=== PATIENT | female | born 1965 | race Caucasian/White ===

== ENCOUNTER 2017-03-08 01:54 | Inpatient (IN) | payer OTHER ==
[2017-03-08 04:40] LABS: Glucose,Whole Blood 228 mg/dL (75-99)
[2017-03-08 05:00] LABS: Appearance,Urine Cloudy (Clear); Bacteria,Urine Rare /hpf; Bilirubin,Urine Negative (Negative); Glucose,Urine (UA) 4+ (Negative); Ketones,Urine Negative (Negative); Leukocyte Esterase,Urine Large (Negative); Nitrite,Urine Negative (Negative); PH, Urine 6.5 (5.0-8.0); Particle Count 11417; Protein,Urine 2+ (Negative); RBC,Urine 15 /hpf (0-5); Specific Gravity,Urine 1.011 (1.001-1.035); Squamous Epithelial Cell,Urine 1 /hpf (0-4); UA Billing (MACRO vs. MICRO) MICRO; Urobilinogen,Urine <2.0 mg/dL (<2.0); WBC,Urine 122 /hpf (0-5)
[2017-03-08 05:29] LABS: Basophils % (A) 0 %; CH 31.3; CHCM 35.3; Eosinophils # (A) 0.2 k/uL (0-0.7); Eosinophils % (A) 2 %; HCT 33.5 % (34.0-46.0); HDW 3.03; HGB 11.6 gm/dL (11.4-16.0); Luc # (Auto) 0.18; Luc % (Auto) 2; Lymphocytes # (A) 0.7 k/uL (1.0-4.8); Lymphocytes % (A) 9 %; MCH 30.9 pg (25.0-35.0); MCHC 34.7 g/dL (31.0-37.0); Mean Platelet Volume 6.5; Monocytes # (A) 0.4 k/uL (0-1.0); Monocytes % (A) 5 %; Neutrophils # (A) 6.3 k/uL (1.3-7.7); Neutrophils % (A) 81 %; RBC 3.76 m/uL (3.80-5.40); RDW 14.1 % (11.5-15.5); WBC 7.7 k/uL (3.8-10.6); WBC (Perox) 7.76
[2017-03-08] MEDS ORDERED: INSULIN REGULAR 100 UNIT in SODIUM CHLORIDE 0.9% 100 ML IV SCH (05:30)
[2017-03-08 05:37] LABS: Calcium 10.6 mg/dL (8.4-10.2); Potassium 4.8 mmol/L (3.5-5.1)
[2017-03-08 06:25] LABS: Glucose,Whole Blood 188 mg/dL (75-99)
[2017-03-08] MEDS: HYDROcodone/APAP 5-325MG 1 EACH TAB PO PRN ×4 (06:26→23:56)
[2017-03-08 06:50] LABS: Glucose,Whole Blood 168 mg/dL (75-99)
[2017-03-08] MEDS: INSULIN LISPRO (humaLOG) 300 UNIT/3 ML VIAL SQ SCH ×5 (07:38→21:41)
[2017-03-08 08:53] LABS: Glucose,Whole Blood 108 mg/dL (75-99)
[2017-03-08 09:49] LABS: Glucose,Whole Blood 113 mg/dL (75-99)
[2017-03-08] MEDS ORDERED: LORazepam 0.5 MG TAB PO PRN (10:08)
[2017-03-08 10:53] LABS: Glucose,Whole Blood 140 mg/dL (75-99)
[2017-03-08] MEDS: SERTRALINE 50 MG TAB PO SCH (11:13)
[2017-03-08] MEDS: cloNIDine HCL 0.1 MG TAB PO SCH ×2 (11:14→19:53)
[2017-03-08] MEDS: FUROSEMIDE 40 MG TAB PO SCH (11:14)
[2017-03-08] MEDS: METOPROLOL SUCCINATE (ER) 50 MG TAB.ER.24H PO SCH (11:14)
[2017-03-08 11:21] LABS: Hemoglobin A1C 12.2 % (4.2-6.1)
[2017-03-08 13:05] LABS: Glucose,Whole Blood 263 mg/dL (75-99)
[2017-03-08 14:13] LABS: Glucose,Whole Blood 248 mg/dL (75-99)
[2017-03-08 15:07] LABS: Glucose,Whole Blood 145 mg/dL (75-99)
[2017-03-08] MEDS ORDERED: HYDROmorphone 1 MG/ML 1 ML SYRINGE IVP PRN (15:16)
[2017-03-08] MEDS: hydrALAZINE HCL 25 MG TAB PO SCH ×2 (15:25→21:42)
[2017-03-08] MEDS: ALBUTEROL NEBULIZED 2.5 MG/3 ML INHALATION SCH ×2 (15:40→21:21)
[2017-03-08 17:12] LABS: Glucose,Whole Blood 106 mg/dL (75-99)
[2017-03-08] MEDS ORDERED: INSULIN GLARGINE 100 UNIT/ML 10 ML VIAL SQ SCH (18:00)
[2017-03-08] MEDS: AMPICILLIN-SULBACTAM 1.5 GM in SODIUM CHLORIDE 0.9% 50 ML IVPB SCH ×2 (19:38→23:56)
[2017-03-08] MEDS ORDERED: TEMAZEPAM 15 MG CAP PO PRN (19:42)
[2017-03-08] MEDS: ATORVASTATIN 40 MG TAB PO SCH (19:53)
[2017-03-08 20:43] LABS: C Reactive Protein 79.3 mg/L (<10.0)
[2017-03-08] MEDS: HEPARIN SODIUM,PORCINE 5,000 UNIT/ML 1 ML VIAL SQ SCH (21:41)
[2017-03-08] MEDS: NYSTATIN 100,000UNIT/GM CREAM 30 GM TUBE TOPICAL SCH (21:42)
[2017-03-08 21:51] LABS: Glucose,Whole Blood 315 mg/dL (75-99)
[2017-03-08] MEDS: HYDROmorphone 1 MG/ML 1 ML SYRINGE IVP PRN (22:30)
[2017-03-09] MEDS: ALBUTEROL NEBULIZED 2.5 MG/3 ML INHALATION SCH ×4 (02:08→21:33)
[2017-03-09] MEDS: HYDROcodone/APAP 5-325MG 1 EACH TAB PO PRN ×5 (03:24→21:11)
[2017-03-09 03:29] LABS: Glucose,Whole Blood 344 mg/dL (75-99)
[2017-03-09] MEDS: INSULIN LISPRO (humaLOG) 300 UNIT/3 ML VIAL SQ SCH ×8 (03:45→21:13)
[2017-03-09] MEDS: AMPICILLIN-SULBACTAM 1.5 GM in SODIUM CHLORIDE 0.9% 50 ML IVPB SCH ×4 (05:04→23:06)
[2017-03-09] MEDS: HYDROmorphone 1 MG/ML 1 ML SYRINGE IVP PRN ×5 (05:05→23:06)
[2017-03-09 05:37] LABS: Glucose,Whole Blood 297 mg/dL (75-99)
[2017-03-09 06:56] LABS: Glucose,Whole Blood 230 mg/dL (75-99)
[2017-03-09 06:59] LABS: CH 30.5; HCT 29.8 % (34.0-46.0); Lymphocytes # (A) 0.8 k/uL (1.0-4.8)
[2017-03-09 07:02] LABS: Basophils % (A) 0 %; CHCM 33.8; Eosinophils # (A) 0.1 k/uL (0-0.7); Eosinophils % (A) 1 %; HDW 3.07; Luc # (Auto) 0.28; Luc % (Auto) 4; Lymphocytes % (A) 10 %; MCV 90.7 fL (80.0-100.0); Mean Platelet Volume 7.2; Monocytes # (A) 0.6 k/uL (0-1.0); Monocytes % (A) 7 %; Neutrophils % (A) 78 %; RBC 3.28 m/uL (3.80-5.40); WBC 7.7 k/uL (3.8-10.6); WBC (Perox) 7.94
[2017-03-09 07:05] LABS: HGB 9.8 gm/dL (11.4-16.0)
[2017-03-09 07:07] LABS: Calcium 8.9 mg/dL (8.4-10.2); Potassium 5.3 mmol/L (3.5-5.1)
[2017-03-09] MEDS: PANTOPRAZOLE 40 MG TABLET PO SCH (07:25)
[2017-03-09] MEDS: NYSTATIN 100,000UNIT/GM CREAM 30 GM TUBE TOPICAL SCH ×2 (08:24→21:13)
[2017-03-09] MEDS: hydrALAZINE HCL 25 MG TAB PO SCH ×3 (08:24→21:12)
[2017-03-09] MEDS: SERTRALINE 50 MG TAB PO SCH (08:24)
[2017-03-09] MEDS: HEPARIN SODIUM,PORCINE 5,000 UNIT/ML 1 ML VIAL SQ SCH ×2 (08:25→21:12)
[2017-03-09] MEDS: FUROSEMIDE 40 MG TAB PO SCH (08:25)
[2017-03-09] MEDS: amLODIPine 10 MG TAB PO SCH (08:25)
[2017-03-09] MEDS: METOPROLOL SUCCINATE (ER) 50 MG TAB.ER.24H PO SCH (08:26)
[2017-03-09] MEDS: cloNIDine HCL 0.1 MG TAB PO SCH ×2 (08:26→21:12)
--- NOTE | 2017-03-09 09:00 | HP ---
DATE OF ADMISSION: CHIEF COMPLAINT: Uncontrolled diabetes mellitus and swelling of the left side of the face. HISTORY OF PRESENT ILLNESS: This 51-year-old woman with the past medical history of multiple medical problems including congestive heart failure with chronic diastolic dysfunction, history of asthma, history of non-Hodgkin's lymphoma, history of diabetes mellitus, history of anxiety, depression, history of Mantle cell lymphoma, history of acute renal failure, history of being followed by Dr. Kim in the outpatient setting apparently presented to [facility] with complaints of elevated blood sugars. The blood sugars were found to be more than 500. The patient apparently was trying to find a dentist because of the carious teeth on the left side. The patient was transferred to [facility] and subsequently started on insulin drip and the patient closely monitor. The patient had swelling of the left side of the face and as well as severe pain also. The patient unable to open the jaw completely. PAST MEDICAL HISTORY: History of asthma, history of mantle cell lymphoma, history of congestive heart failure, diabetes mellitus, hypertension, history of non-Hodgkin lymphoma, history of anxiety, depression, not otherwise specified. Medications prior to admission include home medications are: 1. Apresoline 25 mg p.o. t.i.d. 2. Catapres 0.1 mg daily. 3. Norvasc 10 mg daily. 5. Zoloft 50 mg daily. 6. Nystatin application b.i.d. 7. Toprol-XL 50 mg daily. 8. Ativan 0.5 mg b.i.d. 9. NovoLog 10 units a.c. t.i.d. 10. Lasix 40 mg daily. ALLERGIES: ZITHROMAX, LATEX, METFORMIN, RITUXIMAB, AND ACTOS. FAMILY HISTORY: History of cancer in the family. SOCIAL HISTORY: History of nicotine dependence daily. No history of alcohol intake. REVIEW OF SYSTEMS: ENT: No diminished hearing, no diminished vision. Otherwise as mentioned earlier. CARDIOVASCULAR: No angina. RESPIRATORY: As mentioned earlier. GI: No nausea. : No dysuria. NERVOUS SYSTEM: No numbness or weakness. ALLERGY/IMMUNOLOGY: As mentioned earlier. MUSCULOSKELETAL: As mentioned earlier. HEMATOLOGY: No history of anemia. ENDOCRINE: No history of diabetes or hypothyroidism. CONSTITUTIONAL: As mentioned earlier. DERMATOLOGY: Negative. RHEUMATOLOGY: Negative. PSYCHIATRY: As mentioned earlier. PHYSICAL EXAMINATION: Patient is alert and oriented x3. Pulse is 72, blood pressure 130/69, respirations 18, temperature 98.2, pulse ox 99% on room air. HEENT: Conjunctivae normal. Otherwise significant swelling and pain of the left side of the face present. Oral cavity, carious teeth present. NECK: No jugular venous distention. CARDIOVASCULAR: S1 and S2, muffled. RESPIRATORY: Breath sounds diminished at the bases. A few scattered rhonchi and crackles. ABDOMEN: Soft, nontender. No mass palpable. LEGS: No edema, no swelling. NERVOUS SYSTEM: No focal deficits. LABS: WBC 7.7, hemoglobin 11.6. Creatinine 1.5, calcium is 10.6. UA, possible urinary tract infection. ASSESSMENT: 1. Diabetes mellitus type 2, uncontrolled with a hemoglobin A1c of 12.2. 2. Significant carious teeth on the left side with facial cellulitis and severe pain. 3. Increased creatinine with chronic renal failure stage III. 4. Possible urinary tract infection. 5. Obesity with body mass index of 35.9. 6. History of asthma. 7. History of congestive heart failure with chronic diastolic dysfunction, ejection fraction 50% to 55%. 8. History of non-Hodgkin lymphoma and mantle cell lymphoma history. 9. History of diabetes mellitus type 2. 10. Hypertension, essential. 11. Anxiety, depression, not otherwise specified. 12. Continued ongoing nicotine dependence. 13. FULL CODE. RECOMMENDATIONS AND DISCUSSION: In this 51-year-old woman who presented with multiple complex medical issues, we will monitor the patient closely. Continue the current medications. Continue symptomatic treatment. Otherwise, we will initiate insulin drip and subsequently will titrated Lantus 20 units and lispro 5 units t.i.d. with scale. Otherwise, will continue the rest of the medications. DVT prophylaxis. Pain medications. I would also recommend consult Dr. Donaldson and continue to monitor. Prognosis guarded because of multiple complex medical issues. Home medications will be reconciled and further recommendations to follow. Copy of dictation forwarded to Dr. Kim who is the primary physician. Accu-Cheks before meals and at bedtime also will be used. MTDD
[2017-03-09 11:57] LABS: Glucose,Whole Blood 277 mg/dL (75-99)
--- NOTE | 2017-03-09 15:19 | XR ---
EXAMINATION TYPE: XR panorex DATE OF EXAM: 03/09/2017 3:15 PM COMPARISON: NONE HISTORY: Left face swelling TECHNIQUE: Panorex FINDINGS: Temporomandibular joints appear intact. Angles of the jaw on mandibular apex appear normal. There are a few teeth left. Large dental caries are evident. IMPRESSION: 1. No acute fracture
[2017-03-09 16:36] LABS: Glucose,Whole Blood 248 mg/dL (75-99)
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
[2017-03-09] MEDS ORDERED: INSULIN GLARGINE 100 UNIT/ML 10 ML VIAL SQ SCH (18:00)
[2017-03-09] MEDS: NICOTINE 21MG/24HR PATCH TRANSDERM SCH (18:53)
[2017-03-09 21:05] LABS: Glucose,Whole Blood 254 mg/dL (75-99)
[2017-03-09] MEDS: ATORVASTATIN 40 MG TAB PO SCH (21:12)
[2017-03-09] MEDS: CHLORHEXIDINE GLUCONATE 15 ML CUP MUCOUS MEM SCH (21:13)
--- NOTE | 2017-03-09 22:04 | CT ---
EXAMINATION TYPE: CT sinus wo con DATE OF EXAM: 03/09/2017 9:24 PM COMPARISON: NONE HISTORY: Left sided facial swelling and pain CT DLP: 577.3 mGycm CONTRAST: 0 mL of Omnipaque 300 The paranasal sinuses are examined in the axial plane at 2 mm thick sections. Reconstructed images i n the coronal plane were obtained. There is dental amalgam scatter artifact Left maxillary sinus has mucosal thickening and/or retention cyst. Mild mucosal thickening is within the anterior mid left ethmoid air cells. The sphenoid sinuses are clear. Frontal sinuses are aplas tic. The septum is evaluated. There is septal deviation to the right. The right ostiomeatal unit is patent. Left ostiomeatal unit is obstructed. Tiny bilateral td bull nilton are present. Mastoid air cells within the [id number] are clear. There is soft tissue swelling over the left periorbital region. Soft tissue swelling rheumatoid patterson es anterior to the left maxillary sinus at the cheek. This appears to be preseptal. The orbits are sy mmetrical. IMPRESSIONS: 1. Mucosal thickening with obstruction of the left ostiomeatal unit within the left maxillary sinus. Mucosal thickening is also present within the anterior mid left ethmoid air cells. 2. Preseptal cellulitis left periorbital region.
[2017-03-10] MEDS: HYDROcodone/APAP 5-325MG 1 EACH TAB PO PRN ×4 (01:57→17:13)
[2017-03-10 02:02] LABS: Glucose,Whole Blood 425 mg/dL (75-99)
[2017-03-10] MEDS: HYDROmorphone 1 MG/ML 1 ML SYRINGE IVP PRN ×5 (03:18→20:07)
[2017-03-10 05:57] LABS: Glucose,Whole Blood 461 mg/dL (75-99)
[2017-03-10] MEDS ORDERED: INSULIN LISPRO (humaLOG) 300 UNIT/3 ML VIAL SQ ONE (06:25)
[2017-03-10 06:51] LABS: Basophils % (A) 0 %; CH 30.2; CHCM 33.1; Eosinophils # (A) 0.2 k/uL (0-0.7); Eosinophils % (A) 2 %; HCT 31.8 % (34.0-46.0); HDW 3.22; HGB 10.5 gm/dL (11.4-16.0); Luc # (Auto) 0.21; Luc % (Auto) 3; Lymphocytes # (A) 0.8 k/uL (1.0-4.8); Lymphocytes % (A) 10 %; MCH 30.2 pg (25.0-35.0); MCHC 32.9 g/dL (31.0-37.0); MCV 91.7 fL (80.0-100.0); Mean Platelet Volume 7.4; Monocytes # (A) 0.5 k/uL (0-1.0); Monocytes % (A) 6 %; Neutrophils # (A) 5.9 k/uL (1.3-7.7); Neutrophils % (A) 78 %; RBC 3.47 m/uL (3.80-5.40); WBC 7.5 k/uL (3.8-10.6); WBC (Perox) 7.74
[2017-03-10] MEDS: PANTOPRAZOLE 40 MG TABLET PO SCH (06:55)
[2017-03-10] MEDS: AMPICILLIN-SULBACTAM 1.5 GM in SODIUM CHLORIDE 0.9% 50 ML IVPB SCH ×3 (06:55→20:05)
[2017-03-10] MEDS: INSULIN LISPRO (humaLOG) 300 UNIT/3 ML VIAL SQ SCH ×4 (07:15→17:06)
[2017-03-10 07:20] LABS: Calcium 8.7 mg/dL (8.4-10.2)
[2017-03-10 07:45] LABS: Potassium 6.5 mmol/L (3.5-5.1)
[2017-03-10] MEDS: hydrALAZINE HCL 25 MG TAB PO SCH ×3 (07:48→20:05)
[2017-03-10] MEDS: cloNIDine HCL 0.1 MG TAB PO SCH ×2 (07:49→20:04)
[2017-03-10] MEDS: FUROSEMIDE 40 MG TAB PO SCH (07:49)
[2017-03-10] MEDS: HEPARIN SODIUM,PORCINE 5,000 UNIT/ML 1 ML VIAL SQ SCH ×2 (07:49→20:05)
[2017-03-10] MEDS: amLODIPine 10 MG TAB PO SCH (07:49)
[2017-03-10] MEDS: CHLORHEXIDINE GLUCONATE 15 ML CUP MUCOUS MEM SCH ×2 (07:49→20:04)
[2017-03-10] MEDS: NICOTINE 21MG/24HR PATCH TRANSDERM SCH (07:50)
[2017-03-10] MEDS: SERTRALINE 50 MG TAB PO SCH (07:50)
[2017-03-10] MEDS: ALBUTEROL NEBULIZED 2.5 MG/3 ML INHALATION SCH ×3 (07:50→19:29)
[2017-03-10] MEDS: METOPROLOL SUCCINATE (ER) 50 MG TAB.ER.24H PO SCH (07:50)
[2017-03-10] MEDS: NYSTATIN 100,000UNIT/GM CREAM 30 GM TUBE TOPICAL SCH ×2 (07:50→20:05)
[2017-03-10] MEDS ORDERED: SODIUM BICARB 8.4% 50 ML SYR (1 MEQ/ML) IV ONE ×2 (08:06→17:43)
[2017-03-10] MEDS ORDERED: CALCIUM GLUCONATE 1,000 MG in SODIUM CHLORIDE 0.9% 100 ML IVPB ONE ×2 (08:06→18:15)
[2017-03-10] MEDS ORDERED: INSULIN REGULAR 100 UNIT/ML VIAL IV ONE ×2 (08:06→18:00)
[2017-03-10] MEDS ORDERED: SODIUM POLYSTYRENE SULFONATE 15 GM/60 ML BOTTLE PO ONE ×2 (08:06→17:43)
[2017-03-10] MEDS ORDERED: INSULIN REGULAR 100 UNIT in SODIUM CHLORIDE 0.9% 100 ML IV SCH (08:15)
[2017-03-10 09:32] LABS: Glucose,Whole Blood 312 mg/dL (75-99)
--- NOTE | 2017-03-10 10:56 | PN ---
DATE OF SERVICE: 03/09/2017 This is a 51-year-old woman who was admitted with significant uncontrolled diabetes mellitus and significant infection of the facial cellulitis on the right side. She is being closely monitored. Patient is on broad-spectrum IV antibiotics. The patient also had some periorbital swelling on the left side. Sugars are still high at 277, creatinine 2.3. The patient also has multiple other back and abnormalities also. There is some significant difficulty in opening the jaw. PAST MEDICAL HISTORY: Reviewed. REVIEW OF SYSTEMS: ENT: As mentioned earlier. CARDIOVASCULAR: No angina. RESPIRATORY: As Mentioned. GI: No nausea. : No dysuria. ENDOCRINE: As mentioned. Current medications are reviewed and include: 1. [place] 5 mg every 4 p.r.n. 2. Ventolin 2.5 every 6 p.r.n. 3. Norvasc 10 mg daily. 4. Unasyn 1.5 every 6. 5. Lipitor 40 mg daily. 6. Catapres 0.1 p.o. b.i.d. 7. Lasix 40 mg daily. 8. Heparin subcu b.i.d. 9. Lopressor 125 mg q.i.d. 10. Dilaudid 0.5 mg every 4 hours. 11. Lantus 10 units subcu daily. 12. Meloxicam. 13. Ativan 0.5 mg b.i.d. p.r.n. 14. Toprol-XL 50 mg daily. 15. Protonix 40 mg daily. 16. Zoloft 50 mg daily. 17. Rocephin 50 mg at bedtime p.r.n. PHYSICAL EXAM: Alert, oriented x3. Pulse 72, blood pressure 140/80, respirations 18, temperature 98.8, pulse ox is 98% on room air. HEENT: Conjunctivae normal. Significant swelling and tenderness on the left side of the face and some periorbital swelling also present. NECK: No JVD. CARDIOVASCULAR: S1 and S2 muffled. LUNGS: Breath sounds are diminished at the bases. Few scattered rhonchi. LYMPHATIC: No lymphadenopathy. ABDOMEN: Soft, nontender. No mass palpable. EXTREMITIES: Legs, no edema. NERVOUS SYSTEMS: As mentioned. Moves all limbs with no focal deficits. LYMPHATICS: No lymph nodes palpable in the neck. axillae or groin. SKIN: As mentioned earlier. LABS: WBC 7, hemoglobin 10, sodium 130, potassium ntd. Accucheks noted. ASSESSMENT: 1. Diabetes mellitus type 2, uncontrolled, with hemoglobin A1c of 12.2. 2. Significant carious teeth on the left side with facial cellulitis and severe pain. 3. Increased creatinine with chronic renal failure stage III. 4. Urinary tract infection. 5. Obesity with body mass index of surface 35.9. 6. History of asthma. 7. History of congestive heart failure with chronic diastolic dysfunction, ejection 50% to 55%. 8. History of non-Hodgkin lymphoma mantle cell lymphoma history. 9. History of diabetes type 2. 10. Hypertension, essential. 11. Anxiety, depression, not otherwise specified. 12. Continued ongoing nicotine dependence. 13. FULL CODE. RECOMMENDATIONS: Recommend to continue current medications, continue symptomatic treatment, continue with broad-spectrum IV antibiotics. Obtain the cultures. Otherwise, infectious disease and oromaxillary is consulted. Continue to monitor. Further recommendations to follow. Panoramic x-rays have been ordered which showed no acute fracture at this time. See orders for further details. Further recommendations to follow. The patient is on 20 units of Lantus daily, I would increase the dose to 30 units and continue to monitor. MTDD
[2017-03-10 11:15] LABS: Glucose,Whole Blood 104 mg/dL (75-99)
[2017-03-10 13:17] LABS: Glucose,Whole Blood 199 mg/dL (75-99)
[2017-03-10 15:02] VITALS: BMI 36.6
[2017-03-10 15:39] LABS: Glucose,Whole Blood 197 mg/dL (75-99)
--- NOTE | 2017-03-10 15:57 | CONS ---
DATE OF CONSULTATION: CHIEF COMPLAINT: Swelling of the left lid and cheek for the last one week. HISTORY OF PRESENT ILLNESS: The patient has tenderness and swelling of the left cheek area and orbit area for the last one week getting worse. PAST MEDICAL HISTORY: The patient is diabetic. EYE EXAMINATION: Vision is 20/20 over 40 both eyes reading glasses. Extraocular movements full. Confrontation normal. Pupils equal, and reactive. Tension ( ) was 18 mmHg right eye and 17 mmHg left eye. Lens: 1+ ( ). Retina shows no vasculitis or vitritis or hemorrhage. Posterior pole for diabetic is obviously not well checked. The patient is bedridden. Needs slit lamp to see details of the macula. ASSESSMENT: 1. Left preseptal cellulitis. 2. Left cheek swelling, possible maxillary sinusitis. 3. Diabetes without retinopathy. PLAN: I agree with intravenous antibiotics. I ordered CT scan of the orbit and sinus to rule out mucor mycosis or orbital abscess. I will reexamine the patient in the office in a few days.
[2017-03-10 16:56] LABS: Potassium 6.1 mmol/L (3.5-5.1)
[2017-03-10 17:13] LABS: Glucose,Whole Blood 224 mg/dL (75-99)
--- NOTE | 2017-03-10 17:49 | P.PN ---
Subjective Date of service 03/10/2017. Progress note being dictated for Dr. Rust. Interval history: Is a 51-year-old female admitted with uncontrolled diabetes mellitus type 2 with hemoglobin A1c of 12.2, significant carious teeth on the left with facial cellulitis and severe pain, acute on chronic renal failure, UTI and multiple other medical issues. Maintained on Unasyn as per infectious disease. Afebrile, normal WBC. Consuming 100% of mechanical soft, low potassium, consistent carb diet. Lantus dose increased yesterday, blood sugars remain uncontrolled,returned to insulin drip. Elevated potassium of 6.5, orders given. Denies nausea, vomiting.Telemetry sinus rhythm. Denies chest pain , palpitations. Denies increase in shortness of breath. Evaluated by fireperson, recommendations noted. Sinus CT noted, reporting left maxillary sinus thickening, mild mucosal thickening within the anterior left ethmoid, preseptal cellulitis left periorbital, septal deviation to the right. Objective - Vital Signs Vital signs: Vital Signs Temp 97.6 F 03/10/17 07:47 Pulse 66 03/10/17 11:19 Resp 16 03/10/17 11:17 BP 116/68 03/10/17 11:17 Pulse Ox 98 03/10/17 11:17 Intake & Output 03/09/17 03/10/17 03/10/17 18:59 06:59 18:59 Intake Total 580 750 136.433 Output Total 200 Balance 380 750 136.433 Weight 86.5 kg 88 kg Intake: IV 100 saline 100 Intake, IV Titration 100 150 16.433 Amount Ampicillin-Sulbactam 1.5 100 150 gm In Sodium Chloride 0.9 % 50 ml @ 100 mls/hr IVPB Q6HR [facility] Rx#:[id number] Insulin Regular 100 unit 16.433 In Sodium Chloride 0.9% 100 ml @ Titrate IV .Q0M [facility] Rx#:[id number] Oral 480 500 120 Output: Urine 200 Other: Voiding Method Toilet Toilet Toilet # Voids 1 1 - Exam PHYSICAL EXAM: VITAL SIGNS: [As above] GENERAL: [Sitting up at side of bed, no acute distress] HEENT: [Pupils equal conjunctiva normal. Left Periorbital edema and left sided facial edema, tenderness improving] NECK: [Supple, no JVD] RESPIRATORY EFFORT:[Normal] LUNGS: [Bilateral bases diminished, scattered rhonchi throughout, no wheezes or crackles] CARDIOVASCULAR[regular S1 and S2, no edema] GI: [Abdomen soft, nondistended, nontender, positive bowel sounds.] PSYCH: [Alert and oriented -3, mood and affect normal.] SKIN: As mentioned above NEURO: Gross neurological examination did not reveal any focal deficits, moves all 4 extremities, strength and sensation grossly intact. Microbiology 03/08/17 16:21 Urine,Voided Urine Culture - Final - Labs CBC & Chem 7: 03/10/17 06:25 03/10/17 16:08 Labs: Abnormal Lab Results - Last 24 Hours (Table) 03/09/17 03/09/17 03/10/17 Range/Units 16:35 21:01 01:56 RBC (3.80-5.40) m/uL Hgb (11.4-16.0) gm/dL Hct (34.0-46.0) % Lymphocytes # (1.0-4.8) k/uL Sodium (137-145) mmol/L Potassium (3.5-5.1) mmol/L BUN (7-17) mg/dL Creatinine (0.52-1.04) mg/dL Glucose (74-99) mg/dL POC Glucose (mg/dL) 248 H 254 H 425 H (75-99) mg/dL 03/10/17 03/10/17 03/10/17 Range/Units 05:55 06:22 06:25 RBC 3.47 L (3.80-5.40) m/uL Hgb 10.5 L (11.4-16.0) gm/dL Hct 31.8 L (34.0-46.0) % Lymphocytes # 0.8 L (1.0-4.8) k/uL Sodium 134 L (137-145) mmol/L Potassium 6.5 H* (3.5-5.1) mmol/L BUN 57 H (7-17) mg/dL Creatinine 2.03 H (0.52-1.04) mg/dL Glucose 453 H* (74-99) mg/dL POC Glucose (mg/dL) 461 H (75-99) mg/dL 03/10/17 03/10/17 03/10/17 Range/Units 09:19 11:02 13:05 RBC (3.80-5.40) m/uL Hgb (11.4-16.0) gm/dL Hct (34.0-46.0) % Lymphocytes # (1.0-4.8) k/uL Sodium (137-145) mmol/L Potassium (3.5-5.1) mmol/L BUN (7-17) mg/dL Creatinine (0.52-1.04) mg/dL Glucose (74-99) mg/dL POC Glucose (mg/dL) 312 H 104 H 199 H (75-99) mg/dL Microbiology - Last 24 Hours (Table) 03/08/17 16:21 Urine Culture - Final Urine,Voided Assessment and Plan Plan: 1 [diabetes mellitus type 2, uncontrolled, hemoglobin A1c of 12.2]. 2. Significant carious teeth on the left side with facial cellulitis and severe pain. Left preseptal cellulitis, possibly maxillary sinusitis per CT 3. Acute on chronic renal failure, stage III. 4. UTI. 5. Obesity, BMI 36.7. 6. History of chronic intermittent asthma. 7. Chronic congestive heart failure, diastolic dysfunction, EF 50-55%]. 8. Non-Hodgkin's lymphoma, mantle cell lymphoma 9. Essential hypertension 10. Anxiety, depression, not otherwise specified 11. Continued ongoing nicotine abuse 12. Hyperkalemia Plan: Continue on current medication regime ,monitoring and symptomatic treatment. Regular insulin, calcium gluconate, D50, bicarb, Kayexalate, ordered regarding hyperkalemia with repeat electrolytes at 1600. Low potassium diet. Maintain insulin drip. Close monitoring of Accu-Cheks. Antibiotics as per infectious disease. Consult in place with Dr. Rizo, oral surgery, with recommendations pending.Prognosis guarded given multiple complex medical issues. The impression and plan of care has been dictated as directed. .: I performed a H&P examination of this patient and discussed the same with the dictator. I agree with the dictator's note. Any additional findings/opinions/ etc. will be noted.
[2017-03-10 18:53] LABS: Glucose,Whole Blood 204 mg/dL (75-99)
[2017-03-10] MEDS: ATORVASTATIN 40 MG TAB PO SCH (20:04)
[2017-03-10 20:39] LABS: Glucose,Whole Blood 225 mg/dL (75-99)
--- NOTE | 2017-03-10 22:44 | PN ---
DATE OF SERVICE: 03/10/2017 This 51-year-old woman who was admitted with significant facial cellulitis, also had uncontrolled diabetes mellitus as well. The patient is back on insulin drip. Seen and evaluated the patient with the nurse practitioner. Please refer to the nurse practitioner's notes and impression documented as a scribe for further information. Sinus CT showed preseptal cellulitis on the left side and left cheek, swelling possible maxillary sinusitis and the patient also had diabetes without retinopathy. Continue the antibiotics. See orders for further details. Closely follow with oral surgery as well as infectious disease. Guarded prognosis. Further recommendations to follow.
[2017-03-10 22:56] LABS: Glucose,Whole Blood 217 mg/dL (75-99)
[2017-03-11 00:55] LABS: Glucose,Whole Blood 245 mg/dL (75-99)
[2017-03-11] MEDS: HYDROmorphone 1 MG/ML 1 ML SYRINGE IVP PRN ×2 (01:09→06:53)
[2017-03-11 03:02] LABS: Glucose,Whole Blood 178 mg/dL (75-99)
[2017-03-11] MEDS: HYDROcodone/APAP 5-325MG 1 EACH TAB PO PRN ×3 (04:27→21:43)
[2017-03-11 05:01] LABS: Glucose,Whole Blood 187 mg/dL (75-99)
[2017-03-11 06:15] LABS: Basophils % (A) 0 %; CH 30.3; CHCM 34.3; Eosinophils # (A) 0.1 k/uL (0-0.7); Eosinophils % (A) 2 %; HCT 28.1 % (34.0-46.0); HDW 3.29; HGB 9.9 gm/dL (11.4-16.0); Luc % (Auto) 3; Lymphocytes # (A) 0.7 k/uL (1.0-4.8); Lymphocytes % (A) 10 %; MCH 31.2 pg (25.0-35.0); MCHC 35.1 g/dL (31.0-37.0); MCV 88.7 fL (80.0-100.0); Mean Platelet Volume 7.7; Monocytes # (A) 0.4 k/uL (0-1.0); Monocytes % (A) 6 %; Neutrophils # (A) 5.6 k/uL (1.3-7.7); Neutrophils % (A) 79 %; RBC 3.16 m/uL (3.80-5.40); RDW 13.9 % (11.5-15.5); WBC 7.1 k/uL (3.8-10.6); WBC (Perox) 7.61
[2017-03-11] MEDS: PANTOPRAZOLE 40 MG TABLET PO SCH (06:53)
[2017-03-11 07:09] LABS: Glucose,Whole Blood 143 mg/dL (75-99)
[2017-03-11] MEDS: INSULIN LISPRO (humaLOG) 300 UNIT/3 ML VIAL SQ SCH ×5 (07:26→21:42)
[2017-03-11] MEDS: NYSTATIN 100,000UNIT/GM CREAM 30 GM TUBE TOPICAL SCH ×2 (08:33→21:43)
[2017-03-11] MEDS: SERTRALINE 50 MG TAB PO SCH (08:33)
[2017-03-11] MEDS: hydrALAZINE HCL 25 MG TAB PO SCH ×3 (08:33→21:41)
[2017-03-11] MEDS: amLODIPine 10 MG TAB PO SCH (08:33)
[2017-03-11] MEDS: METOPROLOL SUCCINATE (ER) 50 MG TAB.ER.24H PO SCH (08:33)
[2017-03-11] MEDS: NICOTINE 21MG/24HR PATCH TRANSDERM SCH ×2 (08:33→08:34)
[2017-03-11] MEDS: cloNIDine HCL 0.1 MG TAB PO SCH ×2 (08:33→21:41)
[2017-03-11] MEDS: FUROSEMIDE 40 MG TAB PO SCH (08:34)
[2017-03-11] MEDS: HEPARIN SODIUM,PORCINE 5,000 UNIT/ML 1 ML VIAL SQ SCH ×2 (08:34→21:42)
[2017-03-11] MEDS: CHLORHEXIDINE GLUCONATE 15 ML CUP MUCOUS MEM SCH ×2 (08:34→21:53)
--- NOTE | 2017-03-11 08:36 | CONS ---
DATE OF CONSULTATION: Ms. Melendez is a 51-year-old woman who presented to the hospital on 03/08/2017 with complaints of significant pain to her mouth, with some evidence of extensive elevated blood sugar as well as significant oral abscess. She has been seen by Oral Surgery and has been offered an outpatient surgical intervention for removal of the fractured carious tooth that is the source of recurrent infection. Her pain is improved today. She is eating her full dinner with no difficulties. Trismus is improved. She is having no further fever, chills, rigors, or sweats. On the exam, she is a pleasant obese woman who seems to be somewhat comfortable. She is afebrile and hemodynamically stable. Please refer to the nursing notes for vital signs. The exam reveals to be nonicteric. Conjunctivae are pink and moist. Nasal mucosa are grossly intact. She does not have thrush. There is evidence of full mouth opening and she is chewing her dinner without any difficulties upon arrival into the room. She is having no difficulty with swallowing. She still has some tenderness on the left maxillary area. No expressible purulence is seen. Lungs have expiratory wheezes. No riley bronchial sounds. Heart is regular. The abdomen is obese but benign. Upper extremities are intact. IV site looks well. Lower extremity edema. The rest of the skin is without rash. No positive cultures are noted. At this point in time, Ms. Emilie Melendez has the difficulty with the odontogenic infection with significant hyperglycemia with markedly low blood sugars and an hemoglobin A1c of greater than 14. Average blood sugars are very high. She is again educated about the importance of her glucose control. She is receiving intravenous antibiotic therapy at this point in time with Unasyn and is having improvement. If she improves, this can be transitioned to oral Augmentin to complete her course of therapy. She will need to follow up with the oral surgeon in the outpatient setting for extraction of the infected tooth. She relates that she would like to have all her teeth extracted. I told her that she will need to discuss this with the oral surgeon because there would be distinct costs associated with that, but would be able to certainly help her with the currently grossly infected tooth she has at this time.
[2017-03-11] MEDS: AMPICILLIN-SULBACTAM 1.5 GM in SODIUM CHLORIDE 0.9% 50 ML IVPB SCH ×2 (08:51→21:48)
[2017-03-11 09:03] LABS: Glucose,Whole Blood 202 mg/dL (75-99)
[2017-03-11 09:20] LABS: Calcium 8.9 mg/dL (8.4-10.2); Potassium 5.4 mmol/L (3.5-5.1)
[2017-03-11] MEDS ORDERED: SODIUM POLYSTYRENE SULFONATE 15 GM/60 ML BOTTLE PO STA (09:32)
[2017-03-11] MEDS: ALBUTEROL NEBULIZED 2.5 MG/3 ML INHALATION SCH ×3 (09:56→19:25)
[2017-03-11 11:01] LABS: Glucose,Whole Blood 130 mg/dL (75-99)
[2017-03-11] MEDS ORDERED: INSULIN GLARGINE 100 UNIT/ML 10 ML VIAL SQ ONE (12:29)
[2017-03-11 13:56] LABS: Hemoglobin A1C 11.9 % (4.2-6.1)
--- NOTE | 2017-03-11 16:30 | P.PN ---
Subjective Date of service . Progress note being dictated for Dr. Rust. Interval history: Is a 51-year-old female admitted with uncontrolled diabetes mellitus type 2 with hemoglobin A1c of 12.2, significant carious teeth on the left with facial cellulitis and severe pain, acute on chronic renal failure, UTI and multiple other medical issues. Maintained on Unasyn as per infectious disease. WBC WNL, Afebrile. Potassium improving, down to 5.4 .Good DIet intake , denies nausea, vomiting.Insulin drip weaned off and now on Lantus with Humalog sliding scale Telemetry sinus rhythm. Denies chest pain, palpitations, or increasing shortness of breath. Objective - Vital Signs Vital signs: Vital Signs Temp 97.8 F 03/11/17 04:00 Pulse 75 03/11/17 04:00 Resp 17 03/11/17 08:00 BP 148/77 03/11/17 04:00 Pulse Ox 99 03/11/17 04:00 Intake & Output 03/10/17 03/11/17 03/11/17 18:59 06:59 18:59 Intake Total 559.083 450.483 451.767 Output Total 550 Balance 559.083 -99.517 451.767 Weight 88 kg 90.2 kg Intake: IV 119 Insulin Regular 100 unit 9 In Sodium Chloride 0.9% 100 ml @ Titrate IV .Q0M [facility] Rx#:[id number] saline 110 Intake, IV Titration 79.083 31.483 7.767 Amount Ampicillin-Sulbactam 1.5 50 gm In Sodium Chloride 0.9 % 50 ml @ 100 mls/hr IVPB Q12H [facility] Rx#:[id number] Insulin Regular 100 unit 29.083 31.483 7.767 In Sodium Chloride 0.9% 100 ml @ Titrate IV .Q0M [facility] Rx#:[id number] Oral 480 300 444 Output: Urine 550 Other: Voiding Method Toilet Toilet Toilet # Voids 1 - Exam PHYSICAL EXAM: VITAL SIGNS: [As above] GENERAL: [Sitting up in bed, no acute distress] HEENT: [Pupils equal conjunctiva normal. Left Periorbital edema and left sided facial edema, tenderness, continues to improve, no thrush] NECK: [Supple, no JVD] RESPIRATORY EFFORT:[Normal] LUNGS: [Bilateral bases diminished, scattered rhonchi throughout, no wheezes or crackles] CARDIOVASCULAR[regular S1 and S2, no edema] GI: [Abdomen soft, nondistended, nontender, positive bowel sounds.] PSYCH: [Alert and oriented -3, mood and affect normal.] SKIN: As mentioned above NEURO: Gross neurological examination did not reveal any focal deficits, moves all 4 extremities, strength and sensation grossly intact. Microbiology 03/08/17 16:21 Urine,Voided Urine Culture - Final - Labs CBC & Chem 7: 03/11/17 06:03 03/11/17 06:03 Labs: Abnormal Lab Results - Last 24 Hours (Table) 03/10/17 03/10/17 03/10/17 Range/Units 16:08 17:00 18:40 RBC (3.80-5.40) m/uL Hgb (11.4-16.0) gm/dL Hct (34.0-46.0) % Lymphocytes # (1.0-4.8) k/uL Sodium 136 L (137-145) mmol/L Potassium 6.1 H (3.5-5.1) mmol/L BUN (7-17) mg/dL Creatinine (0.52-1.04) mg/dL Glucose (74-99) mg/dL POC Glucose (mg/dL) 224 H 204 H (75-99) mg/dL Hemoglobin A1c (4.2-6.1) % 03/10/17 03/10/17 03/11/17 Range/Units 20:37 22:54 00:54 RBC (3.80-5.40) m/uL Hgb (11.4-16.0) gm/dL Hct (34.0-46.0) % Lymphocytes # (1.0-4.8) k/uL Sodium (137-145) mmol/L Potassium (3.5-5.1) mmol/L BUN (7-17) mg/dL Creatinine (0.52-1.04) mg/dL Glucose (74-99) mg/dL POC Glucose (mg/dL) 225 H 217 H 245 H (75-99) mg/dL Hemoglobin A1c (4.2-6.1) % 03/11/17 03/11/17 03/11/17 Range/Units 03:01 05:00 06:03 RBC 3.16 L (3.80-5.40) m/uL Hgb 9.9 L (11.4-16.0) gm/dL Hct 28.1 L (34.0-46.0) % Lymphocytes # 0.7 L (1.0-4.8) k/uL Sodium (137-145) mmol/L Potassium (3.5-5.1) mmol/L BUN (7-17) mg/dL Creatinine (0.52-1.04) mg/dL Glucose (74-99) mg/dL POC Glucose (mg/dL) 178 H 187 H (75-99) mg/dL Hemoglobin A1c (4.2-6.1) % 03/11/17 03/11/17 03/11/17 Range/Units 06:03 06:03 07:04 RBC (3.80-5.40) m/uL Hgb (11.4-16.0) gm/dL Hct (34.0-46.0) % Lymphocytes # (1.0-4.8) k/uL Sodium (137-145) mmol/L Potassium 5.4 H (3.5-5.1) mmol/L BUN 58 H (7-17) mg/dL Creatinine 1.66 H (0.52-1.04) mg/dL Glucose 147 H (74-99) mg/dL POC Glucose (mg/dL) 143 H (75-99) mg/dL Hemoglobin A1c 11.9 H (4.2-6.1) % 03/11/17 03/11/17 Range/Units 09:01 10:59 RBC (3.80-5.40) m/uL Hgb (11.4-16.0) gm/dL Hct (34.0-46.0) % Lymphocytes # (1.0-4.8) k/uL Sodium (137-145) mmol/L Potassium (3.5-5.1) mmol/L BUN (7-17) mg/dL Creatinine (0.52-1.04) mg/dL Glucose (74-99) mg/dL POC Glucose (mg/dL) 202 H 130 H (75-99) mg/dL Hemoglobin A1c (4.2-6.1) % Assessment and Plan Plan: 1 [diabetes mellitus type 2, uncontrolled, hemoglobin A1c of 12.2]. 2. Significant carious teeth on the left side with facial cellulitis and severe pain. Left preseptal cellulitis, possibly maxillary sinusitis per CT 3. Acute on chronic renal failure, stage III. 4. UTI. 5. Obesity, BMI 36.7. 6. History of chronic intermittent asthma. 7. Chronic congestive heart failure, diastolic dysfunction, EF 50-55%]. 8. Non-Hodgkin's lymphoma, mantle cell lymphoma 9. Essential hypertension 10. Anxiety, depression, not otherwise specified 11. Continued ongoing nicotine abuse 12. Hyperkalemia Plan: Continue on current medication regime ,monitoring and symptomatic treatment. Maintain Low potassium diet. Insulin drip discontinued, Lantus initiated with sliding scale and pre-meal insulin. Close monitoring of Accu- Cheks. Antibiotics as per infectious disease. Oral surgery consult in place with recommendations pending.Prognosis guarded given multiple complex medical issues. The impression and plan of care has been dictated as directed. : I performed a H&P examination of this patient and discussed the same with the dictator. I agree with the dictator's note. Any additional findings/opinions/ etc. will be noted.
[2017-03-11 17:41] LABS: Glucose,Whole Blood 277 mg/dL (75-99)
[2017-03-11 20:35] LABS: Glucose,Whole Blood 201 mg/dL (75-99)
[2017-03-11] MEDS ORDERED: INSULIN GLARGINE 100 UNIT/ML 10 ML VIAL SQ SCH (21:00)
--- NOTE | 2017-03-11 21:12 | PN ---
DATE OF SERVICE: 03/11/2017 This 51-year-old woman was admitted with significant cellulitis of the left side of the face. She also had uncontrolled blood sugars. She is on broad-spectrum IV antibiotics. Seen and evaluated the patient along with the nurse practitioner. Please refer to the nurse practitioner's notes and impressions documented as a scribe for further information. Prognosis guarded. Further recommendations to follow.
[2017-03-11] MEDS: ATORVASTATIN 40 MG TAB PO SCH (21:41)
[2017-03-11 23:03] VITALS: TEMP 97.5
[2017-03-12] MEDS: HYDROcodone/APAP 5-325MG 1 EACH TAB PO PRN ×3 (06:30→15:51)
[2017-03-12 06:58] LABS: Glucose,Whole Blood 309 mg/dL (75-99)
[2017-03-12 08:10] VITALS: BP 146/71; RESP 16
[2017-03-12 08:20] LABS: Basophils % (A) 1 %; CH 30.5; CHCM 34.5; Eosinophils # (A) 0.2 k/uL (0-0.7); Eosinophils % (A) 4 %; HCT 27.9 % (34.0-46.0); HDW 3.31; HGB 9.6 gm/dL (11.4-16.0); Luc # (Auto) 0.17; Luc % (Auto) 3; Lymphocytes # (A) 0.7 k/uL (1.0-4.8); Lymphocytes % (A) 12 %; MCH 30.4 pg (25.0-35.0); MCHC 34.3 g/dL (31.0-37.0); MCV 88.7 fL (80.0-100.0); Mean Platelet Volume 7.3; Monocytes # (A) 0.3 k/uL (0-1.0); Monocytes % (A) 6 %; Neutrophils # (A) 4.2 k/uL (1.3-7.7); Neutrophils % (A) 75 %; RBC 3.15 m/uL (3.80-5.40); RDW 13.8 % (11.5-15.5); WBC 5.5 k/uL (3.8-10.6); WBC (Perox) 5.86
[2017-03-12 08:30] LABS: Calcium 8.7 mg/dL (8.4-10.2); Potassium 4.9 mmol/L (3.5-5.1)
[2017-03-12] MEDS: ALBUTEROL NEBULIZED 2.5 MG/3 ML INHALATION SCH ×2 (08:49→13:33)
[2017-03-12 08:53] VITALS: PULSE 64
[2017-03-12] MEDS: INSULIN LISPRO (humaLOG) 300 UNIT/3 ML VIAL SQ SCH ×5 (09:39→13:19)
[2017-03-12] MEDS: NICOTINE 21MG/24HR PATCH TRANSDERM SCH (09:39)
[2017-03-12] MEDS: NYSTATIN 100,000UNIT/GM CREAM 30 GM TUBE TOPICAL SCH (09:40)
[2017-03-12] MEDS: SERTRALINE 50 MG TAB PO SCH (09:40)
[2017-03-12] MEDS: PANTOPRAZOLE 40 MG TABLET PO SCH (09:42)
[2017-03-12] MEDS: amLODIPine 10 MG TAB PO SCH (09:42)
[2017-03-12] MEDS: CHLORHEXIDINE GLUCONATE 15 ML CUP MUCOUS MEM SCH (09:43)
[2017-03-12] MEDS: cloNIDine HCL 0.1 MG TAB PO SCH (09:43)
[2017-03-12] MEDS: hydrALAZINE HCL 25 MG TAB PO SCH ×2 (09:44→15:50)
[2017-03-12] MEDS: METOPROLOL SUCCINATE (ER) 50 MG TAB.ER.24H PO SCH (09:44)
[2017-03-12] MEDS: FUROSEMIDE 40 MG TAB PO SCH (09:44)
[2017-03-12] MEDS: HEPARIN SODIUM,PORCINE 5,000 UNIT/ML 1 ML VIAL SQ SCH (09:44)
[2017-03-12] MEDS: AMPICILLIN-SULBACTAM 1.5 GM in SODIUM CHLORIDE 0.9% 50 ML IVPB SCH (10:24)
[2017-03-12 10:59] LABS: Glucose,Whole Blood 321 mg/dL (75-99)
--- NOTE | 2017-03-12 15:25 | P.DS ---
Providers Date of admission: 03/08/17 04:02 Expected date of discharge: 03/12/17 Attending physician: Erich Rust Consults: 03/08/17 15:14 Consult Physician Urgent Consulting Provider: Clinton Donaldson Consult Reason/Comments: cellulitis, face Do you want consulting provider notified?: Yes 03/08/17 19:55 Consult Physician Routine Consulting Provider: Gianna Hunter Consult Reason/Comments: orbital eye swelling Do you want consulting provider notified?: Yes, Notify in am 03/09/17 13:57 Consult Physician Urgent Consulting Provider: Josr Rizo Consult Reason/Comments: dental infection. Do you want consulting provider notified?: Yes Primary care physician: Stated None Dr. Kim Hospital Course: 1 [Diabetes mellitus type 2, uncontrolled, hemoglobin A1c of 12.2]. 2. Significant carious teeth on the left side with facial cellulitis and severe pain. Left preseptal cellulitis, possibly maxillary sinusitis per CT. 3. Acute on chronic renal failure, stage III. 4. UTI. 5. Obesity, BMI 36.7. 6. History of chronic intermittent asthma. 7. Chronic congestive heart failure, diastolic dysfunction, EF 50-55%]. 8. Non-Hodgkin's lymphoma, mantle cell lymphoma 9. Essential hypertension 10. Anxiety, depression, not otherwise specified 11. Continued ongoing nicotine abuse Hospital course : Thiss a 51-year-old female presented to [facility] with blood sugars greater than 500, left-sided facial swelling with carious teeth. Transferred to [facility], admitted with uncontrolled diabetes mellitus type 2 with hemoglobin A1c of 12.2, significant carious teeth on the left with facial cellulitis and severe pain, acute on chronic renal failure, UTI and multiple other medical issues. Multiple consults : Oral surgery, ophthalmology and infectious disease. Panorex reported acute fracture , large dental caries. Maintained on Unasyn as per infectious disease. Patient does not have difficulty eating, consuming 100%. Initially required insulin drip which has been weaned off and now on Lantus insulin and pre-meal Humalog insulin. Accu-Chek currently down to 179. Reinforced the importance of maintaining control of diabetes, compliancy with med regime. Renal function during admission elevated as high as 2.3, currently down to 1.45. Hyperkalemic on admission, now within normal limits . Evaluated by linux vmware administrator, recommendations noted. Sinus CT noted, reporting left maxillary sinus thickening , mild mucosal thickening within the anterior left ethmoid, preseptal cellulitis left periorbital, septal deviation to the right. Outpatient appointment scheduled with oral surgery, linux vmware administrator, and PCP. Patient has been cleared by consults for discharge. Patient is being discharged home in a stable condition with guarded prognosis. The impression and plan of care has been dictated as directed. : I performed a H&P examination of this patient and discussed the same with the dictator. I agree with the dictator's note. Any additional findings/opinions/ etc. will be noted. Patient Condition at Discharge: Stable Plan - Discharge Summary New Discharge Prescriptions: Amoxicillin/Potassium Clav [Augmentin 500-125 Tablet] 1 tab PO Q12HR #14 tab Atorvastatin [Lipitor] 40 mg PO HS #30 tab Insulin Glargine,Hum.rec.anlog [Lantus Solostar] 50 unit SQ HS #1 pen Insulin Lispro [humaLOG Kwikpen] 10 unit SQ AC-TID #1 insuln.pen Nicotine 21Mg/24Hr Patch [Habitrol] 1 patch TRANSDERM DAILY #30 patch Discharge Medication List Metoprolol Succinate [Toprol XL] 50 mg PO DAILY 03/28/16 [History] Albuterol Nebulized [Ventolin Nebulized] 2.5 mg INHALATION RT-QID 07/11/16 [ History] amLODIPine [Norvasc] 10 mg PO DAILY #30 tab 07/19/16 [Rx] hydrALAZINE HCL [Apresoline] 25 mg PO TID #90 tab 07/19/16 [Rx] LORazepam [Ativan] 0.5 mg PO BID PRN 03/08/17 [History] Nystatin 100,000Unit/gm Cream [Mycostatin Cream] 1 applic TOPICAL BID 03/08/17 [ History] Sertraline HCl [Zoloft] 50 mg PO DAILY 03/08/17 [History] Amoxicillin/Potassium Clav [Augmentin 500-125 Tablet] 1 tab PO Q12HR #14 tab 11/16 [Rx] Atorvastatin [Lipitor] 40 mg PO HS #30 tab 03/12/17 [Rx] Chlorhexidine Gluconate [Peridex] 10 ml MUCOUS MEM BID solution 03/12/17 [Rx] Insulin Glargine,Hum.rec.anlog [Lantus Solostar] 50 unit SQ HS #1 pen 03/12/17 [ Rx] Insulin Lispro [humaLOG Kwikpen] 10 unit SQ AC-TID #1 insuln.pen 03/12/17 [Rx] Nicotine 21Mg/24Hr Patch [Habitrol] 1 patch TRANSDERM DAILY #30 patch 03/12/17 [ Rx] Follow up Appointment(s)/Referral(s): Josr Rizo DDS [STAFF PHYSICIAN] - 03/24/17 2:00 pm Gianna Hunter MD [STAFF PHYSICIAN] - 03/14/17 1:30 pm Shawn Kim MD [REFERRING] - 3 Days (Patient to call office morning to schedule follow up appointment. The office is closed at time of discharge. [place] office #[phone]) Ambulatory/Diagnostic Orders: Complete Blood Count w/diff [LAB.AMB] Time Frame: 3 Days, Location: Determined By Patient Patient Instructions/Handouts: Amoxicillin/Clavulanate Potassium (By mouth), Type 2 Diabetes in Adults (DC), Basic Carbohydrate Counting (DC), Abscess (GEN) Activity/Diet/Wound Care/Special Instructions: Home Care - [facility] - [phone] [facility] - [phone] send home with thigh High Compression hose & instructions
[2017-03-12 15:34] LABS: Glucose,Whole Blood 179 mg/dL (75-99)
[2017-03-12] MEDS ORDERED: INSULIN GLARGINE 100 UNIT/ML 10 ML VIAL SQ SCH (21:00)
== END 2017-03-12 17:55 | disposition home health service (06) | DRG 158 ==
LOC: 6SEL 04:02 → 5ONC 03-11 10:41
PROVIDERS: ADMIT Internal Medicine; ATTEND Internal Medicine
DX: K04.7 Periapical abscess without sinus (principal); K12.2 Cellulitis and abscess of mouth; N17.9 Acute kidney failure, unspecified; I13.0 Hypertensive heart and chronic kidney disease with heart failure and stage 1 through stage 4 chronic kidney disease, or unspecified chronic kidney disease; C83.10 Mantle cell lymphoma, unspecified site; E11.22 Type 2 diabetes mellitus with diabetic chronic kidney disease; I50.32 Chronic diastolic (congestive) heart failure; L03.211 Cellulitis of face; L03.213 Periorbital cellulitis; N39.0 Urinary tract infection, site not specified; E11.65 Type 2 diabetes mellitus with hyperglycemia; E66.9 Obesity, unspecified; F17.200 Nicotine dependence, unspecified, uncomplicated; F32.9 Major depressive disorder, single episode, unspecified; F41.9 Anxiety disorder, unspecified; I25.2 Old myocardial infarction; J34.2 Deviated nasal septum; J45.20 Mild intermittent asthma, uncomplicated; K02.9 Dental caries, unspecified; N18.3 Chronic kidney disease, stage 3 (moderate); Z68.36 Body mass index [BMI] 36.0-36.9, adult; Z79.4 Long term (current) use of insulin; Z79.899 Other long term (current) drug therapy; Z83.3 Family history of diabetes mellitus
CPT/HCPCS: 70355; 70486; 80048; 80051; 81001; 83036; 84134; 85025; 85652; 86140; 87086; 94640

== ENCOUNTER 2017-06-17 15:14 | Observation (INO) | payer OTHER ==
[2017-06-17] MEDS ORDERED: NALOXONE 0.4 MG/ML 1 ML VIAL IV PRN (17:53)
[2017-06-17] MEDS ORDERED: SODIUM POLYSTYRENE SULFONATE 15 GM/60 ML BOTTLE PO STA (18:01)
[2017-06-17] MEDS: SODIUM CHLORIDE 0.9% 1,000 ML IV SCH (18:24)
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
[2017-06-17 19:18] LABS: Basophils % (A) 1 %; CH 29.9; CHCM 34.7; Eosinophils # (A) 0.2 k/uL (0-0.7); Eosinophils % (A) 3 %; HCT 32.7 % (34.0-46.0); HDW 3.16; HGB 11.3 gm/dL (11.4-16.0); Luc # (Auto) 0.17; Luc % (Auto) 2; Lymphocytes % (A) 13 %; MCH 29.9 pg (25.0-35.0); MCHC 34.6 g/dL (31.0-37.0); MCV 86.5 fL (80.0-100.0); Mean Platelet Volume 6.5; Monocytes # (A) 0.4 k/uL (0-1.0); Monocytes % (A) 5 %; Neutrophils # (A) 5.7 k/uL (1.3-7.7); Neutrophils % (A) 77 %; RBC 3.78 m/uL (3.80-5.40); RDW 13.8 % (11.5-15.5); WBC 7.5 k/uL (3.8-10.6)
[2017-06-17 19:19] LABS: Magnesium 1.6 mg/dL (1.6-2.3); Potassium 5.9 mmol/L (3.5-5.1); Total Bilirubin 0.2 mg/dL (0.2-1.3); Total Protein 5.2 g/dL (6.3-8.2)
[2017-06-17 21:00] LABS: Glucose,Whole Blood 185 mg/dL (75-99)
[2017-06-17] MEDS: ACETAMINOPHEN TAB 325 MG TAB PO PRN (21:44)
[2017-06-17] MEDS: hydrALAZINE HCL 25 MG TAB PO SCH (21:45)
[2017-06-17] MEDS: FAMOTIDINE 20 MG TAB PO SCH (21:48)
[2017-06-17] MEDS: HEPARIN SODIUM,PORCINE 5,000 UNIT/ML 1 ML VIAL SQ SCH (21:49)
[2017-06-17] MEDS ORDERED: INSULIN GLARGINE 100 UNIT/ML 10 ML VIAL SQ SCH (22:00)
[2017-06-18 00:29] LABS: Appearance,Urine Clear (Clear); Bacteria,Urine Occasional /hpf; Bilirubin,Urine Negative (Negative); Glucose,Urine (UA) 1+ (Negative); Ketones,Urine Negative (Negative); Leukocyte Esterase,Urine Negative (Negative); Nitrite,Urine Negative (Negative); Particle Count 1158; Protein,Urine 2+ (Negative); RBC,Urine 4 /hpf (0-5); Specific Gravity,Urine 1.007 (1.001-1.035); Squamous Epithelial Cell,Urine 2 /hpf (0-4); UA Billing (MACRO vs. MICRO) MICRO; Urobilinogen,Urine <2.0 mg/dL (<2.0); WBC,Urine 12 /hpf (0-5)
[2017-06-18] MEDS: SODIUM CHLORIDE 0.9% 1,000 ML IV SCH ×2 (03:42→13:32)
[2017-06-18 03:53] LABS: Basophils # (A) 0.1 k/uL (0-0.2); Basophils % (A) 1 %; CH 30.1; CHCM 34.4; Eosinophils # (A) 0.2 k/uL (0-0.7); Eosinophils % (A) 4 %; HCT 32.3 % (34.0-46.0); HDW 3.02; Luc # (Auto) 0.12; Luc % (Auto) 2; Lymphocytes # (A) 1.1 k/uL (1.0-4.8); Lymphocytes % (A) 18 %; MCH 29.9 pg (25.0-35.0); Mean Platelet Volume 7.2; Monocytes # (A) 0.3 k/uL (0-1.0); Monocytes % (A) 5 %; Neutrophils # (A) 4.3 k/uL (1.3-7.7); Neutrophils % (A) 71 %; RBC 3.67 m/uL (3.80-5.40); RDW 14.1 % (11.5-15.5); WBC 6.1 k/uL (3.8-10.6); WBC (Perox) 6.08
[2017-06-18 04:09] LABS: Calcium 8.7 mg/dL (8.4-10.2); Potassium 5.3 mmol/L (3.5-5.1)
[2017-06-18 05:24] VITALS: RESP 16
[2017-06-18] MEDS: ACETAMINOPHEN TAB 325 MG TAB PO PRN ×2 (05:24→11:16)
[2017-06-18 05:58] LABS: Glucose,Whole Blood 143 mg/dL (75-99)
[2017-06-18] MEDS: INSULIN LISPRO (humaLOG) 300 UNIT/3 ML VIAL SQ SCH ×2 (06:53→12:33)
[2017-06-18] MEDS: FAMOTIDINE 20 MG TAB PO SCH (08:50)
[2017-06-18] MEDS: HEPARIN SODIUM,PORCINE 5,000 UNIT/ML 1 ML VIAL SQ SCH (08:50)
[2017-06-18] MEDS: hydrALAZINE HCL 25 MG TAB PO SCH (08:50)
[2017-06-18] MEDS ORDERED: cloNIDine HCL 0.1 MG TAB PO SCH (09:00)
[2017-06-18 10:53] VITALS: BP 146/84; PULSE 80; TEMP 97.4
[2017-06-18] MEDS ORDERED: SODIUM CHLORIDE 0.9% 1,000 ML IV ONE (11:09)
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
[2017-06-18 12:11] LABS: Glucose,Whole Blood 288 mg/dL (75-99)
[2017-06-18 12:39] LABS: Hemoglobin A1C 8.9 % (4.2-6.1)
[2017-06-18] MEDS ORDERED: INSULIN GLARGINE 100 UNIT/ML 10 ML VIAL SQ SCH ×2 (21:00)
[2017-06-18] MEDS ORDERED: SODIUM BICARBONATE TAB 650 MG TAB PO SCH (21:00)
[2017-06-18] MEDS ORDERED: ATORVASTATIN 40 MG TAB PO SCH (21:00)
--- NOTE | 2017-06-19 16:04 | P.DS ---
Providers Date of admission: 06/17/17 17:22 Expected date of discharge: 06/18/17 Attending physician: Erich Damon Consults: 06/17/17 21:31 Consult Physician Routine Consulting Provider: Stuart Templeton Consult Reason/Comments: hyperkalemia, increased BUN and Creat Do you want consulting provider notified?: Yes, Notify in am Primary care physician: [facility] Course: Final diagnoses #1 epigastric abdominal burning sensation secondary to gastritis 2 acute renal failure secondary to prerenal azotemia from nausea vomiting, patient will be started on IV normal saline patient has normal ejection fraction from her previous echocardiogram. 3 chronic kidney disease stage II to 3 with baseline creatinine of around 1.2 secondary to diabetic nephropathy #4 type 2 diabetes mellitus: Patient had low blood sugars yesterday, improved #5 hyperkalemia: Secondary to acute renal failure, improved 6 hypertension Hospital course: This is a 52-year-old female with known history of CK stage III , baseline creatinine near 1.5 ,type 2 diabetes mellitus, transferred from [facility]. Patient presented to [facility] with nausea vomiting, abdominal burning sensation, elevated creatinine at 2, hypoglycemic with blood sugars in the 60s, hyperkalemic. She had been taking Bactrim and Motrin regularly twice a day. Potassium was medically treated, improved down to 5.3. Evaluated by a nephrology. Maintained on IV fluid hydration, oral sodium bicarb,PPI. Significant clinical improvement. She has been cleared by nephrology for discharge. Patient is being discharged home in a stable condition with guarded prognosis. The impression and plan of care has been dictated as directed as a scribe. : I performed a H&P examination of this patient and discussed the same with the dictator. I agree with the dictator's note. Any additional findings/opinions/ etc. will be noted. Patient Condition at Discharge: Stable Plan - Discharge Summary New Discharge Prescriptions: New Famotidine [Pepcid] 20 mg PO BID #60 tab Sodium Bicarbonate Tab 1,300 mg PO BID #40 tab Continue Metoprolol Succinate [Toprol XL] 50 mg PO DAILY Albuterol Nebulized [Ventolin Nebulized] 2.5 mg INHALATION RT-QID hydrALAZINE HCL [Apresoline] 25 mg PO TID #90 tab Sertraline HCl [Zoloft] 50 mg PO DAILY Albuterol Inhaler [Ventolin Hfa Inhaler] 1 - 2 puff INHALATION RT-Q6H PRN PRN Reason: Shortness Of Breath Simvastatin [Zocor] 80 mg PO HS Changed Insulin Glargine [Lantus] 30 unit SQ HS #0 Discontinued amLODIPine [Norvasc] 10 mg PO DAILY #30 tab Sulfamethox-Tmp 800-160Mg [Bactrim DS 800-160 mg] 1 tab PO Q12HR cloNIDine HCL [Catapres] 0.1 mg PO BID Furosemide [Lasix] 40 mg PO DAILY Discharge Medication List Metoprolol Succinate [Toprol XL] 50 mg PO DAILY 03/28/16 [History] Albuterol Nebulized [Ventolin Nebulized] 2.5 mg INHALATION RT-QID 07/11/16 [ History] hydrALAZINE HCL [Apresoline] 25 mg PO TID #90 tab 07/19/16 [Rx] Sertraline HCl [Zoloft] 50 mg PO DAILY 03/08/17 [History] Albuterol Inhaler [Ventolin Hfa Inhaler] 1 - 2 puff INHALATION RT-Q6H PRN [History] Simvastatin [Zocor] 80 mg PO HS 06/17/17 [History] Famotidine [Pepcid] 20 mg PO BID #60 tab 06/18/17 [Rx] Insulin Glargine [Lantus] 30 unit SQ HS #0 06/18/17 [Rx] Sodium Bicarbonate Tab 1,300 mg PO BID #40 tab 06/18/17 [Rx] Follow up Appointment(s)/Referral(s): Stuart Templeton DO [STAFF PHYSICIAN] - 2 Weeks (Dr. Templeton's office will call patient with an appointment date and time.) Kim Barrow NPC [Primary Care Provider] - 06/23/17 1:45 pm Ambulatory/Diagnostic Orders: Basic Metabolic Panel [LAB.AMB] Time Frame: 3 Days, Location: Determined By Patient Patient Instructions/Handouts: Famotidine (By mouth), Sodium Bicarbonate (By mouth), Hyperkalemia (DC), Pneumonia (DC) Activity/Diet/Wound Care/Special Instructions: Diet: consist. carb Accu-Cheks before meals and at bedtime, maintain log, take to follow-up visit with primary care physician for further recommendations Activity: Limited until follow up Discharge Disposition: HOME SELF-CARE
== END 2017-06-18 14:00 | disposition home or self-care (01) ==
LOC: INTOOBSV 17:22 → 6SEL 17:22 → 5MS5E 06-18 09:30
PROVIDERS: ADMIT Internal Medicine; ATTEND Internal Medicine
DX: K29.70 Gastritis, unspecified, without bleeding (principal); E87.2 Acidosis; N17.9 Acute kidney failure, unspecified; N18.3 Chronic kidney disease, stage 3 (moderate); E11.22 Type 2 diabetes mellitus with diabetic chronic kidney disease; E78.5 Hyperlipidemia, unspecified; I13.0 Hypertensive heart and chronic kidney disease with heart failure and stage 1 through stage 4 chronic kidney disease, or unspecified chronic kidney disease; I50.32 Chronic diastolic (congestive) heart failure; E11.21 Type 2 diabetes mellitus with diabetic nephropathy; J45.909 Unspecified asthma, uncomplicated; F32.9 Major depressive disorder, single episode, unspecified; F41.9 Anxiety disorder, unspecified; F17.200 Nicotine dependence, unspecified, uncomplicated; Z79.4 Long term (current) use of insulin; Z79.899 Other long term (current) drug therapy; Z85.72 Personal history of non-Hodgkin lymphomas; Z83.3 Family history of diabetes mellitus; Z88.8 Allergy status to other drugs, medicaments and biological substances; Z88.1 Allergy status to other antibiotic agents; Z91.040 Latex allergy status; Z91.011 Allergy to milk products; I25.2 Old myocardial infarction; I27.2 Other secondary pulmonary hypertension; I34.0 Nonrheumatic mitral (valve) insufficiency
CPT/HCPCS: 96372 ×2; 80053; 80048; 83036; 83735; 85025 ×2; 81001; 87040; 87086; G0379; G0378 ×2; J1644 ×2

== ENCOUNTER 2017-06-23 22:17 | Observation (INO) | payer OTHER ==
[2017-06-24 00:24] LABS: Glucose,Whole Blood 224 mg/dL (75-99)
[2017-06-24 01:21] LABS: HGB 11.1 gm/dL (11.4-16.0); Monocytes # (A) 0.4 k/uL (0-1.0)
[2017-06-24 01:24] LABS: Basophils # (A) 0.1 k/uL (0-0.2); Basophils % (A) 1 %; CH 30.4; CHCM 34.3; Eosinophils # (A) 0.4 k/uL (0-0.7); Eosinophils % (A) 5 %; HCT 32.2 % (34.0-46.0); HDW 2.99; Luc # (Auto) 0.19; Luc % (Auto) 3; Lymphocytes # (A) 1.2 k/uL (1.0-4.8); Lymphocytes % (A) 16 %; MCH 30.6 pg (25.0-35.0); MCHC 34.5 g/dL (31.0-37.0); MCV 88.8 fL (80.0-100.0); Monocytes % (A) 6 %; Neutrophils # (A) 5.1 k/uL (1.3-7.7); Neutrophils % (A) 69 %; RBC 3.62 m/uL (3.80-5.40); RDW 14.2 % (11.5-15.5); WBC 7.3 k/uL (3.8-10.6); WBC (Perox) 7.72
[2017-06-24 01:26] LABS: Calcium 8.5 mg/dL (8.4-10.2); Magnesium 1.5 mg/dL (1.6-2.3); Potassium 5.2 mmol/L (3.5-5.1); Total Bilirubin 0.2 mg/dL (0.2-1.3); Total Protein 5.2 g/dL (6.3-8.2)
[2017-06-24] MEDS ORDERED: HYDROmorphone 1 MG/ML 1 ML SYRINGE IVP PRN (01:46)
[2017-06-24] MEDS ORDERED: TEMAZEPAM 15 MG CAP PO PRN (01:46)
[2017-06-24] MEDS ORDERED: ALPRAZolam 0.25 MG TAB PO PRN (01:46)
[2017-06-24] MEDS ORDERED: LEVOFLOXACIN 500MG-D5W PMX 500 MG in DEXTROSE/WATER 1 100ML.BAG IVPB SCH (02:00)
[2017-06-24] MEDS: SODIUM CHLORIDE 0.9% 1,000 ML IV SCH ×2 (03:11→19:40)
[2017-06-24 06:06] LABS: Glucose,Whole Blood 183 mg/dL (75-99)
[2017-06-24 06:50] LABS: Basophils # (A) 0.1 k/uL (0-0.2); Basophils % (A) 1 %; CH 30.2; CHCM 33.6; Eosinophils # (A) 0.4 k/uL (0-0.7); Eosinophils % (A) 4 %; HCT 32.2 % (34.0-46.0); HDW 3.01; HGB 10.9 gm/dL (11.4-16.0); Luc # (Auto) 0.14; Luc % (Auto) 2; Lymphocytes # (A) 0.9 k/uL (1.0-4.8); Lymphocytes % (A) 11 %; MCH 30.6 pg (25.0-35.0); MCHC 33.9 g/dL (31.0-37.0); MCV 90.3 fL (80.0-100.0); Monocytes # (A) 0.5 k/uL (0-1.0); Monocytes % (A) 5 %; Neutrophils # (A) 6.6 k/uL (1.3-7.7); Neutrophils % (A) 77 %; RBC 3.57 m/uL (3.80-5.40); RDW 14.3 % (11.5-15.5); WBC 8.6 k/uL (3.8-10.6); WBC (Perox) 8.34
[2017-06-24 06:55] VITALS: BMI 39.8
[2017-06-24 07:07] LABS: Calcium 8.1 mg/dL (8.4-10.2); Potassium 5.3 mmol/L (3.5-5.1)
[2017-06-24] MEDS: INSULIN LISPRO (humaLOG) 300 UNIT/3 ML VIAL SQ SCH ×4 (07:20→21:35)
--- NOTE | 2017-06-24 07:48 | XR ---
EXAMINATION TYPE: XR chest 1V portable DATE OF EXAM: 06/24/2017 Comparison: 07/16/2016 Clinical History: 52-year-old female CHF Findings: Right-sided chest wall injection port with catheter tip at the cavoatrial junction. There is leftward patient rotation which alters the normal cardiomediastinal contours. The heart appears upper limits of normal in size. Dominant cyst in the interstitium. No significant pleural effusion seen on the fro ntal views. Impression: Heart at the upper limits of normal in size and interstitial prominence. Correlate for mild CHF.
[2017-06-24] MEDS ORDERED: IBUPROFEN 800 MG TAB PO PRN (08:05)
[2017-06-24] MEDS ORDERED: ALBUTEROL NEBULIZED 2.5 MG/3 ML INHALATION PRN (08:05)
[2017-06-24] MEDS ORDERED: Magnesium Replacement Protocol 1 EACH MISC MISCELLANE PRN (08:10)
[2017-06-24] MEDS: MAGNESIUM SULFATE-D5W PMX 1 GM in DEXTROSE/WATER 1 100ML.BAG IVPB SCH ×2 (09:59→11:40)
[2017-06-24] MEDS: ESOMEPRAZOLE 20 MG in SODIUM CHLORIDE 0.9% 50 ML IVPB SCH (09:59)
[2017-06-24] MEDS: diphenhydrAMINE 2% CREAM 28.4 GM TUBE TOPICAL SCH ×2 (09:59→18:30)
[2017-06-24] MEDS: FAMOTIDINE 20 MG TAB PO SCH (10:00)
[2017-06-24] MEDS: HEPARIN SODIUM,PORCINE 5,000 UNIT/ML 1 ML VIAL SQ SCH ×2 (10:00→19:39)
[2017-06-24] MEDS: hydrALAZINE HCL 25 MG TAB PO SCH ×3 (10:00→19:39)
[2017-06-24] MEDS: SERTRALINE 50 MG TAB PO SCH (10:04)
[2017-06-24] MEDS: NICOTINE 14MG/24HR PATCH TRANSDERM SCH (10:04)
[2017-06-24] MEDS: SODIUM BICARBONATE TAB 650 MG TAB PO SCH ×2 (10:04→19:38)
[2017-06-24] MEDS: METOPROLOL SUCCINATE (ER) 50 MG TAB.ER.24H PO SCH (10:04)
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
[2017-06-24] MEDS: ALBUTEROL NEBULIZED 2.5 MG/3 ML INHALATION SCH ×3 (10:52→21:18)
[2017-06-24 11:57] LABS: Glucose,Whole Blood 249 mg/dL (75-99)
[2017-06-24] MEDS ORDERED: HYDROcodone/APAP 5-325MG 1 EACH TAB PO PRN (13:12)
[2017-06-24] MEDS ORDERED: INSULIN GLARGINE 100 UNIT/ML 10 ML VIAL SQ ONE (13:24)
--- NOTE | 2017-06-24 14:30 | HP ---
DATE OF ADMISSION: 06/24/17 CHIEF COMPLAINT: Weakness, hypoglycemia, as well as hyperkalemia. HISTORY OF PRESENT ILLNESS: This is a 52-year-old woman with a past medical history of multiple medical problems being followed by in the outpatient setting. The patient was admitted to the hospital with acute gastritis as well as acute renal failure secondary to poor po intake. The patient also had past medical history of CHF, history of diabetes mellitus, hypertension, hyperlipidemia, non-Hodgkins lymphoma, being followed by Dr. Read in the outpatient setting also had a Port-A-Cath in the right chest also. The patient went home. Apparently, the patient did not fill the prescriptions and the patient presented to office and UTI with sepsis was suspected. The patient was sent to [facility] where the patient was found to have hyperkalemia, potassium 6.2. Blood sugar was found to be 44 and saw the patient, evaluated the patient and also recommended Kayexalate and subsequently the patient was transferred to [facility] as a direct admission at this time. There is no history of fever, rigors or chills. There is no history of any headache, loss of consciousness or seizures. Past medical history of asthma, History of CHF, diabetes mellitus, hypertension , hyperlipidemia. History of recent gastritis. Medications prior to admission are: 1. Apresoline 25 mg po t.i.d. 2. Sodium bicarb. 3. Zocor 80 mg. 4. Zoloft 50 mg daily. 5. Toprol XL 250 mg daily. 6. Lantus 30 units subcu. 7. Pepcid 20 mg b.i.d. 8. Ventolin 2.5 q.i.d. ALLERGIES: ZITHROMAX, LATEX, METFORMIN, LACTOSE. FAMILY HISTORY: History of cancer and prostate cancer with METS in the family. SOCIAL HISTORY: No history of smoking. No history of alcohol intake. REVIEW OF SYSTEMS: ENT: Diminished vision. Diminished hearing. Cardiovascular : No angina or palpitations. Respiratory: As mentioned earlier. GI: As mentioned earlier. : No dysuria. Nervous system: No numbness or weakness. Allergy/Immunology: No asthma or hayfever. Musculoskeletal: As mentioned earlier. Hematology/Oncology: No history of anemia. Endocrine: History of diabetes mellitus. No hypothyroidism. Constitutional: As mentioned earlier. Dermatology: Negative. Rheumatology: Negative. Psychiatry: As mentioned earlier. PHYSICAL EXAMINATION: Alert and oriented times three. Pulse 80. Blood pressure 120/70. Respiratory rate 20, temperature normal. Pulse ox normal. HEENT: Conjunctivae normal. Oral mucosa dry. NECK: No JVD. No carotid bruit. No lymph node enlargement. Cardiovascular: S1, S2 muffled. No S3, no S4. Respiratory: Breath sounds diminished at the bases. Scattered rhonchi and no crackles. Abdomen is soft. Obese. Nontender. No mass palpable. Legs: No edema. No swelling. Nervous system: Higher functions as mentioned earlier. Moves all four limbs. No focal motor or sensory deficits. Lymphatics: No lymph nodes palpable in the neck, axillae or groin. SKIN: No ulcer, rash or bleeding. LABS: Glucose 224. ASSESSMENT: 1. Acute hyperkalemia, possibly secondary to renal failure. 2. History of diabetes mellitus, uncontrolled with hypoglycemia. 3. History of recent gastritis. 4. History of recent renal failure. 5. History of asthma. 6. History of congestive heart failure. 7. History of diabetes mellitus. 8. Hypertension. 9. Hyperlipidemia. 10. History of non-Hodgkins lymphoma. 11. Right chest Port-A-Cath. 12. Anxiety, depression, not otherwise specified. 13. Chronic kidney disease, Stage II to III. 14. Noncompliance. RECOMMENDATIONS AND DISCUSSION: In this 52-year-old woman who presented with multiple complex medical issues, we will monitor the patient closely. Continue the current medications. Continue symptomatic treatment. Otherwise, we will repeat labs. Monitor blood sugars closely. IV fluids cautiously. Otherwise, prognosis is guarded because of the multiple medical issues. We will also obtain 7th grade social studies teacher consultation for evaluation of the home situation and assure compliance as well otherwise. Prognosis guarded. Further recommendations to follow. MTDD
[2017-06-24 15:01] LABS: Appearance,Urine Turbid (Clear); Bacteria,Urine Few /hpf; Bilirubin,Urine Negative (Negative); Glucose,Urine (UA) 2+ (Negative); Ketones,Urine Negative (Negative); Leukocyte Esterase,Urine Large (Negative); Mucus,Urine Rare /hpf; Nitrite,Urine Negative (Negative); Particle Count 141780; Protein,Urine 3+ (Negative); Squamous Epithelial Cell,Urine 6 /hpf (0-4); UA Billing (MACRO vs. MICRO) MICRO; Urobilinogen,Urine <2.0 mg/dL (<2.0); WBC,Urine >182 /hpf (0-5)
[2017-06-24 16:51] LABS: Glucose,Whole Blood 175 mg/dL (75-99)
[2017-06-24] MEDS ORDERED: INSULIN GLARGINE 100 UNIT/ML 10 ML VIAL SQ SCH (21:00)
[2017-06-24] MEDS ORDERED: ATORVASTATIN 40 MG TAB PO SCH (21:00)
[2017-06-24 21:12] LABS: Glucose,Whole Blood 252 mg/dL (75-99)
[2017-06-25] MEDS: diphenhydrAMINE 2% CREAM 28.4 GM TUBE TOPICAL SCH ×2 (00:22→08:32)
[2017-06-25] MEDS ORDERED: LEVOFLOXACIN 250MG-D5W PMX 250 MG in DEXTROSE/WATER 1 50ML.BAG IVPB SCH (03:00)
[2017-06-25 07:32] LABS: Glucose,Whole Blood 267 mg/dL (75-99)
[2017-06-25 07:45] VITALS: BP 153/80; PULSE 85; RESP 14; TEMP 96.6
[2017-06-25] MEDS: FAMOTIDINE 20 MG TAB PO SCH (08:32)
[2017-06-25] MEDS: NICOTINE 14MG/24HR PATCH TRANSDERM SCH (08:32)
[2017-06-25] MEDS: ESOMEPRAZOLE 20 MG in SODIUM CHLORIDE 0.9% 50 ML IVPB SCH (08:32)
[2017-06-25] MEDS: HEPARIN SODIUM,PORCINE 5,000 UNIT/ML 1 ML VIAL SQ SCH (08:33)
[2017-06-25] MEDS: hydrALAZINE HCL 25 MG TAB PO SCH (08:33)
[2017-06-25] MEDS: SERTRALINE 50 MG TAB PO SCH (08:33)
[2017-06-25] MEDS: METOPROLOL SUCCINATE (ER) 50 MG TAB.ER.24H PO SCH (08:33)
[2017-06-25] MEDS: INSULIN LISPRO (humaLOG) 300 UNIT/3 ML VIAL SQ SCH ×2 (08:33→13:09)
[2017-06-25] MEDS: SODIUM BICARBONATE TAB 650 MG TAB PO SCH (08:33)
[2017-06-25] MEDS: ALBUTEROL NEBULIZED 2.5 MG/3 ML INHALATION SCH ×3 (08:48→15:35)
[2017-06-25 09:47] LABS: Basophils % (A) 1 %; CHCM 33.5; Eosinophils # (A) 0.3 k/uL (0-0.7); Eosinophils % (A) 4 %; HCT 31.6 % (34.0-46.0); HDW 3.02; HGB 10.6 gm/dL (11.4-16.0); Luc # (Auto) 0.14; Luc % (Auto) 2; Lymphocytes # (A) 0.8 k/uL (1.0-4.8); Lymphocytes % (A) 13 %; MCH 30.3 pg (25.0-35.0); MCHC 33.6 g/dL (31.0-37.0); MCV 90.1 fL (80.0-100.0); Mean Platelet Volume 7.1; Monocytes # (A) 0.3 k/uL (0-1.0); Monocytes % (A) 5 %; Neutrophils # (A) 4.8 k/uL (1.3-7.7); Neutrophils % (A) 75 %; RBC 3.51 m/uL (3.80-5.40); RDW 14.3 % (11.5-15.5); WBC 6.4 k/uL (3.8-10.6); WBC (Perox) 6.58
[2017-06-25 10:36] LABS: Calcium 8.2 mg/dL (8.4-10.2); Magnesium 1.8 mg/dL (1.6-2.3); Potassium 5.6 mmol/L (3.5-5.1)
--- NOTE | 2017-06-25 11:01 | P.PN ---
Subjective Patient is seen in follow-up for chronic kidney disease. Patient has chronic kidney disease stage III secondary to diabetic kidney disease with baseline creatinine near 1.5. GFR is at baseline. Patient presented with lightheadedness. This seems to have resolved. She is currently maintained on normal saline at 50 mL an hour. Hemodynamically she stable. Oral intake is good. Admits to good urine output. No vomiting or diarrhea. Vital signs are stable. General: The patient appeared well nourished and normally developed. HEENT: Head exam is unremarkable. Neck is without jugular venous distension. LUNGS: Lungs are clear to auscultation and percussion. Breath sounds decreased. HEART: Rate and Rhythm are regular. First and second heart sounds normal. No murmurs, rubs or gallops. ABDOMEN: Abdominal exam reveals normal bowel sounds. Non-tender and non- distended. No evidence of peritonitis. EXTREMITITES: No clubbing, cyanosis, or edema. Objective - Vital Signs Vital signs: Vital Signs Temp 96.6 F L 06/25/17 07:00 Pulse 85 06/25/17 07:00 Resp 14 06/25/17 07:00 BP 153/80 06/25/17 07:00 Pulse Ox 98 06/25/17 07:00 Intake & Output 06/24/17 06/25/17 06/25/17 18:59 06:59 18:59 Intake Total 437 360 Output Total 200 Balance 237 360 Intake: Oral 437 360 Output: Urine 200 Other: Voiding Method Toilet Toilet # Voids 400 1 - Labs CBC & Chem 7: 06/25/17 09:20 06/25/17 09:20 Labs: Abnormal Lab Results - Last 24 Hours (Table) 06/24/17 06/24/17 06/24/17 Range/Units 06:16 11:31 14:40 RBC (3.80-5.40) m/uL Hgb (11.4-16.0) gm/dL Hct (34.0-46.0) % Lymphocytes # (1.0-4.8) k/uL Sodium (137-145) mmol/L Potassium (3.5-5.1) mmol/L Chloride (98-107) mmol/L BUN (7-17) mg/dL Creatinine (0.52-1.04) mg/dL Glucose (74-99) mg/dL POC Glucose (mg/dL) 249 H (75-99) mg/dL Hemoglobin A1c 9.0 H (4.2-6.1) % Calcium (8.4-10.2) mg/dL Urine Appearance Turbid H (Clear) Urine Protein 3+ H (Negative) Urine Glucose (UA) 2+ H (Negative) Urine Blood Small H (Negative) Ur Leukocyte Esterase Large H (Negative) Urine WBC >182 H (0-5) /hpf Urine WBC Clumps Many H (None) /hpf Ur Squamous Epith Cells 6 H (0-4) /hpf Urine Bacteria Few H (None) /hpf Urine Mucus Rare H (None) /hpf 06/24/17 06/24/17 06/25/17 Range/Units 16:49 21:08 07:25 RBC (3.80-5.40) m/uL Hgb (11.4-16.0) gm/dL Hct (34.0-46.0) % Lymphocytes # (1.0-4.8) k/uL Sodium (137-145) mmol/L Potassium (3.5-5.1) mmol/L Chloride (98-107) mmol/L BUN (7-17) mg/dL Creatinine (0.52-1.04) mg/dL Glucose (74-99) mg/dL POC Glucose (mg/dL) 175 H 252 H 267 H (75-99) mg/dL Hemoglobin A1c (4.2-6.1) % Calcium (8.4-10.2) mg/dL Urine Appearance (Clear) Urine Protein (Negative) Urine Glucose (UA) (Negative) Urine Blood (Negative) Ur Leukocyte Esterase (Negative) Urine WBC (0-5) /hpf Urine WBC Clumps (None) /hpf Ur Squamous Epith Cells (0-4) /hpf Urine Bacteria (None) /hpf Urine Mucus (None) /hpf 06/25/17 06/25/17 Range/Units 09:20 09:20 RBC 3.51 L (3.80-5.40) m/uL Hgb 10.6 L (11.4-16.0) gm/dL Hct 31.6 L (34.0-46.0) % Lymphocytes # 0.8 L (1.0-4.8) k/uL Sodium 136 L (137-145) mmol/L Potassium 5.6 H (3.5-5.1) mmol/L Chloride 109 H (98-107) mmol/L BUN 27 H (7-17) mg/dL Creatinine 1.49 H (0.52-1.04) mg/dL Glucose 324 H (74-99) mg/dL POC Glucose (mg/dL) (75-99) mg/dL Hemoglobin A1c (4.2-6.1) % Calcium 8.2 L (8.4-10.2) mg/dL Urine Appearance (Clear) Urine Protein (Negative) Urine Glucose (UA) (Negative) Urine Blood (Negative) Ur Leukocyte Esterase (Negative) Urine WBC (0-5) /hpf Urine WBC Clumps (None) /hpf Ur Squamous Epith Cells (0-4) /hpf Urine Bacteria (None) /hpf Urine Mucus (None) /hpf Microbiology - Last 24 Hours (Table) 06/24/17 14:40 Urine Culture - Preliminary Urine,Voided Assessment and Plan Plan: Assessment: #1. Chronic kidney disease stage III secondary to diabetic kidney disease with baseline creatinine near 1.5. #2. Mild hyperkalemia secondary to hyperglycemia. #3. Metabolic acidosis secondary to chronic kidney disease. Improved. #4. Lightheadedness. Patient may have been slightly hypovolemic from diuresis. Appears to have improved now. Blood pressures stable. Plan: Hep-Lock IV fluids. Maintain oral sodium bicarbonate supplementation. Low potassium diet. Continue to hold diuretics for now. Hold antihypertensives for systolic blood pressure less than 120. Repeat electrolytes in the morning. Anticipate discharge soon.
[2017-06-25 11:30] LABS: Glucose,Whole Blood 295 mg/dL (75-99)
[2017-06-25] MEDS ORDERED: SODIUM POLYSTYRENE SULFONATE 15 GM/60 ML BOTTLE PO STA (12:47)
--- NOTE | 2017-06-25 16:13 | PN ---
DATE OF SERVICE: 06/24/2017 This 52-year-old woman who was admitted with weakness and acute hyperkalemia possibly secondary to renal failure, has been closely monitored. No chest pain, no palpitations. No fever. Patient also has history of noncompliance also. On exam, alert and oriented x3. Pulse is 75, blood pressure 130/60, respirations 16, temperature 96.7, pulse ox 97% on room air. HEENT: Conjunctivae normal. NECK: No jugular venous distention. CARDIOVASCULAR: S1, S2. RESPIRATORY: Breath sounds diminished at the bases. A few rhonchi, no crackles. ABDOMEN: Soft, nontender. LEGS: No edema, no swelling. NERVOUS SYSTEM: No focal deficits. LABS: Hemoglobin 10.9, potassium 5.3. Other labs are UA showing UTI. ASSESSMENT: 1. Acute hyperkalemia possibly secondary to renal failure. 2. History of diabetes mellitus uncontrolled with hyperglycemia. 3. History of recent gastritis. 4. Acute urinary tract infection. 5. History of recent renal failure. 6. History of asthma. 7. History of congestive heart failure. 8. History of diabetes type 2. 9 Hypertension. 10. Hyperlipidemia. 11. History of non-Hodgkin's lymphoma. 12. Right chest Port-A-Cath. 13. Anxiety and depression, not otherwise specified. 14. Chronic kidney disease stage II to III. 15. History of noncompliance. RECOMMENDATIONS AND DISCUSSION: I recommend to continue the current medications , continue monitoring, continue symptomatic treatment. Otherwise repeat labs in the morning. Otherwise I would also recommend continue with empiric antibiotics. Urine culture. Otherwise continue to monitor. Guarded prognosis because of multiple complex medical issues. Further recommendations to follow. MTDD
--- NOTE | 2017-06-28 13:29 | DS ---
DATE OF SERVICE: 06/25/2017 FINAL DIAGNOSES: 1. Acute hyperkalemia possibly secondary to acute renal failure. 2. Diabetes mellitus type 2, uncontrolled with hyperglycemia. 3. History of recent gastritis. 4. History of recent renal failure. 5. History of asthma. 6. History of congestive heart disease. 7. History of diabetes mellitus type 2. DISCHARGE DISPOSITION: The patient will be discharged in stable condition with guarded prognosis. Total time taken 35 minutes. HISTORY OF PRESENT ILLNESS: This 52-year-old woman with a past medical history of multiple medical problems as mentioned earlier admitted with hyperkalemia and as well as renal failure, treated symptomatically. The patient also had issue of compliance also. Potassium to 5.6. The patient improved significantly. On exam, vitals are stable. CARDIOVASCULAR: S1 and S2, muffled. ABDOMEN: Soft. NERVOUS SYSTEM: No focal deficits. DISCHARGE ADVICE: 1. Diet is cardiac. 2. Activity limited until followup. 3. Follow up with Dr. Kim Barrow in 2 to 3 days CBC and BMP. 4. Follow up with Dr. Templeton, building insulation installer, as recommended. Medications are: 1. Albuterol inhaler p.r.n. 2. Pepcid 20 mg p.o. b.i.d. 3. Lasix 40 mg p.o. daily. 4. Apresoline 25 mg p.o. t.i.d. 5. Lantus 30 unit subcu q.h.s. 6. Levaquin 250 mg daily for 5 days. 7. Ativan 0.5 p.r.n. 8. Toprol XL 50 p.o. daily. 9. Habitrol 14 daily. 10. Zoloft 50 mg p.o. daily. 11. Zocor 80 mg q.h.s. 12. Sodium bicarb 1300 mg p.o. b.i.d. 13. Kayexalate 20 p.o. daily. Once again, the patient will be discharged in a stable condition with guarded prognosis. Total time taken 35 minutes. MTDD
== END 2017-06-25 17:04 | disposition home or self-care (01) ==
LOC: 6SEL 06-24 00:22 → INTOOBSV 06-24 00:22 → 4MS4W 06-24 20:27
PROVIDERS: ADMIT Hospitalist; ATTEND Hospitalist
DX: E87.5 Hyperkalemia (principal); E11.65 Type 2 diabetes mellitus with hyperglycemia; E11.649 Type 2 diabetes mellitus with hypoglycemia without coma; E11.22 Type 2 diabetes mellitus with diabetic chronic kidney disease; F41.9 Anxiety disorder, unspecified; F32.9 Major depressive disorder, single episode, unspecified; F42.9 Obsessive-compulsive disorder, unspecified; I13.0 Hypertensive heart and chronic kidney disease with heart failure and stage 1 through stage 4 chronic kidney disease, or unspecified chronic kidney disease; N18.3 Chronic kidney disease, stage 3 (moderate); N39.0 Urinary tract infection, site not specified; E87.2 Acidosis; J45.909 Unspecified asthma, uncomplicated; I50.9 Heart failure, unspecified; E78.5 Hyperlipidemia, unspecified; Z79.899 Other long term (current) drug therapy; Z79.4 Long term (current) use of insulin; Z88.8 Allergy status to other drugs, medicaments and biological substances; Z88.1 Allergy status to other antibiotic agents; Z91.040 Latex allergy status; Z91.011 Allergy to milk products; Z85.72 Personal history of non-Hodgkin lymphomas; Z91.19 Patient's noncompliance with other medical treatment and regimen; F17.200 Nicotine dependence, unspecified, uncomplicated; Z82.49 Family history of ischemic heart disease and other diseases of the circulatory system; Z80.51 Family history of malignant neoplasm of kidney; Z95.828 Presence of other vascular implants and grafts
CPT/HCPCS: 96365; 96366 ×2; 96367; 96372 ×2; 96375; 94640 ×2; 80053; 80048 ×2; 83036; 83735 ×2; 84132; 85025 ×2; 81001; 87086; 87077; 87186; 71010; G0379; G0378 ×2; S4990 ×2; J1644 ×2; J1956 ×2; J1170; J3475; J1642

== ENCOUNTER 2018-03-05 20:10 | Inpatient (IN) | payer OTHER ==
[2018-03-05] MEDS ORDERED: SODIUM CHLORIDE 0.9% 1,000 ML IV STA (20:42)
[2018-03-05] MEDS ORDERED: MORPHINE SULFATE 4MG/4ML SYRG IVP ONE (20:43)
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
[2018-03-05 21:21] LABS: Basophils % (A) 0 %; Eosinophils # (A) 0.2 k/uL (0-0.7); Eosinophils % (A) 3 %; HCT 28.2 % (34.0-46.0); HGB 9.3 gm/dL (11.4-16.0); Lymphocytes # (A) 0.7 k/uL (1.0-4.8); Lymphocytes % (A) 11 %; MCHC 33.1 g/dL (31.0-37.0); MCV 87.8 fL (80.0-100.0); Mean Platelet Volume 6.8; Monocytes # (A) 0.4 k/uL (0-1.0); Monocytes % (A) 6 %; Neutrophils # (A) 5.4 k/uL (1.3-7.7); Neutrophils % (A) 80 %; Platelet Count 215 k/uL (150-450); RBC 3.21 m/uL (3.80-5.40); RDW 14.3 % (11.5-15.5); WBC 6.8 k/uL (3.8-10.6)
[2018-03-05 21:36] LABS: Albumin 2.6 g/dL (3.5-5.0); Calcium 8.6 mg/dL (8.4-10.2); Magnesium 1.8 mg/dL (1.6-2.3); Potassium 4.7 mmol/L (3.5-5.1); Total Bilirubin 0.3 mg/dL (0.2-1.3); Total Protein 5.2 g/dL (6.3-8.2)
[2018-03-05 21:40] LABS: Partial Thromboplastin Time 27.1 sec (22.0-30.0); Prothrombin Time 9.6 sec (9.0-12.0)
--- NOTE | 2018-03-05 21:40 | XR ---
EXAMINATION TYPE: XR chest 2V DATE OF EXAM: 03/05/2018 COMPARISON: 06/24/2017 INDICATION: Chest pain history of asthma TECHNIQUE: Frontal and lateral views of the chest are obtained. FINDINGS: The heart size is normal. The pulmonary vasculature is normal. There is a small posterior pleural effusion on the left. Port is present on the right with the tip in the superior vena cava region. EKG leads overlie the chest.. IMPRESSION: 1. Small posterior left pleural effusion
--- NOTE | 2018-03-05 21:41 | XR ---
EXAMINATION TYPE: XR pelvis AP view DATE OF EXAM: 03/05/2018 COMPARISON: NONE HISTORY: Pain TECHNIQUE: AP pelvis FINDINGS: Femoral heads articulate with the acetabulum. Joint spaces are preserved. Sacroiliac joints pubis are normal. No acute fractures are evident. Normal bowel gas is present. IMPRESSION: 1. Unremarkable AP pelvis
[2018-03-05 21:58] LABS: Creatine Kinase 304 U/L (30-135)
[2018-03-05 22:10] LABS: Troponin I <0.012 ng/mL (0.000-0.034)
[2018-03-05 22:12] LABS: Creatine Kinase MB 3.8 ng/mL (0.0-2.4)
[2018-03-05] MEDS ORDERED: LABETALOL 5 MG/ML VIAL MDV IVP STA (23:20)
[2018-03-05] MEDS ORDERED: BISMUTH SUBSALICYLATE 4,192 MG/240 ML BOTTLE PO PRN (23:21)
[2018-03-05] MEDS: SODIUM CHLORIDE 0.9% 1,000 ML IV SCH (23:37)
[2018-03-06] MEDS ORDERED: ASPIRIN 325 MG TAB PO ONE (00:15)
[2018-03-06 00:25] LABS: Glucose,Whole Blood 108 mg/dL (75-99)
[2018-03-06 00:50] VITALS: BMI 41.7
[2018-03-06] MEDS: FUROSEMIDE 10 MG/ML 4 ML VIAL IV SCH ×4 (00:58→23:09)
[2018-03-06 07:33] LABS: Glucose,Whole Blood 105 mg/dL (75-99)
[2018-03-06] MEDS: INSULIN ASPART 100 UNIT/ML 1 ML 10 ML VIAL SQ SCH ×4 (07:52→22:04)
[2018-03-06] MEDS: METOPROLOL SUCCINATE (ER) 50 MG TAB.ER.24H PO SCH (07:58)
[2018-03-06] MEDS: NITROGLYCERIN OINT 1 INCH/GM PACKET TOPICAL SCH ×4 (07:58→22:31)
[2018-03-06] MEDS ORDERED: amLODIPine 10 MG TAB PO SCH (09:00)
[2018-03-06] MEDS ORDERED: hydrALAZINE HCL 25 MG TAB PO SCH (09:00)
[2018-03-06] MEDS ORDERED: cloNIDine HCL 0.1 MG TAB PO SCH (09:00)
[2018-03-06] MEDS ORDERED: BISMUTH SUBSALICYLATE 4,192 MG/240 ML BOTTLE PO PRN (09:22)
[2018-03-06] MEDS: ALBUTEROL NEBULIZED 2.5 MG/3 ML INHALATION SCH ×4 (09:30→19:23)
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
[2018-03-06 11:52] LABS: Glucose,Whole Blood 139 mg/dL (75-99)
[2018-03-06] MEDS: SODIUM BICARBONATE TAB 650 MG TAB PO SCH ×2 (13:02→22:01)
[2018-03-06] MEDS: hydrALAZINE HCL 50 MG TAB PO SCH ×2 (16:44→22:30)
[2018-03-06] MEDS: FAMOTIDINE 20 MG TAB PO SCH (17:35)
[2018-03-06 17:36] LABS: Iron Saturation 11.89 (12.00-45.00)
[2018-03-06 17:40] LABS: Glucose,Whole Blood 136 mg/dL (75-99)
[2018-03-06 19:55] LABS: Glucose,Whole Blood 157 mg/dL (75-99)
[2018-03-06] MEDS: INSULIN DETEMIR 100 UNIT/ML 10 ML VIAL SQ SCH (22:02)
[2018-03-06] MEDS: SODIUM CHLORIDE 0.9% 1,000 ML IV SCH (23:12)
[2018-03-07 07:01] LABS: Glucose,Whole Blood 82 mg/dL (75-99)
[2018-03-07 07:01] LABS: Glucose,Whole Blood 49 mg/dL (75-99)
[2018-03-07] MEDS: INSULIN ASPART 100 UNIT/ML 1 ML 10 ML VIAL SQ SCH ×4 (07:10→20:12)
[2018-03-07] MEDS: ALBUTEROL NEBULIZED 2.5 MG/3 ML INHALATION SCH ×4 (07:10→21:37)
[2018-03-07 07:11] LABS: HCT 24.9 % (34.0-46.0); HGB 8.5 gm/dL (11.4-16.0); MCH 30.6 pg (25.0-35.0); MCHC 34.3 g/dL (31.0-37.0); MCV 89.3 fL (80.0-100.0); Platelet Count 182 k/uL (150-450); RBC 2.79 m/uL (3.80-5.40); RDW 14.5 % (11.5-15.5); WBC 4.3 k/uL (3.8-10.6)
[2018-03-07 07:31] LABS: Calcium 8.2 mg/dL (8.4-10.2)
[2018-03-07 07:41] LABS: Potassium 4.8 mmol/L (3.5-5.1)
[2018-03-07] MEDS: METOPROLOL SUCCINATE (ER) 50 MG TAB.ER.24H PO SCH (08:53)
[2018-03-07] MEDS: hydrALAZINE HCL 50 MG TAB PO SCH ×3 (08:53→21:11)
[2018-03-07] MEDS: NITROGLYCERIN OINT 1 INCH/GM PACKET TOPICAL SCH ×4 (09:00→21:12)
[2018-03-07] MEDS: FAMOTIDINE 20 MG TAB PO SCH ×2 (09:00→20:10)
[2018-03-07] MEDS: ASPIRIN 325 MG TAB PO SCH (09:00)
[2018-03-07] MEDS: FUROSEMIDE 10 MG/ML 4 ML VIAL IV SCH (09:00)
[2018-03-07] MEDS: SODIUM BICARBONATE TAB 650 MG TAB PO SCH ×2 (09:00→20:10)
--- NOTE | 2018-03-07 10:16 | P.DS ---
Providers Date of admission: 03/05/18 22:56 Attending physician: Landen Willoughby Consults: 03/05/18 23:23 Consult Physician Stat Consulting Provider: Bright Villegas Consult Reason/Comments: CHF Do you want consulting provider notified?: Yes, Notify in am 03/06/18 11:00 Consult Physician Routine Consulting Provider: Stuart Templeton Consult Reason/Comments: CKD Do you want consulting provider notified?: Yes Primary care physician: [facility] Course: 60-year-old female came in because of the bilateral pedal edema worsening for about few days. Patient does have severe pulmonary hypertension probably has COPD as well patient says she has asthma she denied any shortness of breath orthopnea PND patient has some left lung pleural effusion patient denied any fever chills denied any cough. Patient is on IV Lasix which will be continued. Patient has significant 3+ pitting pedal edema on bilateral lower extremities patient does have chronic kidney disease stage 3 with baseline creatinine of around 1.6-1.5 patient is Shankar nontender and nephrotoxic medications patient apparently in the past was treated for lymphoma done with her chemotherapy in 2015. Plan is to continue Lasix today possibly repeat the kidney function tomorrow possibility of discharge tomorrow on oral Lasix with follow closely with nephrology. Patient never followed up with nephrology. 03/07/2018 Patient's creatinine has bit worse and expected to get better once we switched her to oral Lasix patient is comparing of diarrhea but had a normal large bowel movement. Patient blood sugars have gone down and she is not eating well will cut down the Lantus dose from 16 units of 40 units in pre-meal insulin from 10 units of 5 units with each meal and monitor until later in the day blood sugars occupational be discharged today. Her pedal edema completely resolved. PHYSICAL EXAMINATION: GENERAL: The patient is alert and oriented x3, not in any acute distress. Well developed, well nourished. HEENT: Pupils are round and equally reacting to light. EOMI. No scleral icterus. No conjunctival pallor. Normocephalic, atraumatic. No pharyngeal erythema. No thyromegaly. CARDIOVASCULAR: S1 and S2 present. No murmurs, rubs, or gallops. PULMONARY: Chest is clear to auscultation, no wheezing or crackles. ABDOMEN: Soft, nontender, nondistended, normoactive bowel sounds. No palpable organomegaly. MUSCULOSKELETAL: No joint swelling or deformity. EXTREMITIES: No cyanosis, clubbing, or pedal edema. NEUROLOGICAL: Gross neurological examination did not reveal any focal deficits. SKIN: No rashes. Assessment and Plan Plan: -Bilateral pedal edema probably be due to right-sided heart failure patient has pulmonary hypertension. Pedal edema resolved mild worsening in kidney function -Chronic kidney disease stage III follow with nephrology as an outpatient. -Type 2 diabetes mellitus with diabetic nephropathy hypertension: -hyperlipidemia -Asthma or COPD unsure if she actually had COPD not in acute exacerbation at this time Patient Condition at Discharge: Stable Plan - Discharge Summary Discharge Rx Participant: No New Discharge Prescriptions: New Sodium Bicarbonate Tab 650 mg PO BID #60 tab Continue Metoprolol Succinate [Toprol XL] 50 mg PO DAILY Albuterol Nebulized [Ventolin Nebulized] 2.5 mg INHALATION RT-QID Albuterol Inhaler [Ventolin Hfa Inhaler] 1 - 2 puff INHALATION RT-Q6H PRN PRN Reason: Shortness Of Breath hydrALAZINE HCL [Apresoline] 25 mg PO BID Bismuth Subsalicylate [Pepto-Bismol] 30 mg PO DAILY PRN PRN Reason: Indigestion Changed Furosemide [Lasix] 40 mg PO BID #28 tablet Insulin Glargine,Hum.rec.anlog [Basaglar Kwikpen U-100] 40 unit SQ HS #0 Insulin Aspart [NovoLOG] 5 units SQ ACHS #0 Discontinued cloNIDine HCL [Catapres] 0.1 mg PO DAILY amLODIPine [Norvasc] 10 mg PO DAILY Discharge Medication List Metoprolol Succinate [Toprol XL] 50 mg PO DAILY 03/28/16 [History] Albuterol Nebulized [Ventolin Nebulized] 2.5 mg INHALATION RT-QID 07/11/16 [ History] Albuterol Inhaler [Ventolin Hfa Inhaler] 1 - 2 puff INHALATION RT-Q6H PRN [History] Bismuth Subsalicylate [Pepto-Bismol] 30 mg PO DAILY PRN 03/05/18 [History] hydrALAZINE HCL [Apresoline] 25 mg PO BID 03/05/18 [History] Furosemide [Lasix] 40 mg PO BID #28 tablet 03/07/18 [Rx] Insulin Aspart [NovoLOG] 5 units SQ ACHS #0 03/07/18 [Rx] Insulin Glargine,Hum.rec.anlog [Basaglar Kwikpen U-100] 40 unit SQ HS #0 [Rx] Sodium Bicarbonate Tab 650 mg PO BID #60 tab 03/07/18 [Rx] Follow up Appointment(s)/Referral(s): Dinorah Walker MD [STAFF PHYSICIAN] - 1 Week Shawn Kim MD [Primary Care Provider] - 3 Days Linden Read MD [STAFF PHYSICIAN] - 1 Week Ambulatory/Diagnostic Orders: Basic Metabolic Panel [LAB.AMB] Time Frame: 3 Days, Location: Determined By Patient Discharge Disposition: HOME SELF-CARE
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
[2018-03-07 11:29] LABS: Glucose,Whole Blood 190 mg/dL (75-99)
[2018-03-07] MEDS: ACETAMINOPHEN TAB 325 MG TAB PO PRN ×2 (12:25→21:48)
--- NOTE | 2018-03-07 12:30 | PN ---
PROGRESS NOTE The patient is seen for followup for chronic kidney disease. She had acute kidney injury secondary to cardiorenal syndrome. Currently, patient is being diuresed. She was maintained on Lasix 40 IV q.8 hours, which is discontinued today. Her blood sugars were low this morning. EXAMINATION: Blood pressure is 126/63, heart rate 63 per minute. Patient is afebrile. Examination of the heart S1, S2. Examination lungs bilateral breath sounds are heard. Abdomen is soft, nontender. Exam of lower extremity shows edema 1+ bilaterally. AFF[employer]IATE MARKETING COORD[employer]ATOR exam is grossly intact. LAB: Show serum creatinine 2.14, sodium 143, potassium 4.8, hemoglobin of 8.5 g/dL. ASSESSMENT: 1. Acute kidney injury mainly cardiorenal, currently nonoliguric. Serum creatinine is at 2.14 from 1.6 previously. Baseline creatinine appears to be around 1.5-1.6 mg/dL. The patient is currently off of diuretics. We can continue without diuretics today and upon discharge, patient can be maintained on 40 mg either b.i.d. or once a day depending on her volume status. She will need to be monitored closely as outpatient for adjustment of diuretics. 2. Hypoglycemia addressed this morning. 3. Chronic kidney disease stage 3 secondary to diabetic kidney disease with baseline creatinine about 1.5. 4. Diastolic heart failure with moderate mitral regurgitation. 5. History of lymphoma status post chemotherapy. 6. Metabolic acidosis secondary to acute kidney injury. 7. Anemia with iron studies ordered recently. I do not have them back yet. PLAN: Follow up on iron studies and resume oral Lasix tomorrow 40 mg daily and this will need to be monitored closely as outpatient. I will also repeat another chest x-ray. MMODL / IJN: [id number] /
--- NOTE | 2018-03-07 13:20 | XR ---
EXAMINATION TYPE: XR chest 2V DATE OF EXAM: 03/07/2018 HISTORY: chf. REFERENCE: Previous study dated 03/05/2018. FINDINGS: There is a right internal jugular catheter in place with its tip at the cavoatrial junction . There is an enlarging right pleural effusion and a continuing left pleural effusion. The heart is m ildly enlarged. There is vascular congestion and mild interstitial change.. IMPRESSION: 1. SUBTLE CHANGES OF PULMONARY EDEMA. 2. ENLARGING RIGHT PLEURAL EFFUSION AND STABLE LEFT PLEURAL EFFUSION.
[2018-03-07 17:18] LABS: Glucose,Whole Blood 85 mg/dL (75-99)
[2018-03-07 19:30] LABS: Glucose,Whole Blood 83 mg/dL (75-99)
[2018-03-07] MEDS: INSULIN DETEMIR 100 UNIT/ML 10 ML VIAL SQ SCH (20:13)
[2018-03-07 20:37] VITALS: RESP 16
[2018-03-07] MEDS: SODIUM CHLORIDE 0.9% 1,000 ML IV SCH (21:12)
[2018-03-08 01:18] LABS: Glucose,Whole Blood 253 mg/dL (75-99)
[2018-03-08 07:10] LABS: HCT 23.7 % (34.0-46.0); HGB 8.2 gm/dL (11.4-16.0); MCH 30.7 pg (25.0-35.0); MCHC 34.6 g/dL (31.0-37.0); MCV 88.5 fL (80.0-100.0); Mean Platelet Volume 6.7; Platelet Count 200 k/uL (150-450); RBC 2.68 m/uL (3.80-5.40); RDW 14.5 % (11.5-15.5); WBC 5.8 k/uL (3.8-10.6)
[2018-03-08 07:16] LABS: Glucose,Whole Blood 101 mg/dL (75-99)
[2018-03-08] MEDS: INSULIN ASPART 100 UNIT/ML 1 ML 10 ML VIAL SQ SCH ×2 (07:16→12:31)
[2018-03-08] MEDS: FAMOTIDINE 20 MG TAB PO SCH (07:17)
[2018-03-08] MEDS: hydrALAZINE HCL 50 MG TAB PO SCH (07:17)
[2018-03-08] MEDS: ASPIRIN 325 MG TAB PO SCH (07:17)
[2018-03-08] MEDS: NITROGLYCERIN OINT 1 INCH/GM PACKET TOPICAL SCH (07:17)
[2018-03-08] MEDS: METOPROLOL SUCCINATE (ER) 50 MG TAB.ER.24H PO SCH (07:18)
[2018-03-08] MEDS: SODIUM BICARBONATE TAB 650 MG TAB PO SCH (07:18)
[2018-03-08 07:20] LABS: Calcium 8.1 mg/dL (8.4-10.2); Potassium 5.1 mmol/L (3.5-5.1)
[2018-03-08 07:52] VITALS: BP 187/79; TEMP 97.6
[2018-03-08] MEDS: ALBUTEROL NEBULIZED 2.5 MG/3 ML INHALATION SCH ×2 (08:12→11:29)
[2018-03-08 08:24] VITALS: PULSE 80
[2018-03-08] MEDS: ACETAMINOPHEN TAB 325 MG TAB PO PRN (10:50)
--- NOTE | 2018-03-08 11:42 | P.DS ---
Providers Date of admission: 03/05/18 22:56 Attending physician: Landen Willoughby Consults: 03/05/18 23:23 Consult Physician Stat Consulting Provider: Bright Villegas Consult Reason/Comments: CHF Do you want consulting provider notified?: Yes, Notify in am 03/06/18 11:00 Consult Physician Routine Consulting Provider: Stuart Templeton Consult Reason/Comments: CKD Do you want consulting provider notified?: Yes 03/07/18 14:05 Consult Physician Routine Consulting Provider: Josephine Lucero Consult Reason/Comments: pulmonary edema Do you want consulting provider notified?: Yes Primary care physician: [facility] Course: Patient was not discharged yesterday y consider this is a progress note patient had new pleural effusion has of which patient was not discharged patient was evaluated with pulmonology no drainable pleural effusion. Pulmonology evaluated the patient is okay with discharge as there is no drainable pleural effusion. Patient's vitals are stable patient is being discharged today in stable medical condition to home. Discussed with nephrology recommending basic metabolic profile to be tested in about 3 days. PHYSICAL EXAMINATION: GENERAL: The patient is alert and oriented x3, not in any acute distress. Well developed, well nourished. HEENT: Pupils are round and equally reacting to light. EOMI. No scleral icterus. No conjunctival pallor. Normocephalic, atraumatic. No pharyngeal erythema. No thyromegaly. CARDIOVASCULAR: S1 and S2 present. No murmurs, rubs, or gallops. PULMONARY: Chest is clear to auscultation, no wheezing or crackles. ABDOMEN: Soft, nontender, nondistended, normoactive bowel sounds. No palpable organomegaly. MUSCULOSKELETAL: No joint swelling or deformity. EXTREMITIES: No cyanosis, clubbing, or pedal edema. NEUROLOGICAL: Gross neurological examination did not reveal any focal deficits. SKIN: No rashes. The rest of her chronic mental problems and the hospitalization course please refer to my discharge summary from yesterday Patient Condition at Discharge: Stable Plan - Discharge Summary Discharge Rx Participant: No New Discharge Prescriptions: New Sodium Bicarbonate Tab 650 mg PO BID #60 tab Nicotine 14Mg/24Hr Patch [Habitrol] 1 patch TRANSDERM DAILY #14 patch Continue Metoprolol Succinate [Toprol XL] 50 mg PO DAILY Albuterol Nebulized [Ventolin Nebulized] 2.5 mg INHALATION RT-QID Albuterol Inhaler [Ventolin Hfa Inhaler] 1 - 2 puff INHALATION RT-Q6H PRN PRN Reason: Shortness Of Breath hydrALAZINE HCL [Apresoline] 25 mg PO BID Bismuth Subsalicylate [Pepto-Bismol] 30 mg PO DAILY PRN PRN Reason: Indigestion Changed Furosemide [Lasix] 40 mg PO BID #28 tablet Insulin Glargine,Hum.rec.anlog [Basaglar Kwikpen U-100] 40 unit SQ HS #0 Insulin Aspart [NovoLOG] 5 units SQ ACHS #0 Discontinued cloNIDine HCL [Catapres] 0.1 mg PO DAILY amLODIPine [Norvasc] 10 mg PO DAILY Discharge Medication List Metoprolol Succinate [Toprol XL] 50 mg PO DAILY 03/28/16 [History] Albuterol Nebulized [Ventolin Nebulized] 2.5 mg INHALATION RT-QID 07/11/16 [ History] Albuterol Inhaler [Ventolin Hfa Inhaler] 1 - 2 puff INHALATION RT-Q6H PRN [History] Bismuth Subsalicylate [Pepto-Bismol] 30 mg PO DAILY PRN 03/05/18 [History] hydrALAZINE HCL [Apresoline] 25 mg PO BID 03/05/18 [History] Furosemide [Lasix] 40 mg PO BID #28 tablet 03/07/18 [Rx] Insulin Aspart [NovoLOG] 5 units SQ ACHS #0 03/07/18 [Rx] Insulin Glargine,Hum.rec.anlog [Basaglar Kwikpen U-100] 40 unit SQ HS #0 [Rx] Nicotine 14Mg/24Hr Patch [Habitrol] 1 patch TRANSDERM DAILY #14 patch 03/07/18 [ Rx] Sodium Bicarbonate Tab 650 mg PO BID #60 tab 03/07/18 [Rx] Follow up Appointment(s)/Referral(s): Dinorah Walker MD [STAFF PHYSICIAN] - 1 Week (patient to call office on Friday to schedule) Shawn Kim MD [Primary Care Provider] - 3 Days (patient to call office to schedule follow-up on Friday) Linden Read MD [STAFF PHYSICIAN] - 1 Week (Patient to call and schedule follow-up appointment) Ambulatory/Diagnostic Orders: Basic Metabolic Panel [LAB.AMB] Time Frame: 3 Days, Location: Determined By Patient Patient Instructions/Handouts: Nicotine (Absorbed through the skin), Sodium Bicarbonate (By mouth), Heart Failure (DC), Type 2 Diabetes in Adults (DC), Pleural Effusion (DC) Discharge Disposition: HOME SELF-CARE
[2018-03-08 11:46] LABS: Glucose,Whole Blood 157 mg/dL (75-99)
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
== END 2018-03-08 13:06 | disposition home or self-care (01) | DRG 291 ==
LOC: EC 20:10 → 5MS5E 22:56
PROVIDERS: ADMIT Internal Medicine; ATTEND Internal Medicine
DX: I13.0 Hypertensive heart and chronic kidney disease with heart failure and stage 1 through stage 4 chronic kidney disease, or unspecified chronic kidney disease (principal); N17.0 Acute kidney failure with tubular necrosis; E87.2 Acidosis; I50.32 Chronic diastolic (congestive) heart failure; J90 Pleural effusion, not elsewhere classified; E11.21 Type 2 diabetes mellitus with diabetic nephropathy; E11.22 Type 2 diabetes mellitus with diabetic chronic kidney disease; J44.9 Chronic obstructive pulmonary disease, unspecified; E66.9 Obesity, unspecified; E11.649 Type 2 diabetes mellitus with hypoglycemia without coma; I34.0 Nonrheumatic mitral (valve) insufficiency; R01.1 Cardiac murmur, unspecified; T50.2X5A Adverse effect of carbonic-anhydrase inhibitors, benzothiadiazides and other diuretics, initial encounter; D63.8 Anemia in other chronic diseases classified elsewhere; I27.22 Pulmonary hypertension due to left heart disease; M25.559 Pain in unspecified hip; E78.5 Hyperlipidemia, unspecified; F17.200 Nicotine dependence, unspecified, uncomplicated; F41.9 Anxiety disorder, unspecified; F32.9 Major depressive disorder, single episode, unspecified; R19.7 Diarrhea, unspecified; N18.3 Chronic kidney disease, stage 3 (moderate); Z92.21 Personal history of antineoplastic chemotherapy; Z86.19 Personal history of other infectious and parasitic diseases; Z87.440 Personal history of urinary (tract) infections; Z85.72 Personal history of non-Hodgkin lymphomas; Z80.51 Family history of malignant neoplasm of kidney; Z80.42 Family history of malignant neoplasm of prostate; Z82.49 Family history of ischemic heart disease and other diseases of the circulatory system; Z83.3 Family history of diabetes mellitus; Z79.899 Other long term (current) drug therapy; Z79.4 Long term (current) use of insulin; Z88.1 Allergy status to other antibiotic agents; Z91.040 Latex allergy status; Z88.8 Allergy status to other drugs, medicaments and biological substances; Z91.018 Allergy to other foods; Z91.012 Allergy to eggs
CPT/HCPCS: 36415; 71046; 72170; 80048; 80053; 82550; 82553; 82728; 83540; 83550; 83735; 83880; 84484; 85025; 85027; 85610; 85730; 93005; 94640; 96374; 96375; 99285

== ENCOUNTER 2018-03-09 21:21 | Inpatient (IN) | payer OTHER ==
[2018-03-09] MEDS ORDERED: methylPREDNISolone SOD SUCCI 125 MG/2 ML VIAL IV STA (22:15)
[2018-03-09] MEDS ORDERED: FUROSEMIDE 10 MG/ML 4 ML VIAL IV STA (22:15)
[2018-03-09] MEDS ORDERED: IPRATROPIUM-ALBUTEROL 3 ML NEB INHALATION STA (22:15)
[2018-03-09] MEDS ORDERED: NITROGLYCERIN OINT 1 INCH/GM PACKET TOPICAL STA (22:16)
[2018-03-09] MEDS ORDERED: ASPIRIN 81 MG PO STA (22:16)
[2018-03-10 00:11] LABS: Creatine Kinase MB 6.2 ng/mL (0.0-2.4); Troponin I 0.411 ng/mL (0.000-0.034)
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
[2018-03-10] MEDS ORDERED: BISMUTH SUBSALICYLATE 4,192 MG/240 ML BOTTLE PO PRN (00:59)
[2018-03-10] MEDS ORDERED: HEPARIN SODIUM,PORCINE 5,000 UNIT/ML 1 ML VIAL IV ONE (01:01)
[2018-03-10] MEDS: HEPARIN SOD,PORK IN 0.45% NACL 25,000 UNIT in 0.45% NACL 1 500ML.BAG IV SCH ×2 (01:27→20:32)
[2018-03-10 06:11] LABS: Glucose,Whole Blood 217 mg/dL (75-99)
[2018-03-10] MEDS: HEPARIN SODIUM,PORCINE 5,000 UNIT/ML 1 ML VIAL IV PRN ×2 (08:16→15:30)
[2018-03-10 08:18] LABS: Troponin I 0.775 ng/mL (0.000-0.034)
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
[2018-03-10] MEDS: methylPREDNISolone SOD SUCCI 125 MG/2 ML VIAL IV SCH ×4 (08:40→20:13)
[2018-03-10] MEDS: hydrALAZINE HCL 25 MG TAB PO SCH ×2 (08:40→20:13)
[2018-03-10] MEDS: FUROSEMIDE 10 MG/ML 4 ML VIAL IV SCH ×2 (08:40→20:13)
[2018-03-10] MEDS: NICOTINE 14MG/24HR PATCH TRANSDERM SCH (08:41)
[2018-03-10] MEDS: SODIUM BICARBONATE TAB 650 MG TAB PO SCH ×2 (08:41→20:13)
[2018-03-10] MEDS: NITROGLYCERIN OINT 1 INCH/GM PACKET TOPICAL SCH ×4 (08:41→20:13)
[2018-03-10] MEDS: METOPROLOL SUCCINATE (ER) 50 MG TAB.ER.24H PO SCH (08:41)
[2018-03-10 08:50] LABS: Creatine Kinase MB 8.6 ng/mL (0.0-2.4)
[2018-03-10] MEDS: INSULIN ASPART 100 UNIT/ML 1 ML 10 ML VIAL SQ SCH ×4 (08:53→20:41)
[2018-03-10] MEDS: ALBUTEROL NEBULIZED 2.5 MG/3 ML INHALATION SCH ×5 (09:30→21:19)
[2018-03-10 11:33] LABS: Glucose,Whole Blood 312 mg/dL (75-99)
[2018-03-10] MEDS ORDERED: ACETAMINOPHEN TAB 325 MG TAB PO PRN (11:45)
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
[2018-03-10] MEDS: Acetaminophen-Codeine 300-30mg TAB PO PRN ×2 (12:04→21:12)
[2018-03-10 12:07] LABS: HCT 28.5 % (34.0-46.0); Hypochromasia Slight; MCH 29.4 pg (25.0-35.0); MCHC 31.7 g/dL (31.0-37.0); MCV 92.7 fL (80.0-100.0); Mean Platelet Volume 8.4; Platelet Count 201 k/uL (150-450); RBC 3.07 m/uL (3.80-5.40); RDW 14.6 % (11.5-15.5); WBC 7.2 k/uL (3.8-10.6)
[2018-03-10 12:32] LABS: Calcium 8.9 mg/dL (8.4-10.2); Magnesium 2.2 mg/dL (1.6-2.3)
[2018-03-10 12:38] LABS: Potassium 6.4 mmol/L (3.5-5.1)
[2018-03-10] MEDS ORDERED: SODIUM POLYSTYRENE SULFONATE 15 GM/60 ML BOTTLE PO STA (13:05)
[2018-03-10] MEDS: NYSTATIN 100,000 UNIT/GM POWD 15 GM TOPICAL SCH ×3 (13:21→20:13)
[2018-03-10 14:36] VITALS: BMI 41.7
[2018-03-10 15:44] LABS: Creatine Kinase MB 6.4 ng/mL (0.0-2.4); Troponin I 0.648 ng/mL (0.000-0.034)
[2018-03-10 16:50] LABS: Glucose,Whole Blood 288 mg/dL (75-99)
--- NOTE | 2018-03-10 18:46 | ECHOF ---
Referral Reason:nstemi MEASUREMENTS -------- HEIGHT: 154.9 cm WEIGHT: 99.8 kg BP: 141/76 RVIDd: 3.3 cm (< 3.3) IVSd: 1.0 cm (0.6 - 1.1) LVIDd: 4.5 cm (3.9 - 5.3) LVPWd: 1.2 cm (0.6 - 1.1) IVSs: 1.6 cm LVIDs: 2.7 cm LVPWs: 1.6 cm LAESV Index (A-L): 26.40 ml/m Ao Diam: 2.5 cm (2.0 - 3.7) AV Cusp: 1.5 cm (1.5 - 2.6) LA Diam: 4.2 cm (2.7 - 3.8) EPSS: 0.2 cm MV E Jorge: 1.48 m/s MV DecT: 218 ms MV A Jorge: 1.24 m/s MV E/A Ratio: 1.19 RAP: 15.00 mmHg RVSP: 64.28 mmHg MV EF SLOPE: 97.05 mm/s (70 - 150) MV EXCURSION: 1.32 cm (> 18.000) FINDINGS -------- Sinus rhythm. This was a technically adequate study. The left ventricular size is normal. Left ventricular wall thickness is normal. Overall left vent ricular systolic function is normal with, an EF between 55 - 60 %. The right ventricle is normal in size and function. Normal LA size by volume 22+/-6 ml/m2. RA appears enlarged. Aortic valve is trileaflet and is mildly thickened. There is no evidence of aortic regurgitation. There is no evidence of aortic stenosis. The mitral valve leaflets are mildly thickened. Mild mitral annular calcification present. Modera te mitral regurgitation is present. [id number] tricuspid regurgitation present. There is moderate to severe pulmonary hypertensio n. The right ventricular systolic pressure, as measured by Doppler, is 64.28mmHg. The pulmonic valve was not well visualized. The aortic root size is normal. The inferior vena cava is dilated with no significant inspiratory collapse which is consistent estima gaby right atrial pressure of >20 mmHg. There is no pericardial effusion. Large Pleural Effusion. CONCLUSIONS -------- 1. Sinus rhythm. 2. This was a technically adequate study. 3. The left ventricular size is normal. 4. Left ventricular wall thickness is normal. 5. Overall left ventricular systolic function is normal with, an EF between 55 - 60 %. 6. Normal LA size by volume 22+/-6 ml/m2. 7. RA appears enlarged. 8. Aortic valve is trileaflet and is mildly thickened. 9. The mitral valve leaflets are mildly thickened. 10. Mild mitral annular calcification present. 11. Moderate mitral regurgitation is present. 12. Fkhp-[id number] tricuspid regurgitation present. 13. There is moderate to severe pulmonary hypertension. 14. The right ventricular systolic pressure, as measured by Doppler, is 64.28mmHg. 15. The pulmonic valve was not well visualized. 16. The aortic root size is normal. 17. The inferior vena cava is dilated with no significant inspiratory collapse which is consistent es timated right atrial pressure of >20 mmHg. 18. There is no pericardial effusion. 19. Large Pleural Effusion. COMPOUNDING AND FINISHING SUPERVISOR: Mike Wolfe RDCS
[2018-03-10 20:41] LABS: Glucose,Whole Blood 300 mg/dL (75-99)
[2018-03-10] MEDS ORDERED: INSULIN DETEMIR 100 UNIT/ML 10 ML VIAL SQ SCH (21:00)
[2018-03-10 21:29] LABS: Hemoglobin A1C 7.5 % (4.0-6.0)
[2018-03-11 00:44] LABS: Glucose,Whole Blood 328 mg/dL (75-99)
[2018-03-11] MEDS: ASPIRIN 325 MG TAB PO SCH ×2 (00:49→09:02)
[2018-03-11 05:51] LABS: Glucose,Whole Blood 272 mg/dL (75-99)
[2018-03-11 06:14] LABS: Basophils % (A) 0 %; Eosinophils % (A) 0 %; HCT 23.9 % (34.0-46.0); HGB 8.1 gm/dL (11.4-16.0); Lymphocytes # (A) 0.6 k/uL (1.0-4.8); Lymphocytes % (A) 7 %; MCH 30.1 pg (25.0-35.0); MCHC 33.8 g/dL (31.0-37.0); MCV 88.9 fL (80.0-100.0); Mean Platelet Volume 6.8; Monocytes # (A) 0.5 k/uL (0-1.0); Monocytes % (A) 6 %; Neutrophils % (A) 86 %; Platelet Count 203 k/uL (150-450); RBC 2.69 m/uL (3.80-5.40); RDW 14.4 % (11.5-15.5); WBC 9.3 k/uL (3.8-10.6)
[2018-03-11 06:22] LABS: Partial Thromboplastin Time 48.4 sec (22.0-30.0); Prothrombin Time 9.7 sec (9.0-12.0)
[2018-03-11] MEDS: INSULIN ASPART 100 UNIT/ML 1 ML 10 ML VIAL SQ SCH ×6 (07:04→21:55)
[2018-03-11 07:22] LABS: Calcium 8.3 mg/dL (8.4-10.2); Magnesium 2.1 mg/dL (1.6-2.3); Potassium 5.6 mmol/L (3.5-5.1)
[2018-03-11] MEDS: ALBUTEROL NEBULIZED 2.5 MG/3 ML INHALATION SCH ×4 (08:32→19:24)
[2018-03-11] MEDS: METOPROLOL SUCCINATE (ER) 50 MG TAB.ER.24H PO SCH (09:01)
[2018-03-11] MEDS: NICOTINE 14MG/24HR PATCH TRANSDERM SCH (09:01)
[2018-03-11] MEDS: NYSTATIN 100,000 UNIT/GM POWD 15 GM TOPICAL SCH ×3 (09:01→20:49)
[2018-03-11] MEDS: NITROGLYCERIN OINT 1 INCH/GM PACKET TOPICAL SCH ×4 (09:02→21:01)
[2018-03-11] MEDS: methylPREDNISolone SOD SUCCI 125 MG/2 ML VIAL IV SCH (09:02)
[2018-03-11] MEDS: FUROSEMIDE 10 MG/ML 4 ML VIAL IV SCH ×2 (09:02→20:48)
[2018-03-11] MEDS: hydrALAZINE HCL 25 MG TAB PO SCH (09:02)
[2018-03-11] MEDS: SODIUM BICARBONATE TAB 650 MG TAB PO SCH ×2 (09:02→20:48)
[2018-03-11] MEDS: Acetaminophen-Codeine 300-30mg TAB PO PRN ×3 (09:12→21:10)
--- NOTE | 2018-03-11 09:51 | P.PN ---
Subjective Progress Note Date: 03/11/18 Principal diagnosis: CHF This is a pleasant 52-year-old female patient with a past medical history significant for heart failure with preserved LV function, moderate pulmonary hypertension, diabetes, and hypertension, presented to the hospital again with shortness of breath. She just was discharged from the hospital a few days ago after she was admitted with a right sided congestive heart failure and bilateral lower extremities edema response very nicely to IV Lasix. Unfortunately after she left she was unable to fill her Lasix and she started experiencing progressive dyspnea and she presented again to the hospital. She denies having any bilateral lower extremities edema at this time, denies having any chest pain or discomfort, no dizziness or lightheadedness and no syncope. Beside the above comorbidities, she does have chronic kidney disease as well. Initially the patient presented to a hospital in [facility] where a chest x-ray was performed and revealed finding consistent with CHF/COPD. A BNP was performed and that came in to be around 300. The hemoglobin was 8.8. The creatinine was 2.1. The EKG showed sinus rhythm with nonspecific changes. The troponin is a slightly elevated but the patient continues to be chest pain-free. On follow-up with the patient today, she is feeling slightly better. She still having some shortness of breath and she still have bilateral lower extremities edema. The potassium has improved. She underwent an echocardiogram and that revealed normal LV function with severe pulmonary hypertension. She still hypertensive and I would increase the dose of hydralazine. Objective - Vital Signs Vital signs: Vital Signs Temp 96.1 F L 03/11/18 08:00 Pulse 88 03/11/18 08:42 Resp 16 03/11/18 08:42 BP 181/83 03/11/18 08:00 Pulse Ox 94 L 03/11/18 08:00 Intake & Output 03/10/18 03/11/18 03/11/18 18:59 06:59 18:59 Intake Total 560.397 787.096 180 Output Total 400 500 0 Balance 160.397 287.096 180 Weight 100.1 kg 100.2 kg Intake: Intake, IV Titration 320.397 487.096 Amount Heparin Sod,Pork in 0.45% 320.397 487.096 NaCl 25,000 unit In 0.45 % NaCl 1 500ml.bag @ 10.4 UNITS/KG/HR 20 mls/hr IV .Q24H [facility] Rx#:[id number] Oral 240 300 180 Output: Urine 400 500 0 Other: Voiding Method Bedpan Toilet Bedpan # Voids 1 - Constitutional General appearance: Present: no acute distress - Respiratory Respiratory: bilateral: wheezing - Cardiovascular Rhythm: regular Heart sounds: normal: S1, S2 - Labs CBC & Chem 7: 03/11/18 05:46 03/11/18 05:46 Labs: Abnormal Lab Results - Last 24 Hours (Table) 03/10/18 03/10/18 03/10/18 Range/Units 07:08 07:08 11:26 RBC 3.07 L (3.80-5.40) m/uL Hgb 9.0 L (11.4-16.0) gm/dL Hct 28.5 L (34.0-46.0) % Neutrophils # (1.3-7.7) k/uL Lymphocytes # (1.0-4.8) k/uL APTT (22.0-30.0) sec Potassium 6.4 H* (3.5-5.1) mmol/L Chloride 114 H (98-107) mmol/L Carbon Dioxide 14 L (22-30) mmol/L BUN 45 H (7-17) mg/dL Creatinine 2.23 H (0.52-1.04) mg/dL Glucose 201 H (74-99) mg/dL POC Glucose (mg/dL) (75-99) mg/dL Hemoglobin A1c 7.5 H (4.0-6.0) % Calcium (8.4-10.2) mg/dL CK-MB (CK-2) (0.0-2.4) ng/mL Troponin I (0.000-0.034) ng/mL 03/10/18 03/10/18 03/10/18 Range/Units 11:29 14:17 14:17 RBC (3.80-5.40) m/uL Hgb (11.4-16.0) gm/dL Hct (34.0-46.0) % Neutrophils # (1.3-7.7) k/uL Lymphocytes # (1.0-4.8) k/uL APTT 42.4 H (22.0-30.0) sec Potassium (3.5-5.1) mmol/L Chloride (98-107) mmol/L Carbon Dioxide (22-30) mmol/L BUN (7-17) mg/dL Creatinine (0.52-1.04) mg/dL Glucose (74-99) mg/dL POC Glucose (mg/dL) 312 H (75-99) mg/dL Hemoglobin A1c (4.0-6.0) % Calcium (8.4-10.2) mg/dL CK-MB (CK-2) 6.4 H* (0.0-2.4) ng/mL Troponin I 0.648 H* (0.000-0.034) ng/mL 03/10/18 03/10/18 03/10/18 Range/Units 16:48 20:36 21:44 RBC (3.80-5.40) m/uL Hgb (11.4-16.0) gm/dL Hct (34.0-46.0) % Neutrophils # (1.3-7.7) k/uL Lymphocytes # (1.0-4.8) k/uL APTT 42.6 H (22.0-30.0) sec Potassium (3.5-5.1) mmol/L Chloride (98-107) mmol/L Carbon Dioxide (22-30) mmol/L BUN (7-17) mg/dL Creatinine (0.52-1.04) mg/dL Glucose (74-99) mg/dL POC Glucose (mg/dL) 288 H 300 H (75-99) mg/dL Hemoglobin A1c (4.0-6.0) % Calcium (8.4-10.2) mg/dL CK-MB (CK-2) (0.0-2.4) ng/mL Troponin I (0.000-0.034) ng/mL 03/11/18 03/11/18 03/11/18 Range/Units 00:43 05:46 05:46 RBC 2.69 L (3.80-5.40) m/uL Hgb 8.1 L (11.4-16.0) gm/dL Hct 23.9 L (34.0-46.0) % Neutrophils # 8.0 H (1.3-7.7) k/uL Lymphocytes # 0.6 L (1.0-4.8) k/uL APTT 48.4 H (22.0-30.0) sec Potassium (3.5-5.1) mmol/L Chloride (98-107) mmol/L Carbon Dioxide (22-30) mmol/L BUN (7-17) mg/dL Creatinine (0.52-1.04) mg/dL Glucose (74-99) mg/dL POC Glucose (mg/dL) 328 H (75-99) mg/dL Hemoglobin A1c (4.0-6.0) % Calcium (8.4-10.2) mg/dL CK-MB (CK-2) (0.0-2.4) ng/mL Troponin I (0.000-0.034) ng/mL 03/11/18 03/11/18 Range/Units 05:46 05:50 RBC (3.80-5.40) m/uL Hgb (11.4-16.0) gm/dL Hct (34.0-46.0) % Neutrophils # (1.3-7.7) k/uL Lymphocytes # (1.0-4.8) k/uL APTT (22.0-30.0) sec Potassium 5.6 H (3.5-5.1) mmol/L Chloride 110 H (98-107) mmol/L Carbon Dioxide 18 L (22-30) mmol/L BUN 59 H (7-17) mg/dL Creatinine 2.09 H (0.52-1.04) mg/dL Glucose 229 H (74-99) mg/dL POC Glucose (mg/dL) 272 H (75-99) mg/dL Hemoglobin A1c (4.0-6.0) % Calcium 8.3 L (8.4-10.2) mg/dL CK-MB (CK-2) (0.0-2.4) ng/mL Troponin I (0.000-0.034) ng/mL Assessment and Plan Assessment: Assessment #1 acute on chronic respiratory failure. #2 congestive heart failure exacerbation secondary to diastole dysfunction #3 possible COPD exacerbation as well #4 chronic kidney disease #5 mildly abnormal cardiac enzymes #6 hypertension Plan #1 the patient clinical scenario is more consistent with a COPD than CHF #2 we'll continue monitor the kidney function and electrolytes in view of the baseline abnormal creatinine and chronic kidney disease #3 the mildly abnormal cardiac enzymes is likely secondary to chronic kidney disease. In the absence of any chest discomfort I would recommend conservative medical approach only at this point. She is on aspirin and we will continue that #4 the echocardiogram was reviewed and revealed severe pulmonary hypertension and normal LV function #5 I would also increase the dose of hydralazine for better blood pressure control. Thank you for allowing us participate her care and we'll continue following up with her
[2018-03-11 11:43] LABS: Glucose,Whole Blood 242 mg/dL (75-99)
[2018-03-11] MEDS ORDERED: SODIUM POLYSTYRENE SULFONATE 15 GM/60 ML BOTTLE PO STA (11:44)
--- NOTE | 2018-03-11 14:10 | P.PN ---
Subjective 60-year-old female came in with pulmonary edema secondary to chronic diastolic dysfunction with acute exacerbation patient is non-compliant with her medications. Patient has significant improvement in her is pretty status patient is multiple complaints including left hip pain left hip x-ray did not show any fracture. Constitutional: Denied any fatigue denied any fever. Cardio vascular: denied any chest pain, palpitations Gastrointestinal denied any nausea vomiting Pulmonary: As mentioned in the interval history Neurologic denied any new focal deficits Objective - Vital Signs Vital signs: Vital Signs Temp 96.1 F L 03/11/18 08:00 Pulse 88 03/11/18 11:32 Resp 16 03/11/18 11:32 BP 181/83 03/11/18 08:00 Pulse Ox 94 L 03/11/18 08:00 Intake & Output 03/10/18 03/11/18 03/11/18 18:59 06:59 18:59 Intake Total 560.397 787.096 180 Output Total 400 500 200 Balance 160.397 287.096 -20 Weight 100.1 kg 100.2 kg Intake: Intake, IV Titration 320.397 487.096 Amount Heparin Sod,Pork in 0.45% 320.397 487.096 NaCl 25,000 unit In 0.45 % NaCl 1 500ml.bag @ 10.4 UNITS/KG/HR 20 mls/hr IV .Q24H [facility] Rx#:[id number] Oral 240 300 180 Output: Urine 400 500 200 Other: Voiding Method Bedpan Toilet Toilet Bedpan Bedpan # Voids 1 - Exam PHYSICAL EXAMINATION: GENERAL: The patient is alert and oriented x3, not in any acute distress. Well developed, well nourished. HEENT: Pupils are round and equally reacting to light. EOMI. No scleral icterus. No conjunctival pallor. Normocephalic, atraumatic. No pharyngeal erythema. No thyromegaly. CARDIOVASCULAR: S1 and S2 present. No murmurs, rubs, or gallops. JVD is not elevated pedal edema improved PULMONARY: Chest is clear to auscultation, no wheezing or crackles. ABDOMEN: Soft, nontender, nondistended, normoactive bowel sounds. No palpable organomegaly. MUSCULOSKELETAL: No joint swelling or deformity. EXTREMITIES: No cyanosis, clubbing, or pedal edema. NEUROLOGICAL: Gross neurological examination did not reveal any focal deficits. SKIN: No rashes. - Labs CBC & Chem 7: 03/11/18 05:46 03/11/18 05:46 Labs: Abnormal Lab Results - Last 24 Hours (Table) 03/10/18 03/10/18 03/10/18 Range/Units 11:26 14:17 14:17 RBC (3.80-5.40) m/uL Hgb (11.4-16.0) gm/dL Hct (34.0-46.0) % Neutrophils # (1.3-7.7) k/uL Lymphocytes # (1.0-4.8) k/uL APTT 42.4 H (22.0-30.0) sec Potassium (3.5-5.1) mmol/L Chloride (98-107) mmol/L Carbon Dioxide (22-30) mmol/L BUN (7-17) mg/dL Creatinine (0.52-1.04) mg/dL Glucose (74-99) mg/dL POC Glucose (mg/dL) (75-99) mg/dL Hemoglobin A1c 7.5 H (4.0-6.0) % Calcium (8.4-10.2) mg/dL CK-MB (CK-2) 6.4 H* (0.0-2.4) ng/mL Troponin I 0.648 H* (0.000-0.034) ng/mL 03/10/18 03/10/18 03/10/18 Range/Units 16:48 20:36 21:44 RBC (3.80-5.40) m/uL Hgb (11.4-16.0) gm/dL Hct (34.0-46.0) % Neutrophils # (1.3-7.7) k/uL Lymphocytes # (1.0-4.8) k/uL APTT 42.6 H (22.0-30.0) sec Potassium (3.5-5.1) mmol/L Chloride (98-107) mmol/L Carbon Dioxide (22-30) mmol/L BUN (7-17) mg/dL Creatinine (0.52-1.04) mg/dL Glucose (74-99) mg/dL POC Glucose (mg/dL) 288 H 300 H (75-99) mg/dL Hemoglobin A1c (4.0-6.0) % Calcium (8.4-10.2) mg/dL CK-MB (CK-2) (0.0-2.4) ng/mL Troponin I (0.000-0.034) ng/mL 03/11/18 03/11/18 03/11/18 Range/Units 00:43 05:46 05:46 RBC 2.69 L (3.80-5.40) m/uL Hgb 8.1 L (11.4-16.0) gm/dL Hct 23.9 L (34.0-46.0) % Neutrophils # 8.0 H (1.3-7.7) k/uL Lymphocytes # 0.6 L (1.0-4.8) k/uL APTT 48.4 H (22.0-30.0) sec Potassium (3.5-5.1) mmol/L Chloride (98-107) mmol/L Carbon Dioxide (22-30) mmol/L BUN (7-17) mg/dL Creatinine (0.52-1.04) mg/dL Glucose (74-99) mg/dL POC Glucose (mg/dL) 328 H (75-99) mg/dL Hemoglobin A1c (4.0-6.0) % Calcium (8.4-10.2) mg/dL CK-MB (CK-2) (0.0-2.4) ng/mL Troponin I (0.000-0.034) ng/mL 03/11/18 03/11/18 03/11/18 Range/Units 05:46 05:50 11:41 RBC (3.80-5.40) m/uL Hgb (11.4-16.0) gm/dL Hct (34.0-46.0) % Neutrophils # (1.3-7.7) k/uL Lymphocytes # (1.0-4.8) k/uL APTT (22.0-30.0) sec Potassium 5.6 H (3.5-5.1) mmol/L Chloride 110 H (98-107) mmol/L Carbon Dioxide 18 L (22-30) mmol/L BUN 59 H (7-17) mg/dL Creatinine 2.09 H (0.52-1.04) mg/dL Glucose 229 H (74-99) mg/dL POC Glucose (mg/dL) 272 H 242 H (75-99) mg/dL Hemoglobin A1c (4.0-6.0) % Calcium 8.3 L (8.4-10.2) mg/dL CK-MB (CK-2) (0.0-2.4) ng/mL Troponin I (0.000-0.034) ng/mL Assessment and Plan Plan: -Congestive heart failure chronic diastolic dysfunction with acute exacerbation as she didn't take her Lasix at home she was started on IV Lasix continue to monitor basic metabolic profile. -Severe pulmonary hypertension with right-sided heart failure and cor pulmonale with acute exacerbation -Chronic kidney disease stage 3-4 patient's creatinine is at her baseline. Patient does have diabetic nephropathy -Type 2 diabetes mellitus with diabetic nephropathy hypertension: -hyperlipidemia -Asthma or COPD she is not in acute exacerbation
[2018-03-11 16:55] LABS: Glucose,Whole Blood 292 mg/dL (75-99)
[2018-03-11] MEDS: hydrALAZINE HCL 50 MG TAB PO SCH ×2 (17:23→21:11)
[2018-03-11 20:50] LABS: Glucose,Whole Blood 391 mg/dL (75-99)
[2018-03-11] MEDS: INSULIN DETEMIR 100 UNIT/ML 10 ML VIAL SQ SCH (21:54)
[2018-03-11] MEDS: methylPREDNISolone SOD SUCCI 40 MG/ML 1 ML VIAL IV SCH (21:57)
[2018-03-12] MEDS: HEPARIN SOD,PORK IN 0.45% NACL 25,000 UNIT in 0.45% NACL 1 500ML.BAG IV SCH (03:20)
[2018-03-12] MEDS: methylPREDNISolone SOD SUCCI 40 MG/ML 1 ML VIAL IV SCH (05:10)
[2018-03-12 05:47] LABS: Glucose,Whole Blood 137 mg/dL (75-99)
[2018-03-12 05:55] LABS: Basophils % (A) 0 %; Eosinophils % (A) 0 %; HCT 22.2 % (34.0-46.0); HGB 7.4 gm/dL (11.4-16.0); Lymphocytes # (A) 0.6 k/uL (1.0-4.8); Lymphocytes % (A) 7 %; MCH 29.5 pg (25.0-35.0); MCHC 33.2 g/dL (31.0-37.0); MCV 88.8 fL (80.0-100.0); Mean Platelet Volume 7.4; Monocytes # (A) 0.4 k/uL (0-1.0); Monocytes % (A) 5 %; Neutrophils # (A) 7.1 k/uL (1.3-7.7); Neutrophils % (A) 85 %; Platelet Count 174 k/uL (150-450); RDW 14.9 % (11.5-15.5); WBC 8.3 k/uL (3.8-10.6)
[2018-03-12 06:04] LABS: Prothrombin Time 10.2 sec (9.0-12.0)
[2018-03-12 06:30] LABS: Calcium 7.9 mg/dL (8.4-10.2); Potassium 4.7 mmol/L (3.5-5.1)
[2018-03-12] MEDS: INSULIN ASPART 100 UNIT/ML 1 ML 10 ML VIAL SQ SCH ×8 (07:13→21:12)
[2018-03-12] MEDS: ALBUTEROL NEBULIZED 2.5 MG/3 ML INHALATION SCH ×4 (08:48→19:52)
--- NOTE | 2018-03-12 08:57 | P.PN ---
Subjective Progress Note Date: 03/12/18 Principal diagnosis: CHF This is a pleasant 52-year-old female patient with a past medical history significant for heart failure with preserved LV function, moderate pulmonary hypertension, diabetes, and hypertension, presented to the hospital again with shortness of breath. She just was discharged from the hospital a few days ago after she was admitted with a right sided congestive heart failure and bilateral lower extremities edema response very nicely to IV Lasix. Unfortunately after she left she was unable to fill her Lasix and she started experiencing progressive dyspnea and she presented again to the hospital. She denies having any bilateral lower extremities edema at this time, denies having any chest pain or discomfort, no dizziness or lightheadedness and no syncope. Initially the patient presented to a hospital in [facility] where a chest x-ray was performed and revealed finding consistent with CHF/COPD. A BNP was performed and that came in to be around 300. The hemoglobin was 8.8. The creatinine was 2.1. The EKG showed sinus rhythm with nonspecific changes. The troponin is a slightly elevated but the patient continues to be chest pain-free. On follow-up with the patient today, she is feeling slightly better. The wheezing has improved significantly. She still have very mild bilateral lower extremities edema. She continues to be on Lasix IV and the creatinine continues to be stable. Unfortunately the pressure in the morning his severe leg elevated. I am going to increase the dose of Toprol-XL 100 mg by mouth daily. Objective - Vital Signs Vital signs: Vital Signs Temp 98 F 03/12/18 08:00 Pulse 89 03/12/18 08:00 Resp 24 03/12/18 08:00 BP 197/91 03/12/18 08:00 Pulse Ox 95 03/12/18 08:00 Intake & Output 03/11/18 03/12/18 03/12/18 18:59 06:59 18:59 Intake Total 984.409 398.707 237 Output Total 600 800 Balance 384.409 -401.293 237 Weight 101.2 kg Intake: Intake, IV Titration 164.409 98.707 Amount Heparin Sod,Pork in 0.45% 164.409 98.707 NaCl 25,000 unit In 0.45 % NaCl 1 500ml.bag @ 10.4 UNITS/KG/HR 20 mls/hr IV .Q24H [facility] Rx#:[id number] Oral 820 300 237 Output: Urine 600 800 Other: Voiding Method Toilet Toilet Bedpan Bedpan - Constitutional General appearance: Present: no acute distress - Respiratory Respiratory: bilateral: CTA - Cardiovascular Rhythm: regular Heart sounds: normal: S1, S2 - Labs CBC & Chem 7: 03/12/18 05:33 03/12/18 05:33 Labs: Abnormal Lab Results - Last 24 Hours (Table) 03/11/18 03/11/18 03/11/18 Range/Units 11:41 16:54 20:49 RBC (3.80-5.40) m/uL Hgb (11.4-16.0) gm/dL Hct (34.0-46.0) % Lymphocytes # (1.0-4.8) k/uL APTT (22.0-30.0) sec Chloride (98-107) mmol/L Carbon Dioxide (22-30) mmol/L BUN (7-17) mg/dL Creatinine (0.52-1.04) mg/dL Glucose (74-99) mg/dL POC Glucose (mg/dL) 242 H 292 H 391 H (75-99) mg/dL Calcium (8.4-10.2) mg/dL 03/12/18 03/12/18 03/12/18 Range/Units 05:33 05:33 05:33 RBC 2.50 L (3.80-5.40) m/uL Hgb 7.4 L (11.4-16.0) gm/dL Hct 22.2 L (34.0-46.0) % Lymphocytes # 0.6 L (1.0-4.8) k/uL APTT 50.0 H (22.0-30.0) sec Chloride 113 H (98-107) mmol/L Carbon Dioxide 18 L (22-30) mmol/L BUN 65 H (7-17) mg/dL Creatinine 2.12 H (0.52-1.04) mg/dL Glucose 122 H (74-99) mg/dL POC Glucose (mg/dL) (75-99) mg/dL Calcium 7.9 L (8.4-10.2) mg/dL 03/12/18 Range/Units 05:46 RBC (3.80-5.40) m/uL Hgb (11.4-16.0) gm/dL Hct (34.0-46.0) % Lymphocytes # (1.0-4.8) k/uL APTT (22.0-30.0) sec Chloride (98-107) mmol/L Carbon Dioxide (22-30) mmol/L BUN (7-17) mg/dL Creatinine (0.52-1.04) mg/dL Glucose (74-99) mg/dL POC Glucose (mg/dL) 137 H (75-99) mg/dL Calcium (8.4-10.2) mg/dL Assessment and Plan Assessment: Assessment #1 acute on chronic respiratory failure. #2 congestive heart failure exacerbation secondary to diastole dysfunction #3 possible COPD exacerbation as well #4 chronic kidney disease #5 mildly abnormal cardiac enzymes #6 hypertension Plan #1 continue the current medical treatment #2 increase the dose of Toprol-XL as described above #3 continue Lasix IV for additional 24 hours #4 discharged home possibly tomorrow Thank you for allowing us participate her care and we'll continue following up with her
[2018-03-12] MEDS: NICOTINE 14MG/24HR PATCH TRANSDERM SCH (10:14)
[2018-03-12] MEDS: ASPIRIN 325 MG TAB PO SCH (10:14)
[2018-03-12] MEDS: hydrALAZINE HCL 50 MG TAB PO SCH ×3 (10:15→21:12)
[2018-03-12] MEDS: METOPROLOL SUCCINATE (ER) 100 MG TAB.ER.24H PO SCH (10:15)
[2018-03-12] MEDS: SODIUM BICARBONATE TAB 650 MG TAB PO SCH ×2 (10:16→21:12)
[2018-03-12] MEDS: NITROGLYCERIN OINT 1 INCH/GM PACKET TOPICAL SCH ×2 (10:16→15:11)
[2018-03-12] MEDS: NYSTATIN 100,000 UNIT/GM POWD 15 GM TOPICAL SCH ×3 (10:17→21:12)
[2018-03-12 11:44] LABS: Glucose,Whole Blood 135 mg/dL (75-99)
--- NOTE | 2018-03-12 13:25 | P.PN ---
Subjective 60-year-old female came in with pulmonary edema secondary to chronic diastolic dysfunction with acute exacerbation patient is non-compliant with her medications. Patient has significant improvement in her is pretty status patient is multiple complaints including left hip pain left hip x-ray did not show any fracture. 03/20/2018 Patient's IV was lost so will switch her to oral Lasix today. We'll continue to monitor patient is wheezing quite a bit on exam patient is already on oral steroids Constitutional: Denied any fatigue denied any fever. Cardio vascular: denied any chest pain, palpitations Gastrointestinal denied any nausea vomiting Pulmonary: As mentioned in the interval history Neurologic denied any new focal deficits Objective - Vital Signs Vital signs: Vital Signs Temp 96.9 F L 03/12/18 11:36 Pulse 91 03/12/18 12:41 Resp 20 03/12/18 11:36 BP 193/93 03/12/18 11:36 Pulse Ox 97 03/12/18 11:36 Intake & Output 03/11/18 03/12/18 03/12/18 18:59 06:59 18:59 Intake Total 984.409 398.707 302 Output Total 600 800 Balance 384.409 -401.293 302 Weight 101.2 kg Intake: Intake, IV Titration 164.409 98.707 Amount Heparin Sod,Pork in 0.45% 164.409 98.707 NaCl 25,000 unit In 0.45 % NaCl 1 500ml.bag @ 10.4 UNITS/KG/HR 20 mls/hr IV .Q24H [facility] Rx#:[id number] Oral 820 300 302 Output: Urine 600 800 Other: Voiding Method Toilet Toilet Bedpan Bedpan - Exam PHYSICAL EXAMINATION: GENERAL: The patient is alert and oriented x3, not in any acute distress. Well developed, well nourished. HEENT: Pupils are round and equally reacting to light. EOMI. No scleral icterus. No conjunctival pallor. Normocephalic, atraumatic. No pharyngeal erythema. No thyromegaly. CARDIOVASCULAR: S1 and S2 present. No murmurs, rubs, or gallops. JVD is not elevated pedal edema improved PULMONARY: Chest is clear to auscultation, no wheezing or crackles. ABDOMEN: Soft, nontender, nondistended, normoactive bowel sounds. No palpable organomegaly. MUSCULOSKELETAL: No joint swelling or deformity. EXTREMITIES: No cyanosis, clubbing, or pedal edema. NEUROLOGICAL: Gross neurological examination did not reveal any focal deficits. SKIN: No rashes. - Labs CBC & Chem 7: 03/12/18 05:33 03/12/18 05:33 Labs: Abnormal Lab Results - Last 24 Hours (Table) 03/11/18 03/11/18 03/12/18 Range/Units 16:54 20:49 05:33 RBC 2.50 L (3.80-5.40) m/uL Hgb 7.4 L (11.4-16.0) gm/dL Hct 22.2 L (34.0-46.0) % Lymphocytes # 0.6 L (1.0-4.8) k/uL APTT (22.0-30.0) sec Chloride (98-107) mmol/L Carbon Dioxide (22-30) mmol/L BUN (7-17) mg/dL Creatinine (0.52-1.04) mg/dL Glucose (74-99) mg/dL POC Glucose (mg/dL) 292 H 391 H (75-99) mg/dL Calcium (8.4-10.2) mg/dL 03/12/18 03/12/18 03/12/18 Range/Units 05:33 05:33 05:46 RBC (3.80-5.40) m/uL Hgb (11.4-16.0) gm/dL Hct (34.0-46.0) % Lymphocytes # (1.0-4.8) k/uL APTT 50.0 H (22.0-30.0) sec Chloride 113 H (98-107) mmol/L Carbon Dioxide 18 L (22-30) mmol/L BUN 65 H (7-17) mg/dL Creatinine 2.12 H (0.52-1.04) mg/dL Glucose 122 H (74-99) mg/dL POC Glucose (mg/dL) 137 H (75-99) mg/dL Calcium 7.9 L (8.4-10.2) mg/dL 03/12/18 Range/Units 11:42 RBC (3.80-5.40) m/uL Hgb (11.4-16.0) gm/dL Hct (34.0-46.0) % Lymphocytes # (1.0-4.8) k/uL APTT (22.0-30.0) sec Chloride (98-107) mmol/L Carbon Dioxide (22-30) mmol/L BUN (7-17) mg/dL Creatinine (0.52-1.04) mg/dL Glucose (74-99) mg/dL POC Glucose (mg/dL) 135 H (75-99) mg/dL Calcium (8.4-10.2) mg/dL Assessment and Plan Plan: Assessment and Plan Plan: -Congestive heart failure chronic diastolic dysfunction with acute exacerbation as she didn't take her Lasix at home she was started on IV Lasix continue to monitor basic metabolic profile. -Severe pulmonary hypertension with right-sided heart failure and cor pulmonale with acute exacerbation -Chronic kidney disease stage 3-4 patient's creatinine is at her baseline. Patient does have diabetic nephropathy -Type 2 diabetes mellitus with diabetic nephropathy hypertension: -hyperlipidemia -Asthma or COPD patient in acute exacerbation patient was started on oral steroid patient was on IV steroid because of concern of diabetes mellitus recorded down to oral steroids
[2018-03-12] MEDS: FUROSEMIDE 10 MG/ML 4 ML VIAL IV SCH (15:11)
[2018-03-12] MEDS: FUROSEMIDE 20 MG TAB PO SCH (16:02)
[2018-03-12 16:49] LABS: Glucose,Whole Blood 172 mg/dL (75-99)
[2018-03-12] MEDS ORDERED: BISMUTH SUBSALICYLATE 4,192 MG/240 ML BOTTLE PO PRN (20:20)
[2018-03-12 20:56] LABS: Glucose,Whole Blood 198 mg/dL (75-99)
[2018-03-12] MEDS: INSULIN DETEMIR 100 UNIT/ML 10 ML VIAL SQ SCH (21:25)
[2018-03-13 05:56] LABS: Glucose,Whole Blood 96 mg/dL (75-99)
[2018-03-13] MEDS: INSULIN ASPART 100 UNIT/ML 1 ML 10 ML VIAL SQ SCH ×8 (06:04→21:31)
[2018-03-13 06:34] LABS: Basophils % (A) 0 %; Eosinophils % (A) 0 %; HCT 23.5 % (34.0-46.0); HGB 7.6 gm/dL (11.4-16.0); Hypochromasia Slight; Lymphocytes # (A) 1.5 k/uL (1.0-4.8); Lymphocytes % (A) 17 %; MCH 29.7 pg (25.0-35.0); MCHC 32.2 g/dL (31.0-37.0); MCV 92.1 fL (80.0-100.0); Monocytes # (A) 0.7 k/uL (0-1.0); Monocytes % (A) 8 %; Neutrophils # (A) 6.6 k/uL (1.3-7.7); Neutrophils % (A) 73 %; Platelet Count 177 k/uL (150-450); RBC 2.55 m/uL (3.80-5.40)
[2018-03-13 06:44] LABS: Prothrombin Time 9.8 sec (9.0-12.0)
--- NOTE | 2018-03-13 07:38 | P.PN ---
Subjective Progress Note Date: 03/13/18 Principal diagnosis: CHF This is a pleasant 52-year-old female patient with a past medical history significant for heart failure with preserved LV function, moderate pulmonary hypertension, diabetes, and hypertension, presented to the hospital again with shortness of breath. She just was discharged from the hospital a few days ago after she was admitted with a right sided congestive heart failure and bilateral lower extremities edema response very nicely to IV Lasix. Unfortunately after she left she was unable to fill her Lasix and she started experiencing progressive dyspnea and she presented again to the hospital. She denies having any bilateral lower extremities edema at this time, denies having any chest pain or discomfort, no dizziness or lightheadedness and no syncope. Initially the patient presented to a hospital in [facility] where a chest x-ray was performed and revealed finding consistent with CHF/COPD. A BNP was performed and that came in to be around 300. The hemoglobin was 8.8. The creatinine was 2.1. The EKG showed sinus rhythm with nonspecific changes. The troponin is a slightly elevated but the patient continues to be chest pain-free. On follow-up with the patient today, she is feeling slightly better. The wheezing has improved significantly. Shortness of breath has improved significantly as well as. The lower extremities edema also has improved. The blood pressure continues to be not well-controlled on the current medical regimen and I am going to add lisinopril at 5 mg by mouth daily. She continues to be on Lasix by mouth. The blood work results are not back yet. From the cardiac vascular standpoint overview, the patient can be discharged home or to an extended care facility. Objective - Vital Signs Vital signs: Vital Signs Temp 97.0 F L 03/13/18 04:00 Pulse 82 03/13/18 04:00 Resp 18 03/13/18 04:00 BP 150/70 03/13/18 04:00 Pulse Ox 97 03/13/18 04:00 Intake & Output 03/12/18 03/13/18 03/13/18 18:59 06:59 18:59 Intake Total 539 840 Output Total 0 2 Balance 539 838 Weight 112 kg Intake: Oral 539 840 Output: Urine 0 2 Stool 0 Urine/Stool Mix 0 Other: Voiding Method Toilet # Voids 0 # Bowel Movements 0 1 - Constitutional General appearance: Present: no acute distress - Respiratory Respiratory: bilateral: diminished - Cardiovascular Rhythm: regular Heart sounds: normal: S1, S2 Abnormal Heart Sounds: Present: systolic murmur - Labs CBC & Chem 7: 03/13/18 05:58 03/12/18 05:33 Labs: Abnormal Lab Results - Last 24 Hours (Table) 03/12/18 03/12/18 03/12/18 Range/Units 11:42 16:48 20:55 RBC (3.80-5.40) m/uL Hgb (11.4-16.0) gm/dL Hct (34.0-46.0) % POC Glucose (mg/dL) 135 H 172 H 198 H (75-99) mg/dL 03/13/18 Range/Units 05:58 RBC 2.55 L (3.80-5.40) m/uL Hgb 7.6 L (11.4-16.0) gm/dL Hct 23.5 L (34.0-46.0) % POC Glucose (mg/dL) (75-99) mg/dL Assessment and Plan Assessment: Assessment #1 acute on chronic respiratory failure. #2 congestive heart failure exacerbation secondary to diastole dysfunction #3 possible COPD exacerbation as well #4 chronic kidney disease #5 mildly abnormal cardiac enzymes #6 hypertension Plan #1 continue the current medical treatment #2 at a small dose of lisinopril for better blood pressure control #3 from the cardiac vascular standpoint overview, she can be discharged home.
[2018-03-13] MEDS: ALBUTEROL NEBULIZED 2.5 MG/3 ML INHALATION SCH ×4 (07:46→19:47)
[2018-03-13] MEDS: FUROSEMIDE 20 MG TAB PO SCH ×2 (09:29→17:25)
[2018-03-13] MEDS: ASPIRIN 325 MG TAB PO SCH (09:29)
[2018-03-13] MEDS: LISINOPRIL 5 MG TAB PO SCH (09:30)
[2018-03-13] MEDS: hydrALAZINE HCL 50 MG TAB PO SCH ×3 (09:31→21:30)
[2018-03-13] MEDS: METOPROLOL SUCCINATE (ER) 100 MG TAB.ER.24H PO SCH (09:32)
[2018-03-13] MEDS: NICOTINE 14MG/24HR PATCH TRANSDERM SCH (09:32)
[2018-03-13] MEDS: predniSONE 20 MG TAB PO SCH (09:32)
[2018-03-13] MEDS: NYSTATIN 100,000 UNIT/GM POWD 15 GM TOPICAL SCH ×3 (09:32→21:32)
[2018-03-13] MEDS: SODIUM BICARBONATE TAB 650 MG TAB PO SCH ×2 (09:33→19:33)
[2018-03-13 10:44] LABS: Potassium 4.2 mmol/L (3.5-5.1)
--- NOTE | 2018-03-13 10:49 | XR ---
EXAMINATION TYPE: XR chest 1V DATE OF EXAM: 03/13/2018 COMPARISON: 03/07/2018 HISTORY: Shortness of breath FINDINGS: Noted is pulmonary venous congestion with scattered infiltrates. There is also cardiomegaly and small effusions. Central venous line unchanged. IMPRESSION: Findings compatible with congestive failure. Infiltrates of other etiology are not excluded. Clinical correlation and progress studies are recommended.
[2018-03-13 12:08] LABS: Glucose,Whole Blood 128 mg/dL (75-99)
--- NOTE | 2018-03-13 12:25 | P.PN ---
Subjective 60-year-old female came in with pulmonary edema secondary to chronic diastolic dysfunction with acute exacerbation patient is non-compliant with her medications. Patient has significant improvement in her is pretty status patient is multiple complaints including left hip pain left hip x-ray did not show any fracture. 03/12/2018 Patient's IV was lost so will switch her to oral Lasix today. We'll continue to monitor patient is wheezing quite a bit on exam patient is already on oral steroids 03/13/2018 Patient was pretty status significant improved no wheezing today patient shortness of breath resolved and repeat chest x-ray still showing bilateral pleural effusion vision in a few areas to be bit worse because of which will hold off for discharge today we are working on sending her to subacute rehabitation Constitutional: Denied any fatigue denied any fever. Cardio vascular: denied any chest pain, palpitations Gastrointestinal denied any nausea vomiting Pulmonary: As mentioned in the interval history Neurologic denied any new focal deficits Objective - Vital Signs Vital signs: Vital Signs Temp 96.7 F L 03/13/18 10:56 Pulse 86 03/13/18 11:35 Resp 20 03/13/18 11:23 BP 151/76 03/13/18 10:56 Pulse Ox 93 L 03/13/18 10:56 Intake & Output 03/12/18 03/13/18 03/13/18 18:59 06:59 18:59 Intake Total 539 840 Output Total 0 2 400 Balance 539 838 -400 Weight 112 kg Intake: Oral 539 840 Output: Urine 0 2 400 Stool 0 Urine/Stool Mix 0 Other: Voiding Method Toilet # Voids 0 0 # Bowel Movements 0 1 - Exam PHYSICAL EXAMINATION: GENERAL: The patient is alert and oriented x3, not in any acute distress. Well developed, well nourished. HEENT: Pupils are round and equally reacting to light. EOMI. No scleral icterus. No conjunctival pallor. Normocephalic, atraumatic. No pharyngeal erythema. No thyromegaly. CARDIOVASCULAR: S1 and S2 present. No murmurs, rubs, or gallops. JVD is not elevated pedal edema improved PULMONARY: Chest is clear to auscultation, no wheezing or crackles. ABDOMEN: Soft, nontender, nondistended, normoactive bowel sounds. No palpable organomegaly. MUSCULOSKELETAL: No joint swelling or deformity. EXTREMITIES: No cyanosis, clubbing, or pedal edema. NEUROLOGICAL: Gross neurological examination did not reveal any focal deficits. SKIN: No rashes. - Labs CBC & Chem 7: 03/13/18 05:58 03/13/18 05:58 Labs: Abnormal Lab Results - Last 24 Hours (Table) 03/12/18 03/12/18 03/13/18 Range/Units 16:48 20:55 05:58 RBC 2.55 L (3.80-5.40) m/uL Hgb 7.6 L (11.4-16.0) gm/dL Hct 23.5 L (34.0-46.0) % Chloride (98-107) mmol/L Carbon Dioxide (22-30) mmol/L BUN (7-17) mg/dL Creatinine (0.52-1.04) mg/dL POC Glucose (mg/dL) 172 H 198 H (75-99) mg/dL Calcium (8.4-10.2) mg/dL 03/13/18 03/13/18 Range/Units 05:58 11:40 RBC (3.80-5.40) m/uL Hgb (11.4-16.0) gm/dL Hct (34.0-46.0) % Chloride 114 H (98-107) mmol/L Carbon Dioxide 18 L (22-30) mmol/L BUN 69 H (7-17) mg/dL Creatinine 1.80 H (0.52-1.04) mg/dL POC Glucose (mg/dL) 128 H (75-99) mg/dL Calcium 8.0 L (8.4-10.2) mg/dL Assessment and Plan Plan: Assessment and Plan Plan: -Congestive heart failure chronic diastolic dysfunction with acute exacerbation as she didn't take her Lasix at home patient is presently on oral 60 mg twice a day of Lasix, wean off oxygen, awaiting prior authorization from insurance compared to go to subacute rehabilitation -Severe pulmonary hypertension with right-sided heart failure and cor pulmonale with acute exacerbation -Chronic kidney disease stage 3-4 patient's creatinine is at her baseline. Patient does have diabetic nephropathy -Type 2 diabetes mellitus with diabetic nephropathy hypertension: -hyperlipidemia -Asthma or COPD patient in acute exacerbation patient was started on oral steroid patient was on IV steroid because of concern of diabetes mellitus recorded down to oral steroids\ -Gastroesophageal reflux disease patient will be started on Protonix patient is complaining of acid reflux
[2018-03-13 17:15] LABS: Glucose,Whole Blood 310 mg/dL (75-99)
[2018-03-13] MEDS: Acetaminophen-Codeine 300-30mg TAB PO PRN (17:24)
[2018-03-13] MEDS: FAMOTIDINE 20 MG TAB PO SCH (19:33)
[2018-03-13 20:33] LABS: Glucose,Whole Blood 344 mg/dL (75-99)
[2018-03-13] MEDS: INSULIN DETEMIR 100 UNIT/ML 10 ML VIAL SQ SCH (21:31)
[2018-03-14 06:06] LABS: Glucose,Whole Blood 183 mg/dL (75-99)
[2018-03-14 06:36] LABS: Basophils % (A) 0 %; Eosinophils % (A) 0 %; HCT 22.8 % (34.0-46.0); HGB 7.5 gm/dL (11.4-16.0); Lymphocytes # (A) 1.9 k/uL (1.0-4.8); Lymphocytes % (A) 18 %; MCHC 32.9 g/dL (31.0-37.0); Monocytes # (A) 0.6 k/uL (0-1.0); Monocytes % (A) 6 %; Neutrophils # (A) 7.4 k/uL (1.3-7.7); Neutrophils % (A) 72 %; Platelet Count 173 k/uL (150-450); RBC 2.51 m/uL (3.80-5.40); WBC 10.4 k/uL (3.8-10.6)
[2018-03-14 06:44] LABS: Prothrombin Time 10.2 sec (9.0-12.0)
[2018-03-14] MEDS: INSULIN ASPART 100 UNIT/ML 1 ML 10 ML VIAL SQ SCH ×8 (07:00→21:25)
[2018-03-14] MEDS: ALBUTEROL NEBULIZED 2.5 MG/3 ML INHALATION SCH ×5 (08:35→20:10)
[2018-03-14] MEDS: predniSONE 20 MG TAB PO SCH (08:36)
[2018-03-14] MEDS: SODIUM BICARBONATE TAB 650 MG TAB PO SCH ×2 (08:36→20:23)
[2018-03-14] MEDS: FUROSEMIDE 20 MG TAB PO SCH ×2 (08:37→17:30)
[2018-03-14] MEDS: METOPROLOL SUCCINATE (ER) 100 MG TAB.ER.24H PO SCH (08:37)
[2018-03-14] MEDS: LISINOPRIL 5 MG TAB PO SCH (08:37)
[2018-03-14] MEDS: ASPIRIN 325 MG TAB PO SCH (08:37)
[2018-03-14] MEDS: NICOTINE 14MG/24HR PATCH TRANSDERM SCH (08:37)
[2018-03-14] MEDS: FAMOTIDINE 20 MG TAB PO SCH ×2 (08:37→20:23)
[2018-03-14] MEDS: NYSTATIN 100,000 UNIT/GM POWD 15 GM TOPICAL SCH ×3 (08:37→20:28)
[2018-03-14] MEDS: hydrALAZINE HCL 50 MG TAB PO SCH ×3 (08:37→20:23)
[2018-03-14] MEDS: Acetaminophen-Codeine 300-30mg TAB PO PRN ×2 (10:09→20:22)
[2018-03-14 11:51] LABS: Glucose,Whole Blood 104 mg/dL (75-99)
[2018-03-14 12:40] LABS: Calcium 7.6 mg/dL (8.4-10.2); Potassium 4.1 mmol/L (3.5-5.1)
--- NOTE | 2018-03-14 14:06 | P.PN ---
Subjective 60-year-old female came in with pulmonary edema secondary to chronic diastolic dysfunction with acute exacerbation patient is non-compliant with her medications. Patient has significant improvement in her is pretty status patient is multiple complaints including left hip pain left hip x-ray did not show any fracture. 03/12/2018 Patient's IV was lost so will switch her to oral Lasix today. We'll continue to monitor patient is wheezing quite a bit on exam patient is already on oral steroids 03/13/2018 Patient was pretty status significant improved no wheezing today patient shortness of breath resolved and repeat chest x-ray still showing bilateral pleural effusion vision in a few areas to be bit worse because of which will hold off for discharge today we are working on sending her to subacute rehabitation 03/14/2018 Normal shortness of breath patient on oral Lasix patient is on room air is awaiting prior authorization to be discharged to subacute rehabilitation Constitutional: Denied any fatigue denied any fever. Cardio vascular: denied any chest pain, palpitations Gastrointestinal denied any nausea vomiting Pulmonary: As mentioned in the interval history Neurologic denied any new focal deficits Objective - Vital Signs Vital signs: Vital Signs Temp 97.6 F 03/14/18 11:25 Pulse 88 03/14/18 12:01 Resp 20 03/14/18 11:25 BP 143/66 03/14/18 11:25 Pulse Ox 96 03/14/18 11:25 Intake & Output 03/13/18 03/14/18 03/14/18 18:59 06:59 18:59 Intake Total 200 240 573 Output Total 400 Balance -200 240 573 Weight 113.7 kg Intake: Oral 200 240 573 Output: Urine 400 Other: Voiding Method Toilet # Voids 0 1 - Exam PHYSICAL EXAMINATION: GENERAL: The patient is alert and oriented x3, not in any acute distress. Well developed, well nourished. HEENT: Pupils are round and equally reacting to light. EOMI. No scleral icterus. No conjunctival pallor. Normocephalic, atraumatic. No pharyngeal erythema. No thyromegaly. CARDIOVASCULAR: S1 and S2 present. No murmurs, rubs, or gallops. JVD is not elevated pedal edema improved PULMONARY: Chest is clear to auscultation, no wheezing or crackles. ABDOMEN: Soft, nontender, nondistended, normoactive bowel sounds. No palpable organomegaly. MUSCULOSKELETAL: No joint swelling or deformity. EXTREMITIES: No cyanosis, clubbing, or pedal edema. NEUROLOGICAL: Gross neurological examination did not reveal any focal deficits. SKIN: No rashes. - Labs CBC & Chem 7: 03/14/18 05:58 03/14/18 05:58 Labs: Abnormal Lab Results - Last 24 Hours (Table) 03/13/18 03/13/18 03/14/18 Range/Units 16:58 20:31 05:58 RBC 2.51 L (3.80-5.40) m/uL Hgb 7.5 L (11.4-16.0) gm/dL Hct 22.8 L (34.0-46.0) % Chloride (98-107) mmol/L Carbon Dioxide (22-30) mmol/L BUN (7-17) mg/dL Creatinine (0.52-1.04) mg/dL Glucose (74-99) mg/dL POC Glucose (mg/dL) 310 H 344 H (75-99) mg/dL Calcium (8.4-10.2) mg/dL 03/14/18 03/14/18 03/14/18 Range/Units 05:58 06:04 11:35 RBC (3.80-5.40) m/uL Hgb (11.4-16.0) gm/dL Hct (34.0-46.0) % Chloride 112 H (98-107) mmol/L Carbon Dioxide 19 L (22-30) mmol/L BUN 74 H (7-17) mg/dL Creatinine 1.76 H (0.52-1.04) mg/dL Glucose 163 H (74-99) mg/dL POC Glucose (mg/dL) 183 H 104 H (75-99) mg/dL Calcium 7.6 L (8.4-10.2) mg/dL Assessment and Plan Plan: Assessment and Plan Plan: -Congestive heart failure chronic diastolic dysfunction with acute exacerbation as she didn't take her Lasix at home patient is presently on oral 60 mg twice a day of Lasix, off oxygen, awaiting prior authorization from insurance to go to subacute rehabilitation -Severe pulmonary hypertension with right-sided heart failure and cor pulmonale with acute exacerbation -Chronic kidney disease stage 3-4 patient's creatinine is at her baseline. Patient does have diabetic nephropathy -Type 2 diabetes mellitus with diabetic nephropathy hypertension: -hyperlipidemia -Asthma or COPD patient in acute exacerbation patient was started on oral steroid patient was on IV steroid because of concern of diabetes mellitus recorded down to oral steroids\ -Gastroesophageal reflux disease patient will be started on Protonix patient is complaining of acid reflux
--- NOTE | 2018-03-14 15:04 | P.PN ---
Subjective Progress Note Date: 03/14/18 This is a pleasant 52-year-old female patient with a past medical history significant for heart failure with preserved LV function, moderate pulmonary hypertension, diabetes, and hypertension, presented to the hospital again with shortness of breath. She just was discharged from the hospital a few days ago after she was admitted with a right sided congestive heart failure and bilateral lower extremities edema response very nicely to IV Lasix. Unfortunately after she left she was unable to fill her Lasix and she started experiencing progressive dyspnea and she presented again to the hospital. She denies having any bilateral lower extremities edema at this time, denies having any chest pain or discomfort, no dizziness or lightheadedness and no syncope.Beside the above comorbidities, she does have chronic kidney disease as well. Initially the patient presented to a hospital in [facility] where a chest x- ray was performed and revealed finding consistent with CHF/COPD. A BNP was performed and that came in to be around 300. The hemoglobin was 8.8. The creatinine was 2.1. The EKG showed sinus rhythm with nonspecific changes. The troponin is a slightly elevated but the patient continues to be chest pain-free. 03/14/2018 Patient seen and examined this morning, feeling well, sitting up in the chair at bedside. Currently on by mouth Lasix. Arrangements are being made for discharge home today. Objective - Vital Signs Vital signs: Vital Signs Temp 97.6 F 03/14/18 11:25 Pulse 88 03/14/18 12:01 Resp 20 03/14/18 11:25 BP 143/66 03/14/18 11:25 Pulse Ox 96 03/14/18 11:25 Intake & Output 03/13/18 03/14/18 03/14/18 18:59 06:59 18:59 Intake Total 200 240 573 Output Total 400 Balance -200 240 573 Weight 113.7 kg Intake: Oral 200 240 573 Output: Urine 400 Other: Voiding Method Toilet # Voids 0 1 - Exam PHYSICAL EXAMINATION: HEENT: Head is atraumatic, normocephalic. Pupils equal, round. Neck is supple. There is no elevated jugular venous pressure. HEART EXAMINATION: Heart S1, S2 systolic murmur is heard . No murmur or gallop heard. CHEST EXAMINATION: Lungs are clear to auscultation and precussion. No chest wall tenderness is noted on palpation or with deep breathing. ABDOMEN: Soft, nontender. Bowel sounds are heard. No organomegaly noted. EXTREMITIES: 2+ peripheral pulses with no evidence of peripheral edema and no calf tenderness noted. NEUROLOGIC patient is awake, alert and oriented -3. . - Labs CBC & Chem 7: 03/14/18 05:58 03/14/18 05:58 Labs: Abnormal Lab Results - Last 24 Hours (Table) 03/13/18 03/13/18 03/14/18 Range/Units 16:58 20:31 05:58 RBC 2.51 L (3.80-5.40) m/uL Hgb 7.5 L (11.4-16.0) gm/dL Hct 22.8 L (34.0-46.0) % Chloride (98-107) mmol/L Carbon Dioxide (22-30) mmol/L BUN (7-17) mg/dL Creatinine (0.52-1.04) mg/dL Glucose (74-99) mg/dL POC Glucose (mg/dL) 310 H 344 H (75-99) mg/dL Calcium (8.4-10.2) mg/dL 03/14/18 03/14/18 03/14/18 Range/Units 05:58 06:04 11:35 RBC (3.80-5.40) m/uL Hgb (11.4-16.0) gm/dL Hct (34.0-46.0) % Chloride 112 H (98-107) mmol/L Carbon Dioxide 19 L (22-30) mmol/L BUN 74 H (7-17) mg/dL Creatinine 1.76 H (0.52-1.04) mg/dL Glucose 163 H (74-99) mg/dL POC Glucose (mg/dL) 183 H 104 H (75-99) mg/dL Calcium 7.6 L (8.4-10.2) mg/dL Assessment and Plan Plan: Assessment #1 acute on chronic respiratory failure. #2 congestive heart failure exacerbation secondary to diastole dysfunction, acute on chronic #3 possible COPD exacerbation as well #4 chronic kidney disease #5 mildly abnormal cardiac enzymes #6 hypertension Plan Patient may be able to be discharged home today from cardiology's perspective. We will make her a follow-up appointment with Dr. Villegas in the office in 2 weeks. DNP note has been reviewed, I agree with a documented findings and plan of care. Patient was seen and examined.
[2018-03-14 17:32] LABS: Glucose,Whole Blood 215 mg/dL (75-99)
[2018-03-14 20:57] LABS: Glucose,Whole Blood 285 mg/dL (75-99)
[2018-03-14] MEDS: INSULIN DETEMIR 100 UNIT/ML 10 ML VIAL SQ SCH (21:26)
[2018-03-15 07:25] LABS: Glucose,Whole Blood 101 mg/dL (75-99)
[2018-03-15] MEDS: ALBUTEROL NEBULIZED 2.5 MG/3 ML INHALATION SCH ×4 (07:50→19:33)
[2018-03-15] MEDS: INSULIN ASPART 100 UNIT/ML 1 ML 10 ML VIAL SQ SCH ×8 (08:04→21:21)
[2018-03-15] MEDS: METOPROLOL SUCCINATE (ER) 100 MG TAB.ER.24H PO SCH (08:10)
[2018-03-15] MEDS: ASPIRIN 325 MG TAB PO SCH (08:10)
[2018-03-15] MEDS: NICOTINE 14MG/24HR PATCH TRANSDERM SCH (08:10)
[2018-03-15] MEDS: FUROSEMIDE 20 MG TAB PO SCH ×2 (08:10→16:44)
[2018-03-15] MEDS: FAMOTIDINE 20 MG TAB PO SCH (08:10)
[2018-03-15] MEDS: predniSONE 20 MG TAB PO SCH (08:11)
[2018-03-15] MEDS: LISINOPRIL 5 MG TAB PO SCH (08:11)
[2018-03-15] MEDS: SODIUM BICARBONATE TAB 650 MG TAB PO SCH ×2 (08:11→21:22)
[2018-03-15] MEDS: NYSTATIN 100,000 UNIT/GM POWD 15 GM TOPICAL SCH ×3 (08:12→21:22)
[2018-03-15 08:23] LABS: INR 1.1 (<1.2); Prothrombin Time 10.4 sec (9.0-12.0)
[2018-03-15 08:24] LABS: Basophils % (A) 0 %; Eosinophils # (A) 0.1 k/uL (0-0.7); Eosinophils % (A) 1 %; HCT 22.9 % (34.0-46.0); HGB 7.6 gm/dL (11.4-16.0); Lymphocytes # (A) 2.4 k/uL (1.0-4.8); Lymphocytes % (A) 24 %; MCH 29.9 pg (25.0-35.0); MCHC 33.2 g/dL (31.0-37.0); MCV 90.1 fL (80.0-100.0); Mean Platelet Volume 6.9; Monocytes # (A) 0.6 k/uL (0-1.0); Monocytes % (A) 6 %; Neutrophils # (A) 6.7 k/uL (1.3-7.7); Neutrophils % (A) 67 %; Platelet Count 191 k/uL (150-450); RBC 2.54 m/uL (3.80-5.40); RDW 15.2 % (11.5-15.5)
[2018-03-15] MEDS: hydrALAZINE HCL 50 MG TAB PO SCH ×3 (10:31→21:22)
[2018-03-15] MEDS ORDERED: FUROSEMIDE 10 MG/ML 4 ML VIAL IV STA (11:20)
--- NOTE | 2018-03-15 11:42 | PN ---
PROGRESS NOTE Mrs. Melendez is a 52-year-old female with a history of peripheral edema, history of dyspnea on exertion, who presented with worsening dyspnea. She underwent an echocardiogram during this admission that showed a preserved systolic function was mild to moderate tricuspid regurgitation with moderate pulmonary hypertension with a right- sided pressure of 64 mm Hg. She continues to have the peripheral edema. She is short of breath with ambulation. She denies any chest pain. No dizziness. No syncope. She continues to be on Lasix 60 mg twice a albuterol, aspirin once a day, hydralazine 100 mg 3 times a day, lisinopril 5 mg daily, metoprolol succinate 100 mg daily, nicotine patch, and prednisone in addition to sodium bicarb. PHYSICAL EXAMINATION: Blood pressure 140/80 with a heart rate in the 80s. LUNGS: No wheezes with decreased air exchange. HEART: Regular rate, rhythm S1, S2. No S3 with a systolic murmur. ABDOMEN: Soft, obese, nontender. EXTREMITIES: With 1+ edema. LAB DATA: Lab data revealed a hemoglobin of 7.6. IMPRESSION: 1. Symptoms of dyspnea and peripheral edema with a history of pulmonary hypertension and right-sided failure. 2. Anemia. 3. Renal failure with chronic kidney disease. 4. Hypertension. RECOMMENDATION: I will give her a dose of IV Lasix today. Follow her renal function and depending on her symptoms, further recommendation will be made. MMODL / IJN: [id number] /
[2018-03-15 12:30] LABS: Glucose,Whole Blood 106 mg/dL (75-99)
[2018-03-15] MEDS ORDERED: FAMOTIDINE 20 MG TAB PO SCH (13:41)
--- NOTE | 2018-03-15 14:58 | P.PN ---
Subjective 60-year-old female came in with pulmonary edema secondary to chronic diastolic dysfunction with acute exacerbation patient is non-compliant with her medications. Patient has significant improvement in her is pretty status patient is multiple complaints including left hip pain left hip x-ray did not show any fracture. 03/12/2018 Patient's IV was lost so will switch her to oral Lasix today. We'll continue to monitor patient is wheezing quite a bit on exam patient is already on oral steroids 03/13/2018 Patient was pretty status significant improved no wheezing today patient shortness of breath resolved and repeat chest x-ray still showing bilateral pleural effusion vision in a few areas to be bit worse because of which will hold off for discharge today we are working on sending her to subacute rehabitation 03/14/2018 Normal shortness of breath patient on oral Lasix patient is on room air is awaiting prior authorization to be discharged to subacute rehabilitation 03/15/2018 No overnight events Constitutional: Denied any fatigue denied any fever. Cardio vascular: denied any chest pain, palpitations Gastrointestinal denied any nausea vomiting Pulmonary: As mentioned in the interval history Neurologic denied any new focal deficits Objective - Vital Signs Vital signs: Vital Signs Temp 97.2 F L 03/15/18 06:23 Pulse 88 03/15/18 11:42 Resp 16 03/15/18 06:23 BP 143/85 03/15/18 06:23 Pulse Ox 95 03/15/18 07:50 Intake & Output 03/14/18 03/15/18 03/15/18 18:59 06:59 18:59 Intake Total 573 Balance 573 Weight 110.5 kg Intake: Oral 573 Other: Voiding Method Toilet # Voids 1 2 # Bowel Movements 1 1 - Exam PHYSICAL EXAMINATION: GENERAL: The patient is alert and oriented x3, not in any acute distress. Well developed, well nourished. HEENT: Pupils are round and equally reacting to light. EOMI. No scleral icterus. No conjunctival pallor. Normocephalic, atraumatic. No pharyngeal erythema. No thyromegaly. CARDIOVASCULAR: S1 and S2 present. No murmurs, rubs, or gallops. JVD is not elevated pedal edema improved PULMONARY: Chest is clear to auscultation, no wheezing or crackles. ABDOMEN: Soft, nontender, nondistended, normoactive bowel sounds. No palpable organomegaly. MUSCULOSKELETAL: No joint swelling or deformity. EXTREMITIES: No cyanosis, clubbing, or pedal edema. NEUROLOGICAL: Gross neurological examination did not reveal any focal deficits. SKIN: No rashes. - Labs CBC & Chem 7: 03/15/18 07:46 03/14/18 05:58 Labs: Abnormal Lab Results - Last 24 Hours (Table) 03/14/18 03/14/18 03/15/18 Range/Units 17:12 20:41 07:02 RBC (3.80-5.40) m/uL Hgb (11.4-16.0) gm/dL Hct (34.0-46.0) % POC Glucose (mg/dL) 215 H 285 H 101 H (75-99) mg/dL 03/15/18 03/15/18 Range/Units 07:46 12:23 RBC 2.54 L (3.80-5.40) m/uL Hgb 7.6 L (11.4-16.0) gm/dL Hct 22.9 L (34.0-46.0) % POC Glucose (mg/dL) 106 H (75-99) mg/dL Assessment and Plan Plan: Assessment and Plan Plan: -Congestive heart failure chronic diastolic dysfunction with acute exacerbation as she didn't take her Lasix at home patient is presently on oral 60 mg twice a day of Lasix, off oxygen, awaiting prior authorization from insurance to go to subacute rehabilitation -Severe pulmonary hypertension with right-sided heart failure and cor pulmonale with acute exacerbation -Chronic kidney disease stage 3-4 patient's creatinine is at her baseline. Patient does have diabetic nephropathy -Type 2 diabetes mellitus with diabetic nephropathy hypertension: -hyperlipidemia -Asthma or COPD patient in acute exacerbation patient was started on oral steroid patient was on IV steroid because of concern of diabetes mellitus recorded down to oral steroids\ -Gastroesophageal reflux disease patient will be started on Protonix patient is complaining of acid reflux
[2018-03-15] MEDS: Acetaminophen-Codeine 300-30mg TAB PO PRN ×2 (16:44→23:52)
[2018-03-15 17:10] LABS: Glucose,Whole Blood 317 mg/dL (75-99)
[2018-03-15] MEDS: INSULIN DETEMIR 100 UNIT/ML 10 ML VIAL SQ SCH (21:21)
[2018-03-15 21:40] LABS: Glucose,Whole Blood 322 mg/dL (75-99)
[2018-03-16 07:36] LABS: Glucose,Whole Blood 133 mg/dL (75-99)
[2018-03-16] MEDS: ALBUTEROL NEBULIZED 2.5 MG/3 ML INHALATION SCH ×3 (07:42→15:57)
[2018-03-16] MEDS: SODIUM BICARBONATE TAB 650 MG TAB PO SCH (07:48)
[2018-03-16] MEDS: METOPROLOL SUCCINATE (ER) 100 MG TAB.ER.24H PO SCH (07:48)
[2018-03-16] MEDS: NICOTINE 14MG/24HR PATCH TRANSDERM SCH (07:48)
[2018-03-16] MEDS: FUROSEMIDE 20 MG TAB PO SCH ×2 (07:48→16:27)
[2018-03-16] MEDS: LISINOPRIL 5 MG TAB PO SCH (07:48)
[2018-03-16] MEDS: hydrALAZINE HCL 50 MG TAB PO SCH ×2 (07:49→16:27)
[2018-03-16] MEDS: INSULIN ASPART 100 UNIT/ML 1 ML 10 ML VIAL SQ SCH ×4 (07:49→12:53)
[2018-03-16] MEDS: ASPIRIN 325 MG TAB PO SCH (07:49)
[2018-03-16] MEDS: NYSTATIN 100,000 UNIT/GM POWD 15 GM TOPICAL SCH ×2 (07:50→16:27)
[2018-03-16] MEDS: predniSONE 20 MG TAB PO SCH (08:43)
[2018-03-16 09:13] LABS: Basophils % (A) 0 %; Eosinophils # (A) 0.1 k/uL (0-0.7); Eosinophils % (A) 1 %; HCT 26.3 % (34.0-46.0); HGB 8.1 gm/dL (11.4-16.0); Hypochromasia Slight; Lymphocytes # (A) 4.1 k/uL (1.0-4.8); Lymphocytes % (A) 29 %; MCH 29.2 pg (25.0-35.0); MCHC 30.9 g/dL (31.0-37.0); MCV 94.3 fL (80.0-100.0); Mean Platelet Volume 7.3; Monocytes # (A) 0.7 k/uL (0-1.0); Monocytes % (A) 5 %; Neutrophils # (A) 9.2 k/uL (1.3-7.7); Neutrophils % (A) 64 %; Platelet Count 232 k/uL (150-450); RBC 2.79 m/uL (3.80-5.40); WBC 14.5 k/uL (3.8-10.6)
[2018-03-16 09:19] LABS: Prothrombin Time 9.7 sec (9.0-12.0)
[2018-03-16 09:38] VITALS: RESP 16
[2018-03-16 09:41] LABS: Calcium 7.5 mg/dL (8.4-10.2); Potassium 4.3 mmol/L (3.5-5.1)
[2018-03-16] MEDS: Acetaminophen-Codeine 300-30mg TAB PO PRN (11:07)
[2018-03-16 12:36] LABS: Glucose,Whole Blood 122 mg/dL (75-99)
--- NOTE | 2018-03-16 14:21 | P.DS ---
Providers Date of admission: 03/10/18 01:02 Expected date of discharge: 03/16/18 Attending physician: Martinez Damon Consults: 03/10/18 00:56 Consult Physician Routine Consulting Provider: Nicci Bull Consult Reason/Comments: chf, elevated troponin Do you want consulting provider notified?: Yes Primary care physician: [facility] Course: Final Diagnoses: -Congestive heart failure chronic diastolic dysfunction with acute exacerbation as she didn't take her Lasix at home -Severe pulmonary hypertension with right-sided heart failure and cor pulmonale with acute exacerbation -Chronic kidney disease stage 3-4 patient's creatinine is at her baseline. Patient does have diabetic nephropathy -Type 2 diabetes mellitus with diabetic nephropathy hypertension: -hyperlipidemia -Asthma or COPD patient in acute exacerbation -Gastroesophageal reflux disease patient Hospital course: This is a 60-year-old female admitted with pulmonary edema secondary to chronic diastolic dysfunction, acute exacerbation, noncompliant with medications. Patient also complained of left hip pain, x-ray did not report any fracture. Evaluated by cardiology, Diuresed well on Lasix. Significant clinical improvement. Patient has been cleared for discharge by cardiology. Patient is being discharged to [facility] subacute rehab in stable condition with guarded prognosis. PHYSICAL EXAMINATION: GENERAL:VSS, alert and oriented x3, not in any acute distress. CARDIOVASCULAR: S1 and S2 present. No murmurs, rubs, or gallops. PULMONARY: Chest is clear to auscultation, no wheezing or crackles. ABDOMEN: Soft, nontender, nondistended, normoactive bowel sounds. No palpable organomegaly. NEUROLOGICAL: Gross neurological examination did not reveal any focal deficits. The impression and plan of care has been dictated as directed. : I performed a history and examination of this patient, discussed the same with the dictator. I agree with the dictator's note ,documented as a scribe. Any additional findings or plans will be noted. Time taken:35 minutes Patient Condition at Discharge: Stable Plan - Discharge Summary Discharge Rx Participant: Yes New Discharge Prescriptions: New Acetaminophen Tab [Tylenol] 650 mg PO Q6HR PRN tab PRN Reason: Fever and/ or Mild Pain Aspirin 325 mg PO DAILY tab Famotidine [Pepcid] 20 mg PO DAILY tab Furosemide [Lasix] 60 mg PO BID@0900,1600 tab hydrALAZINE HCL [Apresoline] 100 mg PO TID tab Insulin Aspart [NovoLOG (formulary)] 7 unit SQ ACHS vial Insulin Detemir [Levemir] 38 unit SQ HS syr INSULIN LISPRO (HumaLOG) [humaLOG] 0 unit SQ ACHS #1 vial Lisinopril [Zestril] 5 mg PO DAILY tab Metoprolol Succinate (ER) [Toprol XL] 100 mg PO DAILY tab.er.24h Nystatin 100,000 Unit/gm Powd [Mycostatin Powder] 1 applic TOPICAL TID applic predniSONE 10 mg PO DIRECTED #30 tab Continue Albuterol Nebulized [Ventolin Nebulized] 2.5 mg INHALATION RT-QID Albuterol Inhaler [Ventolin Hfa Inhaler] 1 - 2 puff INHALATION RT-Q6H PRN PRN Reason: Shortness Of Breath Bismuth Subsalicylate [Pepto-Bismol] 30 ml PO DAILY PRN PRN Reason: Indigestion Sodium Bicarbonate Tab 650 mg PO BID #60 tab Nicotine 14Mg/24Hr Patch [Habitrol] 1 patch TRANSDERM DAILY #14 patch Discontinued Metoprolol Succinate [Toprol XL] 50 mg PO DAILY hydrALAZINE HCL [Apresoline] 25 mg PO BID Furosemide [Lasix] 40 mg PO BID #28 tablet Insulin Glargine,Hum.rec.anlog [Basaglar Kwikpen U-100] 40 unit SQ HS #0 Insulin Aspart [NovoLOG] 5 units SQ ACHS #0 Discharge Medication List Albuterol Nebulized [Ventolin Nebulized] 2.5 mg INHALATION RT-QID 07/11/16 [ History] Albuterol Inhaler [Ventolin Hfa Inhaler] 1 - 2 puff INHALATION RT-Q6H PRN [History] Bismuth Subsalicylate [Pepto-Bismol] 30 ml PO DAILY PRN 03/05/18 [History] Nicotine 14Mg/24Hr Patch [Habitrol] 1 patch TRANSDERM DAILY #14 patch 03/07/18 [ Rx] Sodium Bicarbonate Tab 650 mg PO BID #60 tab 03/07/18 [Rx] Acetaminophen Tab [Tylenol] 650 mg PO Q6HR PRN tab 03/16/18 [Rx] Aspirin 325 mg PO DAILY tab 03/16/18 [Rx] Famotidine [Pepcid] 20 mg PO DAILY tab 03/16/18 [Rx] Furosemide [Lasix] 60 mg PO BID@0900,1600 tab 03/16/18 [Rx] INSULIN LISPRO (HumaLOG) [humaLOG] 0 unit SQ ACHS #1 vial 03/16/18 [Rx] Insulin Aspart [NovoLOG (formulary)] 7 unit SQ ACHS vial 03/16/18 [Rx] Insulin Detemir [Levemir] 38 unit SQ HS syr 03/16/18 [Rx] Lisinopril [Zestril] 5 mg PO DAILY tab 03/16/18 [Rx] Metoprolol Succinate (ER) [Toprol XL] 100 mg PO DAILY tab.er.24h 03/16/18 [Rx] Nystatin 100,000 Unit/gm Powd [Mycostatin Powder] 1 applic TOPICAL TID applic 03/16/18 [Rx] hydrALAZINE HCL [Apresoline] 100 mg PO TID tab 03/16/18 [Rx] predniSONE 10 mg PO DIRECTED #30 tab 03/16/18 [Rx] Follow up Appointment(s)/Referral(s): Dinorah Walker MD [STAFF PHYSICIAN] - 1 Week Bright Villegas MD [STAFF PHYSICIAN] - 03/31/18 2:30 pm (Friday) [facility], [NON-STAFF] - Shawn Kim MD [Primary Care Provider] - 03/17/18 1:45 pm (1 week after discharge from [facility]) Jayjay Armendariz MD [REFERRING] - 3 Days (While at [facility]) Patient Instructions/Handouts: Heart Failure (DC), COPD (Chronic Obstructive Pulmonary Disease) (DC) Activity/Diet/Wound Care/Special Instructions: [facility] NovoLog pre-meal/at bedtime insulin order, hold if Accu-Chek less than 120. Diet: Consistent carb Activity: As tolerated CBC, BMP in 3 days Discharge Disposition: TRANSFER TO SNF/ECF
--- NOTE | 2018-03-16 14:39 | P.PN ---
Subjective Progress Note Date: 03/16/18 Mrs. Melendez is a pleasant 52-year-old female past medical history significant for peripheral edema, diabetes mellitus, dyslipidemia, hypertension , chronic kidney disease and anxiety. We have been following her on this admission for symptoms of exertional dyspnea with right sided heart failure. On exam today she is seen sitting up in the chair in no acute distress on room air. She denies symptoms of chest pain, dizziness, palpitations, nausea, vomiting or diaphoresis. She continues to feel mildly short of breath with exertion although she states she feels to be back to her baseline. She is currently on PO lasix 60 mg BID. Blood pressure 152/89 heart rate 72 afebrile. WBC 14.5, hemoglobin 8.1, platelets 232, potassium 4.3, creatinine 1.71. Objective - Vital Signs Vital signs: Vital Signs Temp 96.7 F L 03/16/18 07:00 Pulse 80 03/16/18 11:29 Resp 16 03/16/18 08:00 BP 152/89 03/16/18 07:00 Pulse Ox 98 03/16/18 07:45 Intake & Output 03/15/18 03/16/18 03/16/18 18:59 06:59 18:59 Intake Total 600 960 Balance 600 960 Intake: Oral 600 960 Other: # Voids 2 2 # Bowel Movements 1 - Exam GENERAL: Well-appearing, well-nourished and in no acute distress. NECK: Supple without JVD or thyromegaly. LUNGS: Breath sounds clear to auscultation bilaterally. Respiration equal and unlabored. No wheezes, rales or rhonchi. HEART: Regular rate and rhythm with systolic ejection murmur at the base, no rubs or gallops. S1 and S2 heard. EXTREMITIES: Normal range of motion, chronic bilateral lower extremity edema, nonpitting. No clubbing or cyanosis. Peripheral pulses intact. - Labs CBC & Chem 7: 03/16/18 07:58 03/16/18 07:58 Labs: Abnormal Lab Results - Last 24 Hours (Table) 03/15/18 03/15/18 03/16/18 Range/Units 17:05 20:59 07:25 WBC (3.8-10.6) k/uL RBC (3.80-5.40) m/uL Hgb (11.4-16.0) gm/dL Hct (34.0-46.0) % MCHC (31.0-37.0) g/dL Neutrophils # (1.3-7.7) k/uL Chloride (98-107) mmol/L Carbon Dioxide (22-30) mmol/L BUN (7-17) mg/dL Creatinine (0.52-1.04) mg/dL POC Glucose (mg/dL) 317 H 322 H 133 H (75-99) mg/dL Calcium (8.4-10.2) mg/dL 03/16/18 03/16/18 03/16/18 Range/Units 07:58 07:58 12:28 WBC 14.5 H (3.8-10.6) k/uL RBC 2.79 L (3.80-5.40) m/uL Hgb 8.1 L (11.4-16.0) gm/dL Hct 26.3 L (34.0-46.0) % MCHC 30.9 L (31.0-37.0) g/dL Neutrophils # 9.2 H (1.3-7.7) k/uL Chloride 111 H (98-107) mmol/L Carbon Dioxide 20 L (22-30) mmol/L BUN 73 H (7-17) mg/dL Creatinine 1.71 H (0.52-1.04) mg/dL POC Glucose (mg/dL) 122 H (75-99) mg/dL Calcium 7.5 L (8.4-10.2) mg/dL Assessment and Plan Assessment: ASSESSMENT 1. Acute on chronic respiratory failure 2. Acute diastolic heart failure 3. Chronic anemia 4. Chronic kidney disease 5. Hypertension 6. Morbid obesity PLAN Stable from a cardiac perspective. She should be discharged on Lasix 60 mg twice a day. Follow-up with Dr. Villegas in 2 weeks. The above impression and plan of care have been discussed and directed by the signing physician. Liss Rivera, nurse practitioner, acting as scribe for signing physician.
[2018-03-16 15:49] VITALS: BP 132/74; PULSE 69; TEMP 99.2
== END 2018-03-16 16:40 | DRG 291 ==
LOC: EC 21:21 → 6SEL 03-10 01:02 → 4MS4W 03-14 15:49
PROVIDERS: ADMIT Hospitalist; ATTEND Hospitalist
DX: I13.0 Hypertensive heart and chronic kidney disease with heart failure and stage 1 through stage 4 chronic kidney disease, or unspecified chronic kidney disease (principal); I50.33 Acute on chronic diastolic (congestive) heart failure; J96.20 Acute and chronic respiratory failure, unspecified whether with hypoxia or hypercapnia; E11.21 Type 2 diabetes mellitus with diabetic nephropathy; I27.29 Other secondary pulmonary hypertension; I07.1 Rheumatic tricuspid insufficiency; E66.01 Morbid (severe) obesity due to excess calories; N18.4 Chronic kidney disease, stage 4 (severe); J44.1 Chronic obstructive pulmonary disease with (acute) exacerbation; Z68.42 Body mass index [BMI] 45.0-49.9, adult; I27.81 Cor pulmonale (chronic); I50.811 Acute right heart failure; I25.2 Old myocardial infarction; I50.813 Acute on chronic right heart failure; D64.9 Anemia, unspecified; E11.22 Type 2 diabetes mellitus with diabetic chronic kidney disease; E78.5 Hyperlipidemia, unspecified; F17.200 Nicotine dependence, unspecified, uncomplicated; K21.9 Gastro-esophageal reflux disease without esophagitis; M25.552 Pain in left hip; Y63.6 Underdosing and nonadministration of necessary drug, medicament or biological substance; R77.8 Other specified abnormalities of plasma proteins; Z79.4 Long term (current) use of insulin; Z79.899 Other long term (current) drug therapy; Z80.51 Family history of malignant neoplasm of kidney; Z82.49 Family history of ischemic heart disease and other diseases of the circulatory system; Z83.3 Family history of diabetes mellitus; Z85.72 Personal history of non-Hodgkin lymphomas; Z91.14 Patient's other noncompliance with medication regimen; Z88.8 Allergy status to other drugs, medicaments and biological substances; Z88.1 Allergy status to other antibiotic agents; Z91.012 Allergy to eggs; Z91.040 Latex allergy status; Z91.011 Allergy to milk products
CPT/HCPCS: 36415; 71045; 80048; 82272; 82550; 82553; 83036; 83735; 84484; 85025; 85027; 85610; 85730; 93005; 93306; 94640; 94760; 96365; 96375; 96376; 99285

== ENCOUNTER 2018-03-20 16:08 | Inpatient (IN) | payer OTHER ==
[2018-03-20] MEDS ORDERED: ACETAMINOPHEN TAB 325 MG TAB PO PRN (19:09)
[2018-03-20] MEDS ORDERED: IPRATROPIUM-ALBUTEROL 3 ML NEB INHALATION PRN (19:10)
[2018-03-20] MEDS ORDERED: BISMUTH SUBSALICYLATE 4,192 MG/240 ML BOTTLE PO PRN (19:13)
[2018-03-20] MEDS: Acetaminophen-Codeine 300-30mg TAB PO PRN (19:24)
[2018-03-20 20:02] LABS: Appearance,Urine Clear (Clear); Bacteria,Urine Rare /hpf; Bilirubin,Urine Negative (Negative); Blood,Urine Trace (Negative); Color,Urine Light Yellow; Glucose,Urine (UA) Trace (Negative); Ketones,Urine Negative (Negative); Leukocyte Esterase,Urine Small (Negative); Nitrite,Urine Negative (Negative); Protein,Urine 2+ (Negative); RBC,Urine 13 /hpf (0-5); Specific Gravity,Urine 1.009 (1.001-1.035); Squamous Epithelial Cell,Urine <1 /hpf (0-4); Urobilinogen,Urine <2.0 mg/dL (<2.0); WBC,Urine 10 /hpf (0-5)
[2018-03-20 20:12] LABS: HGB 8.1 gm/dL (11.4-16.0); MCHC 31.1 g/dL (31.0-37.0); MCV 93.3 fL (80.0-100.0); Mean Platelet Volume 7.4; Platelet Count 290 k/uL (150-450); RBC 2.79 m/uL (3.80-5.40); RDW 15.2 % (11.5-15.5); WBC 20.6 k/uL (3.8-10.6)
[2018-03-20] MEDS: IPRATROPIUM-ALBUTEROL 3 ML NEB INHALATION SCH (20:21)
[2018-03-20 20:29] LABS: Albumin 2.7 g/dL (3.5-5.0); Calcium 8.5 mg/dL (8.4-10.2); Total Bilirubin 0.2 mg/dL (0.2-1.3); Total Protein 4.8 g/dL (6.3-8.2)
--- NOTE | 2018-03-20 20:32 | XR ---
EXAMINATION TYPE: XR chest 2V DATE OF EXAM: 03/20/2018 COMPARISON: 03/13/2018 HISTORY: Heart failure TECHNIQUE: Frontal and lateral views of the chest are obtained. FINDINGS: Heart is enlarged. There is prominent vascular congestion. There is right central venous c atheter with tip in the superior vena cava. There is blunting of costophrenic angles. There are chest leads. Bony thorax is intact. IMPRESSION: Mild congestive heart failure that is improved compared to last exam.
[2018-03-20 20:33] LABS: Potassium 6.4 mmol/L (3.5-5.1)
[2018-03-20] MEDS: FUROSEMIDE 250 MG in SODIUM CHLORIDE 0.9% 225 ML IVP SCH (20:45)
[2018-03-20] MEDS ORDERED: SODIUM BICARB 8.4% 50 ML SYR (1 MEQ/ML) IV ONE (20:55)
[2018-03-20] MEDS ORDERED: DEXTROSE 50%-WATER 50 ML SYRINGE IVP STA (20:55)
[2018-03-20 20:56] LABS: Lymphocytes # (M) 5.36 k/uL (1.0-4.8); Metamyelocytes # (M) 0.21 k/uL (0); Metamyelocytes % 1 %; Monocytes # (M) 0.62 k/uL (0-1.0); Neutrophils # (M) 14.63 k/uL (1.3-7.7); Neutrophils % (M) 71 %; Nucleated Red Blood Cells 0 /100 WBC (0-0); Poikilocytosis (M) Present; Polychromasia Present; Total Cells Counted 200; Toxic Vacuolation Present
[2018-03-20] MEDS: hydrALAZINE HCL 50 MG TAB PO SCH (21:00)
[2018-03-20] MEDS ORDERED: INSULIN REGULAR 100 UNIT/ML VIAL IV ONE (21:00)
[2018-03-20] MEDS: SODIUM BICARBONATE TAB 650 MG TAB PO SCH (21:00)
[2018-03-20 21:09] LABS: Glucose,Whole Blood 192 mg/dL (75-99)
[2018-03-20] MEDS ORDERED: CALCIUM GLUCONATE 1,000 MG in SODIUM CHLORIDE 0.9% 100 ML IVPB ONE (21:15)
[2018-03-20] MEDS: SYMBICORT 160-4.5 MCG INHALER INHALATION SCH (21:26)
[2018-03-20] MEDS: NYSTATIN 100,000 UNIT/GM POWD 15 GM TOPICAL SCH (21:30)
[2018-03-20] MEDS: PANTOPRAZOLE 40 MG/10 ML VIAL IVP SCH (22:04)
[2018-03-20] MEDS: HEPARIN SODIUM,PORCINE 5,000 UNIT/ML 1 ML VIAL SQ SCH (22:06)
[2018-03-20] MEDS: INSULIN DETEMIR 100 UNIT/ML 10 ML VIAL SQ SCH (22:07)
[2018-03-20] MEDS: INSULIN ASPART 100 UNIT/ML 1 ML 10 ML VIAL SQ SCH ×2 (22:08)
[2018-03-21] MEDS: VANCOMYCIN ORAL SOLUTION 250 MG/5 ML BOTTLE PO SCH ×5 (00:50→23:13)
[2018-03-21 01:35] LABS: Hemoglobin A1C 7.1 % (4.0-6.0)
[2018-03-21 02:23] LABS: Glucose,Whole Blood 108 mg/dL (75-99)
[2018-03-21 06:05] LABS: Glucose,Whole Blood 47 mg/dL (75-99)
[2018-03-21 06:24] LABS: Glucose,Whole Blood 96 mg/dL (75-99)
[2018-03-21] MEDS: INSULIN ASPART 100 UNIT/ML 1 ML 10 ML VIAL SQ SCH ×8 (06:31→21:30)
--- NOTE | 2018-03-21 08:12 | HP ---
HISTORY AND PHYSICAL DATE OF SERVICE: 03/20/2018. HISTORY OF PRESENT ILLNESS: This 52-year-old woman with a past medical history of multiple medical illnesses and chronic kidney stage 3, 4, diabetes type 2, history of hyperlipidemia, asthma, GERD, history of CHF, being followed by Dr. Kim in the outpatient setting was recently admitted with CHF acute exacerbation. The patient improved significantly. Patient was sent to [facility] in the ECF in [facility] in [place]. The patient was improving initially but subsequently patient had multiple symptomatology including abdominal pain, swelling and diarrhea, dehydration, and the patient also had CHF and the patient evaluated in [facility] and transferred directly to [facility] for further evaluation and treatment. The C difficile was positive in [facility]. There is no history of fever, rigors. No history of headache, loss of consciousness or seizures. PAST MEDICAL HISTORY: History of CHF, history of asthma, hypertension, hyperlipidemia, history of non- Hodgkin's lymphoma, section, anxiety, depression. MEDICATIONS: Prior to admission include home medications are: 1. Zofran 4 mg q.6 p.r.n. 2. Imodium 2 mg q.i.d. p.r.n. 3. Ventolin HFA 2 puffs p.o. q.6h. 4. Tylenol 650 q.6h p.r.n. 5. NovoLog a.c. and q.h.s. p.r.n. 6. NovoLog 7 units subcu q.h.s. 7. Apresoline 100 mg p.o. t.i.d. 8. Sodium bicarb 650 p.o. b.i.d. 9. Lactobacillus 1 tab p.o. b.i.d. 10.Lasix 60 mg p.o. b.i.d. 11.Ventolin 2.5 q.i.d. 12.Toprol XL 100 mg p.o. daily. 13.Prednisone daily. 14.Habitrol 14 daily. 15.Pepcid 20 mg daily. 16.Zestril 5 mg p.o. daily. 17.Levemir 33 units subcu q.h.s. 18.Aspirin 320 mg p.o. daily. ALLERGIES: ZITHROMAX, LATEX, METFORMIN, RITUXIMAB, LACTOSE. FAMILY HISTORY: History of cancer, prostate cancer with metastasis. SOCIAL HISTORY: Previous history of smoking. No history of current smoking or alcohol intake. REVIEW OF SYSTEMS: ENT: No diminished vision. No diminished hearing. Cardiovascular system: As mentioned earlier. RESPIRATORY: As mentioned earlier. GI: As mentioned earlier. no dysuria or hematuria. Nervous system: No numbness or weakness. ALLERGY/IMMUNOLOGY: No asthma or hayfever. Musculoskeletal: As mentioned earlier. Hematology/Oncology: No history of anemia. Endocrine: History of diabetes mellitus type 2. Constitutional: As mentioned earlier. DERMATOLOGY: Negative. RHEUMATOLOGY: Negative. PSYCHIATRY: As mentioned earlier. PHYSICAL EXAM: Patient is alert, oriented times three. Pulse is 74, blood pressure 130/64, respiration 17, temperature 97.3, pulse ox 98% on room air. HEENT: Conjunctivae normal. Oral mucosa moist. Neck is obese. No jugular venous distention. No lymph node enlargement. Cardiovascular S1-S2 muffled. RESPIRATORY: Breath sounds diminished in the bases. A few scattered rhonchi and crackles. Basal crackles also heard. ABDOMEN: Soft, obese, nontender. Mild diffuse discomfort on palpation. No guarding. No rigidity. No mass palpable. Legs: Bilateral leg edema present. Nervous system: Higher functions as mentioned earlier. Moves all four extremities. Mild diffuse weakness. Lymphatics: No lymph nodes palpable in the neck, axillae or groin. Skin no ulcer, rash, bleeding. LABORATORY DATA: Chest x-ray reviewed personally showed CHF, otherwise other labs are WBC 20.2, hemoglobin is 8.1, and sodium 140, potassium 6.4, creatinine 1.7. ASSESSMENT: 1. Abdominal pain and diarrhea with acute C difficile colitis. 2. Congestive heart failure acute exacerbation with acute on chronic diastolic dysfunction ejection fraction 50-60%. 3. Moderate mitral regurgitation. 4. History of asthma. 5. History of non-Hodgkin's lymphoma. 6. History of hyperlipidemia. 7. History of diabetes type 2. 8. Hypertension. 9. History of chronic kidney disease stage 3. 10.Hyperkalemia. 11.History of section. 12.History of anxiety/depression. 13.Obesity with body mass index 50. 14.FULL CODE. RECOMMENDATIONS AND DISCUSSION: In this 52-year-old woman who presented with multiple complex medical issues, we will monitor the patient closely, continue the current medications, management and symptomatic treatment. We will initiate Lasix drip. Otherwise I would also recommend vancomycin p.o. for C diff. I would recommend cardiology and Nephrology consultations. Insulin glucose regimen for hyperkalemia. Avoid KIMBERLYN inhibitors and potassium. Continue the telemetry. The prognosis guarded because of multiple complex medical issues. Further recommendations to follow. DVT prophylaxis. A copy of dictation forwarded to Dr. Kim and Dr. Armendariz, who are the primary physicians. MMODL / IJN: [id number] /
[2018-03-21] MEDS: IPRATROPIUM-ALBUTEROL 3 ML NEB INHALATION SCH ×4 (08:18→20:51)
[2018-03-21] MEDS: SYMBICORT 160-4.5 MCG INHALER INHALATION SCH ×2 (08:18→20:51)
[2018-03-21] MEDS ORDERED: predniSONE 10 MG TAB PO SCH (09:00)
[2018-03-21] MEDS ORDERED: ASPIRIN 325 MG TAB PO SCH (09:00)
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
[2018-03-21] MEDS: HEPARIN SODIUM,PORCINE 5,000 UNIT/ML 1 ML VIAL SQ SCH ×2 (09:22→19:40)
[2018-03-21] MEDS: predniSONE 20 MG TAB PO SCH (09:22)
[2018-03-21] MEDS: hydrALAZINE HCL 50 MG TAB PO SCH ×3 (09:22→19:40)
[2018-03-21] MEDS: SODIUM BICARBONATE TAB 650 MG TAB PO SCH ×2 (09:22→19:40)
[2018-03-21] MEDS: METOPROLOL SUCCINATE (ER) 100 MG TAB.ER.24H PO SCH (09:23)
[2018-03-21] MEDS: NICOTINE 14MG/24HR PATCH TRANSDERM SCH (09:24)
[2018-03-21] MEDS: PANTOPRAZOLE 40 MG/10 ML VIAL IVP SCH (09:25)
[2018-03-21] MEDS: NYSTATIN 100,000 UNIT/GM POWD 15 GM TOPICAL SCH ×3 (09:25→19:40)
[2018-03-21 09:49] LABS: Basophils % (A) 0 %; Eosinophils # (A) 0.1 k/uL (0-0.7); Eosinophils % (A) 1 %; HCT 25.1 % (34.0-46.0); Lymphocytes % (A) 17 %; MCH 29.2 pg (25.0-35.0); MCHC 31.7 g/dL (31.0-37.0); Mean Platelet Volume 6.9; Monocytes # (A) 0.5 k/uL (0-1.0); Monocytes % (A) 4 %; Neutrophils % (A) 77 %; Platelet Count 218 k/uL (150-450); RBC 2.73 m/uL (3.80-5.40); RDW 15.1 % (11.5-15.5); WBC 11.6 k/uL (3.8-10.6)
[2018-03-21 09:57] LABS: Calcium 8.4 mg/dL (8.4-10.2)
[2018-03-21] MEDS ORDERED: DARBEPOETIN ALFA 40 MCG/0.4 ML SYRINGE SQ SCH (10:00)
[2018-03-21 11:41] LABS: Glucose,Whole Blood 145 mg/dL (75-99)
[2018-03-21] MEDS: Acetaminophen-Codeine 300-30mg TAB PO PRN (12:38)
--- NOTE | 2018-03-21 12:48 | CONS ---
CONSULTATION Mrs. Melendez is a 52-year-old female with a known history of hypertension, hyperlipidemia, diabetes mellitus, history of congestive heart failure with diastolic dysfunction, chronic kidney disease, history of lymphoma as well as prior history of smoking. She was recently in the hospital, was discharged to [facility] and had severe diarrhea there with worsening peripheral edema. In view of that, she was referred back to the hospital. She is feeling slightly better today. She had no diarrhea this morning. Her breathing is unchanged. She has the peripheral edema, and that has worsened. She denies any dizziness or palpitation. She denies any nausea. Her coronary risk factors are remarkable for diabetes, hypertension, hyperlipidemia and a prior history of smoking. She had a stress test done in October 2015 that revealed a moderate-sized defect involving the lateral, apicolateral and mid anterior wall. At that time no cardiac catheterization was done because of her lymphoma and her renal function. The patient declined to. MEDICATION: Her medications at the time of admission included: 1. Prednisone. 2. Hydralazine 100 mg 3 times a day. 3. Sodium bicarb. 4. Metoprolol succinate 100 mg daily. 5. Zestril 5 mg daily. 6. Furosemide 60 mg twice a day. 7. Aspirin. 8. Albuterol. 9. Pepcid. REVIEW OF SYSTEMS: RESPIRATORY SYSTEM: She has history of chronic obstructive lung disease, history of dyspnea on exertion. GI SYSTEM: She had diarrhea. No recent nausea or vomiting. SYSTEM: No dysuria or hematuria. She has chronic kidney disease. NERVOUS SYSTEM: No seizure. PHYSICAL EXAMINATION: Ipmom-sox-rwhy-old female, alert, oriented, in no apparent distress. Obese. Blood pressure 143/60 with a heart rate in the 60s. HEAD: Normocephalic. EYES: Sclerae anicteric. NECK: No bruit. LUNGS: Decreased breath sounds at the bases. HEART: Regular rate and rhythm. S1, S2. No S3, with a systolic murmur. No diastolic murmur. ABDOMEN: Soft, obese, nontender. EXTREMITIES: Moderate to severe peripheral edema bilaterally. LAB DATA: Lab data revealed a potassium of 6.0, BUN and creatinine of 71 and 1.65, which is similar to what she had recently. Hemoglobin of 8. Chest x-ray revealed improvement of her finding of CHF. IMPRESSION: 1. Worsening congestive heart failure with diastolic dysfunction. 2. History of renal failure. 3. History of hypertension. 4. Hyperlipidemia. 5. Diabetes mellitus. 6. Prior history of chronic tobacco use with chronic obstructive lung disease. RECOMMENDATION: From the cardiac standpoint, will continue IV Lasix drip for another 24 hours, follow her renal function closely, and depending on her trend, further recommendation will be made. Thank you for this consult. Will follow with you. MMODL / IJN: [id number] /
[2018-03-21 16:34] LABS: Glucose,Whole Blood 119 mg/dL (75-99)
--- NOTE | 2018-03-21 17:42 | PN ---
PROGRESS NOTE DATE OF SERVICE: 03/21/2018 This 52-year-old woman who was admitted with abdominal pain and diarrhea with acute C difficile colitis also had CHF. Patient is being closely monitored. Patient is on IV Lasix also. Patient is feeling much better. Her potassium is still elevated at 6. Nephrology evaluated the patient. Hemoglobin is 8. Past medical history reviewed. REVIEW OF SYSTEMS: CARDIOVASCULAR SYSTEM: No angina, palpitations. RESPIRATORY SYSTEM: As mentioned earlier. GI: As mentioned earlier. : As mentioned earlier. NERVOUS SYSTEM: Diffusely weak. CURRENT MEDICATIONS: Current medications are reviewed and include: 1. Tylenol #3. 2. DuoNeb q.i.d. and p.r.n. 3. Aspirin 81 mg daily. 5. Bismuth daily. 6. Symbicort b.i.d. 7. Aranesp 40 subcutaneously q.7 days. 8. Lasix drip. 9. Heparin 5000 units subcutaneously b.i.d. 10.Apresoline 100 mg p.o. t.i.d. 11.NovoLog scale. 12.Levemir 38 units subcutaneously at bedtime. 13.Toprol XL 100 mg p.o. daily. 14.Habitrol 14. 15.Mycostatin. 16.Protonix. 17.Vancomycin 250 p.o. q.6. PHYSICAL EXAMINATION: Patient alert and oriented x3. Pulse 75, blood pressure 160/73, respiration 18, temperature 97.4, pulse ox 97% on room air. HEENT: Conjunctivae normal. NECK: No jugular venous distention. CARDIOVASCULAR SYSTEM: S1, S2 muffled. RESPIRATORY SYSTEM: Breath sounds diminished at the bases. A few scattered rhonchi and crackles. ABDOMEN: Soft, obese, non-tender. LEGS: Bilateral leg edema. NERVOUS SYSTEM: No focal deficit. LABS: WBC 11.6, hemoglobin 8, sodium 142, potassium 6. ASSESSMENT: 1. Abdominal pain with diarrhea with acute Clostridium difficile colitis. 2. Congestive heart failure, acute exacerbation, with acute on chronic diastolic dysfunction, ejection fraction 50% to 60%. 3. Moderate mitral regurgitation. 4. History of asthma. 5. History of non-Hodgkin's lymphoma. 6. History of hyperlipidemia. 7. History of diabetes mellitus, type 2. 8. Hypertension. 9. History of chronic kidney disease, stage III. 10.Hyperkalemia. 11.History of section. 12.History of anxiety, depression. 13.Obesity with body mass index of 50. 14.FULL CODE. RECOMMENDATIONS AND DISCUSSION: I recommend to continue current medication, continue symptomatic treatment. Otherwise at this time I would recommend continuing with diuretics. Repeat labs. Vancomycin. Closely monitor. Prognosis guarded. Further recommendations to follow. MMRADHAL / IJN: [id number] / MTDD
[2018-03-21 18:00] LABS: Iron Saturation 24.58 (12.00-45.00)
[2018-03-21] MEDS: FUROSEMIDE 250 MG in SODIUM CHLORIDE 0.9% 225 ML IVP SCH (19:33)
[2018-03-21 21:04] LABS: Glucose,Whole Blood 199 mg/dL (75-99)
[2018-03-21] MEDS: INSULIN DETEMIR 100 UNIT/ML 10 ML VIAL SQ SCH (21:30)
[2018-03-22] MEDS: Acetaminophen-Codeine 300-30mg TAB PO PRN (01:32)
[2018-03-22] MEDS: VANCOMYCIN ORAL SOLUTION 250 MG/5 ML BOTTLE PO SCH ×3 (06:19→18:37)
[2018-03-22 06:30] LABS: Glucose,Whole Blood 73 mg/dL (75-99)
[2018-03-22] MEDS: INSULIN ASPART 100 UNIT/ML 1 ML 10 ML VIAL SQ SCH ×8 (06:33→21:29)
[2018-03-22] MEDS: SYMBICORT 160-4.5 MCG INHALER INHALATION SCH ×2 (07:46→19:57)
[2018-03-22] MEDS: IPRATROPIUM-ALBUTEROL 3 ML NEB INHALATION SCH ×4 (07:46→19:57)
--- NOTE | 2018-03-22 08:12 | P.PN ---
Subjective Patient is seen in follow-up for acute kidney injury on chronic kidney disease. Patient has chronic kidney disease stage III secondary to cardiorenal syndrome and diabetic kidney disease with baseline creatinine near 1.5. Patient presented with abdominal pain and diarrhea. She is noted to be C. diff positive. Edema is gradually improving. She is currently maintained on Lasix drip at 10 mL an hour. Oral intake is good. No vomiting. Denies chest pain. She has history of diastolic CHF with moderate mitral regurgitation. Vital signs are stable. General: The patient appeared well nourished and normally developed. HEENT: Head exam is unremarkable. Neck is without jugular venous distension. LUNGS: Lungs are clear to auscultation and percussion. Breath sounds decreased. HEART: Rate and Rhythm are regular. First and second heart sounds normal. No murmurs, rubs or gallops. ABDOMEN: Abdominal exam reveals normal bowel sounds. Non-tender and non- distended. No evidence of peritonitis. EXTREMITITES: 1+ edema. Objective - Vital Signs Vital signs: Vital Signs Temp 98.6 F 03/22/18 03:36 Pulse 64 03/22/18 08:04 Resp 18 03/22/18 03:38 BP 142/63 03/22/18 03:36 Pulse Ox 97 03/22/18 03:36 Intake & Output 03/21/18 03/22/18 03/22/18 18:59 06:59 18:59 Intake Total 840 578 Output Total 1500 1900 Balance -660 -1322 Weight 117 kg 116.4 kg Intake: Intake, IV Titration 228 Amount Furosemide 250 mg In 228 Sodium Chloride 0.9% 225 ml @ 10 MG/HR 10 mls/hr IVP .Q24H [facility] Rx#: [id number] Oral 840 350 Output: Urine 1500 1900 Other: Voiding Method Bedside Commode Bedside Commode # Voids 3 1 - Labs CBC & Chem 7: 03/21/18 09:25 03/21/18 09:05 Labs: Abnormal Lab Results - Last 24 Hours (Table) 03/21/18 03/21/18 03/21/18 Range/Units 09:05 09:25 11:35 WBC 11.6 H (3.8-10.6) k/uL RBC 2.73 L (3.80-5.40) m/uL Hgb 8.0 L (11.4-16.0) gm/dL Hct 25.1 L (34.0-46.0) % Neutrophils # 9.0 H (1.3-7.7) k/uL Potassium 6.0 H (3.5-5.1) mmol/L Chloride 110 H (98-107) mmol/L BUN 71 H (7-17) mg/dL Creatinine 1.65 H (0.52-1.04) mg/dL Glucose 109 H (74-99) mg/dL POC Glucose (mg/dL) 145 H (75-99) mg/dL 03/21/18 03/21/18 03/22/18 Range/Units 16:31 21:02 06:29 WBC (3.8-10.6) k/uL RBC (3.80-5.40) m/uL Hgb (11.4-16.0) gm/dL Hct (34.0-46.0) % Neutrophils # (1.3-7.7) k/uL Potassium (3.5-5.1) mmol/L Chloride (98-107) mmol/L BUN (7-17) mg/dL Creatinine (0.52-1.04) mg/dL Glucose (74-99) mg/dL POC Glucose (mg/dL) 119 H 199 H 73 L (75-99) mg/dL Microbiology - Last 24 Hours (Table) 03/20/18 19:20 Urine Culture - Final Urine,Catheterized Assessment and Plan Plan: Assessment: #1. Nonoliguric acute kidney injury mostly prerenal secondary to cardiorenal syndrome. Creatinine 1.7 on admission and 1.65 yesterday. #2. Chronic kidney disease stage III secondary to diabetic kidney disease and cardiorenal syndrome with baseline creatinine near 1.5. #3. Hyperkalemia secondary to acute kidney injury, metabolic acidosis and use of KIMBERLYN inhibitor. Improved. #4. Metabolic acidosis secondary to acute kidney injury. Improved. #5. Anemia. Rule out iron deficiency. #6. Volume overload. Improving. #7. Diastolic CHF with moderate mitral regurgitation. #8. Hypertension with chronic kidney disease. Partially volume sensitive. #9. C. diff colitis maintained on oral vancomycin. #10. Insulin-dependent diabetes mellitus. Plan: Maintain Lasix drip for now. Add metolazone 2.5 mg daily. Continue oral sodium bicarbonate 650 mg twice daily. Avoid nephrotoxic agents and hypotensive episodes. Lisinopril held. Check labs now and repeat electrolytes again in the morning. Low-salt diet. Follow-up iron studies. Maintain aranesp.
[2018-03-22 09:01] LABS: Calcium 8.5 mg/dL (8.4-10.2)
[2018-03-22 09:04] LABS: Potassium 6.2 mmol/L (3.5-5.1)
[2018-03-22 09:23] LABS: Basophils % (A) 0 %; Eosinophils % (A) 0 %; HCT 23.9 % (34.0-46.0); HGB 7.6 gm/dL (11.4-16.0); Lymphocytes # (A) 2.3 k/uL (1.0-4.8); Lymphocytes % (A) 24 %; MCH 29.7 pg (25.0-35.0); MCHC 31.8 g/dL (31.0-37.0); MCV 93.6 fL (80.0-100.0); Monocytes # (A) 0.7 k/uL (0-1.0); Monocytes % (A) 7 %; Neutrophils # (A) 6.8 k/uL (1.3-7.7); Neutrophils % (A) 68 %; Platelet Count 212 k/uL (150-450); RBC 2.56 m/uL (3.80-5.40); RDW 14.9 % (11.5-15.5)
[2018-03-22] MEDS ORDERED: ALBUTEROL NEB (CONC) 2.5 MG/0.5 ML INHALATION ONE ×2 (09:28→15:12)
[2018-03-22] MEDS ORDERED: INSULIN REGULAR 100 UNIT/ML VIAL IV ONE ×3 (09:45→20:58)
[2018-03-22] MEDS ORDERED: SODIUM POLYSTYRENE SULFONATE 15 GM/60 ML BOTTLE PO ONE (09:45)
[2018-03-22] MEDS ORDERED: DEXTROSE 50%-WATER 50 ML SYRINGE IVP ONE ×2 (09:45→15:12)
[2018-03-22] MEDS ORDERED: SODIUM BICARB 8.4% 50 ML SYR (1 MEQ/ML) IV ONE ×3 (09:45→20:59)
[2018-03-22] MEDS: hydrALAZINE HCL 50 MG TAB PO SCH ×3 (09:57→21:28)
[2018-03-22] MEDS: predniSONE 20 MG TAB PO SCH (09:57)
[2018-03-22] MEDS: METOPROLOL SUCCINATE (ER) 100 MG TAB.ER.24H PO SCH (09:57)
[2018-03-22] MEDS: ASPIRIN 81 MG PO SCH (09:57)
[2018-03-22] MEDS: PANTOPRAZOLE 40 MG/10 ML VIAL IVP SCH (09:58)
[2018-03-22] MEDS: NYSTATIN 100,000 UNIT/GM POWD 15 GM TOPICAL SCH ×3 (09:58→21:29)
[2018-03-22] MEDS: HEPARIN SODIUM,PORCINE 5,000 UNIT/ML 1 ML VIAL SQ SCH ×2 (09:58→19:51)
[2018-03-22] MEDS: METOLAZONE 2.5 MG TAB PO SCH (09:58)
[2018-03-22] MEDS: SODIUM BICARBONATE TAB 650 MG TAB PO SCH ×2 (09:58→19:48)
[2018-03-22] MEDS: NICOTINE 14MG/24HR PATCH TRANSDERM SCH (09:58)
[2018-03-22] MEDS ORDERED: CALCIUM GLUCONATE 1,000 MG in SODIUM CHLORIDE 0.9% 100 ML IVPB ONE ×2 (10:00→21:00)
[2018-03-22 11:28] LABS: Glucose,Whole Blood 143 mg/dL (75-99)
--- NOTE | 2018-03-22 12:37 | PN ---
PROGRESS NOTE . HISTORY: Ms. Melendez is a 52-year-old female who with history of chronic kidney disease, history of peripheral edema, who presented with worsening peripheral edema. She is feeling slightly better today. Her breathing is stable. She continues to have edema, although better. She has congestive heart failure with diastolic dysfunction as well as history of lymphoma. She denies any dizziness or palpitation. She denies any nausea. She continues to be at this time on IV Lasix drip, aspirin 81 mg daily, hydralazine 100 mg 3 times a day, metolazone 2.5 mg daily, metoprolol succinate 100 mg daily. PHYSICAL EXAMINATION: Blood pressure 150/70 with a heart rate in the 60s, lungs a few crackles with no wheezes. HEART: Regular rate and rhythm S1, S2. No S3. ABDOMEN: Soft, obese, nontender. Extremities +2 to 3 edema. LAB DATA: Revealed BUN and creatinine of 1.9 and 74, potassium 6.2, hemoglobin of 7.6. IMPRESSION: 1. Symptoms of congestive heart failure with diastolic dysfunction. 2. Worsening renal function. 3. Renal failure. 4. Hypertension. 5. History of chronic obstructive lung disease and chronic tobacco use. RECOMMENDATION: From the cardiac standpoint, we will continue current therapy. Continue follow her renal function and depending on her progress, further recommendation will be made. MMODL / IJN: [id number] /
[2018-03-22 16:31] LABS: Glucose,Whole Blood 238 mg/dL (75-99)
--- NOTE | 2018-03-22 17:52 | PN ---
PROGRESS NOTE DATE OF SERVICE: 03/22/2018. INTERIM HISTORY: This 52-year-old woman who was admitted with abdominal pain, diarrhea, C diff colitis, improved significantly. No chest pain. No palpitations. No fever. Patient is on p.o. diuretics. EXAM: Alert and oriented times three. Pulse is 89. Blood pressure 130/77, respiration 18, temp 97.9, pulse ox 98% on room air. HEENT: Conjunctivae normal. Neck: No jugular venous distention. Cardiovascular: S1, S2 muffled. Respirations: Breath sounds diminished in the bases. Scattered rhonchi and crackles. Abdomen is soft, nontender. No mass palpable. Legs are no edema. No swelling. Central nervous system: No focal deficits. LABS: WBC 10, hemoglobin 7.7. Potassium 6.3. ASSESSMENT: 1. Abdominal pain with diarrhea with acute C difficile colitis. 2. Congestive heart failure acute exacerbation with acute on chronic diastolic dysfunction ejection fraction 50-60%. 3. Moderate mitral regurgitation. 4. Hyperkalemia. 5. Chronic kidney stage 3. 6. History of asthma. 7. History of non-Hodgkin's lymphoma. 8. History of hyperlipidemia. 9. Hypertension. 10.Diabetes type 2. 12.History of anxiety, depression. 13.Obesity with body mass index of 50. 14.FULL CODE. RECOMMENDATIONS AND DISCUSSION: Continue current medications, symptomatic treatment, otherwise at this time, I would recommend insulin glucose regimen. Other than that, I would recommend close follow up with Nephrology. Guarded prognosis. Further recommendations to follow. MMODL / IJN: [id number] / MTDD
[2018-03-22] MEDS: FUROSEMIDE 250 MG in SODIUM CHLORIDE 0.9% 225 ML IVP SCH (19:41)
[2018-03-22] MEDS ORDERED: DEXTROSE 50%-WATER 50 ML SYRINGE IVP STA (20:58)
[2018-03-22] MEDS ORDERED: ALBUTEROL NEBULIZED (CONC) 20 MG, SODIUM CHLORIDE 0.9% NEBULIZ 3 ML INHALATION ONE ×2 (21:00)
[2018-03-22 21:09] LABS: Glucose,Whole Blood 289 mg/dL (75-99)
[2018-03-22] MEDS: INSULIN DETEMIR 100 UNIT/ML 10 ML VIAL SQ SCH (21:29)
[2018-03-22] MEDS ORDERED: ALBUTEROL NEBULIZED 2.5 MG/3 ML INHALATION STA (21:59)
[2018-03-23] MEDS: VANCOMYCIN ORAL SOLUTION 250 MG/5 ML BOTTLE PO SCH ×4 (00:32→18:03)
[2018-03-23 02:00] LABS: Glucose,Whole Blood 202 mg/dL (75-99)
[2018-03-23 05:58] LABS: Glucose,Whole Blood 106 mg/dL (75-99)
[2018-03-23] MEDS: INSULIN ASPART 100 UNIT/ML 1 ML 10 ML VIAL SQ SCH ×8 (06:38→21:29)
[2018-03-23] MEDS: predniSONE 20 MG TAB PO SCH (07:49)
[2018-03-23] MEDS: SODIUM BICARBONATE TAB 650 MG TAB PO SCH (07:50)
[2018-03-23] MEDS: NYSTATIN 100,000 UNIT/GM POWD 15 GM TOPICAL SCH ×3 (07:50→21:32)
[2018-03-23] MEDS: ASPIRIN 81 MG PO SCH (07:50)
[2018-03-23] MEDS: PANTOPRAZOLE 40 MG/10 ML VIAL IVP SCH (07:50)
[2018-03-23] MEDS: hydrALAZINE HCL 50 MG TAB PO SCH ×3 (07:51→21:30)
[2018-03-23] MEDS: HEPARIN SODIUM,PORCINE 5,000 UNIT/ML 1 ML VIAL SQ SCH ×2 (07:51→21:30)
[2018-03-23] MEDS: METOLAZONE 2.5 MG TAB PO SCH (07:51)
[2018-03-23] MEDS: METOPROLOL SUCCINATE (ER) 100 MG TAB.ER.24H PO SCH (07:51)
[2018-03-23 07:56] LABS: Basophils % (A) 0 %; Eosinophils % (A) 0 %; HCT 22.2 % (34.0-46.0); HGB 7.1 gm/dL (11.4-16.0); Lymphocytes # (A) 1.3 k/uL (1.0-4.8); Lymphocytes % (A) 14 %; MCH 29.6 pg (25.0-35.0); MCHC 31.9 g/dL (31.0-37.0); MCV 92.7 fL (80.0-100.0); Mean Platelet Volume 7.7; Monocytes # (A) 0.4 k/uL (0-1.0); Monocytes % (A) 4 %; Neutrophils # (A) 7.3 k/uL (1.3-7.7); Neutrophils % (A) 81 %; Platelet Count 177 k/uL (150-450)
[2018-03-23] MEDS: NICOTINE 14MG/24HR PATCH TRANSDERM SCH (07:58)
[2018-03-23 08:18] LABS: Calcium 8.4 mg/dL (8.4-10.2); Potassium 5.3 mmol/L (3.5-5.1)
[2018-03-23] MEDS: IPRATROPIUM-ALBUTEROL 3 ML NEB INHALATION SCH ×4 (08:30→20:30)
[2018-03-23] MEDS: SYMBICORT 160-4.5 MCG INHALER INHALATION SCH ×2 (08:31→20:30)
[2018-03-23] MEDS ORDERED: predniSONE 20 MG TAB PO SCH (09:00)
--- NOTE | 2018-03-23 09:05 | P.PN ---
Subjective Patient is seen in follow-up for acute kidney injury on chronic kidney disease. Patient has chronic kidney disease stage III secondary to cardiorenal syndrome and diabetic kidney disease with baseline creatinine near 1.5. Patient presented with abdominal pain and diarrhea. She is noted to be C. diff positive. Edema is gradually improving. She is currently maintained on Lasix drip at 10 mL an hour. Oral intake is good. No vomiting. Denies chest pain. She has history of diastolic CHF with moderate mitral regurgitation. Her potassium level was staying high despite medical management but is now trending down and is 5.3 this morning. Vital signs are stable. General: The patient appeared well nourished and normally developed. HEENT: Head exam is unremarkable. Neck is without jugular venous distension. LUNGS: Lungs are clear to auscultation and percussion. Breath sounds decreased. HEART: Rate and Rhythm are regular. First and second heart sounds normal. No murmurs, rubs or gallops. ABDOMEN: Abdominal exam reveals normal bowel sounds. Non-tender and non- distended. No evidence of peritonitis. EXTREMITITES: 1+ edema. Objective - Vital Signs Vital signs: Vital Signs Temp 96.9 F L 03/23/18 09:01 Pulse 91 03/23/18 09:01 Resp 18 03/23/18 09:01 BP 111/59 03/23/18 09:01 Pulse Ox 96 03/23/18 09:01 Intake & Output 03/22/18 03/23/18 03/23/18 18:59 06:59 18:59 Intake Total 840 541.333 420 Output Total 1250 200 500 Balance -410 341.333 -80 Weight 114.9 kg Intake: Intake, IV Titration 241.333 Amount Furosemide 250 mg In 241.333 Sodium Chloride 0.9% 225 ml @ 10 MG/HR 10 mls/hr IVP .Q24H [facility] Rx#: [id number] Oral 840 300 420 Output: Urine 1250 200 500 Other: Voiding Method Bedside Commode # Voids 1 - Labs CBC & Chem 7: 03/23/18 07:36 03/23/18 07:36 Labs: Abnormal Lab Results - Last 24 Hours (Table) 03/20/18 03/22/18 03/22/18 Range/Units 20:00 08:02 08:02 RBC 2.56 L (3.80-5.40) m/uL Hgb 7.6 L (11.4-16.0) gm/dL Hct 23.9 L (34.0-46.0) % Potassium 6.2 H* (3.5-5.1) mmol/L Chloride 108 H (98-107) mmol/L BUN 74 H (7-17) mg/dL Creatinine 1.90 H (0.52-1.04) mg/dL Glucose 111 H (74-99) mg/dL POC Glucose (mg/dL) (75-99) mg/dL Hemoglobin A1c 7.1 H (4.0-6.0) % 03/22/18 03/22/18 03/22/18 Range/Units 11:22 14:26 16:29 RBC (3.80-5.40) m/uL Hgb (11.4-16.0) gm/dL Hct (34.0-46.0) % Potassium 6.3 H* (3.5-5.1) mmol/L Chloride (98-107) mmol/L BUN (7-17) mg/dL Creatinine (0.52-1.04) mg/dL Glucose (74-99) mg/dL POC Glucose (mg/dL) 143 H 238 H (75-99) mg/dL Hemoglobin A1c (4.0-6.0) % 03/22/18 03/22/18 03/23/18 Range/Units 20:05 21:05 00:03 RBC (3.80-5.40) m/uL Hgb (11.4-16.0) gm/dL Hct (34.0-46.0) % Potassium 6.5 H* 5.6 H (3.5-5.1) mmol/L Chloride (98-107) mmol/L BUN (7-17) mg/dL Creatinine (0.52-1.04) mg/dL Glucose (74-99) mg/dL POC Glucose (mg/dL) 289 H (75-99) mg/dL Hemoglobin A1c (4.0-6.0) % 03/23/18 03/23/18 03/23/18 Range/Units 01:58 05:49 07:36 RBC (3.80-5.40) m/uL Hgb (11.4-16.0) gm/dL Hct (34.0-46.0) % Potassium 5.3 H (3.5-5.1) mmol/L Chloride (98-107) mmol/L BUN 74 H (7-17) mg/dL Creatinine 1.93 H (0.52-1.04) mg/dL Glucose 117 H (74-99) mg/dL POC Glucose (mg/dL) 202 H 106 H (75-99) mg/dL Hemoglobin A1c (4.0-6.0) % 03/23/18 Range/Units 07:36 RBC 2.40 L (3.80-5.40) m/uL Hgb 7.1 L (11.4-16.0) gm/dL Hct 22.2 L (34.0-46.0) % Potassium (3.5-5.1) mmol/L Chloride (98-107) mmol/L BUN (7-17) mg/dL Creatinine (0.52-1.04) mg/dL Glucose (74-99) mg/dL POC Glucose (mg/dL) (75-99) mg/dL Hemoglobin A1c (4.0-6.0) % Assessment and Plan Plan: Assessment: #1. Nonoliguric acute kidney injury mostly prerenal secondary to cardiorenal syndrome. Creatinine 1.7 on admission and 1.93 today. #2. Chronic kidney disease stage III secondary to diabetic kidney disease and cardiorenal syndrome with baseline creatinine near 1.5. #3. Hyperkalemia secondary to acute kidney injury, metabolic acidosis and use of KIMBERLYN inhibitor. Improved with medical management. #4. Metabolic acidosis secondary to acute kidney injury. Improved. #5. Anemia of chronic kidney disease. Iron replete. #6. Volume overload. Improving. #7. Diastolic CHF with moderate mitral regurgitation. #8. Hypertension with chronic kidney disease. Partially volume sensitive. #9. C. diff colitis maintained on oral vancomycin. #10. Insulin-dependent diabetes mellitus. Plan: Maintain Lasix drip for another 24 hours. Increase metolazone to 5 mg twice a day. Continue oral sodium bicarbonate 650 mg twice daily. Avoid nephrotoxic agents and hypotensive episodes. Lisinopril held. Low-salt diet and 1.5 L fluid restriction. Maintain aranesp. Repeat electrolytes in the morning.
[2018-03-23] MEDS: FUROSEMIDE 250 MG in SODIUM CHLORIDE 0.9% 225 ML IVP SCH (10:27)
[2018-03-23 11:44] LABS: Glucose,Whole Blood 124 mg/dL (75-99)
--- NOTE | 2018-03-23 14:55 | P.PN ---
Subjective Progress Note Date: 03/23/18 This is a 52-year-old female with known history of hypertension, hyperlipidemia, diabetes, diastolic congestive heart failure, chronic kidney disease, lymphoma, nicotine dependence, who was recently in the hospital, was discharged to [facility]. Was noted there to have severe diarrhea as well as significant worsening of peripheral edema. For this reason she was admitted to the hospital. She's currently receiving treatment for congestive heart failure. She is currently on IV Lasix drip. Weight today is down 2 kg from admission. Hemoglobin 7.1 and creatinine 1.9 today. She is sitting up in the chair at bedside at the time of her examination today, does state overall that her breathing has improved. Continues to have at least 3+ peripheral edema. Objective - Vital Signs Vital signs: Vital Signs Temp 97.4 F L 03/23/18 12:00 Pulse 92 03/23/18 13:09 Resp 18 03/23/18 12:00 BP 136/65 03/23/18 12:00 Pulse Ox 97 03/23/18 12:00 Intake & Output 03/22/18 03/23/18 03/23/18 18:59 06:59 18:59 Intake Total 840 541.333 660 Output Total 1250 200 725 Balance -410 341.333 -65 Weight 114.9 kg Intake: Intake, IV Titration 241.333 Amount Furosemide 250 mg In 241.333 Sodium Chloride 0.9% 225 ml @ 15 MG/HR 15 mls/hr IVP .[id number] [facility] Rx#: [id number] Oral 840 300 660 Output: Urine 1250 200 725 Other: Voiding Method Bedside Commode # Voids 1 1 - Exam PHYSICAL EXAMINATION: HEENT: Head is atraumatic, normocephalic. Pupils equal, round. Neck is supple. There is no elevated jugular venous pressure. HEART EXAMINATION: Heart S1 and S2 with systolic murmur is heard. CHEST EXAMINATION: Lungs are clear with mild diminished air entry to bilateral bases. ABDOMEN: Soft, nontender. Bowel sounds are heard. No organomegaly noted. EXTREMITIES: 2+ peripheral pulses with 3+o evidence of peripheral edema and no calf tenderness noted. NEUROLOGIC patient is awake, alert and oriented -3. . - Labs CBC & Chem 7: 03/23/18 07:36 03/23/18 07:36 Labs: Abnormal Lab Results - Last 24 Hours (Table) 03/22/18 03/22/18 03/22/18 Range/Units 14:26 16:29 20:05 RBC (3.80-5.40) m/uL Hgb (11.4-16.0) gm/dL Hct (34.0-46.0) % Potassium 6.3 H* 6.5 H* (3.5-5.1) mmol/L BUN (7-17) mg/dL Creatinine (0.52-1.04) mg/dL Glucose (74-99) mg/dL POC Glucose (mg/dL) 238 H (75-99) mg/dL 03/22/18 03/23/18 03/23/18 Range/Units 21:05 00:03 01:58 RBC (3.80-5.40) m/uL Hgb (11.4-16.0) gm/dL Hct (34.0-46.0) % Potassium 5.6 H (3.5-5.1) mmol/L BUN (7-17) mg/dL Creatinine (0.52-1.04) mg/dL Glucose (74-99) mg/dL POC Glucose (mg/dL) 289 H 202 H (75-99) mg/dL 03/23/18 03/23/18 03/23/18 Range/Units 05:49 07:36 07:36 RBC 2.40 L (3.80-5.40) m/uL Hgb 7.1 L (11.4-16.0) gm/dL Hct 22.2 L (34.0-46.0) % Potassium 5.3 H (3.5-5.1) mmol/L BUN 74 H (7-17) mg/dL Creatinine 1.93 H (0.52-1.04) mg/dL Glucose 117 H (74-99) mg/dL POC Glucose (mg/dL) 106 H (75-99) mg/dL 03/23/18 Range/Units 11:43 RBC (3.80-5.40) m/uL Hgb (11.4-16.0) gm/dL Hct (34.0-46.0) % Potassium (3.5-5.1) mmol/L BUN (7-17) mg/dL Creatinine (0.52-1.04) mg/dL Glucose (74-99) mg/dL POC Glucose (mg/dL) 124 H (75-99) mg/dL Assessment and Plan Plan: Assessment and plan #1 diastolic congestive heart failure acute on chronic #2 renal failure acute on chronic #3 hypertension 4 hyperlipidemia #5 diabetes #6 COPD #7 history of nicotine dependence Plan Patient continues to be on IV Lasix drip as per nephrology, we will continue with the rest of her medications as well. Continue to monitor intake and output along with daily weights and daily lytes BUN and creatinine. DNP note has been reviewed, I agree with a documented findings and plan of care. Patient was seen and examined.
[2018-03-23 15:42] VITALS: BMI 47.8
[2018-03-23] MEDS ORDERED: FUROSEMIDE 20 MG TAB PO SCH (16:00)
[2018-03-23 16:43] LABS: Glucose,Whole Blood 258 mg/dL (75-99)
--- NOTE | 2018-03-23 18:53 | P.PN ---
Subjective Progress Note Date: 03/23/18 Progress Note being dictated for Dr. Rust. Interval history: This is a 52-year-old female admitted with acute CHF exacerbation, C. difficile colitis, multiple other medical issues. Continues to have significant edema. Lasix drip has been increased to 15 mg per hour as per nephrology. Hemoglobin 7.1, creatinine 1.9. Potassium improving, down to 5.3. Continues on oral vancomycin. Denies chest pain, palpitations or increasing shortness of breath. Objective - Vital Signs Vital signs: Vital Signs Temp 97.0 F L 03/23/18 16:00 Pulse 85 03/23/18 16:00 Resp 18 03/23/18 16:00 BP 136/68 03/23/18 16:00 Pulse Ox 92 L 03/23/18 16:00 Intake & Output 03/22/18 03/23/18 03/23/18 18:59 06:59 18:59 Intake Total 840 865.481 1906 Output Total 1250 200 725 Balance -410 341.333 295 Weight 114.9 kg 114.9 kg Intake: Intake, IV Titration 241.333 Amount Furosemide 250 mg In 241.333 Sodium Chloride 0.9% 225 ml @ 15 MG/HR 15 mls/hr IVP .[id number] [facility] Rx#: [id number] Oral 466 100 5683 Output: Urine 1250 200 725 Other: Voiding Method Bedside Commode # Voids 1 1 - Exam PHYSICAL EXAM: VITAL SIGNS: As above GENERAL: Sitting up in chair, eating lunch, no acute distress HEENT: Conjunctivae normal. eyes normal. Oral mucosa moist NECK: No JVD. No thyroid enlargement. No LNs CARDIOVASCULAR: S1, S2 muffled. Systolic murmur RESPIRATION: Breath sounds diminished in the bases. No rhonchi or crackles. No bronchial breathing. ABDOMEN: Soft, nontender . No guarding. no masses palpable. Bowel sounds heard. LEGS: Positive edema PSYCHIATRY: Alert and oriented -3, mood and affect normal. NERVOUS SYSTEM: Cranial N 2-12 grossly normal. Moves all 4 limbs. Diffuse weakness No focal deficits. Skin: no ulcer no rash Joints: No active swelling. No inflammation. - Labs CBC & Chem 7: 03/23/18 07:36 03/23/18 07:36 Labs: Abnormal Lab Results - Last 24 Hours (Table) 03/22/18 03/22/18 03/23/18 Range/Units 20:05 21:05 00:03 RBC (3.80-5.40) m/uL Hgb (11.4-16.0) gm/dL Hct (34.0-46.0) % Potassium 6.5 H* 5.6 H (3.5-5.1) mmol/L BUN (7-17) mg/dL Creatinine (0.52-1.04) mg/dL Glucose (74-99) mg/dL POC Glucose (mg/dL) 289 H (75-99) mg/dL 03/23/18 03/23/18 03/23/18 Range/Units 01:58 05:49 07:36 RBC (3.80-5.40) m/uL Hgb (11.4-16.0) gm/dL Hct (34.0-46.0) % Potassium 5.3 H (3.5-5.1) mmol/L BUN 74 H (7-17) mg/dL Creatinine 1.93 H (0.52-1.04) mg/dL Glucose 117 H (74-99) mg/dL POC Glucose (mg/dL) 202 H 106 H (75-99) mg/dL 03/23/18 03/23/18 03/23/18 Range/Units 07:36 11:43 16:39 RBC 2.40 L (3.80-5.40) m/uL Hgb 7.1 L (11.4-16.0) gm/dL Hct 22.2 L (34.0-46.0) % Potassium (3.5-5.1) mmol/L BUN (7-17) mg/dL Creatinine (0.52-1.04) mg/dL Glucose (74-99) mg/dL POC Glucose (mg/dL) 124 H 258 H (75-99) mg/dL Assessment and Plan Assessment: 1. Abdominal pain with diarrhea with acute C. difficile colitis 2. Acute on chronic exacerbation CHF, diastolic dysfunction, EF 5560% 3. Moderate mitral regurgitation 4. Acute on Chronic kidney disease stage III, cardiorenal syndrome 5. Diabetes mellitus type 2 6. Hyperkalemia secondary to renal failure 7. Anemia of chronic disease Plan: Continue current medication regime , sodium bicarb, metolazone, monitoring and symptomatic treatment. Lasix drip increased today. Attempting to wean off Lasix drip tomorrow. Follow closely with both cardiology and nephrology. Discharge planning in progress. The impression and plan of care has been dictated as directed. : I performed a history and examination of this patient, discussed the same with the dictator. I agree with the dictator's note ,documented as a scribe. Any additional findings or plans will be noted.
[2018-03-23 20:49] LABS: Glucose,Whole Blood 185 mg/dL (75-99)
[2018-03-23] MEDS ORDERED: METOLAZONE 2.5 MG TAB PO SCH (21:00)
[2018-03-23] MEDS: INSULIN DETEMIR 100 UNIT/ML 10 ML VIAL SQ SCH (21:29)
[2018-03-23] MEDS: METOLAZONE 5 MG TAB PO SCH (21:30)
[2018-03-24] MEDS: VANCOMYCIN ORAL SOLUTION 250 MG/5 ML BOTTLE PO SCH ×5 (00:16→23:07)
[2018-03-24] MEDS: Acetaminophen-Codeine 300-30mg TAB PO PRN (00:17)
[2018-03-24] MEDS: FUROSEMIDE 250 MG in SODIUM CHLORIDE 0.9% 225 ML IVP SCH ×4 (01:56→20:05)
[2018-03-24 06:46] LABS: Glucose,Whole Blood 74 mg/dL (75-99)
[2018-03-24] MEDS: INSULIN ASPART 100 UNIT/ML 1 ML 10 ML VIAL SQ SCH ×8 (06:46→21:54)
[2018-03-24 06:55] LABS: Calcium 8.4 mg/dL (8.4-10.2); Magnesium 1.6 mg/dL (1.6-2.3); Potassium 4.8 mmol/L (3.5-5.1)
[2018-03-24] MEDS: PANTOPRAZOLE 40 MG/10 ML VIAL IVP SCH (07:52)
[2018-03-24] MEDS: hydrALAZINE HCL 50 MG TAB PO SCH ×3 (07:52→20:00)
[2018-03-24] MEDS: HEPARIN SODIUM,PORCINE 5,000 UNIT/ML 1 ML VIAL SQ SCH ×2 (07:52→20:00)
[2018-03-24] MEDS: METOLAZONE 5 MG TAB PO SCH ×2 (07:52→20:00)
[2018-03-24] MEDS: predniSONE 20 MG TAB PO SCH (07:52)
[2018-03-24] MEDS: METOPROLOL SUCCINATE (ER) 100 MG TAB.ER.24H PO SCH (07:52)
[2018-03-24] MEDS: NICOTINE 14MG/24HR PATCH TRANSDERM SCH (07:53)
[2018-03-24] MEDS: ASPIRIN 81 MG PO SCH (07:54)
[2018-03-24] MEDS: IPRATROPIUM-ALBUTEROL 3 ML NEB INHALATION SCH ×4 (08:16→20:52)
[2018-03-24] MEDS: NYSTATIN 100,000 UNIT/GM POWD 15 GM TOPICAL SCH ×3 (10:05→20:02)
--- NOTE | 2018-03-24 10:09 | P.PN ---
Subjective Patient is seen in follow-up for acute kidney injury on chronic kidney disease. Patient has chronic kidney disease stage III secondary to cardiorenal syndrome and diabetic kidney disease with baseline creatinine near 1.5. Patient presented with abdominal pain and diarrhea. She is noted to be C. diff positive. Edema is gradually improving. She is currently maintained on Lasix drip at 15 mL an hour along with metolazone. Oral intake is good. No vomiting. Denies chest pain. She has history of diastolic CHF with moderate mitral regurgitation. Her potassium level was staying high despite medical management but is now trending down and is 4.8 this morning. Vital signs are stable. General: The patient appeared well nourished and normally developed. HEENT: Head exam is unremarkable. Neck is without jugular venous distension. LUNGS: Lungs are clear to auscultation and percussion. Breath sounds decreased. HEART: Rate and Rhythm are regular. First and second heart sounds normal. No murmurs, rubs or gallops. ABDOMEN: Abdominal exam reveals normal bowel sounds. Non-tender and non- distended. No evidence of peritonitis. EXTREMITITES: 1+ edema. Objective - Vital Signs Vital signs: Vital Signs Temp 96.0 F L 03/24/18 08:00 Pulse 75 03/24/18 08:00 Resp 18 03/24/18 08:00 BP 173/73 03/24/18 08:00 Pulse Ox 96 03/24/18 08:00 Intake & Output 03/23/18 03/24/18 03/24/18 18:59 06:59 18:59 Intake Total 1020 236 Output Total 725 2550 Balance 295 -2550 236 Weight 114.9 kg 112.7 kg Intake: Oral 1020 236 Output: Urine 725 2550 Other: # Voids 1 1 # Bowel Movements 1 - Labs CBC & Chem 7: 03/23/18 07:36 03/24/18 05:51 Labs: Abnormal Lab Results - Last 24 Hours (Table) 03/23/18 03/23/18 03/23/18 Range/Units 11:43 16:39 20:45 BUN (7-17) mg/dL Creatinine (0.52-1.04) mg/dL Glucose (74-99) mg/dL POC Glucose (mg/dL) 124 H 258 H 185 H (75-99) mg/dL 03/24/18 03/24/18 Range/Units 05:51 06:43 BUN 78 H (7-17) mg/dL Creatinine 2.00 H (0.52-1.04) mg/dL Glucose 65 L (74-99) mg/dL POC Glucose (mg/dL) 74 L (75-99) mg/dL Assessment and Plan Plan: Assessment: #1. Nonoliguric acute kidney injury mostly prerenal secondary to cardiorenal syndrome. Creatinine 1.7 on admission and 2 today. #2. Chronic kidney disease stage III secondary to diabetic kidney disease and cardiorenal syndrome with baseline creatinine near 1.5. #3. Hyperkalemia secondary to acute kidney injury, metabolic acidosis and use of KIMBERLYN inhibitor. Improved with medical management. #4. Metabolic acidosis secondary to acute kidney injury. Improved. #5. Anemia of chronic kidney disease. Iron replete. #6. Volume overload. Improving. #7. Diastolic CHF with moderate mitral regurgitation. #8. Hypertension with chronic kidney disease. Partially volume sensitive. #9. C. diff colitis maintained on oral vancomycin. #10. Insulin-dependent diabetes mellitus. #11. Hypomagnesemia secondary to diuresis. Plan: Continue with Lasix drip at 15 mL an hour for now. Maintain metolazone 5 mg twice a day. Discontinue sodium bicarbonate. Avoid nephrotoxic agents and hypotensive episodes. Lisinopril held. Low-salt diet and 1.5 L fluid restriction. Maintain aranesp. Repeat electrolytes in the morning. Replace magnesium. 2 g IV today. She will need increased dose of diuretics upon discharge - 80 mg Lasix oral twice daily along with metolazone 2.5 mg once daily. She will need to get a basic metabolic panel checked within 2-3 days of discharge and follow-up as an outpatient in the next 1-2 weeks.
[2018-03-24] MEDS: MAGNESIUM SULFATE-D5W PMX 1 GM in DEXTROSE/WATER 1 100ML.BAG IVPB SCH ×2 (10:22→11:40)
[2018-03-24] MEDS: SYMBICORT 160-4.5 MCG INHALER INHALATION SCH ×2 (11:21→20:52)
[2018-03-24 11:45] LABS: Glucose,Whole Blood 100 mg/dL (75-99)
--- NOTE | 2018-03-24 13:52 | P.DS ---
Providers Date of admission: 03/20/18 18:40 Expected date of discharge: 03/24/18 Attending physician: Martinez Rust Consults: 03/20/18 19:04 Consult Physician Urgent Consulting Provider: Bright Villegas Consult Reason/Comments: CHF Do you want consulting provider notified?: Yes, Notify in am Placement Type Exists?: Yes 03/22/18 07:00 Consult Physician Routine Consulting Provider: Stuart Templeton Consult Reason/Comments: hyperkalemia Do you want consulting provider notified?: Yes, Notify in am Primary care physician: Stated None Dr. Armendariz Hospital Course: Final Diagnoses: 1. Abdominal pain with diarrhea with acute C. difficile colitis 2. Acute on chronic exacerbation CHF, diastolic dysfunction, EF 55-60% 3. Moderate mitral regurgitation 4. Acute on Chronic kidney disease stage III, cardiorenal syndrome 5. Diabetes mellitus type 2 6. Hyperkalemia secondary to renal failure, improving 7. Anemia of chronic disease Hospital course:This is a 52-year-old female admitted with acute CHF exacerbation, C. difficile colitis, hyperkalemia, multiple other medical issues. Evaluated by cardiology and nephrology. Maintained on oral vancomycin. Diuresed well on Lasix drip with discharge oral dose of Lasix increased as per nephrology. Patient has been cleared by nephrology for discharge. Patient will be be discharged back to [facility] subacute rehab once cleared by cardiology, in a stable condition with guarded prognosis. PHYSICAL EXAM: GENERAL: VSS, alert and oriented 3, no acute distress with no JVD CV: Regular S1 and S2. Decreasing edema. LUNGS: Bilateral bases diminished. ABD : Soft, nontender, positive bowel sounds NEURO: no focal deficits. The impression and plan of care has been dictated as directed. : I performed a history and examination of this patient, discussed the same with the dictator. I agree with the dictator's note ,documented as a scribe. Any additional findings or plans will be noted. Time taken: 35 minutes Patient Condition at Discharge: Stable Plan - Discharge Summary Discharge Rx Participant: No New Discharge Prescriptions: New Budesonide-Formot 160-4.5 Mcg [Symbicort 160-4.5 Mcg Inhaler] 2 puff INHALATION RT-BID puff Darbepoetin Tom [Aranesp] 40 mcg SQ Q7D syringe Ipratropium-Albuterol Nebulize [Duoneb 0.5 mg-3 mg/3 ml Soln] 3 ml INHALATION RT-QID ampul.neb Ipratropium-Albuterol Nebulize [Duoneb 0.5 mg-3 mg/3 ml Soln] 3 ml INHALATION Q4H PRN ampul.neb PRN Reason: Shortness Of Breath Or Wheezing Metolazone [Zaroxolyn] 2.5 mg PO Q48H tab Nystatin 100,000 Unit/gm Powd [Mycostatin Powder] 1 applic TOPICAL TID applic Vancomycin Oral Solution 250 mg PO Q6HR 10 Days ml Continue Nicotine 14Mg/24Hr Patch [Habitrol] 1 patch TRANSDERM DAILY #14 patch Acetaminophen Tab [Tylenol] 650 mg PO Q6HR PRN tab PRN Reason: Fever and/ or Mild Pain Aspirin 325 mg PO DAILY tab Famotidine [Pepcid] 20 mg PO DAILY tab hydrALAZINE HCL [Apresoline] 100 mg PO TID tab Insulin Aspart [NovoLOG (formulary)] 7 unit SQ ACHS vial Metoprolol Succinate (ER) [Toprol XL] 100 mg PO DAILY tab.er.24h Ondansetron [Zofran] 4 mg PO Q6H PRN PRN Reason: Nausea Insulin Aspart [NovoLOG (formulary)] See Protocol SQ ACHS PRN PRN Reason: Blood Sugar - High Lactobacillus Acidophilus [Acidophilus] 1 tab PO BID Changed Furosemide [Lasix] 80 mg PO BID@0900,1600 #0 tab Insulin Detemir [Levemir] 35 unit SQ HS #0 syr Discontinued Albuterol Nebulized [Ventolin Nebulized] 2.5 mg INHALATION RT-QID Albuterol Inhaler [Ventolin Hfa Inhaler] 2 puff INHALATION RT-Q6H PRN PRN Reason: Shortness Of Breath Sodium Bicarbonate Tab 650 mg PO BID #60 tab Lisinopril [Zestril] 5 mg PO DAILY tab predniSONE See Taper PO DAILY Loperamide [Imodium] 2 mg PO QID PRN PRN Reason: Loose Stool Discharge Medication List Nicotine 14Mg/24Hr Patch [Habitrol] 1 patch TRANSDERM DAILY #14 patch 03/07/18 [ Rx] Acetaminophen Tab [Tylenol] 650 mg PO Q6HR PRN tab 03/16/18 [Rx] Aspirin 325 mg PO DAILY tab 04/16/18 [Rx] Famotidine [Pepcid] 20 mg PO DAILY tab 03/16/18 [Rx] Insulin Aspart [NovoLOG (formulary)] 7 unit SQ ACHS vial 03/16/18 [Rx] Metoprolol Succinate (ER) [Toprol XL] 100 mg PO DAILY tab.er.24h 03/16/18 [Rx] hydrALAZINE HCL [Apresoline] 100 mg PO TID tab 03/16/18 [Rx] Insulin Aspart [NovoLOG (formulary)] See Protocol SQ ACHS PRN 03/20/18 [History] Lactobacillus Acidophilus [Acidophilus] 1 tab PO BID 03/20/18 [History] Ondansetron [Zofran] 4 mg PO Q6H PRN 03/20/18 [History] Budesonide-Formot 160-4.5 Mcg [Symbicort 160-4.5 Mcg Inhaler] 2 puff INHALATION RT-BID puff 03/24/18 [Rx] Darbepoetin Tom [Aranesp] 40 mcg SQ Q7D syringe 03/24/18 [Rx] Furosemide [Lasix] 80 mg PO BID@0900,1600 #0 tab 03/24/18 [Rx] Insulin Detemir [Levemir] 35 unit SQ HS #0 syr 03/24/18 [Rx] Ipratropium-Albuterol Nebulize [Duoneb 0.5 mg-3 mg/3 ml Soln] 3 ml INHALATION Q4H PRN ampul.neb 03/24/18 [Rx] Ipratropium-Albuterol Nebulize [Duoneb 0.5 mg-3 mg/3 ml Soln] 3 ml INHALATION RT -QID ampul.neb 03/24/18 [Rx] Metolazone [Zaroxolyn] 2.5 mg PO Q48H tab 03/24/18 [Rx] Nystatin 100,000 Unit/gm Powd [Mycostatin Powder] 1 applic TOPICAL TID applic 03/24/18 [Rx] Vancomycin Oral Solution 250 mg PO Q6HR 10 Days ml 03/24/18 [Rx] Follow up Appointment(s)/Referral(s): Jayjay Armendariz MD [REFERRING] - 3 Days Templeton,Stuart, DO [STAFF PHYSICIAN] - 1 Week Activity/Diet/Wound Care/Special Instructions: Confirm cardiology follow-up appointment. Diet: 1500 mL fluid restriction per 24 hours, renal diet, low salt diet Activity: As tolerated CBC, BMP in 3 days
[2018-03-24 13:55] LABS: Basophils % (A) 0 %; Eosinophils % (A) 0 %; HCT 22.7 % (34.0-46.0); HGB 7.2 gm/dL (11.4-16.0); Lymphocytes # (A) 2.3 k/uL (1.0-4.8); Lymphocytes % (A) 21 %; MCH 29.9 pg (25.0-35.0); MCHC 31.7 g/dL (31.0-37.0); MCV 94.5 fL (80.0-100.0); Mean Platelet Volume 8.4; Monocytes # (A) 0.7 k/uL (0-1.0); Monocytes % (A) 6 %; Neutrophils # (A) 7.6 k/uL (1.3-7.7); Neutrophils % (A) 71 %; Platelet Count 157 k/uL (150-450); RDW 14.9 % (11.5-15.5); WBC 10.7 k/uL (3.8-10.6)
--- NOTE | 2018-03-24 15:28 | P.PN ---
Subjective Progress Note Date: 03/24/18 This is a 52-year-old female with known history of hypertension, hyperlipidemia, diabetes, diastolic congestive heart failure, chronic kidney disease, lymphoma, nicotine dependence, who was recently in the hospital, was discharged to [facility]. Was noted there to have severe diarrhea as well as significant worsening of peripheral edema. For this reason she was admitted to the hospital. She's currently receiving treatment for congestive heart failure. She is currently on IV Lasix drip. Weight today is down 2 kg from admission. Hemoglobin 7.1 and creatinine 1.9 today. She is sitting up in the chair at bedside at the time of her examination today, does state overall that her breathing has improved. Continues to have at least 3+ peripheral edema. 03/24/2018 Patient was seen and examined this morning, diuresed well through the night last night. Continues to have significant peripheral edema. Blood pressure this morning 140/70, heart rate 70s. Creatinine 2.0 today, BUN 78, potassium 4.8. Hemoglobin 7.2. She continues to be on a Lasix drip at 15 mg per hour. Objective - Vital Signs Vital signs: Vital Signs Temp 96.9 F L 03/24/18 11:41 Pulse 77 03/24/18 11:41 Resp 16 03/24/18 11:41 BP 140/70 03/24/18 11:41 Pulse Ox 96 03/24/18 11:41 Intake & Output 03/23/18 03/24/18 03/24/18 18:59 06:59 18:59 Intake Total 1020 476 Output Total 725 2550 Balance 295 -2550 476 Weight 114.9 kg 112.7 kg Intake: Oral 1020 476 Output: Urine 725 2550 Other: # Voids 1 1 # Bowel Movements 1 - Exam PHYSICAL EXAMINATION: HEENT: Head is atraumatic, normocephalic. Pupils equal, round. Neck is supple. There is no elevated jugular venous pressure. HEART EXAMINATION: Heart S1 and S2 with systolic murmur is heard. CHEST EXAMINATION: Lungs are clear with mild diminished air entry to bilateral bases. ABDOMEN: Soft, nontender. Bowel sounds are heard. No organomegaly noted. EXTREMITIES: 2+ peripheral pulses with 2+ evidence of peripheral edema NEUROLOGIC patient is awake, alert and oriented -3. . - Labs CBC & Chem 7: 03/24/18 05:15 03/24/18 05:51 Labs: Abnormal Lab Results - Last 24 Hours (Table) 03/23/18 03/23/18 03/24/18 Range/Units 16:39 20:45 05:15 WBC 10.7 H (3.8-10.6) k/uL RBC 2.40 L (3.80-5.40) m/uL Hgb 7.2 L (11.4-16.0) gm/dL Hct 22.7 L (34.0-46.0) % BUN (7-17) mg/dL Creatinine (0.52-1.04) mg/dL Glucose (74-99) mg/dL POC Glucose (mg/dL) 258 H 185 H (75-99) mg/dL 03/24/18 03/24/18 03/24/18 Range/Units 05:51 06:43 11:42 WBC (3.8-10.6) k/uL RBC (3.80-5.40) m/uL Hgb (11.4-16.0) gm/dL Hct (34.0-46.0) % BUN 78 H (7-17) mg/dL Creatinine 2.00 H (0.52-1.04) mg/dL Glucose 65 L (74-99) mg/dL POC Glucose (mg/dL) 74 L 100 H (75-99) mg/dL Assessment and Plan Plan: Assessment and plan #1 diastolic congestive heart failure acute on chronic #2 renal failure acute on chronic #3 hypertension 4 hyperlipidemia #5 diabetes #6 COPD #7 history of nicotine dependence Plan From cardiology's perspective, we concur with nephrology in continuing Lasix drip at 15 mg per hour. Check lytes, BUN, creatinine, intake and output and weight in the morning. DNP note has been reviewed, I agree with a documented findings and plan of care. Patient was seen and examined.
--- NOTE | 2018-03-24 16:08 | P.PN ---
Subjective Progress Note Date: 03/24/18 Progress Note being dictated for Dr. Rust. Interval history: This is a 52-year-old female admitted with acute CHF exacerbation, C. difficile colitis, multiple other medical issues. Continues to have significant edema. Lasix drip has been increased to 15 mg per hour as per nephrology. Hemoglobin 7.1, creatinine 1.9. Potassium improving, down to 5.3. Continues on oral vancomycin. Denies chest pain, palpitations or increasing shortness of breath. 03/24/2018 maintained on Lasix drip, edema improving. Creatinine 2. Potassium 4.8. Good diet intake, no nausea or vomiting. Objective - Vital Signs Vital signs: Vital Signs Temp 96.9 F L 03/24/18 11:41 Pulse 77 03/24/18 11:41 Resp 16 03/24/18 11:41 BP 140/70 03/24/18 11:41 Pulse Ox 96 03/24/18 11:41 Intake & Output 03/23/18 03/24/18 03/24/18 18:59 06:59 18:59 Intake Total 1020 476 Output Total 725 2550 Balance 295 -2550 476 Weight 114.9 kg 112.7 kg Intake: Oral 1020 476 Output: Urine 725 2550 Other: # Voids 1 1 # Bowel Movements 1 - Exam PHYSICAL EXAM: VITAL SIGNS: As above GENERAL: Sitting up in chair, no acute distress HEENT: Conjunctivae normal. eyes normal. Oral mucosa moist NECK: No JVD. No thyroid enlargement. No LNs CARDIOVASCULAR: S1, S2 muffled. Systolic murmur RESPIRATION: Breath sounds diminished in the bases. No rhonchi or crackles. No bronchial breathing. ABDOMEN: Soft, nontender . No guarding. no masses palpable. Bowel sounds heard. LEGS: Decreasing edema PSYCHIATRY: Alert and oriented -3, mood and affect normal. NERVOUS SYSTEM: Cranial N 2-12 grossly normal. Moves all 4 limbs. Diffuse weakness No focal deficits. - Labs CBC & Chem 7: 03/24/18 05:15 03/24/18 05:51 Labs: Abnormal Lab Results - Last 24 Hours (Table) 03/23/18 03/23/18 03/24/18 Range/Units 16:39 20:45 05:15 WBC 10.7 H (3.8-10.6) k/uL RBC 2.40 L (3.80-5.40) m/uL Hgb 7.2 L (11.4-16.0) gm/dL Hct 22.7 L (34.0-46.0) % BUN (7-17) mg/dL Creatinine (0.52-1.04) mg/dL Glucose (74-99) mg/dL POC Glucose (mg/dL) 258 H 185 H (75-99) mg/dL 03/24/18 03/24/18 03/24/18 Range/Units 05:51 06:43 11:42 WBC (3.8-10.6) k/uL RBC (3.80-5.40) m/uL Hgb (11.4-16.0) gm/dL Hct (34.0-46.0) % BUN 78 H (7-17) mg/dL Creatinine 2.00 H (0.52-1.04) mg/dL Glucose 65 L (74-99) mg/dL POC Glucose (mg/dL) 74 L 100 H (75-99) mg/dL Assessment and Plan Assessment: 1. Abdominal pain with diarrhea with acute C. difficile colitis 2. Acute on chronic exacerbation CHF, diastolic dysfunction, EF 5560% 3. Moderate mitral regurgitation 4. Acute on Chronic kidney disease stage III, cardiorenal syndrome 5. Diabetes mellitus type 2 6. Hyperkalemia secondary to renal failure 7. Anemia of chronic disease Plan: Continue current medication regime , metolazone, monitoring and symptomatic treatment. Lasix drip and metolazone as per nephrology. Follow closely with both cardiology and nephrology. Close monitoring of renal function , lites with repeat labs ordered for a.m. The impression and plan of care has been dictated as directed. : I performed a history and examination of this patient, discussed the same with the dictator. I agree with the dictator's note ,documented as a scribe. Any additional findings or plans will be noted.
[2018-03-24 16:53] LABS: Glucose,Whole Blood 216 mg/dL (75-99)
[2018-03-24 21:06] LABS: Glucose,Whole Blood 278 mg/dL (75-99)
[2018-03-24] MEDS: INSULIN DETEMIR 100 UNIT/ML 10 ML VIAL SQ SCH (21:53)
[2018-03-25 05:59] LABS: Glucose,Whole Blood 144 mg/dL (75-99)
[2018-03-25] MEDS: INSULIN ASPART 100 UNIT/ML 1 ML 10 ML VIAL SQ SCH ×8 (07:06→21:28)
[2018-03-25] MEDS: VANCOMYCIN ORAL SOLUTION 250 MG/5 ML BOTTLE PO SCH ×4 (07:08→23:31)
[2018-03-25] MEDS: SYMBICORT 160-4.5 MCG INHALER INHALATION SCH ×2 (07:08→20:08)
[2018-03-25] MEDS: IPRATROPIUM-ALBUTEROL 3 ML NEB INHALATION SCH ×4 (07:08→20:08)
[2018-03-25 07:17] LABS: Calcium 8.5 mg/dL (8.4-10.2); Potassium 4.4 mmol/L (3.5-5.1)
[2018-03-25] MEDS: hydrALAZINE HCL 50 MG TAB PO SCH ×3 (08:08→20:15)
[2018-03-25] MEDS: predniSONE 20 MG TAB PO SCH (08:08)
[2018-03-25] MEDS: ASPIRIN 81 MG PO SCH (08:08)
[2018-03-25] MEDS: METOLAZONE 5 MG TAB PO SCH ×2 (08:08→20:15)
[2018-03-25] MEDS: METOPROLOL SUCCINATE (ER) 100 MG TAB.ER.24H PO SCH (08:08)
[2018-03-25] MEDS: NICOTINE 14MG/24HR PATCH TRANSDERM SCH (08:08)
[2018-03-25] MEDS: HEPARIN SODIUM,PORCINE 5,000 UNIT/ML 1 ML VIAL SQ SCH ×2 (08:08→20:15)
[2018-03-25] MEDS: NYSTATIN 100,000 UNIT/GM POWD 15 GM TOPICAL SCH ×3 (08:09→20:14)
--- NOTE | 2018-03-25 08:51 | P.PN ---
Subjective Patient is seen in follow-up for acute kidney injury on chronic kidney disease. Patient has chronic kidney disease stage III secondary to cardiorenal syndrome and diabetic kidney disease with baseline creatinine near 1.5. Patient presented with abdominal pain and diarrhea. She is noted to be C. diff positive. Edema is gradually improving. She is currently maintained on Lasix drip at 15 mL an hour along with metolazone. Oral intake is good. No vomiting. Denies chest pain. She has history of diastolic CHF with moderate mitral regurgitation. Her potassium level was staying high despite medical management but is now trending down and is 4.4 this morning. No active complaints at this time. Vital signs are stable. General: The patient appeared well nourished and normally developed. HEENT: Head exam is unremarkable. Neck is without jugular venous distension. LUNGS: Lungs are clear to auscultation and percussion. Breath sounds decreased. HEART: Rate and Rhythm are regular. First and second heart sounds normal. No murmurs, rubs or gallops. ABDOMEN: Abdominal exam reveals normal bowel sounds. Non-tender and non- distended. No evidence of peritonitis. EXTREMITITES: 1+ edema. Objective - Vital Signs Vital signs: Vital Signs Temp 96.9 F L 03/25/18 04:00 Pulse 78 03/25/18 04:00 Resp 18 03/25/18 04:00 BP 166/70 03/25/18 04:00 Pulse Ox 93 L 03/25/18 04:00 Intake & Output 03/24/18 03/25/18 03/25/18 18:59 06:59 18:59 Intake Total 1033 480 240 Output Total 500 1000 Balance 1033 -20 -760 Weight 111 kg Intake: Intake, IV Titration 320 Amount Furosemide 250 mg In 120 Sodium Chloride 0.9% 225 ml @ 15 MG/HR 15 mls/hr IVP .[id number] [facility] Rx#: [id number] Magnesium Sulfate-D5w Pmx 200 1 gm In Dextrose/Water 1 100ml.bag @ 100 mls/hr IVPB Q1H [facility] Rx#: [id number] Oral 713 480 240 Output: Urine 500 1000 Other: Voiding Method Toilet Bedside Commode # Voids 1 1 2 # Bowel Movements 1 0 - Labs CBC & Chem 7: 03/24/18 05:15 03/25/18 06:36 Labs: Abnormal Lab Results - Last 24 Hours (Table) 03/24/18 03/24/18 03/24/18 Range/Units 05:15 11:42 16:51 WBC 10.7 H (3.8-10.6) k/uL RBC 2.40 L (3.80-5.40) m/uL Hgb 7.2 L (11.4-16.0) gm/dL Hct 22.7 L (34.0-46.0) % BUN (7-17) mg/dL Creatinine (0.52-1.04) mg/dL Glucose (74-99) mg/dL POC Glucose (mg/dL) 100 H 216 H (75-99) mg/dL 03/24/18 03/25/18 03/25/18 Range/Units 21:04 05:57 06:36 WBC (3.8-10.6) k/uL RBC (3.80-5.40) m/uL Hgb (11.4-16.0) gm/dL Hct (34.0-46.0) % BUN 84 H* (7-17) mg/dL Creatinine 1.84 H (0.52-1.04) mg/dL Glucose 109 H (74-99) mg/dL POC Glucose (mg/dL) 278 H 144 H (75-99) mg/dL Assessment and Plan Plan: Assessment: #1. Nonoliguric acute kidney injury mostly prerenal secondary to cardiorenal syndrome. Creatinine peaked at 2 this admission and is 1.84 today. BUN elevated due to BO and steroids also contributing factor. #2. Chronic kidney disease stage III secondary to diabetic kidney disease and cardiorenal syndrome with baseline creatinine near 1.5. #3. Hyperkalemia secondary to acute kidney injury, metabolic acidosis and use of KIMBERLYN inhibitor. Improved with medical management. #4. Metabolic acidosis secondary to acute kidney injury. Improved. #5. Anemia of chronic kidney disease. Iron replete. #6. Volume overload. Improving. #7. Diastolic CHF with moderate mitral regurgitation. #8. Hypertension with chronic kidney disease. Partially volume sensitive. #9. C. diff colitis maintained on oral vancomycin. #10. Insulin-dependent diabetes mellitus. #11. Hypomagnesemia secondary to diuresis. Plan: Continue with Lasix drip at 15 mL an hour for now. Maintain metolazone 5 mg twice a day. Discontinue sodium bicarbonate. Avoid nephrotoxic agents and hypotensive episodes. Lisinopril held. Low-salt diet and 1.5 L fluid restriction. Maintain aranesp. Repeat electrolytes in the morning. Check FOBT. She will need increased dose of diuretics upon discharge - 80 mg Lasix oral twice daily along with metolazone 2.5 mg once daily. She will need to get a basic metabolic panel checked within 2-3 days of discharge and follow-up as an outpatient in the next 1-2 weeks.
[2018-03-25 11:32] LABS: Glucose,Whole Blood 127 mg/dL (75-99)
[2018-03-25] MEDS: PANTOPRAZOLE 40 MG/10 ML VIAL IVP SCH (11:42)
[2018-03-25] MEDS: FUROSEMIDE 250 MG in SODIUM CHLORIDE 0.9% 225 ML IVP SCH (11:59)
--- NOTE | 2018-03-25 15:53 | P.PN ---
Subjective Progress Note Date: 03/25/18 This is a 52-year-old female with known history of hypertension, hyperlipidemia, diabetes, diastolic congestive heart failure, chronic kidney disease, lymphoma, nicotine dependence, who was recently in the hospital, was discharged to [facility]. Was noted there to have severe diarrhea as well as significant worsening of peripheral edema. For this reason she was admitted to the hospital. She's currently receiving treatment for congestive heart failure. She is currently on IV Lasix drip. Weight today is down 2 kg from admission. Hemoglobin 7.1 and creatinine 1.9 today. She is sitting up in the chair at bedside at the time of her examination today, does state overall that her breathing has improved. Continues to have at least 3+ peripheral edema. 03/24/2018 Patient was seen and examined this morning, diuresed well through the night last night. Continues to have significant peripheral edema. Blood pressure this morning 140/70, heart rate 70s. Creatinine 2.0 today, BUN 78, potassium 4.8. Hemoglobin 7.2. She continues to be on a Lasix drip at 15 mg per hour. 2017 Patient seen and examined this morning, weight is down 2 kg today, creatinine 1.8, patient overall feeling much better. She is sitting up in the chair at bedside, continues to have significant peripheral edema but doing better overall. Blood pressure 136/60 with a heart rate in the 70s, 96% on room air. Objective - Vital Signs Vital signs: Vital Signs Temp 97.3 F L 03/25/18 12:00 Pulse 75 03/25/18 12:00 Resp 18 03/25/18 12:00 BP 137/62 03/25/18 12:00 Pulse Ox 96 03/25/18 12:00 Intake & Output 03/24/18 03/25/18 03/25/18 18:59 06:59 18:59 Intake Total 1033 480 718.5 Output Total 500 3000 Balance 6603 -39 -5941.5 Weight 111 kg Intake: Intake, IV Titration 320 238.5 Amount Furosemide 250 mg In 120 238.5 Sodium Chloride 0.9% 225 ml @ 15 MG/HR 15 mls/hr IVP .[id number] [facility] Rx#: [id number] Magnesium Sulfate-D5w Pmx 200 1 gm In Dextrose/Water 1 100ml.bag @ 100 mls/hr IVPB Q1H [facility] Rx#: [id number] Oral 713 480 480 Output: Urine 500 3000 Other: Voiding Method Toilet Bedside Commode # Voids 1 1 1 # Bowel Movements 1 0 - Exam PHYSICAL EXAMINATION: HEENT: Head is atraumatic, normocephalic. Pupils equal, round. Neck is supple. There is no elevated jugular venous pressure. HEART EXAMINATION: Heart S1 and S2 with systolic murmur is heard. CHEST EXAMINATION: Lungs are clear with mild diminished air entry to bilateral bases. ABDOMEN: Soft, nontender. Bowel sounds are heard. No organomegaly noted. EXTREMITIES: 2+ peripheral pulses with 2+ evidence of peripheral edema NEUROLOGIC patient is awake, alert and oriented -3. . - Labs CBC & Chem 7: 03/24/18 05:15 03/25/18 06:36 Labs: Abnormal Lab Results - Last 24 Hours (Table) 03/24/18 03/24/18 03/25/18 Range/Units 16:51 21:04 05:57 BUN (7-17) mg/dL Creatinine (0.52-1.04) mg/dL Glucose (74-99) mg/dL POC Glucose (mg/dL) 216 H 278 H 144 H (75-99) mg/dL 03/25/18 03/25/18 Range/Units 06:36 11:29 BUN 84 H* (7-17) mg/dL Creatinine 1.84 H (0.52-1.04) mg/dL Glucose 109 H (74-99) mg/dL POC Glucose (mg/dL) 127 H (75-99) mg/dL Assessment and Plan Plan: Assessment and plan #1 diastolic congestive heart failure acute on chronic #2 renal failure acute on chronic #3 hypertension 4 hyperlipidemia #5 diabetes #6 COPD #7 history of nicotine dependence Plan From cardiology's perspective, we will recommend the patient continue IV Lasix drip, however if she is discharged by nephrology and primary, we will schedule her for a follow-up appointment in the office post discharge. DNP note has been reviewed, I agree with a documented findings and plan of care. Patient was seen and examined.
--- NOTE | 2018-03-25 15:59 | P.PN ---
Subjective Progress Note Date: 03/25/18 Progress Note being dictated for Dr. Rust. Interval history: This is a 52-year-old female admitted with acute CHF exacerbation, C. difficile colitis, multiple other medical issues. Continues to have significant edema. Lasix drip has been increased to 15 mg per hour as per nephrology. Hemoglobin 7.1, creatinine 1.9. Potassium improving, down to 5.3. Continues on oral vancomycin. Denies chest pain, palpitations or increasing shortness of breath. 03/24/2018 maintained on Lasix drip, edema improving. Creatinine 2. Potassium 4.8. Good diet intake, no nausea or vomiting. 03/25/18 continues on 1.5 L fluid restriction, Lasix drip- diuresing well with 24 -hour I&O reflecting a negative fluid balance. Edema improving. Creatinine down to 1.84 .Sitting up in chair, good diet intake, no nausea or vomiting. Denies chest pain, palpitations or increasing shortness of breath. Eager for discharge back to rehab. Objective - Vital Signs Vital signs: Vital Signs Temp 97.3 F L 03/25/18 12:00 Pulse 75 03/25/18 12:00 Resp 18 03/25/18 12:00 BP 137/62 03/25/18 12:00 Pulse Ox 96 03/25/18 12:00 Intake & Output 03/24/18 03/25/18 03/25/18 18:59 06:59 18:59 Intake Total 1033 480 718.5 Output Total 500 2500 Balance 1033 -20 -1781.5 Weight 111 kg Intake: Intake, IV Titration 320 238.5 Amount Furosemide 250 mg In 120 238.5 Sodium Chloride 0.9% 225 ml @ 15 MG/HR 15 mls/hr IVP .[id number] [facility] Rx#: [id number] Magnesium Sulfate-D5w Pmx 200 1 gm In Dextrose/Water 1 100ml.bag @ 100 mls/hr IVPB Q1H [facility] Rx#: [id number] Oral 713 480 480 Output: Urine 500 2500 Other: Voiding Method Toilet Bedside Commode # Voids 1 1 1 # Bowel Movements 1 0 - Exam PHYSICAL EXAM: VITAL SIGNS: As above GENERAL: Sitting up in chair, no acute distress HEENT: Conjunctivae normal. eyes normal. Oral mucosa moist NECK: No JVD. No thyroid enlargement. No LNs CARDIOVASCULAR: S1, S2 muffled. Systolic murmur RESPIRATION: Breath sounds diminished in the bases. No rhonchi or crackles. ABDOMEN: Soft, nontender . No guarding. no masses palpable. Bowel sounds heard. LEGS: Decreasing edema PSYCHIATRY: Alert and oriented -3, mood and affect normal. NERVOUS SYSTEM: Cranial N 2-12 grossly normal. Moves all 4 limbs. Diffuse weakness No focal deficits. - Labs CBC & Chem 7: 03/24/18 05:15 03/25/18 06:36 Labs: Abnormal Lab Results - Last 24 Hours (Table) 03/24/18 03/24/18 03/25/18 Range/Units 16:51 21:04 05:57 BUN (7-17) mg/dL Creatinine (0.52-1.04) mg/dL Glucose (74-99) mg/dL POC Glucose (mg/dL) 216 H 278 H 144 H (75-99) mg/dL 03/25/18 03/25/18 Range/Units 06:36 11:29 BUN 84 H* (7-17) mg/dL Creatinine 1.84 H (0.52-1.04) mg/dL Glucose 109 H (74-99) mg/dL POC Glucose (mg/dL) 127 H (75-99) mg/dL Assessment and Plan Assessment: 1. Abdominal pain with diarrhea with acute C. difficile colitis 2. Acute on chronic exacerbation CHF, diastolic dysfunction, EF 5560% 3. Moderate mitral regurgitation 4. Acute on Chronic kidney disease stage III, cardiorenal syndrome 5. Diabetes mellitus type 2 6. Hyperkalemia secondary to renal failure 7. Anemia of chronic disease Plan: Continue current medication regime , metolazone, monitoring and symptomatic treatment. Lasix drip and metolazone as per nephrology. Follow closely with both cardiology and nephrology. Close monitoring of renal function , lytes with repeat labs ordered for a.m. discharge planning in progress for tomorrow pending cardiology clearance. The impression and plan of care has been dictated as directed. : I performed a history and examination of this patient, discussed the same with the dictator. I agree with the dictator's note ,documented as a scribe. Any additional findings or plans will be noted.
[2018-03-25 16:44] LABS: Glucose,Whole Blood 232 mg/dL (75-99)
--- NOTE | 2018-03-25 18:38 | XR ---
EXAMINATION TYPE: XR chest 1V portable DATE OF EXAM: 03/25/2018 COMPARISON: 03/20/2018 HISTORY: Heart failure. Short of breath TECHNIQUE: Single frontal view of the chest is obtained. FINDINGS: There is pulmonary vascular congestion. There is blunting of costophrenic angles and more on the right side. There is right central venous catheter with tip in the superior vena cava. Heart i s enlarged. There is some infiltrate at the right lung base. IMPRESSION: Congestive heart failure with pleural effusions. Cardiomegaly. Heart failure is worse th an last exam.
[2018-03-25 20:51] LABS: Glucose,Whole Blood 195 mg/dL (75-99)
[2018-03-25] MEDS: INSULIN DETEMIR 100 UNIT/ML 10 ML VIAL SQ SCH (21:27)
[2018-03-26] MEDS: FUROSEMIDE 250 MG in SODIUM CHLORIDE 0.9% 225 ML IVP SCH (04:19)
[2018-03-26 06:11] LABS: Glucose,Whole Blood 122 mg/dL (75-99)
[2018-03-26] MEDS: INSULIN ASPART 100 UNIT/ML 1 ML 10 ML VIAL SQ SCH ×4 (06:11→11:45)
[2018-03-26] MEDS: VANCOMYCIN ORAL SOLUTION 250 MG/5 ML BOTTLE PO SCH ×2 (06:26→11:43)
[2018-03-26 07:01] LABS: Calcium 8.7 mg/dL (8.4-10.2); Magnesium 1.8 mg/dL (1.6-2.3); Potassium 4.5 mmol/L (3.5-5.1)
[2018-03-26] MEDS: IPRATROPIUM-ALBUTEROL 3 ML NEB INHALATION SCH ×3 (08:06→15:46)
[2018-03-26] MEDS: SYMBICORT 160-4.5 MCG INHALER INHALATION SCH (08:08)
[2018-03-26] MEDS ORDERED: predniSONE 10 MG TAB PO SCH (09:00)
[2018-03-26] MEDS: hydrALAZINE HCL 50 MG TAB PO SCH ×2 (09:11→15:31)
[2018-03-26] MEDS: NICOTINE 14MG/24HR PATCH TRANSDERM SCH (09:11)
[2018-03-26] MEDS: METOLAZONE 5 MG TAB PO SCH (09:11)
[2018-03-26] MEDS: HEPARIN SODIUM,PORCINE 5,000 UNIT/ML 1 ML VIAL SQ SCH (09:11)
[2018-03-26] MEDS: predniSONE 20 MG TAB PO SCH (09:11)
[2018-03-26] MEDS: PANTOPRAZOLE 40 MG/10 ML VIAL IVP SCH (09:11)
[2018-03-26] MEDS: ASPIRIN 81 MG PO SCH (09:11)
[2018-03-26] MEDS: METOPROLOL SUCCINATE (ER) 100 MG TAB.ER.24H PO SCH (09:11)
[2018-03-26] MEDS: NYSTATIN 100,000 UNIT/GM POWD 15 GM TOPICAL SCH ×2 (09:12→15:31)
--- NOTE | 2018-03-26 09:23 | P.PN ---
Subjective Patient is seen in follow-up for acute kidney injury on chronic kidney disease. Patient has chronic kidney disease stage III secondary to cardiorenal syndrome and diabetic kidney disease with baseline creatinine near 1.5. Patient presented with abdominal pain and diarrhea. She is noted to be C. diff positive. Edema is gradually improving. She is currently maintained on Lasix drip at 15 mL an hour along with metolazone. Oral intake is good. No vomiting. Denies chest pain. She has history of diastolic CHF with moderate mitral regurgitation. No active complaints at this time. She is eager to go home. Vital signs are stable. General: The patient appeared well nourished and normally developed. HEENT: Head exam is unremarkable. Neck is without jugular venous distension. LUNGS: Lungs are clear to auscultation and percussion. Breath sounds decreased. HEART: Rate and Rhythm are regular. First and second heart sounds normal. No murmurs, rubs or gallops. ABDOMEN: Abdominal exam reveals normal bowel sounds. Non-tender and non- distended. No evidence of peritonitis. EXTREMITITES: 1+ edema. Objective - Vital Signs Vital signs: Vital Signs Temp 97.6 F 03/26/18 04:00 Pulse 66 03/26/18 08:19 Resp 19 03/26/18 04:00 BP 172/73 03/26/18 04:00 Pulse Ox 98 03/26/18 04:00 Intake & Output 03/25/18 03/26/18 03/26/18 18:59 06:59 18:59 Intake Total 958.5 245 180 Output Total 3300 3000 Balance -2341.5 -2755 180 Weight 107 kg Intake: Intake, IV Titration 238.5 245 Amount Furosemide 250 mg In 238.5 245 Sodium Chloride 0.9% 225 ml @ 15 MG/HR 15 mls/hr IVP .[id number] [facility] Rx#: [id number] Oral 720 180 Output: Urine 3300 3000 Other: Voiding Method Toilet Bedside Commode # Voids 1 # Bowel Movements 0 - Labs CBC & Chem 7: 03/24/18 05:15 03/26/18 06:11 Labs: Abnormal Lab Results - Last 24 Hours (Table) 03/25/18 03/25/18 03/25/18 Range/Units 11:29 16:43 20:50 BUN (7-17) mg/dL Creatinine (0.52-1.04) mg/dL POC Glucose (mg/dL) 127 H 232 H 195 H (75-99) mg/dL 03/26/18 03/26/18 Range/Units 06:07 06:11 BUN 92 H* (7-17) mg/dL Creatinine 1.90 H (0.52-1.04) mg/dL POC Glucose (mg/dL) 122 H (75-99) mg/dL Assessment and Plan Plan: Assessment: #1. Nonoliguric acute kidney injury mostly prerenal secondary to cardiorenal syndrome. Creatinine peaked at 2 this admission and is 1.9 today. BUN elevated due to OB and steroids also contributing factor. No active bleeding. #2. Chronic kidney disease stage III secondary to diabetic kidney disease and cardiorenal syndrome with baseline creatinine near 1.5. #3. Hyperkalemia secondary to acute kidney injury, metabolic acidosis and use of KIMBERLYN inhibitor. Improved with medical management. #4. Metabolic acidosis secondary to acute kidney injury. Improved. #5. Anemia of chronic kidney disease. Iron replete. #6. Volume overload. Improving. #7. Diastolic CHF with moderate mitral regurgitation. #8. Hypertension with chronic kidney disease. Partially volume sensitive. #9. C. diff colitis maintained on oral vancomycin. #10. Insulin-dependent diabetes mellitus. #11. Hypomagnesemia secondary to diuresis. Improved post replacement. Plan: Continue with Lasix drip at 15 mL an hour for now. Maintain metolazone 5 mg twice a day. Discontinued sodium bicarbonate. Avoid nephrotoxic agents and hypotensive episodes. Lisinopril held. Low-salt diet and 1.5 L fluid restriction. Maintain aranesp. Repeat electrolytes in the morning. Follow-up FOBT. She will need increased dose of diuretics upon discharge - 80 mg Lasix oral twice daily along with metolazone 2.5 mg once daily. She will need to get a basic metabolic panel checked within 2-3 days of discharge and follow-up as an outpatient in the next 1-2 weeks.
[2018-03-26 11:28] LABS: Glucose,Whole Blood 98 mg/dL (75-99)
--- NOTE | 2018-03-26 14:20 | P.DS ---
Providers Date of admission: 03/20/18 18:40 Attending physician: Martinez Rust Consults: 03/20/18 19:04 Consult Physician Urgent Consulting Provider: Bright Villegas Consult Reason/Comments: CHF Do you want consulting provider notified?: Yes, Notify in am Placement Type Exists?: Yes 03/22/18 07:00 Consult Physician Routine Consulting Provider: Stuart Templeton Consult Reason/Comments: hyperkalemia Do you want consulting provider notified?: Yes, Notify in am Primary care physician: Stated None Hospital Course: Final diagnosis Abdominal pain dietary with the acute C. difficile colitis CHF acute exacerbation with acute on chronic diastolic dysfunction ejection fraction 50-60% Moderate mitral regurgitation Acute and chronic kidney disease stage III cardiorenal syndrome. Habits mellitus type II Hyperkalemia secondary to renal failure improved Anemia of chronic disease Discharge disposition The patient be discharged in a stable condition with guarded prognosis to ECF. Total time taken 35 minutes. Hospital course This 52-year-old woman with a past medical history multiple medical problems was admitted with a CHF acute exacerbation as well as acute C. difficile colitis. Patient treated with Lasix drip. Patient improved significantly. Cardiology and nephrology saw the patient. Patient is stabilized. Patient is discharged in a stable condition with guarded prognosis. On exam vitals are stable. Cardio S1 and S2 normal. Respirator system few scattered rhonchi. Abdomen soft nontender. Legs bilateral minimal pedal Edema present. Patient Condition at Discharge: Stable Plan - Discharge Summary Discharge Rx Participant: No New Discharge Prescriptions: New Budesonide-Formot 160-4.5 Mcg [Symbicort 160-4.5 Mcg Inhaler] 2 puff INHALATION RT-BID puff Darbepoetin Tom [Aranesp] 40 mcg SQ Q7D syringe Ipratropium-Albuterol Nebulize [Duoneb 0.5 mg-3 mg/3 ml Soln] 3 ml INHALATION RT-QID ampul.neb Ipratropium-Albuterol Nebulize [Duoneb 0.5 mg-3 mg/3 ml Soln] 3 ml INHALATION Q4H PRN ampul.neb PRN Reason: Shortness Of Breath Or Wheezing Nystatin 100,000 Unit/gm Powd [Mycostatin Powder] 1 applic TOPICAL TID applic Vancomycin Oral Solution 250 mg PO Q6HR 10 Days ml predniSONE 10 mg PO DIRECTED #30 tab Metolazone [Zaroxolyn] 2.5 mg PO DAILY #1 tablet Aspirin 81 mg PO DAILY chew Continue Nicotine 14Mg/24Hr Patch [Habitrol] 1 patch TRANSDERM DAILY #14 patch Acetaminophen Tab [Tylenol] 650 mg PO Q6HR PRN tab PRN Reason: Fever and/ or Mild Pain Famotidine [Pepcid] 20 mg PO DAILY tab hydrALAZINE HCL [Apresoline] 100 mg PO TID tab Insulin Aspart [NovoLOG (formulary)] 7 unit SQ ACHS vial Metoprolol Succinate (ER) [Toprol XL] 100 mg PO DAILY tab.er.24h Ondansetron [Zofran] 4 mg PO Q6H PRN PRN Reason: Nausea Insulin Aspart [NovoLOG (formulary)] See Protocol SQ ACHS PRN PRN Reason: Blood Sugar - High Lactobacillus Acidophilus [Acidophilus] 1 tab PO BID Changed Furosemide [Lasix] 80 mg PO BID@0900,1600 #0 tab Insulin Detemir [Levemir] 35 unit SQ HS #0 syr Discontinued Albuterol Nebulized [Ventolin Nebulized] 2.5 mg INHALATION RT-QID Albuterol Inhaler [Ventolin Hfa Inhaler] 2 puff INHALATION RT-Q6H PRN PRN Reason: Shortness Of Breath Sodium Bicarbonate Tab 650 mg PO BID #60 tab Aspirin 325 mg PO DAILY tab Lisinopril [Zestril] 5 mg PO DAILY tab predniSONE See Taper PO DAILY Loperamide [Imodium] 2 mg PO QID PRN PRN Reason: Loose Stool Discharge Medication List Nicotine 14Mg/24Hr Patch [Habitrol] 1 patch TRANSDERM DAILY #14 patch 03/07/18 [ Rx] Acetaminophen Tab [Tylenol] 650 mg PO Q6HR PRN tab 03/16/18 [Rx] Famotidine [Pepcid] 20 mg PO DAILY tab 03/16/18 [Rx] Insulin Aspart [NovoLOG (formulary)] 7 unit SQ ACHS vial 03/16/18 [Rx] Metoprolol Succinate (ER) [Toprol XL] 100 mg PO DAILY tab.er.24h 03/16/18 [Rx] hydrALAZINE HCL [Apresoline] 100 mg PO TID tab 03/16/18 [Rx] Insulin Aspart [NovoLOG (formulary)] See Protocol SQ ACHS PRN 03/20/18 [History] Lactobacillus Acidophilus [Acidophilus] 1 tab PO BID 03/20/18 [History] Ondansetron [Zofran] 4 mg PO Q6H PRN 03/20/18 [History] Budesonide-Formot 160-4.5 Mcg [Symbicort 160-4.5 Mcg Inhaler] 2 puff INHALATION RT-BID puff 03/24/18 [Rx] Darbepoetin Tom [Aranesp] 40 mcg SQ Q7D syringe 03/24/18 [Rx] Furosemide [Lasix] 80 mg PO BID@0900,1600 #0 tab 03/24/18 [Rx] Insulin Detemir [Levemir] 35 unit SQ HS #0 syr 03/24/18 [Rx] Ipratropium-Albuterol Nebulize [Duoneb 0.5 mg-3 mg/3 ml Soln] 3 ml INHALATION Q4H PRN ampul.neb 03/24/18 [Rx] Ipratropium-Albuterol Nebulize [Duoneb 0.5 mg-3 mg/3 ml Soln] 3 ml INHALATION RT -QID ampul.neb 03/24/18 [Rx] Nystatin 100,000 Unit/gm Powd [Mycostatin Powder] 1 applic TOPICAL TID applic 03/24/18 [Rx] Vancomycin Oral Solution 250 mg PO Q6HR 10 Days ml 03/24/18 [Rx] predniSONE 10 mg PO DIRECTED #30 tab 03/24/18 [Rx] Metolazone [Zaroxolyn] 2.5 mg PO DAILY #1 tablet 03/25/18 [Rx] Aspirin 81 mg PO DAILY chew 03/26/18 [Rx] Follow up Appointment(s)/Referral(s): Jayjay Armendariz MD [REFERRING] - 3 Days Stuart Templeton DO [STAFF PHYSICIAN] - 1 Week Patient Instructions/Handouts: Heart Failure (DC) Activity/Diet/Wound Care/Special Instructions: Confirm cardiology follow-up appointment. Diet: 1500 mL fluid restriction per 24 hours, renal diet, low salt diet Activity: As tolerated CBC, BMP in 3 days
--- NOTE | 2018-03-26 14:42 | P.PN ---
Subjective Progress Note Date: 03/26/18 This is a 52-year-old female with known history of hypertension, hyperlipidemia, diabetes, diastolic congestive heart failure, chronic kidney disease, lymphoma, nicotine dependence, who was recently in the hospital, was discharged to [facility]. Was noted there to have severe diarrhea as well as significant worsening of peripheral edema. For this reason she was admitted to the hospital. She's currently receiving treatment for congestive heart failure. She is currently on IV Lasix drip. Weight today is down 2 kg from admission. Hemoglobin 7.1 and creatinine 1.9 today. She is sitting up in the chair at bedside at the time of her examination today, does state overall that her breathing has improved. Continues to have at least 3+ peripheral edema. 03/24/2018 Patient was seen and examined this morning, diuresed well through the night last night. Continues to have significant peripheral edema. Blood pressure this morning 140/70, heart rate 70s. Creatinine 2.0 today, BUN 78, potassium 4.8. Hemoglobin 7.2. She continues to be on a Lasix drip at 15 mg per hour. 2017 Patient seen and examined this morning, weight is down 2 kg today, creatinine 1.8, patient overall feeling much better. She is sitting up in the chair at bedside, continues to have significant peripheral edema but doing better overall. Blood pressure 136/60 with a heart rate in the 70s, 96% on room air. 03/26/2018 Patient seen and examined this morning, weight is down 4 kg today. BUN 90, creatinine 1.9, potassium 4.5, mag level I.8.Edema is much less, lungs are clear. Objective - Vital Signs Vital signs: Vital Signs Temp 97.9 F 03/26/18 12:00 Pulse 68 03/26/18 12:14 Resp 16 03/26/18 12:14 BP 120/56 03/26/18 12:00 Pulse Ox 97 03/26/18 12:00 Intake & Output 03/25/18 03/26/18 03/26/18 18:59 06:59 18:59 Intake Total 958.5 245 420 Output Total 3300 3000 1300 Balance -2341.5 -2755 -880 Weight 107 kg Intake: Intake, IV Titration 238.5 245 Amount Furosemide 250 mg In 238.5 245 Sodium Chloride 0.9% 225 ml @ 15 MG/HR 15 mls/hr IVP .[id number] [facility] Rx#: [id number] Oral 720 420 Output: Urine 3300 3000 1300 Other: Voiding Method Toilet Bedside Commode # Voids 1 # Bowel Movements 0 - Exam PHYSICAL EXAMINATION: HEENT: Head is atraumatic, normocephalic. Pupils equal, round. Neck is supple. There is no elevated jugular venous pressure. HEART EXAMINATION: Heart S1 and S2 with systolic murmur is heard. CHEST EXAMINATION: Lungs are clear with mild diminished air entry to bilateral bases. ABDOMEN: Soft, nontender. Bowel sounds are heard. No organomegaly noted. EXTREMITIES: 2+ peripheral pulses with 1+ evidence of peripheral edema NEUROLOGIC patient is awake, alert and oriented -3. . - Labs CBC & Chem 7: 03/24/18 05:15 03/26/18 06:11 Labs: Abnormal Lab Results - Last 24 Hours (Table) 03/25/18 03/25/18 03/26/18 Range/Units 16:43 20:50 06:07 BUN (7-17) mg/dL Creatinine (0.52-1.04) mg/dL POC Glucose (mg/dL) 232 H 195 H 122 H (75-99) mg/dL 03/26/18 Range/Units 06:11 BUN 92 H* (7-17) mg/dL Creatinine 1.90 H (0.52-1.04) mg/dL POC Glucose (mg/dL) (75-99) mg/dL Assessment and Plan Plan: Assessment and plan #1 diastolic congestive heart failure acute on chronic #2 renal failure acute on chronic #3 hypertension 4 hyperlipidemia #5 diabetes #6 COPD #7 history of nicotine dependence Plan From cardiology's perspective, we will recommend discharge once cleared by nephrology. Follow-up appointment with Dr. Villegas in the office post discharge. DNP note has been reviewed, I agree with a documented findings and plan of care. Patient was seen and examined.
[2018-03-26 15:37] VITALS: BP 132/62; PULSE 74; RESP 18; TEMP 98.1
[2018-03-27] MEDS ORDERED: PANTOPRAZOLE 40 MG TABLET PO SCH (07:30)
== END 2018-03-26 16:19 | DRG 291 ==
LOC: 6SEL 18:40
PROVIDERS: ADMIT Hospitalist; ATTEND Hospitalist
DX: I13.0 Hypertensive heart and chronic kidney disease with heart failure and stage 1 through stage 4 chronic kidney disease, or unspecified chronic kidney disease (principal); I50.33 Acute on chronic diastolic (congestive) heart failure; A04.72 Enterocolitis due to Clostridium difficile, not specified as recurrent; N17.9 Acute kidney failure, unspecified; E87.2 Acidosis; Z68.43 Body mass index [BMI] 50.0-59.9, adult; N18.3 Chronic kidney disease, stage 3 (moderate); E11.22 Type 2 diabetes mellitus with diabetic chronic kidney disease; E83.42 Hypomagnesemia; D63.1 Anemia in chronic kidney disease; E66.9 Obesity, unspecified; E78.5 Hyperlipidemia, unspecified; E87.5 Hyperkalemia; I34.0 Nonrheumatic mitral (valve) insufficiency; J44.9 Chronic obstructive pulmonary disease, unspecified; K21.9 Gastro-esophageal reflux disease without esophagitis; F32.9 Major depressive disorder, single episode, unspecified; F41.9 Anxiety disorder, unspecified; T50.2X5A Adverse effect of carbonic-anhydrase inhibitors, benzothiadiazides and other diuretics, initial encounter; T46.4X5A Adverse effect of angiotensin-converting-enzyme inhibitors, initial encounter; Z79.4 Long term (current) use of insulin; Z79.82 Long term (current) use of aspirin; Z79.899 Other long term (current) drug therapy; Z79.52 Long term (current) use of systemic steroids; Z85.71 Personal history of Hodgkin lymphoma; Z87.891 Personal history of nicotine dependence; Z80.51 Family history of malignant neoplasm of kidney; Z80.42 Family history of malignant neoplasm of prostate; Z80.8 Family history of malignant neoplasm of other organs or systems; Z82.49 Family history of ischemic heart disease and other diseases of the circulatory system; Z83.3 Family history of diabetes mellitus; Z84.89 Family history of other specified conditions; Y92.239 Unspecified place in hospital as the place of occurrence of the external cause
CPT/HCPCS: 71045; 71046; 80048; 80053; 81001; 82728; 83036; 83540; 83550; 83735; 84132; 85025; 87086; 94640; 94644

== ENCOUNTER 2018-08-16 16:19 | Inpatient (IN) | payer OTHER ==
[2018-08-16] MEDS ORDERED: NALOXONE 0.4 MG/ML 1 ML VIAL IV PRN (19:28)
[2018-08-16] MEDS ORDERED: MELATONIN 3 MG TABLET PO PRN (19:28)
[2018-08-16] MEDS ORDERED: ACETAMINOPHEN TAB 500 MG TAB PO PRN (19:31)
[2018-08-16] MEDS: BUDESONIDE 1 MG/2 ML NEBU INHALATION SCH (19:37)
[2018-08-16] MEDS: FORMOTEROL FUMARATE 20 MCG/2 ML NEBU INHALATION SCH (19:37)
--- NOTE | 2018-08-16 19:53 | XR ---
EXAMINATION TYPE: XR chest 1V portable DATE OF EXAM: 08/16/2018 COMPARISON: 03/25/2018 HISTORY: Short of breath TECHNIQUE: Single frontal view of the chest is obtained. FINDINGS: There is pulmonary edema. There is bilateral pleural effusions. There is right central nathanael ous catheter with tip in the superior vena cava. There are chest leads. IMPRESSION: Congestive heart failure with pleural effusions. This appears worse than last exam.
[2018-08-16] MEDS ORDERED: IPRATROPIUM-ALBUTEROL 3 ML NEB INHALATION SCH (20:00)
[2018-08-16] MEDS: methylPREDNISolone SOD SUCCI 125 MG/2 ML VIAL IV SCH ×2 (20:39→23:43)
[2018-08-16] MEDS: HEPARIN SODIUM,PORCINE 5,000 UNIT/ML 1 ML VIAL SQ SCH (20:41)
[2018-08-16] MEDS ORDERED: IPRATROPIUM-ALBUTEROL 3 ML NEB INHALATION PRN (20:49)
[2018-08-16 20:52] LABS: Glucose,Whole Blood 241 mg/dL (75-99)
[2018-08-16] MEDS ORDERED: ONDANSETRON 4 MG TAB PO PRN (20:53)
[2018-08-16 20:58] LABS: Anisocytosis Slight; Basophils % (A) 0 %; Eosinophils % (A) 0 %; HCT 32.3 % (34.0-46.0); HGB 9.9 gm/dL (11.4-16.0); Hypochromasia Moderate; Lymphocytes # (A) 4.1 k/uL (1.0-4.8); Lymphocytes % (A) 43 %; MCH 30.2 pg (25.0-35.0); MCHC 30.7 g/dL (31.0-37.0); MCV 98.2 fL (80.0-100.0); Macrocytosis Slight; Mean Platelet Volume 7.2; Monocytes # (A) 0.2 k/uL (0-1.0); Monocytes % (A) 2 %; Neutrophils # (A) 4.9 k/uL (1.3-7.7); Neutrophils % (A) 51 %; Platelet Count 108 k/uL (150-450); RBC 3.29 m/uL (3.80-5.40); RDW 16.1 % (11.5-15.5); WBC 9.6 k/uL (3.8-10.6)
[2018-08-16] MEDS ORDERED: LACTOBACILLUS ACIDOPHILUS PO SCH (21:00)
[2018-08-16] MEDS ORDERED: FAMOTIDINE 20 MG/2 ML VIAL IV SCH (21:00)
[2018-08-16 21:11] LABS: Albumin 2.6 g/dL (3.5-5.0); Calcium 7.8 mg/dL (8.4-10.2); Total Bilirubin 0.6 mg/dL (0.2-1.3); Total Protein 4.9 g/dL (6.3-8.2)
[2018-08-16 21:14] LABS: Potassium 6.8 mmol/L (3.5-5.1)
[2018-08-16 21:16] LABS: ABG Base Excess -5.1 mmol/L; ABG HCO3 21 mmol/L (21-25); ABG Oxygen Saturation 97.7 % (94-97); ABG PCO2 41 mmHg (35-45); ABG PH 7.32 (7.35-7.45); ABG PO2 93 mmHg (83-108); ABG TCO2 22 mmol/L (19-24)
[2018-08-16] MEDS ORDERED: DEXTROSE 50%-WATER 50 ML SYRINGE IVP STA (21:51)
[2018-08-16] MEDS ORDERED: INSULIN REGULAR 100 UNIT/ML VIAL IV STA (21:52)
[2018-08-16] MEDS ORDERED: SODIUM POLYSTYRENE SULFONATE 30 GM/120 ML BOTTLE RECTAL STA (21:54)
[2018-08-16] MEDS ORDERED: FUROSEMIDE 10 MG/ML 4 ML VIAL IV STA (21:58)
[2018-08-16] MEDS ORDERED: SODIUM POLYSTYRENE SULFONATE 15 GM/60 ML BOTTLE PO STA (22:08)
[2018-08-16] MEDS: hydrALAZINE HCL 50 MG TAB PO SCH (22:36)
[2018-08-16] MEDS: INSULIN ASPART 100 UNIT/ML 1 ML 10 ML VIAL SQ SCH ×2 (22:47→22:48)
[2018-08-16] MEDS: INSULIN DETEMIR 100 UNIT/ML 10 ML VIAL SQ SCH (22:48)
[2018-08-16] MEDS: NYSTATIN 100,000 UNIT/GM POWD 15 GM TOPICAL SCH (22:51)
--- NOTE | 2018-08-16 23:02 | HP ---
HISTORY AND PHYSICAL CHIEF COMPLAINT: Shortness of breath. HISTORY OF PRESENT ILLNESS: This 53-year-old woman with past medical history of asthma, CHF, diabetes, hypertension, hyperlipidemia, lymphoma, history of tumor on the back, being followed by Dr. Jayjay Armendariz in the outpatient setting, having increasing shortness of breath over the past several days. Patient apparently lives alone in the apartment. Evaluation with echo showed possible CHF, pneumonia, and the patient was directly transferred to [facility] for further evaluation and treatment. BiPAP was initiated. There is no history of fever, rigors. No history of headache, loss of consciousness, seizures. PAST MEDICAL HISTORY: History of diabetes mellitus, hypertension, hyperlipidemia, history of non- Hodgkin's lymphoma. History of anxiety and depression. MEDICATIONS: Home medications are: 1. Zofran 4 mg q.6h p.r.n. 2. Zaroxolyn 2.5 mg daily. 3. Levemir 35 units subcu q.h.s. 4. Symbicort 160/4.5 two puffs b.i.d. 5. Pepcid 20 mg p.o. 7. Aspirin 81 mg. 8. Tylenol 650 q.6h p.r.n. 9. NovoLog 7 units a.c. q.h.s. 10.Lasix 80 mg p.o. b.i.d. 11.Lactobacillus 1 tablet p.o. b.i.d. 12.DuoNeb q.i.d. 13.DuoNeb q.4h p.r.n. 14.Toprol-XL 100 mg p.o. daily. 15.Nystatin 1 application t.i.d. 16.Habitrol 1 daily. 17.Alprazolam 100 mg p.o. t.i.d. 18.Vancomycin 250 mg p.o. q.i.d. 19.Prednisone p.r.n. ALLERGIES: ARE ZITHROMAX, LATEX, METFORMIN, RITUXIMAB, AND LACTOSE. FAMILY HISTORY: History of cancer, prostate cancer. SOCIAL HISTORY: History of previous smoking. No history of alcohol intake. REVIEW OF SYSTEMS: Could not be taken, the patient is on BIPAP. PHYSICAL EXAM: Pulse is 80, blood pressure 128/90, respiration 20, temperature is normal. Pulse ox is 90-150 percent FiO2. BiPAP settings are noted. HEENT: Conjunctivae normal. Oral mucosa moist. Neck is no jugular venous distention. No carotid bruit. No lymph node enlargement. Cardiac: Accessory muscles acting. Otherwise cardiovascular system S1, S2. Ejection systolic murmur present. RESPIRATORY: Breath sounds diminished in the bases. Bilateral scattered rhonchi and expiratory wheezing and crackles. ABDOMEN: Soft, obese, nontender. No mass palpable. Legs: No edema no swelling. NERVOUS SYSTEM: Higher functions as mentioned earlier. Moves all 4 limbs. No focal motor or sensory deficits. Mild diffuse weakness. Lymphatics: No lymph nodes palpable in the neck, axillae or groin. Skin: No ulcer, rash or bleeding. JOINTS: No active deforming arthropathy. LABS: Awaited at this time. Creatinine is elevated. ASSESSMENT: 1. Shortness of breath possibly multifactorial with chronic obstructive pulmonary disease acute exacerbation as well as congestive heart failure acute exacerbation. Ejection fraction unknown. 2. Possible bibasilar pneumonia. 3. Rule out left pleural effusion. 4. Renal failure. Possible acute renal failure. 5. Congestive heart failure acute exacerbation. Ejection fraction unknown. 6. History of asthma. 7. History of diabetes type 2. 8. Hypertension. 9. Hyperlipidemia. 10.History of non-Hodgkin lymphoma. 11.Obesity with body mass index of 41.2. 12.History of section. 13.Anxiety, depression. 14.Remote history of nicotine dependence. 15.History of C difficile colitis. RECOMMENDATIONS AND DISCUSSION: In this 53-year-old woman who presented with multiple complex medical issues, we will monitor the patient closely. Continue the current medications, management and symptomatic treatment. We will continue to monitor the patient. Otherwise, we will initiate bronchodilator treatment and IV steroids. I would also recommend Cardiology and pulmonology consultations. 2D echo with Doppler. ABG. Continue the BiPAP for now. Broad-spectrum IV antibiotics. Nephrology consultation for renal failure. Prognosis is extremely guarded because of multiple complex medical issues. Further recommendations to follow. A copy of dictation being forwarded to Dr. Jayjay Armendariz who is the primary physician. I would recommend insulin coverage and home insulin at this time. If the sugars are more than 300, I would definitely recommend IV insulin drip for steroids. Prognosis guarded. MMODL / IJN: [id number] / [facility]
[2018-08-16] MEDS: PIPERACILLIN-TAZOBACTAM 3.375 GM in DEXTROSE/WATER 1 50ML.BAG IVPB SCH (23:40)
[2018-08-16] MEDS: FUROSEMIDE 10 MG/ML 4 ML VIAL IV SCH (23:47)
[2018-08-17 02:09] LABS: Glucose,Whole Blood 241 mg/dL (75-99)
[2018-08-17] MEDS ORDERED: SODIUM POLYSTYRENE SULFONATE 15 GM/60 ML BOTTLE PO ONE (02:30)
[2018-08-17 02:39] LABS: Basophils % (A) 0 %; Eosinophils % (A) 0 %; HCT 31.5 % (34.0-46.0); HGB 9.7 gm/dL (11.4-16.0); Hypochromasia Slight; Lymphocytes # (A) 4.7 k/uL (1.0-4.8); Lymphocytes % (A) 45 %; MCH 29.5 pg (25.0-35.0); MCHC 30.9 g/dL (31.0-37.0); MCV 95.5 fL (80.0-100.0); Mean Platelet Volume 7.6; Monocytes # (A) 0.2 k/uL (0-1.0); Monocytes % (A) 2 %; Neutrophils # (A) 5.3 k/uL (1.3-7.7); Neutrophils % (A) 51 %; Platelet Count 127 k/uL (150-450); RDW 15.8 % (11.5-15.5); WBC 10.5 k/uL (3.8-10.6)
[2018-08-17 02:56] LABS: Calcium 8.1 mg/dL (8.4-10.2)
[2018-08-17 03:03] LABS: Potassium 6.3 mmol/L (3.5-5.1)
[2018-08-17] MEDS ORDERED: FUROSEMIDE 10 MG/ML 4 ML VIAL IV STA (03:11)
[2018-08-17] MEDS ORDERED: SODIUM CHLORIDE 0.9% 1,000 ML IV SCH (03:15)
[2018-08-17 05:55] LABS: Glucose,Whole Blood 217 mg/dL (75-99)
[2018-08-17] MEDS: INSULIN ASPART 100 UNIT/ML 1 ML 10 ML VIAL SQ SCH ×8 (06:37→21:23)
[2018-08-17] MEDS: methylPREDNISolone SOD SUCCI 125 MG/2 ML VIAL IV SCH ×4 (06:39→22:59)
[2018-08-17] MEDS: FORMOTEROL FUMARATE 20 MCG/2 ML NEBU INHALATION SCH ×2 (07:10→19:39)
[2018-08-17] MEDS: IPRATROPIUM-ALBUTEROL 3 ML NEB INHALATION SCH ×4 (07:10→19:39)
[2018-08-17] MEDS: BUDESONIDE 1 MG/2 ML NEBU INHALATION SCH ×2 (07:10→19:39)
[2018-08-17] MEDS: PIPERACILLIN-TAZOBACTAM 3.375 GM in DEXTROSE/WATER 1 50ML.BAG IVPB SCH ×3 (08:09→22:57)
[2018-08-17] MEDS: FUROSEMIDE 10 MG/ML 4 ML VIAL IV SCH ×3 (08:10→22:59)
[2018-08-17] MEDS: HEPARIN SODIUM,PORCINE 5,000 UNIT/ML 1 ML VIAL SQ SCH ×2 (08:10→20:39)
[2018-08-17] MEDS: PANTOPRAZOLE 40 MG/10 ML VIAL IV SCH (08:10)
[2018-08-17] MEDS: ASPIRIN 81 MG PO SCH (08:10)
[2018-08-17] MEDS: hydrALAZINE HCL 50 MG TAB PO SCH ×3 (08:10→20:38)
[2018-08-17] MEDS: METOLAZONE 2.5 MG TAB PO SCH (08:11)
[2018-08-17] MEDS: NICOTINE 14MG/24HR PATCH TRANSDERM SCH (08:11)
[2018-08-17] MEDS: METOPROLOL SUCCINATE (ER) 100 MG TAB.ER.24H PO SCH (08:11)
[2018-08-17] MEDS ORDERED: INSULIN REGULAR 100 UNIT/ML VIAL IV ONE (09:20)
[2018-08-17] MEDS ORDERED: DEXTROSE 50%-WATER 50 ML SYRINGE IVP STA (09:20)
[2018-08-17] MEDS ORDERED: SODIUM BICARB 8.4% 50 ML SYR (1 MEQ/ML) IV ONE (09:21)
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
--- NOTE | 2018-08-17 11:47 | ECHOF ---
Referral Reason:chf MEASUREMENTS -------- HEIGHT: 154.9 cm WEIGHT: 71.2 kg BP: 159/79 RVIDd: 2.5 cm (< 3.3) IVSd: 1.2 cm (0.6 - 1.1) LVIDd: 3.5 cm (3.9 - 5.3) LVPWd: 1.2 cm (0.6 - 1.1) IVSs: 1.4 cm LVIDs: 2.4 cm LVPWs: 1.4 cm Ao Diam: 2.9 cm (2.0 - 3.7) AV Cusp: 1.8 cm (1.5 - 2.6) LA Diam: 4.1 cm (2.7 - 3.8) MV EXCURSION: 17.007 mm (> 18.000) MV EF SLOPE: 80 mm/s (70 - 150) EPSS: 0.4 cm MV E Jorge: 1.22 m/s MV DecT: 196 ms MV A Jorge: 1.16 m/s MV E/A Ratio: 1.05 RAP: 5.00 mmHg RVSP: 39.42 mmHg FINDINGS -------- Sinus rhythm. This was a technically adequate study. The left ventricular size is normal. There is mild concentric left ventricular hypertrophy. Overa ll left ventricular systolic function is normal with, an EF between 55 - 60 %. The right ventricle is normal in size and function. The left atrium is mildly dilated. The right atrium is normal in size. The aortic valve is trileaflet, and appears structurally normal. No aortic stenosis or regurgitation. The mitral valve leaflets are mildly thickened. Moderate mitral regurgitation is present. Mild tricuspid regurgitation present. There is mild pulmonary hypertension. The right ventricular systolic pressure, as measured by Doppler, is 39.42mmHg. The pulmonic valve was not well visualized. The aortic root size is normal. Normal inferior vena cava with normal inspiratory collapse consistent with estimated right atrial pre ssure of 5 mmHg. There is a trivial pericardial effusion present. CONCLUSIONS -------- 1. Sinus rhythm. 2. This was a technically adequate study. 3. The left ventricular size is normal. 4. There is mild concentric left ventricular hypertrophy. 5. Overall left ventricular systolic function is normal with, an EF between 55 - 60 %. 6. The right ventricle is normal in size and function. 7. The left atrium is mildly dilated. 8. The right atrium is normal in size. 9. The aortic valve is trileaflet, and appears structurally normal. No aortic stenosis or regurgitati on. 10. The mitral valve leaflets are mildly thickened. 11. Moderate mitral regurgitation is present. 12. Mild tricuspid regurgitation present. 13. There is mild pulmonary hypertension. 14. The right ventricular systolic pressure, as measured by Doppler, is 39.42mmHg. 15. The pulmonic valve was not well visualized. 16. The aortic root size is normal. 17. Normal inferior vena cava with normal inspiratory collapse consistent with estimated right atrial pressure of 5 mmHg. 18. There is a trivial pericardial effusion present. FILTER PRESS OPERATOR: Valencia Nieto RDCS
[2018-08-17 11:51] LABS: Glucose,Whole Blood 193 mg/dL (75-99)
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
[2018-08-17] MEDS: NYSTATIN 100,000 UNIT/GM POWD 15 GM TOPICAL SCH ×3 (12:33→20:40)
[2018-08-17] MEDS ORDERED: SODIUM BICARB 8.4% 50 ML SYR (1 MEQ/ML) ONE (12:35)
[2018-08-17 12:45] LABS: Hemoglobin A1C 5.1 % (4.0-6.0)
[2018-08-17] MEDS: DARBEPOETIN ALFA 40 MCG/0.4 ML SYRINGE SQ SCH (15:10)
[2018-08-17 16:49] LABS: Glucose,Whole Blood 218 mg/dL (75-99)
[2018-08-17 16:50] LABS: Iron Saturation 33.05 (12.00-45.00)
--- NOTE | 2018-08-17 20:12 | PN ---
PROGRESS NOTE DATE OF SERVICE: 08/17/2018 This 53-year-old woman was admitted with shortness of breath which is multifactorial with acute hypoxic respiratory failure. She is being closely monitored at this time. Cardiology and Pulmonology are following the patient closely. A 2D echo with Doppler was done which showed ejection fraction of about 50% to 60%. The patient is off BiPAP; still significantly short of breath. Creatinine is also elevated. Dr. Lucero is following the patient closely for pulmonary edema as well as bilateral pleural effusion. The shortness of breath is mostly secondary to CHF, acute exacerbation, at this time. Past medical history reviewed. REVIEW OF SYSTEMS: CARDIOVASCULAR SYSTEM: As mentioned earlier. RESPIRATORY SYSTEM: As mentioned earlier. GI: No nausea, vomiting. : No dysuria or retention. NERVOUS SYSTEM: No numbness, weakness. CURRENT MEDICATIONS: Reviewed. They include: 1. Tylenol 500 mg q.6h p.r.n. 2. [place] 5 mg. 3. DuoNeb q.i.d. and p.r.n. 4. Xanax 0.25 q.6 p.r.n. 5. Aspirin 81 mg. 6. Pulmicort 1 mg b.i.d. 7. Aranesp 40 mg q.7 days. 8. Perforomist 20 mg b.i.d. 9. Lasix 40 mg IV q.8. 10.Heparin 5000 units subcutaneously b.i.d. 11.Omeprazole 100 mg t.i.d. 12.NovoLog scale. 13.Levemir 35 units subcutaneously at bedtime. 14.Melatonin 3 mg at bedtime. 15.Solu-Medrol 60 IV q.6. 16.Zaroxolyn. 17.Narcan. 18.Habitrol. 19.Protonix. 20.IV Zosyn. PHYSICAL EXAMINATION: Patient is alert, oriented x3. Pulse is 87, blood pressure 176/86, respiration 20, temperature normal, pulse ox 91% on 5 L. HEENT: Conjunctivae normal. Oral mucosa moist. NECK: No jugular venous distention. No carotid bruit. No lymph node enlargement. CARDIOVASCULAR SYSTEM: S1, S2 muffled. RESPIRATORY SYSTEM: Breath sounds diminished at the bases. No rhonchi. No crackles. ABDOMEN: Soft, non-tender. No mass palpable. LEGS: No edema. No swelling. NERVOUS SYSTEM: LABS AT THIS TIME: WBC 10.5, hemoglobin 9.7. The potassium is 6.3, 6.1 and 5.1. Creatinine is 2.15. ASSESSMENT: 1. Shortness of breath; possibly congestive heart failure, acute exacerbation, with acute on chronic diastolic dysfunction. 2. Chronic obstructive pulmonary disease, acute exacerbation. 3. Possible basilar pneumonia. 4. Possible left pleural effusion. 5. Renal failure, acute on chronic, non-oliguric. 6. History of asthma. 7. Diabetes mellitus, type 2. 8. Hypertension. 9. Hyperlipidemia. 10.History of non-Hodgkin lymphoma. 11.Obesity with a body mass index of 41.2. 12.History of section. 13.Anxiety, depression. 14.Remote history of nicotine dependence. 15.History of Clostridium difficile colitis. RECOMMENDATIONS AND DISCUSSION: I recommend to continue current medication, continue with the monitoring, symptomatic treatment. At this time I recommend continuing with the diuretics cautiously. Closely follow with Cardiology and Nephrology. Pulmonary evaluation noted. Taper the steroids. Continue with the bronchodilators, empiric antibiotics. Prognosis is extremely guarded because of multiple complex medical issues. Further recommendations to follow. See orders for further details. MMODL / IJN: [id number] / JACQUES
[2018-08-17 21:17] LABS: Glucose,Whole Blood 229 mg/dL (75-99)
[2018-08-17] MEDS: INSULIN DETEMIR 100 UNIT/ML 10 ML VIAL SQ SCH (21:23)
[2018-08-17] MEDS: ALPRAZolam 0.25 MG TAB PO PRN (22:07)
[2018-08-18 05:49] LABS: Anisocytosis Slight; Basophils % (A) 0 %; Eosinophils # (A) 0.1 k/uL (0-0.7); Eosinophils % (A) 1 %; HGB 9.2 gm/dL (11.4-16.0); Hypochromasia Slight; Lymphocytes % (A) 37 %; MCH 29.4 pg (25.0-35.0); MCHC 30.9 g/dL (31.0-37.0); MCV 95.2 fL (80.0-100.0); Mean Platelet Volume 7.2; Monocytes # (A) 0.3 k/uL (0-1.0); Monocytes % (A) 3 %; Neutrophils # (A) 6.3 k/uL (1.3-7.7); Neutrophils % (A) 58 %; Platelet Count 133 k/uL (150-450); RBC 3.15 m/uL (3.80-5.40); RDW 16.1 % (11.5-15.5); WBC 10.8 k/uL (3.8-10.6)
[2018-08-18 06:05] LABS: Calcium 7.6 mg/dL (8.4-10.2); Magnesium 2.2 mg/dL (1.6-2.3); Phosphorus 4.5 mg/dL (2.5-4.5); Potassium 4.8 mmol/L (3.5-5.1)
[2018-08-18 06:28] LABS: Glucose,Whole Blood 204 mg/dL (75-99)
[2018-08-18] MEDS: INSULIN ASPART 100 UNIT/ML 1 ML 10 ML VIAL SQ SCH ×8 (06:56→21:40)
[2018-08-18] MEDS: BUDESONIDE 1 MG/2 ML NEBU INHALATION SCH ×2 (07:11→20:41)
[2018-08-18] MEDS: FORMOTEROL FUMARATE 20 MCG/2 ML NEBU INHALATION SCH ×2 (07:11→20:41)
[2018-08-18] MEDS: IPRATROPIUM-ALBUTEROL 3 ML NEB INHALATION SCH ×4 (07:11→20:41)
[2018-08-18] MEDS: PIPERACILLIN-TAZOBACTAM 3.375 GM in DEXTROSE/WATER 1 50ML.BAG IVPB SCH ×3 (08:52→23:21)
[2018-08-18] MEDS: FUROSEMIDE 10 MG/ML 4 ML VIAL IV SCH (08:52)
[2018-08-18] MEDS: methylPREDNISolone SOD SUCCI 125 MG/2 ML VIAL IV SCH ×3 (08:54→23:17)
[2018-08-18] MEDS: NICOTINE 14MG/24HR PATCH TRANSDERM SCH (08:56)
[2018-08-18] MEDS: HEPARIN SODIUM,PORCINE 5,000 UNIT/ML 1 ML VIAL SQ SCH ×2 (08:57→20:13)
[2018-08-18] MEDS: hydrALAZINE HCL 50 MG TAB PO SCH ×3 (08:57→20:57)
[2018-08-18] MEDS: ASPIRIN 81 MG PO SCH (08:57)
[2018-08-18] MEDS: METOPROLOL SUCCINATE (ER) 100 MG TAB.ER.24H PO SCH (08:57)
[2018-08-18] MEDS: METOLAZONE 2.5 MG TAB PO SCH (08:57)
[2018-08-18] MEDS: PANTOPRAZOLE 40 MG/10 ML VIAL IV SCH (08:58)
[2018-08-18] MEDS: NYSTATIN 100,000 UNIT/GM POWD 15 GM TOPICAL SCH ×3 (08:58→22:32)
--- NOTE | 2018-08-18 10:04 | P.PN ---
Subjective Patient is seen in follow-up for acute kidney injury on chronic kidney disease. Patient has chronic kidney disease stage III with baseline creatinine in the range of 1.62 secondary to diabetic kidney disease and cardiorenal syndrome. Patient was hyperkalemic on admission which is now normalized. She was noted to have urinary retention and has a Tang catheter in place. Dyspnea has improved. She is currently maintained on Lasix 40 mg IV 3 times daily. She is noted to have diastolic CHF with moderate mitral regurgitation. Oral intake is fair. Vital signs are stable. General: The patient appeared well nourished and normally developed. HEENT: Head exam is unremarkable. Neck is without jugular venous distension. LUNGS: Lungs are clear to auscultation and percussion. Breath sounds decreased. HEART: Rate and Rhythm are regular. First and second heart sounds normal. No murmurs, rubs or gallops. ABDOMEN: Abdominal exam reveals normal bowel sounds. Non-tender and non- distended. No evidence of peritonitis. EXTREMITITES: No clubbing, cyanosis, or edema. Objective - Vital Signs Vital signs: Vital Signs Temp 97 F L 08/18/18 04:00 Pulse 95 08/18/18 08:00 Resp 20 08/18/18 08:00 BP 165/86 08/18/18 08:00 Pulse Ox 97 08/18/18 08:00 Intake & Output 08/17/18 08/18/18 08/18/18 18:59 06:59 18:59 Intake Total 392 415 272 Output Total 1 802 Balance 391 -387 272 Weight 71 kg 73 kg Intake: IV 165 normal saline 165 Intake, IV Titration 50 50 50 Amount Piperacillin-Tazobactam 3 50 50 .375 gm In Dextrose/Water 1 50ml.bag @ 12.5 mls/hr IVPB Q8HR [facility] Rx#: [id number] Sodium Chloride 0.9% 1, 50 000 ml @ 100 mls/hr IV . Q10H [facility] Rx#:[id number] Oral 342 200 222 Output: Urine 800 Stool 1 2 Other: Voiding Method Incontinent Incontinent Incontinent Indwelling Catheter Indwelling Catheter Indwelling Catheter # Voids 250 - Labs CBC & Chem 7: 08/18/18 05:34 08/18/18 05:34 Labs: Abnormal Lab Results - Last 24 Hours (Table) 08/17/18 08/17/18 08/17/18 Range/Units 11:28 16:28 21:02 WBC (3.8-10.6) k/uL RBC (3.80-5.40) m/uL Hgb (11.4-16.0) gm/dL Hct (34.0-46.0) % MCHC (31.0-37.0) g/dL RDW (11.5-15.5) % Plt Count (150-450) k/uL Chloride (98-107) mmol/L BUN (7-17) mg/dL Creatinine (0.52-1.04) mg/dL Glucose (74-99) mg/dL POC Glucose (mg/dL) 193 H 218 H 229 H (75-99) mg/dL Calcium (8.4-10.2) mg/dL 08/18/18 08/18/18 08/18/18 Range/Units 05:34 05:34 06:25 WBC 10.8 H (3.8-10.6) k/uL RBC 3.15 L (3.80-5.40) m/uL Hgb 9.2 L (11.4-16.0) gm/dL Hct 30.0 L (34.0-46.0) % MCHC 30.9 L (31.0-37.0) g/dL RDW 16.1 H (11.5-15.5) % Plt Count 133 L (150-450) k/uL Chloride 111 H (98-107) mmol/L BUN 59 H (7-17) mg/dL Creatinine 2.32 H (0.52-1.04) mg/dL Glucose 195 H (74-99) mg/dL POC Glucose (mg/dL) 204 H (75-99) mg/dL Calcium 7.6 L (8.4-10.2) mg/dL Microbiology - Last 24 Hours (Table) 08/16/18 21:15 Blood Culture - Preliminary Blood No Growth after 24 hours 08/16/18 02:25 Urine Culture - Preliminary Urine,Catheterized Assessment and Plan Plan: Assessment: 1. Nonoliguric acute kidney injury secondary to ATN secondary to cardiorenal syndrome/diuresis. Creatinine 2.32 today. 2. Chronic kidney disease stage III with baseline creatinine in the range of 1.6-2 secondary to nephrosclerosis and cardiorenal syndrome. 3. Hyperkalemia secondary to acute kidney injury, metabolic acidosis. Improved. 4. Metabolic acidosis secondary to chronic kidney disease. Improved. 5. Diastolic CHF with moderate mitral regurgitation. 6. Volume overload. 7. Anemia of chronic kidney disease. Iron replete. 8. Diabetes mellitus. 9. Urinary retention status post Tagn catheter placement. Plan: Increase Lasix to 60 mg IV 3 times daily. Maintain Aranesp. Phosphorus level at goal. Tight blood sugar control. Repeat chest x-ray tomorrow.
--- NOTE | 2018-08-18 11:30 | P.PN ---
Subjective Progress Note Date: 08/18/18 Principal diagnosis: Acute COPD exacerbation Acute on chronic CHF with diastolic dysfunction Patient is a 53-year-old female with known history of COPD and nicotine addiction was admitted to the hospital for acute COPD exacerbation and CHF exacerbation. Patient is with acute hypoxic respiratory failure. 2-D echocardiogram showed ejection fraction 40-60%. Currently patient is on 5 L nasal cannula. Patient was on BiPAP previously. Pulmonary and cardiology as well as nephrology is following. Chest x-ray showed congestive heart failure with pleural effusions. 08/18/2018 Patient is still complaining of shortness of breath but slightly improved compared to yesterday. Off BiPAP machine currently and is on high flow nasal cannula. Patient is being continued on breathing treatments and steroids and antibiotics. Patient was given an extra dose of IV Lasix 80 mg today. Renal function slightly worsened with creatinine level 2.32. Nephrology is on board. No fever no chills. No other acute overnight issues. All other review of systems negative except the above. Current medications reviewed Active Medications Generic Name Dose Route Start Last Admin Trade Name Freq PRN Reason Stop Dose Admin Acetaminophen 500 mg 08/16/18 19:31 Tylenol Tab PO Q6HR PRN Fever and/ or Mild Pain Hydrocodone Bitart/Acetaminophen 1 each 08/16/18 19:28 [place] 5-325 PO Q4HR PRN Moderate Pain Albuterol/Ipratropium 3 ml 08/17/18 08:00 08/18/18 10:47 Duoneb 0.5 Mg-3 Mg/3 Ml Soln INHALATION 3 ml RT-QID [facility] Administration Albuterol/Ipratropium 3 ml 08/16/18 20:49 Duoneb 0.5 Mg-3 Mg/3 Ml Soln INHALATION RT-QID PRN Shortness Of Breath Or Wheezing Alprazolam 0.25 mg 08/16/18 19:28 08/17/18 22:07 Xanax PO 0.25 mg Q6HR PRN Administration Anxiety Aspirin 81 mg 08/17/18 09:00 08/18/18 08:57 Aspirin PO 81 mg DAILY [facility] Administration Budesonide 1 mg 08/16/18 20:00 08/18/18 07:11 Pulmicort INHALATION 1 mg RT-BID [facility] Administration Darbepoetin Tom 40 mcg 08/17/18 09:15 08/17/18 15:10 Aranesp SQ 40 mcg Q7D [facility] Administration Formoterol Fumarate 20 mcg 08/16/18 20:00 08/18/18 07:11 Perforomist INHALATION 20 mcg RT-BID [facility] Administration Furosemide 60 mg 08/18/18 16:00 Lasix IV Q8HR [facility] Heparin Sodium (Porcine) 5,000 unit 08/16/18 21:00 08/18/18 08:57 Heparin SQ 5,000 unit Q12HR [facility] Administration Hydralazine HCl 100 mg 08/16/18 22:00 08/18/18 08:57 Apresoline PO 100 mg TID [facility] Administration Piperacillin/Tazobactam/ 50 mls @ 12.5 mls/hr 08/17/18 00:00 08/18/18 08:52 Dextrose 3.375 gm/ IV Solution IVPB 12.5 mls/hr Q8HR [facility] Administration Insulin Aspart 0 unit 08/16/18 21:00 08/18/18 06:56 Novolog SQ 2 unit ACHS [facility] Administration Protocol Insulin Aspart 7 unit 08/16/18 21:00 08/18/18 06:56 Novolog SQ 7 unit ACHS [facility] Administration Insulin Detemir 35 unit 08/16/18 21:00 08/17/18 21:23 Levemir SQ 35 unit HS [facility] Administration Melatonin 3 mg 08/16/18 19:28 Melatonin PO HS PRN Insomnia Methylprednisolone Sodium Succinate 40 mg 08/18/18 00:00 08/18/18 08:54 Solu-Medrol IV 40 mg Q8HR [facility] Administration Metolazone 2.5 mg 08/17/18 09:00 08/18/18 08:57 Zaroxolyn PO 2.5 mg DAILY [facility] Administration Metoprolol Succinate 100 mg 08/17/18 09:00 08/18/18 08:57 Toprol Xl PO 100 mg DAILY [facility] Administration Naloxone HCl 0.2 mg 08/16/18 19:28 Narcan IV Q2M PRN Opioid Reversal Nicotine 1 patch 08/17/18 09:00 08/18/18 08:56 Habitrol 14mg/24hr Patch TRANSDERM 1 patch DAILY [facility] Administration Nystatin 1 applic 08/16/18 22:00 08/18/18 08:58 Mycostatin Powder TOPICAL Not Given TID [facility] Ondansetron HCl 4 mg 08/16/18 20:53 Zofran PO Q6H PRN Nausea Pantoprazole Sodium 40 mg 08/17/18 09:00 08/18/18 08:58 Protonix IV 40 mg DAILY [facility] Administration Objective - Vital Signs Vital signs: Vital Signs Temp 97 F L 08/18/18 04:00 Pulse 100 08/18/18 11:01 Resp 20 08/18/18 08:00 BP 165/86 08/18/18 08:00 Pulse Ox 97 08/18/18 08:00 Intake & Output 08/17/18 08/18/18 08/18/18 18:59 06:59 18:59 Intake Total 392 415 272 Output Total 1 802 Balance 391 -387 272 Weight 71 kg 73 kg Intake: IV 165 normal saline 165 Intake, IV Titration 50 50 50 Amount Piperacillin-Tazobactam 3 50 50 .375 gm In Dextrose/Water 1 50ml.bag @ 12.5 mls/hr IVPB Q8HR [facility] Rx#: [id number] Sodium Chloride 0.9% 1, 50 000 ml @ 100 mls/hr IV . Q10H [facility] Rx#:[id number] Oral 342 200 222 Output: Urine 800 Stool 1 2 Other: Voiding Method Incontinent Incontinent Incontinent Indwelling Catheter Indwelling Catheter Indwelling Catheter # Voids 250 - Exam PHYSICAL EXAMINATION: Patient is lying in the bed comfortably, no acute distress, awake alert and oriented. Morbid obesity. HEENT: Normocephalic. Neck is supple. Pupils reactive. Nostrils clear. Oral cavity is moist. Ears reveal no drainage. Neck reveals no JVD, carotid bruits, or thyromegaly. CHEST EXAMINATION: Trachea is central. Symmetrical expansion. Bilateral rhonchi and expiratory wheezing and diminished basilar breath sounds and crackles. CARDIAC: Normal S1, S2 with no gallops. No murmurs ABDOMEN: Soft. Bowel sounds normal. No organomegaly. No abdominal bruits. Extremities: 3+ pitting edema. No clubbing or cyanosis Neurologically awake, alert, oriented x3 with well-coordinated movements. No focal deficits noted Skin: No rash or skin lesions. Psychiatric: Coperative. Nonsuicidal Musculoskeletal: No joint swelling or deformity. Normal range of motion. - Labs CBC & Chem 7: 08/18/18 05:34 08/18/18 05:34 Labs: Abnormal Lab Results - Last 24 Hours (Table) 08/17/18 08/17/18 08/17/18 Range/Units 11:28 16:28 21:02 WBC (3.8-10.6) k/uL RBC (3.80-5.40) m/uL Hgb (11.4-16.0) gm/dL Hct (34.0-46.0) % MCHC (31.0-37.0) g/dL RDW (11.5-15.5) % Plt Count (150-450) k/uL Chloride (98-107) mmol/L BUN (7-17) mg/dL Creatinine (0.52-1.04) mg/dL Glucose (74-99) mg/dL POC Glucose (mg/dL) 193 H 218 H 229 H (75-99) mg/dL Calcium (8.4-10.2) mg/dL 08/18/18 08/18/18 08/18/18 Range/Units 05:34 05:34 06:25 WBC 10.8 H (3.8-10.6) k/uL RBC 3.15 L (3.80-5.40) m/uL Hgb 9.2 L (11.4-16.0) gm/dL Hct 30.0 L (34.0-46.0) % MCHC 30.9 L (31.0-37.0) g/dL RDW 16.1 H (11.5-15.5) % Plt Count 133 L (150-450) k/uL Chloride 111 H (98-107) mmol/L BUN 59 H (7-17) mg/dL Creatinine 2.32 H (0.52-1.04) mg/dL Glucose 195 H (74-99) mg/dL POC Glucose (mg/dL) 204 H (75-99) mg/dL Calcium 7.6 L (8.4-10.2) mg/dL Microbiology - Last 24 Hours (Table) 08/16/18 21:15 Blood Culture - Preliminary Blood No Growth after 24 hours 08/16/18 02:25 Urine Culture - Preliminary Urine,Catheterized Assessment and Plan Assessment: Shortness of breath is multifactorial mainly due to CHF and also COPD Acute on chronic CHF with diastolic dysfunction with left pleural effusion Acute COPD exacerbation Morbid obesity with a BMI 41.2 Possible bibasilar pneumonia Nonoliguric acute on chronic kidney disease. possibly ATN and cardiorenal History of asthma Diabetes type 2 Hypertension Hyperlipidemia History of non-Hodgkin's lymphoma Anxiety and depression Ongoing nicotine dependence History of C. diff colitis DVT prophylaxis with heparin subcu. Plan: Patient will be continued on IV Lasix 60 mg every 8 hourly along with metolazone. Monitor renal function. Oxygen therapy as needed and BiPAP as needed. Pulmonary cardiology and nephrology is following. Continue the steroids and breathing treatments and empiric antibiotics. Prognosis is extremely guarded and further recommendations based on the clinical course. Time with Patient: Greater than 30
[2018-08-18 11:31] LABS: Glucose,Whole Blood 181 mg/dL (75-99)
--- NOTE | 2018-08-18 12:34 | P.PN ---
Subjective Progress Note Date: 08/18/18 Principal diagnosis: Acute diastolic congestive heart failure. Bilateral pleural effusions. This is a 53-year-old female with history of hypertension, diastolic congestive heart failure, chronic kidney disease, remote history of lymphoma, treated with chemotherapy, patient presented initially to [facility] with complaints of shortness of breath for the last few days. Chest x-ray in [place] showed pulmonary edema. Patient was given diuretics, placed on BiPAP, transferred to [facility], admitted to monitor bed on selective, seen already by many consultants including cardiology and nephrology , and I was asked to see her on consultation. Since admission the patient has been feeling a bit better, breathing easier, and apparently has been responding to diuretics. Had a BNP level on admission was 22,400. Patient had recent echocardiogram in March showing good LV function with moderate tricuspid regurgitation and moderate to severe pulmonary hypertension. Patient remains on Lasix, and overall she has made a significant improvement since admission. Presently no cough, no wheezing, no fever, no chills, no hemoptysis, no chest pain. The patient is seen again today 08/18/2018 in follow-up on the selective care unit. She is currently awake and alert in no acute distress. He is still requiring 5 L high flow nasal cannula to maintain O2 saturations in the 90s. This could be titrated down. She did utilize the BiPAP throughout the evening. She is currently afebrile. White count 10.8. Hemoglobin 9.2. Creatinine 2.32. She is currently in a negative balance. She remains on IV Lasix 60 mg every 8 hours. Objective - Vital Signs Vital signs: Vital Signs Temp 97 F L 08/18/18 04:00 Pulse 97 08/18/18 11:49 Resp 20 08/18/18 11:49 BP 175/81 08/18/18 11:49 Pulse Ox 99 08/18/18 11:49 Intake & Output 08/17/18 08/18/18 08/18/18 18:59 06:59 18:59 Intake Total 392 415 272 Output Total 1 802 Balance 391 -387 272 Weight 71 kg 73 kg Intake: IV 165 normal saline 165 Intake, IV Titration 50 50 50 Amount Piperacillin-Tazobactam 3 50 50 .375 gm In Dextrose/Water 1 50ml.bag @ 12.5 mls/hr IVPB Q8HR [facility] Rx#: [id number] Sodium Chloride 0.9% 1, 50 000 ml @ 100 mls/hr IV . Q10H [facility] Rx#:[id number] Oral 342 200 222 Output: Urine 800 Stool 1 2 Other: Voiding Method Incontinent Incontinent Incontinent Indwelling Catheter Indwelling Catheter Indwelling Catheter # Voids 250 - Exam Physical exam revealed a 53-year-old female in no distress. On oxygen via nasal cannula at 5 L. Head: Atraumatic, normocephalic. HEENT:[Neck is supple.] [No neck masses.] [No thyromegaly.] [No JVD.] PERRLA, EOMI. No icterus. Elevated jugular venous pressure noted. No carotid bruits. Chest: [Minimal fine crackles at the bases, no rhonchi, no wheezes. No chest wall tenderness. Cardiac Exam: [Normal S1 and S2, no S3 gallop, 2/6 systolic murmur heard throughout the precordium..] Abdomen: [Obese, Soft, nontender, no megaly, no rebound, no guarding, normal bowel sounds.] Extremities: [No clubbing 1+ bipedal edema, no cyanosis.] Neurological Exam: [No focal neurologic deficit.] Psychiatric: Normal mood, affect and mental status examination. Lymphatics: No lymphadenopathy, Port-A-Cath is palpable in the right upper chest wall area. - Labs CBC & Chem 7: 08/18/18 05:34 08/18/18 05:34 Labs: Abnormal Lab Results - Last 24 Hours (Table) 08/17/18 08/17/18 08/18/18 Range/Units 16:28 21:02 05:34 WBC 10.8 H (3.8-10.6) k/uL RBC 3.15 L (3.80-5.40) m/uL Hgb 9.2 L (11.4-16.0) gm/dL Hct 30.0 L (34.0-46.0) % MCHC 30.9 L (31.0-37.0) g/dL RDW 16.1 H (11.5-15.5) % Plt Count 133 L (150-450) k/uL Chloride (98-107) mmol/L BUN (7-17) mg/dL Creatinine (0.52-1.04) mg/dL Glucose (74-99) mg/dL POC Glucose (mg/dL) 218 H 229 H (75-99) mg/dL Calcium (8.4-10.2) mg/dL 08/18/18 08/18/18 08/18/18 Range/Units 05:34 06:25 11:30 WBC (3.8-10.6) k/uL RBC (3.80-5.40) m/uL Hgb (11.4-16.0) gm/dL Hct (34.0-46.0) % MCHC (31.0-37.0) g/dL RDW (11.5-15.5) % Plt Count (150-450) k/uL Chloride 111 H (98-107) mmol/L BUN 59 H (7-17) mg/dL Creatinine 2.32 H (0.52-1.04) mg/dL Glucose 195 H (74-99) mg/dL POC Glucose (mg/dL) 204 H 181 H (75-99) mg/dL Calcium 7.6 L (8.4-10.2) mg/dL Microbiology - Last 24 Hours (Table) 08/16/18 21:15 Blood Culture - Preliminary Blood No Growth after 24 hours 08/16/18 02:25 Urine Culture - Preliminary Urine,Catheterized Assessment and Plan Assessment: Impression: 1: Acute diastolic congestive heart failure. With pulmonary edema and bilateral pleural effusions. 2 history of COPD presently inactive, may or may not be contributing to some of her symptoms of shortness of breath. Very unlikely to be active at this point based on her history and based on her physical exam and chest x-ray findings. However would continue/bronchodilators. 3 chronic renal failure 4 history of lymphoma treated and presently in remission. 5: Multiple comorbidities including nicotine dependence syndrome, benign essential hypertension, type 2 diabetes, hyperlipidemia, history of non-Hodgkin' s lymphoma, obesity with body mass index of 41.2 generalized anxiety disorder, and history of C. difficile colitis. Recommendation: The patient was seen and evaluated by Dr. Lucero. She remains stable from the pulmonary standpoint. Continue to utilize BiPAP 14/6 at 30% FiO2 throughout the evening and during the day as needed. Titrate down the FiO2 as tolerated. We'll continue with her current medications. We'll continue to follow. I, the cosigning physician, performed a history & physical examination of the patient. Lungs sounds with crackles in the bilateral posterior bases. Maintaining good O2 saturations in the 90s on 5 L/m per nasal cannula. I discussed the assessment and plan of care with my nurse practitioner, Elsie Johns. I attest to the above note as dictated by her.
[2018-08-18] MEDS: FUROSEMIDE 10 MG/ML 10 ML VIAL IV SCH ×2 (13:49→23:16)
--- NOTE | 2018-08-18 15:07 | P.PN ---
Subjective Progress Note Date: 08/18/18 This is a 53-year-old female with known history of hypertension, hyperlipidemia, diabetes, congestive heart failure with diastolic dysfunction, chronic kidney disease, history of lymphoma, nicotine dependence, COPD, who was transferred here from [facility] where she presented with shortness of breath. According to the documentation at [facility], x-ray was performed there which revealed pulmonary edema. Patient was laced on BiPAP on arrival there, she was given IV Lasix and started on Levaquin for possible pneumonia. Transferred to [facility] for further evaluation and treatment. White blood cell count 10.5, hemoglobin 9.7, platelet count 127. Her pH on arrival here 7.32, pCO2 41, pO2 93, HCO3 21, O2 saturation 97%. Sodium 140, potassium 6.8 on admission, 6.1 this morning. BUN 49, creatinine 2.1, blood glucose 233, troponin negative. BNP level 22,400. Calcium 8.1. Alk phos 141, AST and ALT are normal. I pressure on arrival here 160/80 with a heart rate in the 80s, temperature 98.7, she is 96% on 40% BiPAP. Chest x-ray performed on arrival here showed congestive heart failure with pleural effusions worsened prior exam. Most recent echocardiogram with Doppler study was performed in March of this year which revealed an ejection fraction of 55-60 % with mild to moderate tricuspid regurg, moderate to severe pulmonary hypertension. Patient was initiated on IV Lasix here, she has been diuresing on IV Lasix. 08/18/2018 Patient seen and examined this afternoon, still requiring 5 L high flow nasal cannula, O2 saturations in the 90s. Afebrile, white blood cell count 10.8, hemoglobin 9.2, creatinine 2.3, currently in a negative balance and continues to be on IV Lasix. Objective - Vital Signs Vital signs: Vital Signs Temp 97 F L 08/18/18 04:00 Pulse 97 08/18/18 11:49 Resp 20 08/18/18 11:49 BP 175/81 08/18/18 11:49 Pulse Ox 99 08/18/18 11:49 Intake & Output 08/17/18 08/18/18 08/18/18 18:59 06:59 18:59 Intake Total 392 415 512 Output Total 1 802 Balance 391 -387 512 Weight 71 kg 73 kg Intake: IV 165 normal saline 165 Intake, IV Titration 50 50 50 Amount Piperacillin-Tazobactam 3 50 50 .375 gm In Dextrose/Water 1 50ml.bag @ 12.5 mls/hr IVPB Q8HR [facility] Rx#: [id number] Sodium Chloride 0.9% 1, 50 000 ml @ 100 mls/hr IV . Q10H [facility] Rx#:[id number] Oral 342 200 462 Output: Urine 800 Stool 1 2 Other: Voiding Method Incontinent Incontinent Incontinent Indwelling Catheter Indwelling Catheter Indwelling Catheter # Voids 250 - Exam Physical exam revealed a 53-year-old female in no distress. On oxygen via nasal cannula at 5 L. Head: Atraumatic, normocephalic. HEENT:[Neck is supple.] [No neck masses.] [No thyromegaly.] [No JVD.] PERRLA, EOMI. No icterus. Elevated jugular venous pressure noted. No carotid bruits. Chest: [Minimal fine crackles at the bases, no rhonchi, no wheezes. No chest wall tenderness. Cardiac Exam: [Normal S1 and S2, no S3 gallop, 2/6 systolic murmur heard throughout the precordium..] Abdomen: [Obese, Soft, nontender, no megaly, no rebound, no guarding, normal bowel sounds.] Extremities: [No clubbing 1+ bipedal edema, no cyanosis.] Neurological Exam: [No focal neurologic deficit.] Psychiatric: Normal mood, affect and mental status examination. Lymphatics: No lymphadenopathy, Port-A-Cath is palpable in the right upper chest wall area. - Labs CBC & Chem 7: 08/18/18 05:34 08/18/18 05:34 Labs: Abnormal Lab Results - Last 24 Hours (Table) 08/17/18 08/17/18 08/18/18 Range/Units 16:28 21:02 05:34 WBC 10.8 H (3.8-10.6) k/uL RBC 3.15 L (3.80-5.40) m/uL Hgb 9.2 L (11.4-16.0) gm/dL Hct 30.0 L (34.0-46.0) % MCHC 30.9 L (31.0-37.0) g/dL RDW 16.1 H (11.5-15.5) % Plt Count 133 L (150-450) k/uL Chloride (98-107) mmol/L BUN (7-17) mg/dL Creatinine (0.52-1.04) mg/dL Glucose (74-99) mg/dL POC Glucose (mg/dL) 218 H 229 H (75-99) mg/dL Calcium (8.4-10.2) mg/dL 08/18/18 08/18/18 08/18/18 Range/Units 05:34 06:25 11:30 WBC (3.8-10.6) k/uL RBC (3.80-5.40) m/uL Hgb (11.4-16.0) gm/dL Hct (34.0-46.0) % MCHC (31.0-37.0) g/dL RDW (11.5-15.5) % Plt Count (150-450) k/uL Chloride 111 H (98-107) mmol/L BUN 59 H (7-17) mg/dL Creatinine 2.32 H (0.52-1.04) mg/dL Glucose 195 H (74-99) mg/dL POC Glucose (mg/dL) 204 H 181 H (75-99) mg/dL Calcium 7.6 L (8.4-10.2) mg/dL Microbiology - Last 24 Hours (Table) 08/16/18 02:25 Urine Culture - Final Urine,Catheterized 08/16/18 21:15 Blood Culture - Preliminary Blood No Growth after 24 hours Assessment and Plan Plan: Assessment and plan #1 congestive heart failure, acute on chronic, diastolic in nature #2 chronic renal failure #3 hyperkalemia #4 nicotine dependence #5 COPD #6 hypertension #7 diabetes #8 hyperlipidemia Plan Cardiology's perspective, we will recommend to continue diuresing the patient with IV Lasix, patient is also on metolazone 2.5 mg daily, continue metoprolol, patient is currently not on an KIMBERLYN inhibitor or Aldactone because of renal function and elevated potassium. We'll continue to monitor daily renal function , daily potassium and intake and output as well as daily weights. Further recommendations to follow DNP note has been reviewed, I agree with a documented findings and plan of care. Patient was seen and examined.
[2018-08-18 16:34] LABS: Glucose,Whole Blood 255 mg/dL (75-99)
[2018-08-18] MEDS: ALPRAZolam 0.25 MG TAB PO PRN (18:12)
[2018-08-18 21:23] LABS: Glucose,Whole Blood 181 mg/dL (75-99)
[2018-08-18] MEDS: INSULIN DETEMIR 100 UNIT/ML 10 ML VIAL SQ SCH (21:39)
[2018-08-19 06:31] LABS: Glucose,Whole Blood 202 mg/dL (75-99)
[2018-08-19] MEDS: INSULIN ASPART 100 UNIT/ML 1 ML 10 ML VIAL SQ SCH ×8 (06:40→22:02)
[2018-08-19] MEDS: HYDROcodone/APAP 5-325MG 1 EACH TAB PO PRN (06:40)
[2018-08-19] MEDS: PANTOPRAZOLE 40 MG TABLET PO SCH (06:40)
[2018-08-19 07:25] LABS: Calcium 7.6 mg/dL (8.4-10.2); Potassium 4.5 mmol/L (3.5-5.1)
[2018-08-19 07:37] LABS: HGB 9.8 gm/dL (11.4-16.0); Hypochromasia Slight; MCH 30.2 pg (25.0-35.0); MCHC 31.7 g/dL (31.0-37.0); MCV 95.3 fL (80.0-100.0); Mean Platelet Volume 7.5; Platelet Count 132 k/uL (150-450); RBC 3.25 m/uL (3.80-5.40); RDW 15.8 % (11.5-15.5); WBC 19.7 k/uL (3.8-10.6)
[2018-08-19] MEDS: IPRATROPIUM-ALBUTEROL 3 ML NEB INHALATION SCH ×4 (08:17→21:07)
[2018-08-19] MEDS: FORMOTEROL FUMARATE 20 MCG/2 ML NEBU INHALATION SCH ×2 (08:17→21:07)
[2018-08-19] MEDS: BUDESONIDE 1 MG/2 ML NEBU INHALATION SCH ×2 (08:17→21:07)
[2018-08-19] MEDS: hydrALAZINE HCL 50 MG TAB PO SCH ×3 (09:33→22:03)
[2018-08-19] MEDS: METOLAZONE 2.5 MG TAB PO SCH (09:33)
[2018-08-19] MEDS: ASPIRIN 81 MG PO SCH (09:33)
[2018-08-19] MEDS: METOPROLOL SUCCINATE (ER) 100 MG TAB.ER.24H PO SCH (09:33)
[2018-08-19] MEDS: FUROSEMIDE 10 MG/ML 10 ML VIAL IV SCH ×3 (09:34→22:11)
[2018-08-19] MEDS: NICOTINE 14MG/24HR PATCH TRANSDERM SCH (09:34)
[2018-08-19] MEDS: HEPARIN SODIUM,PORCINE 5,000 UNIT/ML 1 ML VIAL SQ SCH ×2 (09:34→22:03)
[2018-08-19] MEDS: methylPREDNISolone SOD SUCCI 125 MG/2 ML VIAL IV SCH ×3 (09:35→22:12)
[2018-08-19] MEDS: PIPERACILLIN-TAZOBACTAM 3.375 GM in DEXTROSE/WATER 1 50ML.BAG IVPB SCH ×2 (09:35→17:06)
[2018-08-19] MEDS: NYSTATIN 100,000 UNIT/GM POWD 15 GM TOPICAL SCH ×2 (09:36→17:08)
--- NOTE | 2018-08-19 09:40 | P.PN ---
Subjective Patient is seen in follow-up for acute kidney injury on chronic kidney disease. Patient has chronic kidney disease stage III with baseline creatinine in the range of 1.6-2 secondary to diabetic kidney disease and cardiorenal syndrome. Patient was hyperkalemic on admission which is now normalized. She was noted to have urinary retention and has a Tang catheter in place. Dyspnea has improved. She is currently maintained on Lasix 60 mg IV 3 times daily. She is noted to have diastolic CHF with moderate mitral regurgitation. Oral intake is fair. Urine output near 2.5 L in the last 24 hours. Vital signs are stable. General: The patient appeared well nourished and normally developed. HEENT: Head exam is unremarkable. Neck is without jugular venous distension. LUNGS: Lungs are clear to auscultation and percussion. Breath sounds decreased. HEART: Rate and Rhythm are regular. First and second heart sounds normal. No murmurs, rubs or gallops. ABDOMEN: Abdominal exam reveals normal bowel sounds. Non-tender and non- distended. No evidence of peritonitis. EXTREMITITES: No clubbing, cyanosis, or edema. Objective - Vital Signs Vital signs: Vital Signs Temp 97.1 F L 08/19/18 08:00 Pulse 86 08/19/18 08:42 Resp 20 08/19/18 08:00 BP 185/92 08/19/18 08:00 Pulse Ox 94 L 08/19/18 08:00 Intake & Output 08/18/18 08/19/18 08/19/18 18:59 06:59 18:59 Intake Total 734 415 240 Output Total 1150 1300 Balance -416 -885 240 Weight 73 kg Intake: IV 165 normal saline 165 Intake, IV Titration 50 50 Amount Piperacillin-Tazobactam 3 50 50 .375 gm In Dextrose/Water 1 50ml.bag @ 12.5 mls/hr IVPB Q8HR [facility] Rx#: [id number] Oral 684 200 240 Output: Urine 1150 1300 Other: Voiding Method Incontinent Incontinent Indwelling Catheter Indwelling Catheter # Bowel Movements 0 0 - Labs CBC & Chem 7: 08/19/18 06:48 08/19/18 06:48 Labs: Abnormal Lab Results - Last 24 Hours (Table) 08/18/18 08/18/18 08/18/18 Range/Units 11:30 16:32 21:22 WBC (3.8-10.6) k/uL RBC (3.80-5.40) m/uL Hgb (11.4-16.0) gm/dL Hct (34.0-46.0) % RDW (11.5-15.5) % Plt Count (150-450) k/uL Chloride (98-107) mmol/L BUN (7-17) mg/dL Creatinine (0.52-1.04) mg/dL Glucose (74-99) mg/dL POC Glucose (mg/dL) 181 H 255 H 181 H (75-99) mg/dL Calcium (8.4-10.2) mg/dL 08/19/18 08/19/18 08/19/18 Range/Units 06:30 06:48 06:48 WBC 19.7 H (3.8-10.6) k/uL RBC 3.25 L (3.80-5.40) m/uL Hgb 9.8 L (11.4-16.0) gm/dL Hct 31.0 L (34.0-46.0) % RDW 15.8 H (11.5-15.5) % Plt Count 132 L (150-450) k/uL Chloride 108 H (98-107) mmol/L BUN 67 H (7-17) mg/dL Creatinine 2.37 H (0.52-1.04) mg/dL Glucose 172 H (74-99) mg/dL POC Glucose (mg/dL) 202 H (75-99) mg/dL Calcium 7.6 L (8.4-10.2) mg/dL Microbiology - Last 24 Hours (Table) 08/16/18 21:15 Blood Culture - Preliminary Blood No Growth after 48 hours 08/16/18 02:25 Urine Culture - Final Urine,Catheterized Assessment and Plan Plan: Assessment: 1. Nonoliguric acute kidney injury secondary to ATN secondary to cardiorenal syndrome/diuresis. Creatinine 2.37 today. 2. Chronic kidney disease stage III with baseline creatinine in the range of 1.6-2 secondary to nephrosclerosis and cardiorenal syndrome. 3. Hyperkalemia secondary to acute kidney injury, metabolic acidosis. Improved. 4. Metabolic acidosis secondary to chronic kidney disease. Improved. 5. Diastolic CHF with moderate mitral regurgitation. 6. Volume overload. 7. Anemia of chronic kidney disease. Iron replete. 8. Diabetes mellitus. 9. Urinary retention status post Tang catheter placement. Plan: Maintain Lasix 60 mg IV 3 times daily. Maintain Aranesp. Phosphorus level at goal. Tight blood sugar control. Follow-up morning chest x-ray. Repeat electrolytes in the morning.
--- NOTE | 2018-08-19 10:21 | XR ---
EXAMINATION TYPE: XR chest 2V DATE OF EXAM: 08/19/2018 COMPARISON: 08/16/2018 INDICATION: CHF, short of breath TECHNIQUE: Frontal and lateral views of the chest are obtained. FINDINGS: The heart size is mildly prominent. The pulmonary vasculature is upper limits of normal. Small bilateral pleural effusions are present, slightly greater on the left. Some minimal alveolar in filtrate may be present. Findings appear improved from comparison. Port is present on the right with the tip in superior vena cava region. IMPRESSION: 1. Improving congestive heart failure. 2. Small bilateral pleural effusions larger on the left improving from comparison
[2018-08-19 10:36] LABS: Lymphocytes # (M) 9.46 k/uL (1.0-4.8); Monocytes # (M) 2.17 k/uL (0-1.0); Neutrophils # (M) 8.08 k/uL (1.3-7.7); Neutrophils % (M) 41 %; Nucleated Red Blood Cells 0 /100 WBC (0-0); Total Cells Counted 100
[2018-08-19 11:45] LABS: Glucose,Whole Blood 200 mg/dL (75-99)
--- NOTE | 2018-08-19 11:54 | P.PN ---
Subjective Progress Note Date: 08/19/18 Principal diagnosis: Acute diastolic congestive heart failure. Bilateral pleural effusions. This is a 53-year-old female with history of hypertension, diastolic congestive heart failure, chronic kidney disease, remote history of lymphoma, treated with chemotherapy, patient presented initially to [facility] with complaints of shortness of breath for the last few days. Chest x-ray in [place] showed pulmonary edema. Patient was given diuretics, placed on BiPAP, transferred to [facility], admitted to monitor bed on selective, seen already by many consultants including cardiology and nephrology , and I was asked to see her on consultation. Since admission the patient has been feeling a bit better, breathing easier, and apparently has been responding to diuretics. Had a BNP level on admission was 22,400. Patient had recent echocardiogram in March showing good LV function with moderate tricuspid regurgitation and moderate to severe pulmonary hypertension. Patient remains on Lasix, and overall she has made a significant improvement since admission. Presently no cough, no wheezing, no fever, no chills, no hemoptysis, no chest pain. The patient is seen again today 08/18/2018 in follow-up on the selective care unit. She is currently awake and alert in no acute distress. He is still requiring 5 L high flow nasal cannula to maintain O2 saturations in the 90s. This could be titrated down. She did utilize the BiPAP throughout the evening. She is currently afebrile. White count 10.8. Hemoglobin 9.2. Creatinine 2.32. She is currently in a negative balance. She remains on IV Lasix 60 mg every 8 hours. The patient is seen again today 08/18/2018 in follow-up on the selective care unit. She is currently sitting up in a chair at the bedside. She is awake and alert in no acute distress. She is breathing easier today as compared to yesterday. She did utilize the BiPAP throughout the evening. She is currently maintaining O2 saturations in the 90s on 5 L/m per nasal cannula. She's afebrile. Blood and urine cultures reveal no growth. White count 19.7. Hemoglobin 9.8. Creatinine 2.37. He is continued on Lasix 60 mg IV every 8 hours. Remains on Zosyn, bronchodilators and IV Solu-Medrol. Objective - Vital Signs Vital signs: Vital Signs Temp 97.1 F L 08/19/18 08:00 Pulse 86 08/19/18 08:42 Resp 20 08/19/18 08:00 BP 185/92 08/19/18 08:00 Pulse Ox 94 L 08/19/18 08:00 Intake & Output 08/18/18 08/19/18 08/19/18 18:59 06:59 18:59 Intake Total 734 415 240 Output Total 1150 1300 1 Balance -416 -885 239 Weight 73 kg Intake: IV 165 normal saline 165 Intake, IV Titration 50 50 Amount Piperacillin-Tazobactam 3 50 50 .375 gm In Dextrose/Water 1 50ml.bag @ 12.5 mls/hr IVPB Q8HR [facility] Rx#: [id number] Oral 684 200 240 Output: Urine 1150 1300 Stool 1 Other: Voiding Method Incontinent Incontinent Incontinent Indwelling Catheter Indwelling Catheter Indwelling Catheter # Bowel Movements 0 0 - Exam Physical exam revealed a 53-year-old female in no distress. On oxygen via nasal cannula at 5 L. Head: Atraumatic, normocephalic. HEENT:[Neck is supple.] [No neck masses.] [No thyromegaly.] [No JVD.] PERRLA, EOMI. No icterus. Elevated jugular venous pressure noted. No carotid bruits. Chest: [Minimal fine crackles at the bases, no rhonchi, no wheezes. No chest wall tenderness. Cardiac Exam: [Normal S1 and S2, no S3 gallop, 2/6 systolic murmur heard throughout the precordium..] Abdomen: [Obese, Soft, nontender, no megaly, no rebound, no guarding, normal bowel sounds.] Extremities: [No clubbing 1+ bipedal edema, no cyanosis.] Neurological Exam: [No focal neurologic deficit.] Psychiatric: Normal mood, affect and mental status examination. Lymphatics: No lymphadenopathy, Port-A-Cath is palpable in the right upper chest wall area. - Labs CBC & Chem 7: 08/19/18 06:48 08/19/18 06:48 Labs: Abnormal Lab Results - Last 24 Hours (Table) 08/18/18 08/18/18 08/19/18 Range/Units 16:32 21:22 06:30 WBC (3.8-10.6) k/uL RBC (3.80-5.40) m/uL Hgb (11.4-16.0) gm/dL Hct (34.0-46.0) % RDW (11.5-15.5) % Plt Count (150-450) k/uL Chloride (98-107) mmol/L BUN (7-17) mg/dL Creatinine (0.52-1.04) mg/dL Glucose (74-99) mg/dL POC Glucose (mg/dL) 255 H 181 H 202 H (75-99) mg/dL Calcium (8.4-10.2) mg/dL 08/19/18 08/19/18 08/19/18 Range/Units 06:48 06:48 11:42 WBC 19.7 H (3.8-10.6) k/uL RBC 3.25 L (3.80-5.40) m/uL Hgb 9.8 L (11.4-16.0) gm/dL Hct 31.0 L (34.0-46.0) % RDW 15.8 H (11.5-15.5) % Plt Count 132 L (150-450) k/uL Chloride 108 H (98-107) mmol/L BUN 67 H (7-17) mg/dL Creatinine 2.37 H (0.52-1.04) mg/dL Glucose 172 H (74-99) mg/dL POC Glucose (mg/dL) 200 H (75-99) mg/dL Calcium 7.6 L (8.4-10.2) mg/dL Microbiology - Last 24 Hours (Table) 08/16/18 21:15 Blood Culture - Preliminary Blood No Growth after 48 hours 08/16/18 02:25 Urine Culture - Final Urine,Catheterized Assessment and Plan Assessment: Impression: 1: Acute diastolic congestive heart failure. With pulmonary edema and bilateral pleural effusions. 2 history of COPD presently inactive, may or may not be contributing to some of her symptoms of shortness of breath. Very unlikely to be active at this point based on her history and based on her physical exam and chest x-ray findings. However would continue/bronchodilators. 3 chronic renal failure 4 history of lymphoma treated and presently in remission. 5: Multiple comorbidities including nicotine dependence syndrome, benign essential hypertension, type 2 diabetes, hyperlipidemia, history of non-Hodgkin' s lymphoma, obesity with body mass index of 41.2 generalized anxiety disorder, and history of C. difficile colitis. Recommendation: The patient was seen and evaluated by Dr. Lucero. Continue to utilize BiPAP 14/ 6 at 30% FiO2 throughout the evening and during the day as needed. Titrate down the FiO2 as tolerated. We'll continue with her current medications including Zosyn, IV Solu-Medrol, bronchodilators. Remains on diuretics. We'll continue to follow. I, the cosigning physician, performed a history & physical examination of the patient. Lungs sounds with crackles in the bilateral posterior bases. Maintaining good O2 saturations in the 90s on 5 L/m per nasal cannula. I discussed the assessment and plan of care with my nurse practitioner, Elsie Johns. I attest to the above note as dictated by her.
--- NOTE | 2018-08-19 15:17 | P.PN ---
Subjective Progress Note Date: 08/19/18 This is a 53-year-old female with known history of hypertension, hyperlipidemia, diabetes, congestive heart failure with diastolic dysfunction, chronic kidney disease, history of lymphoma, nicotine dependence, COPD, who was transferred here from [facility] where she presented with shortness of breath. According to the documentation at [facility], x-ray was performed there which revealed pulmonary edema. Patient was laced on BiPAP on arrival there, she was given IV Lasix and started on Levaquin for possible pneumonia. Transferred to [facility] for further evaluation and treatment. White blood cell count 10.5, hemoglobin 9.7, platelet count 127. Her pH on arrival here 7.32, pCO2 41, pO2 93, HCO3 21, O2 saturation 97%. Sodium 140, potassium 6.8 on admission, 6.1 this morning. BUN 49, creatinine 2.1, blood glucose 233, troponin negative. BNP level 22,400. Calcium 8.1. Alk phos 141, AST and ALT are normal. I pressure on arrival here 160/80 with a heart rate in the 80s, temperature 98.7, she is 96% on 40% BiPAP. Chest x-ray performed on arrival here showed congestive heart failure with pleural effusions worsened prior exam. Most recent echocardiogram with Doppler study was performed in March of this year which revealed an ejection fraction of 55-60 % with mild to moderate tricuspid regurg, moderate to severe pulmonary hypertension. Patient was initiated on IV Lasix here, she has been diuresing on IV Lasix. 08/18/2018 Patient seen and examined this afternoon, still requiring 5 L high flow nasal cannula, O2 saturations in the 90s. Afebrile, white blood cell count 10.8, hemoglobin 9.2, creatinine 2.3, currently in a negative balance and continues to be on IV Lasix. 08/19/2018 Patient seen and examined this morning, overall doing better. Continues diuresing on IV Lasix. BUN 67, creatinine 2.3 today but pressure continues to run in the 180 systolic range. We will add Norvasc to her medication regime for more optimal blood pressure control. Objective - Vital Signs Vital signs: Vital Signs Temp 96.9 F L 08/19/18 12:00 Pulse 84 08/19/18 12:13 Resp 16 08/19/18 12:00 BP 181/80 08/19/18 12:00 Pulse Ox 97 08/19/18 12:00 Intake & Output 08/18/18 08/19/18 08/19/18 18:59 06:59 18:59 Intake Total 734 415 360 Output Total 1150 1300 1002 Balance -416 -885 -642 Weight 73 kg 104 kg Intake: IV 165 normal saline 165 Intake, IV Titration 50 50 Amount Piperacillin-Tazobactam 3 50 50 .375 gm In Dextrose/Water 1 50ml.bag @ 12.5 mls/hr IVPB Q8HR [facility] Rx#: [id number] Oral 684 200 360 Output: Urine 1150 1300 1000 Stool 2 Other: Voiding Method Incontinent Incontinent Incontinent Indwelling Catheter Indwelling Catheter Indwelling Catheter # Bowel Movements 0 0 - Exam Physical exam revealed a 53-year-old female in no distress. On oxygen via nasal cannula at 5 L. Head: Atraumatic, normocephalic. HEENT:[Neck is supple.] [No neck masses.] [No thyromegaly.] [No JVD.] PERRLA, EOMI. No icterus. Elevated jugular venous pressure noted. No carotid bruits. Chest: [Minimal fine crackles at the bases, no rhonchi, no wheezes. No chest wall tenderness. Cardiac Exam: [Normal S1 and S2, no S3 gallop, 2/6 systolic murmur heard throughout the precordium..] Abdomen: [Obese, Soft, nontender, no megaly, no rebound, no guarding, normal bowel sounds.] Extremities: [No clubbing 1+ bipedal edema, no cyanosis.] Neurological Exam: [No focal neurologic deficit.] Psychiatric: Normal mood, affect and mental status examination. Lymphatics: No lymphadenopathy, Port-A-Cath is palpable in the right upper chest wall area. - Labs CBC & Chem 7: 08/19/18 06:48 08/19/18 06:48 Labs: Abnormal Lab Results - Last 24 Hours (Table) 08/18/18 08/18/18 08/19/18 Range/Units 16:32 21:22 06:30 WBC (3.8-10.6) k/uL RBC (3.80-5.40) m/uL Hgb (11.4-16.0) gm/dL Hct (34.0-46.0) % RDW (11.5-15.5) % Plt Count (150-450) k/uL Chloride (98-107) mmol/L BUN (7-17) mg/dL Creatinine (0.52-1.04) mg/dL Glucose (74-99) mg/dL POC Glucose (mg/dL) 255 H 181 H 202 H (75-99) mg/dL Calcium (8.4-10.2) mg/dL 08/19/18 08/19/18 08/19/18 Range/Units 06:48 06:48 11:42 WBC 19.7 H (3.8-10.6) k/uL RBC 3.25 L (3.80-5.40) m/uL Hgb 9.8 L (11.4-16.0) gm/dL Hct 31.0 L (34.0-46.0) % RDW 15.8 H (11.5-15.5) % Plt Count 132 L (150-450) k/uL Chloride 108 H (98-107) mmol/L BUN 67 H (7-17) mg/dL Creatinine 2.37 H (0.52-1.04) mg/dL Glucose 172 H (74-99) mg/dL POC Glucose (mg/dL) 200 H (75-99) mg/dL Calcium 7.6 L (8.4-10.2) mg/dL Microbiology - Last 24 Hours (Table) 08/16/18 21:15 Blood Culture - Preliminary Blood No Growth after 48 hours 08/16/18 02:25 Urine Culture - Final Urine,Catheterized Assessment and Plan Plan: Assessment and plan #1 congestive heart failure, acute on chronic, diastolic in nature #2 chronic renal failure #3 hyperkalemia #4 nicotine dependence #5 COPD #6 hypertension #7 diabetes #8 hyperlipidemia Plan Cardiology's perspective, we will recommend to continue diuresing the patient with IV Lasix, patient is also on metolazone 2.5 mg daily, continue metoprolol, patient is currently not on an KIMBERLYN inhibitor or Aldactone because of renal function and elevated potassium. We will add a dose of Norvasc 5 mg daily to her medication regime for more optimal blood pressure control. We'll continue to monitor daily renal function, daily potassium and intake and output as well as daily weights. Further recommendations to follow DNP note has been reviewed, I agree with a documented findings and plan of care. Patient was seen and examined.
[2018-08-19] MEDS ORDERED: amLODIPine 5 MG TAB PO STA (16:05)
[2018-08-19 16:49] LABS: Glucose,Whole Blood 243 mg/dL (75-99)
[2018-08-19 20:55] LABS: Glucose,Whole Blood 291 mg/dL (75-99)
[2018-08-19] MEDS: INSULIN DETEMIR 100 UNIT/ML 10 ML VIAL SQ SCH (22:02)
[2018-08-20] MEDS: ALPRAZolam 0.25 MG TAB PO PRN ×3 (00:34→20:36)
[2018-08-20] MEDS: NYSTATIN 100,000 UNIT/GM POWD 15 GM TOPICAL SCH ×4 (00:39→21:59)
[2018-08-20] MEDS: PIPERACILLIN-TAZOBACTAM 3.375 GM in DEXTROSE/WATER 1 50ML.BAG IVPB SCH ×4 (00:41→23:28)
[2018-08-20 06:16] LABS: HCT 30.4 % (34.0-46.0); HGB 9.5 gm/dL (11.4-16.0); Hypochromasia Slight; MCH 29.4 pg (25.0-35.0); MCHC 31.2 g/dL (31.0-37.0); MCV 94.2 fL (80.0-100.0); Mean Platelet Volume 7.6; Platelet Count 147 k/uL (150-450); RBC 3.22 m/uL (3.80-5.40); RDW 15.8 % (11.5-15.5); WBC 24.4 k/uL (3.8-10.6)
[2018-08-20 06:21] LABS: Glucose,Whole Blood 142 mg/dL (75-99)
[2018-08-20 06:37] LABS: Calcium 7.5 mg/dL (8.4-10.2); Magnesium 1.9 mg/dL (1.6-2.3)
[2018-08-20 07:08] LABS: Lymphocytes # (M) 14.64 k/uL (1.0-4.8); Neutrophils % (M) 38 %
[2018-08-20 07:09] LABS: Band Neutrophils % 2 %; Nucleated Red Blood Cells 0 /100 WBC (0-0); Total Cells Counted 100
[2018-08-20] MEDS: INSULIN ASPART 100 UNIT/ML 1 ML 10 ML VIAL SQ SCH ×8 (07:09→20:45)
[2018-08-20] MEDS: PANTOPRAZOLE 40 MG TABLET PO SCH (07:10)
[2018-08-20] MEDS: BUDESONIDE 1 MG/2 ML NEBU INHALATION SCH ×2 (08:28→20:03)
[2018-08-20] MEDS: IPRATROPIUM-ALBUTEROL 3 ML NEB INHALATION SCH ×4 (08:28→20:03)
[2018-08-20] MEDS: FORMOTEROL FUMARATE 20 MCG/2 ML NEBU INHALATION SCH ×2 (08:28→20:03)
[2018-08-20] MEDS: NICOTINE 14MG/24HR PATCH TRANSDERM SCH (08:29)
[2018-08-20] MEDS: HEPARIN SODIUM,PORCINE 5,000 UNIT/ML 1 ML VIAL SQ SCH ×2 (08:29→20:37)
[2018-08-20] MEDS: FUROSEMIDE 10 MG/ML 10 ML VIAL IV SCH ×2 (08:29→20:37)
[2018-08-20] MEDS: methylPREDNISolone SOD SUCCI 125 MG/2 ML VIAL IV SCH ×3 (08:29→23:29)
[2018-08-20] MEDS: METOLAZONE 2.5 MG TAB PO SCH (08:30)
[2018-08-20] MEDS: METOPROLOL SUCCINATE (ER) 100 MG TAB.ER.24H PO SCH (08:30)
[2018-08-20] MEDS: hydrALAZINE HCL 50 MG TAB PO SCH ×3 (08:30→20:37)
[2018-08-20] MEDS: ASPIRIN 81 MG PO SCH (08:30)
[2018-08-20] MEDS ORDERED: amLODIPine 5 MG TAB PO SCH (09:00)
--- NOTE | 2018-08-20 10:00 | P.PN ---
Subjective Patient is seen in follow-up for acute kidney injury on chronic kidney disease. Patient has chronic kidney disease stage III with baseline creatinine in the range of 1.6-2 secondary to diabetic kidney disease and cardiorenal syndrome. Patient was hyperkalemic on admission which is now normalized. She was noted to have urinary retention and has a Tang catheter in place. Dyspnea has improved. She is currently maintained on Lasix 60 mg IV 3 times daily. She is noted to have diastolic CHF with moderate mitral regurgitation. Oral intake is fair. Urine output near 2.1 L in the last 24 hours. Vital signs are stable. General: The patient appeared well nourished and normally developed. HEENT: Head exam is unremarkable. Neck is without jugular venous distension. LUNGS: Lungs are clear to auscultation and percussion. Breath sounds decreased. HEART: Rate and Rhythm are regular. First and second heart sounds normal. No murmurs, rubs or gallops. ABDOMEN: Abdominal exam reveals normal bowel sounds. Non-tender and non- distended. No evidence of peritonitis. EXTREMITITES: No clubbing, cyanosis, or edema. Objective - Vital Signs Vital signs: Vital Signs Temp 97.8 F 08/20/18 09:32 Pulse 78 08/20/18 09:40 Resp 19 08/20/18 09:40 BP 184/82 08/20/18 09:32 Pulse Ox 95 08/20/18 09:32 Intake & Output 08/19/18 08/20/18 08/20/18 18:59 06:59 18:59 Intake Total 600 50 236 Output Total 1003 1126 Balance -403 -1076 236 Weight 104 kg 102.7 kg Intake: Intake, IV Titration 50 Amount Piperacillin-Tazobactam 3 50 .375 gm In Dextrose/Water 1 50ml.bag @ 12.5 mls/hr IVPB Q8HR [facility] Rx#: [id number] Oral 600 236 Output: Urine 1000 1125 Stool 3 1 Other: Voiding Method Incontinent Indwelling Catheter Indwelling Catheter - Labs CBC & Chem 7: 08/20/18 05:45 08/20/18 05:45 Labs: Abnormal Lab Results - Last 24 Hours (Table) 08/19/18 08/19/18 08/19/18 Range/Units 06:48 11:42 16:17 WBC (3.8-10.6) k/uL RBC (3.80-5.40) m/uL Hgb (11.4-16.0) gm/dL Hct (34.0-46.0) % RDW (11.5-15.5) % Plt Count (150-450) k/uL Neutrophils # (Manual) 8.08 H (1.3-7.7) k/uL Lymphocytes # (Manual) 9.46 H (1.0-4.8) k/uL Monocytes # (Manual) 2.17 H (0-1.0) k/uL BUN (7-17) mg/dL Creatinine (0.52-1.04) mg/dL Glucose (74-99) mg/dL POC Glucose (mg/dL) 200 H 243 H (75-99) mg/dL Calcium (8.4-10.2) mg/dL 08/19/18 08/20/18 08/20/18 Range/Units 20:48 05:45 05:45 WBC 24.4 H (3.8-10.6) k/uL RBC 3.22 L (3.80-5.40) m/uL Hgb 9.5 L (11.4-16.0) gm/dL Hct 30.4 L (34.0-46.0) % RDW 15.8 H (11.5-15.5) % Plt Count 147 L (150-450) k/uL Neutrophils # (Manual) 9.70 H (1.3-7.7) k/uL Lymphocytes # (Manual) 14.64 H (1.0-4.8) k/uL Monocytes # (Manual) (0-1.0) k/uL BUN 75 H (7-17) mg/dL Creatinine 2.41 H (0.52-1.04) mg/dL Glucose 126 H (74-99) mg/dL POC Glucose (mg/dL) 291 H (75-99) mg/dL Calcium 7.5 L (8.4-10.2) mg/dL 08/20/18 Range/Units 06:19 WBC (3.8-10.6) k/uL RBC (3.80-5.40) m/uL Hgb (11.4-16.0) gm/dL Hct (34.0-46.0) % RDW (11.5-15.5) % Plt Count (150-450) k/uL Neutrophils # (Manual) (1.3-7.7) k/uL Lymphocytes # (Manual) (1.0-4.8) k/uL Monocytes # (Manual) (0-1.0) k/uL BUN (7-17) mg/dL Creatinine (0.52-1.04) mg/dL Glucose (74-99) mg/dL POC Glucose (mg/dL) 142 H (75-99) mg/dL Calcium (8.4-10.2) mg/dL Microbiology - Last 24 Hours (Table) 08/16/18 21:15 Blood Culture - Preliminary Blood No Growth after 72 hours Assessment and Plan Plan: Assessment: 1. Nonoliguric acute kidney injury secondary to ATN secondary to cardiorenal syndrome/diuresis. Creatinine 2.41 today. 2. Chronic kidney disease stage III with baseline creatinine in the range of 1.6-2 secondary to nephrosclerosis and cardiorenal syndrome. 3. Hyperkalemia secondary to acute kidney injury, metabolic acidosis. Improved. 4. Metabolic acidosis secondary to chronic kidney disease. Improved. 5. Diastolic CHF with moderate mitral regurgitation. 6. Volume overload. Improving. 7. Anemia of chronic kidney disease. Iron replete. 8. Diabetes mellitus. 9. Urinary retention status post Tang catheter placement. 10. Hypertension with chronic kidney disease. Blood pressures on the higher side. Plan: Decrease Lasix to 60 mg IV twice daily. Maintain Aranesp. Phosphorus level at goal. Tight blood sugar control. Repeat electrolytes in the morning. Maintain current antihypertensives. Amlodipine added today.
[2018-08-20] MEDS ORDERED: amLODIPine 5 MG TAB PO STA (11:19)
[2018-08-20 12:08] LABS: Glucose,Whole Blood 106 mg/dL (75-99)
--- NOTE | 2018-08-20 13:28 | P.PN ---
Subjective Progress Note Date: 08/20/18 Principal diagnosis: Acute diastolic congestive heart failure. Bilateral pleural effusions. This is a 53-year-old female with history of hypertension, diastolic congestive heart failure, chronic kidney disease, remote history of lymphoma, treated with chemotherapy, patient presented initially to [facility] with complaints of shortness of breath for the last few days. Chest x-ray in [place] showed pulmonary edema. Patient was given diuretics, placed on BiPAP, transferred to [facility], admitted to monitor bed on care one at [facility], seen already by many consultants including cardiology and nephrology , and I was asked to see her on consultation. Since admission the patient has been feeling a bit better, breathing easier, and apparently has been responding to diuretics. Had a BNP level on admission was 22,400. Patient had recent echocardiogram in March showing good LV function with moderate tricuspid regurgitation and moderate to severe pulmonary hypertension. Patient remains on Lasix, and overall she has made a significant improvement since admission. Presently no cough, no wheezing, no fever, no chills, no hemoptysis, no chest pain. The patient is seen again today 08/18/2018 in follow-up on the selective care unit. She is currently awake and alert in no acute distress. He is still requiring 5 L high flow nasal cannula to maintain O2 saturations in the 90s. This could be titrated down. She did utilize the BiPAP throughout the evening. She is currently afebrile. White count 10.8. Hemoglobin 9.2. Creatinine 2.32. She is currently in a negative balance. She remains on IV Lasix 60 mg every 8 hours. The patient is seen again today 08/19/2018 in follow-up on the selective care unit. She is currently sitting up in a chair at the bedside. She is awake and alert in no acute distress. She is breathing easier today as compared to yesterday. She did utilize the BiPAP throughout the evening. She is currently maintaining O2 saturations in the 90s on 5 L/m per nasal cannula. She's afebrile. Blood and urine cultures reveal no growth. White count 19.7. Hemoglobin 9.8. Creatinine 2.37. He is continued on Lasix 60 mg IV every 8 hours. Remains on Zosyn, bronchodilators and IV Solu-Medrol. Patient is seen again today 08/20/2018 in follow-up on the selective care unit. She is awake and alert in no acute distress. She is currently sitting up in a chair at the bedside. She denies any worsening shortness of breath, cough or congestion. Chest x-ray showing improvement in the congestive heart failure. She's continuing to utilize 5 L/m per nasal cannula to maintain O2 saturations in the 90s. She's been afebrile. Hemodynamically stable. Blood and urine cultures reveal no growth. He remains on Lasix 60 mg IV push every 8 hours. Currently in a negative balance. White count 24.4. Hemoglobin 9.5. Creatinine 2.41. Objective - Vital Signs Vital signs: Vital Signs Temp 96.6 F L 08/20/18 11:20 Pulse 84 08/20/18 12:07 Resp 18 08/20/18 12:00 BP 182/84 08/20/18 11:20 Pulse Ox 95 08/20/18 11:20 Intake & Output 08/19/18 08/20/18 08/20/18 18:59 06:59 18:59 Intake Total 600 50 236 Output Total 1003 1126 501 Balance -403 -1076 -265 Weight 104 kg 102.7 kg Intake: Intake, IV Titration 50 Amount Piperacillin-Tazobactam 3 50 .375 gm In Dextrose/Water 1 50ml.bag @ 12.5 mls/hr IVPB Q8HR [facility] Rx#: [id number] Oral 600 236 Output: Urine 1000 1125 500 Stool 3 1 1 Other: Voiding Method Incontinent Indwelling Catheter Indwelling Catheter Indwelling Catheter - Exam GENERAL EXAM: Alert, active, comfortable in no apparent distress. HEAD: Normocephalic. EYES: Normal reaction of pupils, equal size. NOSE: Clear with pink turbinates. THROAT: No erythema or exudates. NECK: No masses, no JVD. CHEST: No chest wall deformity. Right Port-A-Cath in place. LUNGS: Equal air entry with echoes in the posterior bases. CVS: S1 and S2 normal with no audible murmur, regular rhythm. ABDOMEN: No hepatosplenomegaly, normal bowel sounds, no guarding or rigidity. SPINE: No scoliosis or deformity SKIN: No rashes CENTRAL NERVOUS SYSTEM: No focal deficits, tone is normal in all 4 extremities. EXTREMITIES: There is no peripheral edema. No clubbing, no cyanosis. Peripheral pulses are intact. - Labs CBC & Chem 7: 08/20/18 05:45 08/20/18 05:45 Labs: Abnormal Lab Results - Last 24 Hours (Table) 08/19/18 08/19/18 08/19/18 Range/Units 06:48 16:17 20:48 WBC (3.8-10.6) k/uL RBC (3.80-5.40) m/uL Hgb (11.4-16.0) gm/dL Hct (34.0-46.0) % RDW (11.5-15.5) % Plt Count (150-450) k/uL Neutrophils # (Manual) 8.08 H (1.3-7.7) k/uL Lymphocytes # (Manual) 9.46 H (1.0-4.8) k/uL Monocytes # (Manual) 2.17 H (0-1.0) k/uL BUN (7-17) mg/dL Creatinine (0.52-1.04) mg/dL Glucose (74-99) mg/dL POC Glucose (mg/dL) 243 H 291 H (75-99) mg/dL Calcium (8.4-10.2) mg/dL 08/20/18 08/20/18 08/20/18 Range/Units 05:45 05:45 06:19 WBC 24.4 H (3.8-10.6) k/uL RBC 3.22 L (3.80-5.40) m/uL Hgb 9.5 L (11.4-16.0) gm/dL Hct 30.4 L (34.0-46.0) % RDW 15.8 H (11.5-15.5) % Plt Count 147 L (150-450) k/uL Neutrophils # (Manual) 9.70 H (1.3-7.7) k/uL Lymphocytes # (Manual) 14.64 H (1.0-4.8) k/uL Monocytes # (Manual) (0-1.0) k/uL BUN 75 H (7-17) mg/dL Creatinine 2.41 H (0.52-1.04) mg/dL Glucose 126 H (74-99) mg/dL POC Glucose (mg/dL) 142 H (75-99) mg/dL Calcium 7.5 L (8.4-10.2) mg/dL 08/20/18 Range/Units 12:05 WBC (3.8-10.6) k/uL RBC (3.80-5.40) m/uL Hgb (11.4-16.0) gm/dL Hct (34.0-46.0) % RDW (11.5-15.5) % Plt Count (150-450) k/uL Neutrophils # (Manual) (1.3-7.7) k/uL Lymphocytes # (Manual) (1.0-4.8) k/uL Monocytes # (Manual) (0-1.0) k/uL BUN (7-17) mg/dL Creatinine (0.52-1.04) mg/dL Glucose (74-99) mg/dL POC Glucose (mg/dL) 106 H (75-99) mg/dL Calcium (8.4-10.2) mg/dL Microbiology - Last 24 Hours (Table) 08/16/18 21:15 Blood Culture - Preliminary Blood No Growth after 72 hours Assessment and Plan Assessment: Impression: 1 Acute hypoxic respiratory failure secondary to an acute exacerbation of chronic diastolic congestive heart failure. With pulmonary edema and bilateral pleural effusions. 2 history of COPD presently inactive, may or may not be contributing to some of her symptoms of shortness of breath. Very unlikely to be active at this point based on her history and based on her physical exam and chest x-ray findings. However would continue/bronchodilators. 3 chronic renal failure 4 history of lymphoma treated and presently in remission. 5 chronic tobacco dependence. 6 hypertension. 7 diabetes mellitus, type II. 8 hyperlipidemia 9 history of non-Hodgkin's lymphoma 10 obesity 11 history of C. difficile colitis Plan: The patient was seen and evaluated by Dr. Lucero. She is doing well from the pulmonary standpoint. We will titrate down her FiO2 will maintaining O2 saturations greater than 90%. We'll continue with her current medications including Zosyn, IV Solu-Medrol, bronchodilators. Remains on diuretics. We'll continue to follow. I, the cosigning physician, performed a history & physical examination of the patient. Lungs sounds with crackles in the bilateral posterior bases. Maintaining good O2 saturations in the 90s on 5 L/m per nasal cannula. I discussed the assessment and plan of care with my nurse practitioner, Elsie Johns. I attest to the above note as dictated by her.
--- NOTE | 2018-08-20 14:20 | P.PN ---
Subjective Progress Note Date: 08/20/18 This is a 53-year-old female with known history of hypertension, hyperlipidemia, diabetes, congestive heart failure with diastolic dysfunction, chronic kidney disease, history of lymphoma, nicotine dependence, COPD, who was transferred here from [facility] where she presented with shortness of breath. According to the documentation at [facility], x-ray was performed there which revealed pulmonary edema. Patient was laced on BiPAP on arrival there, she was given IV Lasix and started on Levaquin for possible pneumonia. Transferred to [facility] for further evaluation and treatment. White blood cell count 10.5, hemoglobin 9.7, platelet count 127. Her pH on arrival here 7.32, pCO2 41, pO2 93, HCO3 21, O2 saturation 97%. Sodium 140, potassium 6.8 on admission, 6.1 this morning. BUN 49, creatinine 2.1, blood glucose 233, troponin negative. BNP level 22,400. Calcium 8.1. Alk phos 141, AST and ALT are normal. I pressure on arrival here 160/80 with a heart rate in the 80s, temperature 98.7, she is 96% on 40% BiPAP. Chest x-ray performed on arrival here showed congestive heart failure with pleural effusions worsened prior exam. Most recent echocardiogram with Doppler study was performed in March of this year which revealed an ejection fraction of 55-60 % with mild to moderate tricuspid regurg, moderate to severe pulmonary hypertension. Patient was initiated on IV Lasix here, she has been diuresing on IV Lasix. 08/18/2018 Patient seen and examined this afternoon, still requiring 5 L high flow nasal cannula, O2 saturations in the 90s. Afebrile, white blood cell count 10.8, hemoglobin 9.2, creatinine 2.3, currently in a negative balance and continues to be on IV Lasix. 08/19/2018 Patient seen and examined this morning, overall doing better. Continues diuresing on IV Lasix. BUN 67, creatinine 2.3 today but pressure continues to run in the 180 systolic range. We will add Norvasc to her medication regime for more optimal blood pressure control. 08/20/2018 Patient seen and examined this morning, continues to be on IV Lasix. Her pressure remains elevated at 182/80, we will increase the Norvasc to 10 mg daily today. Objective - Vital Signs Vital signs: Vital Signs Temp 96.6 F L 08/20/18 11:20 Pulse 84 08/20/18 12:07 Resp 18 08/20/18 12:00 BP 182/84 08/20/18 11:20 Pulse Ox 95 08/20/18 11:20 Intake & Output 08/19/18 08/20/18 08/20/18 18:59 06:59 18:59 Intake Total 600 50 236 Output Total 1003 1126 501 Balance -403 -6606 -855 Weight 104 kg 102.7 kg Intake: Intake, IV Titration 50 Amount Piperacillin-Tazobactam 3 50 .375 gm In Dextrose/Water 1 50ml.bag @ 12.5 mls/hr IVPB Q8HR [facility] Rx#: [id number] Oral 600 236 Output: Urine 1000 1125 500 Stool 3 1 1 Other: Voiding Method Incontinent Indwelling Catheter Indwelling Catheter Indwelling Catheter - Exam Physical exam revealed a 53-year-old female in no distress. On oxygen via nasal cannula at 5 L. Head: Atraumatic, normocephalic. HEENT:[Neck is supple.] [No neck masses.] [No thyromegaly.] [No JVD.] PERRLA, EOMI. No icterus. Elevated jugular venous pressure noted. No carotid bruits. Chest: [Minimal fine crackles at the bases, no rhonchi, no wheezes. No chest wall tenderness. Cardiac Exam: [Normal S1 and S2, no S3 gallop, 2/6 systolic murmur heard throughout the precordium..] Abdomen: [Obese, Soft, nontender, no megaly, no rebound, no guarding, normal bowel sounds.] Extremities: [No clubbing 1+ bipedal edema, no cyanosis.] Neurological Exam: [No focal neurologic deficit.] Psychiatric: Normal mood, affect and mental status examination. Lymphatics: No lymphadenopathy, Port-A-Cath is palpable in the right upper chest wall area. - Labs CBC & Chem 7: 08/20/18 05:45 08/20/18 05:45 Labs: Abnormal Lab Results - Last 24 Hours (Table) 08/19/18 08/19/18 08/19/18 Range/Units 06:48 16:17 20:48 WBC (3.8-10.6) k/uL RBC (3.80-5.40) m/uL Hgb (11.4-16.0) gm/dL Hct (34.0-46.0) % RDW (11.5-15.5) % Plt Count (150-450) k/uL Neutrophils # (Manual) 8.08 H (1.3-7.7) k/uL Lymphocytes # (Manual) 9.46 H (1.0-4.8) k/uL Monocytes # (Manual) 2.17 H (0-1.0) k/uL BUN (7-17) mg/dL Creatinine (0.52-1.04) mg/dL Glucose (74-99) mg/dL POC Glucose (mg/dL) 243 H 291 H (75-99) mg/dL Calcium (8.4-10.2) mg/dL 08/20/18 08/20/18 08/20/18 Range/Units 05:45 05:45 06:19 WBC 24.4 H (3.8-10.6) k/uL RBC 3.22 L (3.80-5.40) m/uL Hgb 9.5 L (11.4-16.0) gm/dL Hct 30.4 L (34.0-46.0) % RDW 15.8 H (11.5-15.5) % Plt Count 147 L (150-450) k/uL Neutrophils # (Manual) 9.70 H (1.3-7.7) k/uL Lymphocytes # (Manual) 14.64 H (1.0-4.8) k/uL Monocytes # (Manual) (0-1.0) k/uL BUN 75 H (7-17) mg/dL Creatinine 2.41 H (0.52-1.04) mg/dL Glucose 126 H (74-99) mg/dL POC Glucose (mg/dL) 142 H (75-99) mg/dL Calcium 7.5 L (8.4-10.2) mg/dL 08/20/18 Range/Units 12:05 WBC (3.8-10.6) k/uL RBC (3.80-5.40) m/uL Hgb (11.4-16.0) gm/dL Hct (34.0-46.0) % RDW (11.5-15.5) % Plt Count (150-450) k/uL Neutrophils # (Manual) (1.3-7.7) k/uL Lymphocytes # (Manual) (1.0-4.8) k/uL Monocytes # (Manual) (0-1.0) k/uL BUN (7-17) mg/dL Creatinine (0.52-1.04) mg/dL Glucose (74-99) mg/dL POC Glucose (mg/dL) 106 H (75-99) mg/dL Calcium (8.4-10.2) mg/dL Microbiology - Last 24 Hours (Table) 08/16/18 21:15 Blood Culture - Preliminary Blood No Growth after 72 hours Assessment and Plan Plan: Assessment and plan #1 congestive heart failure, acute on chronic, diastolic in nature #2 chronic renal failure #3 hyperkalemia #4 nicotine dependence #5 COPD #6 hypertension #7 diabetes #8 hyperlipidemia Plan Cardiology's perspective, we will recommend to continue diuresing the patient with IV Lasix, patient is also on metolazone 2.5 mg daily, continue metoprolol, patient is currently not on an KIMBERLYN inhibitor or Aldactone because of renal function and elevated potassium. We will increase Norvasc to 10 mg daily today for more optimal blood pressure control. DNP note has been reviewed, I agree with a documented findings and plan of care. Patient was seen and examined.
[2018-08-20 17:16] LABS: Glucose,Whole Blood 198 mg/dL (75-99)
[2018-08-20 20:20] LABS: Glucose,Whole Blood 246 mg/dL (75-99)
[2018-08-20] MEDS: INSULIN DETEMIR 100 UNIT/ML 10 ML VIAL SQ SCH (21:48)
--- NOTE | 2018-08-20 23:25 | P.PN ---
Subjective Progress Note Date: 08/19/18 Principal diagnosis: Acute COPD exacerbation Acute on chronic CHF with diastolic dysfunction Patient is a 53-year-old female with known history of COPD and nicotine addiction was admitted to the hospital for acute COPD exacerbation and CHF exacerbation. Patient is with acute hypoxic respiratory failure. 2-D echocardiogram showed ejection fraction 40-60%. Currently patient is on 5 L nasal cannula. Patient was on BiPAP previously. Pulmonary and cardiology as well as nephrology is following. Chest x-ray showed congestive heart failure with pleural effusions. 08/18/2018 Patient is still complaining of shortness of breath but slightly improved compared to yesterday. Off BiPAP machine currently and is on high flow nasal cannula. Patient is being continued on breathing treatments and steroids and antibiotics. Patient was given an extra dose of IV Lasix 80 mg today. Renal function slightly worsened with creatinine level 2.32. Nephrology is on board. No fever no chills. No other acute overnight issues. 08/19/2018 Patient says that her breathing is better. She did use BiPAP last night. Still requiring nasal cannula oxygen at 5 L. Continue to be on Lasix. Renal function is fairly stable at 37 creatinine level Patient has been afebrile. She'll have leukocytosis at 19.7. Blood cultures showed no growth so far. No fever no chills. No nausea vomiting or abdominal pain. All other review of systems negative except the above. Current medications reviewed Active Medications Generic Name Dose Route Start Last Admin Trade Name Freq PRN Reason Stop Dose Admin Acetaminophen 500 mg 08/16/18 19:31 Tylenol Tab PO Q6HR PRN Fever and/ or Mild Pain Hydrocodone Bitart/Acetaminophen 1 each 08/16/18 19:28 Wilcox 5-325 PO Q4HR PRN Moderate Pain Albuterol/Ipratropium 3 ml 08/17/18 08:00 08/18/18 10:47 Duoneb 0.5 Mg-3 Mg/3 Ml Soln INHALATION 3 ml RT-QID ELVIRA Administration Albuterol/Ipratropium 3 ml 08/16/18 20:49 Duoneb 0.5 Mg-3 Mg/3 Ml Soln INHALATION RT-QID PRN Shortness Of Breath Or Wheezing Alprazolam 0.25 mg 08/16/18 19:28 08/17/18 22:07 Xanax PO 0.25 mg Q6HR PRN Administration Anxiety Aspirin 81 mg 08/17/18 09:00 08/18/18 08:57 Aspirin PO 81 mg DAILY ELVIRA Administration Budesonide 1 mg 08/16/18 20:00 08/18/18 07:11 Pulmicort INHALATION 1 mg RT-BID ELVIRA Administration Darbepoetin Tom 40 mcg 08/17/18 09:15 08/17/18 15:10 Aranesp SQ 40 mcg Q7D ELVIRA Administration Formoterol Fumarate 20 mcg 08/16/18 20:00 08/18/18 07:11 Perforomist INHALATION 20 mcg RT-BID ELVIRA Administration Furosemide 60 mg 08/18/18 16:00 Lasix IV Q8HR ELVIRA Heparin Sodium (Porcine) 5,000 unit 08/16/18 21:00 08/18/18 08:57 Heparin SQ 5,000 unit Q12HR ELVIRA Administration Hydralazine HCl 100 mg 08/16/18 22:00 08/18/18 08:57 Apresoline PO 100 mg TID ELVIRA Administration Piperacillin/Tazobactam/ 50 mls @ 12.5 mls/hr 08/17/18 00:00 08/18/18 08:52 Dextrose 3.375 gm/ IV Solution IVPB 12.5 mls/hr Q8HR ELVIRA Administration Insulin Aspart 0 unit 08/16/18 21:00 08/18/18 06:56 Novolog SQ 2 unit ACHS ELVIRA Administration Protocol Insulin Aspart 7 unit 08/16/18 21:00 08/18/18 06:56 Novolog SQ 7 unit ACHS [facility] Administration Insulin Detemir 35 unit 08/16/18 21:00 08/17/18 21:23 Levemir SQ 35 unit HS ELVIRA Administration Melatonin 3 mg 08/16/18 19:28 Melatonin PO HS PRN Insomnia Methylprednisolone Sodium Succinate 40 mg 08/18/18 00:00 08/18/18 08:54 Solu-Medrol IV 40 mg Q8HR ELV[facility]A Administration Metolazone 2.5 mg 08/17/18 09:00 08/18/18 08:57 Zaroxolyn PO 2.5 mg DAILY [facility] Administration Metoprolol Succinate 100 mg 08/17/18 09:00 08/18/18 08:57 Toprol Xl PO 100 mg DAILY [facility] Administration Naloxone HCl 0.2 mg 08/16/18 19:28 Narcan IV Q2M PRN Opioid Reversal Nicotine 1 patch 08/17/18 09:00 08/18/18 08:56 Habitrol 14mg/24hr Patch TRANSDERM 1 patch DAILY ELVIRA Administration Nystatin 1 applic 08/16/18 22:00 08/18/18 08:58 Mycostatin Powder TOPICAL Not Given TID [facility] Ondansetron HCl 4 mg 08/16/18 20:53 Zofran PO Q6H PRN Nausea Pantoprazole Sodium 40 mg 08/17/18 09:00 08/18/18 08:58 Protonix IV 40 mg DAILY [facility] Administration Objective - Vital Signs Vital signs: Vital Signs Temp 96.9 F L 08/19/18 12:00 Pulse 84 08/19/18 12:13 Resp 16 08/19/18 12:00 BP 181/80 08/19/18 12:00 Pulse Ox 97 08/19/18 12:00 Intake & Output 08/18/18 08/19/18 08/19/18 18:59 06:59 18:59 Intake Total 734 415 360 Output Total 1150 1300 1002 Balance -416 -885 -642 Weight 73 kg 104 kg Intake: IV 165 normal saline 165 Intake, IV Titration 50 50 Amount Piperacillin-Tazobactam 3 50 50 .375 gm In Dextrose/Water 1 50ml.bag @ 12.5 mls/hr IVPB Q8HR [facility] Rx#: [id number] Oral 684 200 360 Output: Urine 1150 1300 1000 Stool 2 Other: Voiding Method Incontinent Incontinent Incontinent Indwelling Catheter Indwelling Catheter Indwelling Catheter # Bowel Movements 0 0 - Exam PHYSICAL EXAMINATION: Patient is lying in the bed comfortably, no acute distress, awake alert and oriented. Morbid obesity. HEENT: Normocephalic. Neck is supple. Pupils reactive. Nostrils clear. Oral cavity is moist. Ears reveal no drainage. Neck reveals no JVD, carotid bruits, or thyromegaly. CHEST EXAMINATION: Trachea is central. Symmetrical expansion. Bilateral rhonchi and expiratory wheezing and diminished basilar breath sounds and crackles. CARDIAC: Normal S1, S2 with no gallops. No murmurs ABDOMEN: Soft. Bowel sounds normal. No organomegaly. No abdominal bruits. Extremities: 3+ pitting edema. No clubbing or cyanosis Neurologically awake, alert, oriented x3 with well-coordinated movements. No focal deficits noted Skin: No rash or skin lesions. Psychiatric: Coperative. Nonsuicidal Musculoskeletal: No joint swelling or deformity. Normal range of motion. - Labs CBC & Chem 7: 08/20/18 05:45 08/20/18 05:45 Labs: Abnormal Lab Results - Last 24 Hours (Table) 08/18/18 08/18/18 08/19/18 Range/Units 16:32 21:22 06:30 WBC (3.8-10.6) k/uL RBC (3.80-5.40) m/uL Hgb (11.4-16.0) gm/dL Hct (34.0-46.0) % RDW (11.5-15.5) % Plt Count (150-450) k/uL Chloride (98-107) mmol/L BUN (7-17) mg/dL Creatinine (0.52-1.04) mg/dL Glucose (74-99) mg/dL POC Glucose (mg/dL) 255 H 181 H 202 H (75-99) mg/dL Calcium (8.4-10.2) mg/dL 08/19/18 08/19/18 08/19/18 Range/Units 06:48 06:48 11:42 WBC 19.7 H (3.8-10.6) k/uL RBC 3.25 L (3.80-5.40) m/uL Hgb 9.8 L (11.4-16.0) gm/dL Hct 31.0 L (34.0-46.0) % RDW 15.8 H (11.5-15.5) % Plt Count 132 L (150-450) k/uL Chloride 108 H (98-107) mmol/L BUN 67 H (7-17) mg/dL Creatinine 2.37 H (0.52-1.04) mg/dL Glucose 172 H (74-99) mg/dL POC Glucose (mg/dL) 200 H (75-99) mg/dL Calcium 7.6 L (8.4-10.2) mg/dL Microbiology - Last 24 Hours (Table) 08/16/18 21:15 Blood Culture - Preliminary Blood No Growth after 48 hours 08/16/18 02:25 Urine Culture - Final Urine,Catheterized Assessment and Plan Assessment: Shortness of breath is multifactorial mainly due to CHF and also COPD Acute on chronic CHF with diastolic dysfunction with left pleural effusion Acute COPD exacerbation Morbid obesity with a BMI 41.2 Possible bibasilar pneumonia Nonoliguric acute on chronic kidney disease. possibly ATN and cardiorenal History of asthma Diabetes type 2 Hypertension Hyperlipidemia History of non-Hodgkin's lymphoma Anxiety and depression Ongoing nicotine dependence History of C. diff colitis DVT prophylaxis with heparin subcu. Plan: Patient will be continued on IV Lasix 60 mg every 8 hourly along with metolazone. Monitor renal function. Oxygen therapy as needed and BiPAP as needed. Pulmonary cardiology and nephrology is following. Continue the steroids and breathing treatments and empiric antibiotics. Prognosis is extremely guarded and further recommendations based on the clinical course. Time with Patient: Greater than 30
--- NOTE | 2018-08-20 23:28 | P.PN ---
Subjective Progress Note Date: 08/20/18 Principal diagnosis: Acute COPD exacerbation Acute on chronic CHF with diastolic dysfunction Patient is a 53-year-old female with known history of COPD and nicotine addiction was admitted to the hospital for acute COPD exacerbation and CHF exacerbation. Patient is with acute hypoxic respiratory failure. 2-D echocardiogram showed ejection fraction 40-60%. Currently patient is on 5 L nasal cannula. Patient was on BiPAP previously. Pulmonary and cardiology as well as nephrology is following. Chest x-ray showed congestive heart failure with pleural effusions. 08/18/2018 Patient is still complaining of shortness of breath but slightly improved compared to yesterday. Off BiPAP machine currently and is on high flow nasal cannula. Patient is being continued on breathing treatments and steroids and antibiotics. Patient was given an extra dose of IV Lasix 80 mg today. Renal function slightly worsened with creatinine level 2.32. Nephrology is on board. No fever no chills. No other acute overnight issues. 08/19/2018 Patient says that her breathing is better. She did use BiPAP last night. Still requiring nasal cannula oxygen at 5 L. Continue to be on Lasix. Renal function is fairly stable at 37 creatinine level Patient has been afebrile. She'll have leukocytosis at 19.7. Blood cultures showed no growth so far. No fever no chills. No nausea vomiting or abdominal pain. 08/20/2018 Patient denied any complaints of chest pain. Patient stated is improving. Chest x-ray on 919 showed improvement in CHF. Otherwise patient is still requiring oxygen at 4 L/minute. Lasix dose has been decreased to 60 mg every 12. Creatinine slightly increased to 2.41 today. Cultures showed no growth. Conjunctivae on breathing treatments and IV steroids with Solu-Medrol 40 mg every 8 hourly. No fever no chills. No nausea vomiting or abdominal pain. Tolerating oral diet. All other review of systems negative except the above. Current medications reviewed Active Medications Generic Name Dose Route Start Last Admin Trade Name Freq PRN Reason Stop Dose Admin Acetaminophen 500 mg 08/16/18 19:31 Tylenol Tab PO Q6HR PRN Fever and/ or Mild Pain Hydrocodone Bitart/Acetaminophen 1 each 08/16/18 19:28 08/19/18 06:40 Rosalie 5-325 PO 1 each Q4HR PRN Administration Moderate Pain Albuterol/Ipratropium 3 ml 08/17/18 08:00 08/20/18 20:03 Duoneb 0.5 Mg-3 Mg/3 Ml Soln INHALATION 3 ml RT-QID ELVIRA Administration Albuterol/Ipratropium 3 ml 08/16/18 20:49 Duoneb 0.5 Mg-3 Mg/3 Ml Soln INHALATION RT-QID PRN Shortness Of Breath Or Wheezing Alprazolam 0.25 mg 08/16/18 19:28 08/20/18 20:36 Xanax PO 0.25 mg Q6HR PRN Administration Anxiety Amlodipine Besylate 10 mg 08/21/18 09:00 Norvasc PO DAILY ELVIRA Aspirin 81 mg 08/17/18 09:00 08/20/18 08:30 Aspirin PO 81 mg DAILY ELVIRA Administration Budesonide 1 mg 08/16/18 20:00 08/20/18 20:03 Pulmicort INHALATION 1 mg RT-BID ELVIRA Administration Darbepoetin Tom 40 mcg 08/17/18 09:15 08/17/18 15:10 Aranesp SQ 40 mcg Q7D ELVIRA Administration Formoterol Fumarate 20 mcg 08/16/18 20:00 08/20/18 20:03 Perforomist INHALATION 20 mcg RT-BID ELVIRA Administration Furosemide 60 mg 08/20/18 21:00 08/20/18 20:37 Lasix IV 60 mg Q12HR ELVIRA Administration Heparin Sodium (Porcine) 5,000 unit 08/16/18 21:00 08/20/18 20:37 Heparin SQ 5,000 unit Q12HR [facility]IRA Administration Hydralazine HCl 100 mg 08/16/18 22:00 08/20/18 20:37 Apresoline PO 100 mg TID ELVIRA Administration Piperacillin/Tazobactam/ 50 mls @ 12.5 mls/hr 08/17/18 00:00 08/20/18 16:38 Dextrose 3.375 gm/ IV Solution IVPB 12.5 mls/hr Q8HR [facility]IRA Administration Insulin Aspart 0 unit 08/16/18 21:00 08/20/18 20:45 Novolog SQ 4 unit ACHS EL[facility]IRA Administration Protocol Insulin Aspart 7 unit 08/16/18 21:00 08/20/18 20:45 Novolog SQ 7 unit ACHS [facility] Administration Insulin Detemir 35 unit 08/16/18 21:00 08/20/18 21:48 Levemir SQ 35 unit HS ELVIRA Administration Melatonin 3 mg 08/16/18 19:28 Melatonin PO HS PRN Insomnia Methylprednisolone Sodium Succinate 40 mg 08/18/18 00:00 08/20/18 15:52 Solu-Medrol IV 40 mg Q8HR [facility]A Administration Metolazone 2.5 mg 08/17/18 09:00 08/20/18 08:30 Zaroxolyn PO 2.5 mg DAILY [facility] Administration Metoprolol Succinate 100 mg 08/17/18 09:00 08/20/18 08:30 Toprol Xl PO 100 mg DAILY [facility] Administration Naloxone HCl 0.2 mg 08/16/18 19:28 Narcan IV Q2M PRN Opioid Reversal Nicotine 1 patch 08/17/18 09:00 08/20/18 08:29 Habitrol 14mg/24hr Patch TRANSDERM 1 patch DAILY [facility] Administration Nystatin 1 applic 08/16/18 22:00 08/20/18 21:59 Mycostatin Powder TOPICAL Not Given TID [facility] Ondansetron HCl 4 mg 08/16/18 20:53 Zofran PO Q6H PRN Nausea Pantoprazole Sodium 40 mg 08/19/18 07:30 08/20/18 07:10 Protonix PO 40 mg [id number]-[id number] [facility] Administration Objective - Vital Signs Vital signs: Vital Signs Temp 97.9 F 08/20/18 20:00 Pulse 88 08/20/18 20:22 Resp 18 08/20/18 20:00 BP 146/75 08/20/18 20:00 Pulse Ox 95 08/20/18 20:00 Intake & Output 08/20/18 08/20/18 08/21/18 06:59 18:59 06:59 Intake Total 50 596 50 Output Total 1126 1002 700 Balance -1076 -406 -650 Weight 102.7 kg Intake: Intake, IV Titration 50 50 Amount Piperacillin-Tazobactam 3 50 50 .375 gm In Dextrose/Water 1 50ml.bag @ 12.5 mls/hr IVPB Q8HR [facility] Rx#: [id number] Oral 596 Output: Urine 1125 1000 700 Stool 1 2 Other: Voiding Method Indwelling Catheter Indwelling Catheter Indwelling Catheter # Bowel Movements 1 1 - Exam PHYSICAL EXAMINATION: Patient is lying in the bed comfortably, no acute distress, awake alert and oriented. Morbid obesity. HEENT: Normocephalic. Neck is supple. Pupils reactive. Nostrils clear. Oral cavity is moist. Ears reveal no drainage. Neck reveals no JVD, carotid bruits, or thyromegaly. CHEST EXAMINATION: Trachea is central. Symmetrical expansion. Bilateral rhonchi and improved wheezing and diminished basilar breath sounds and crackles. CARDIAC: Normal S1, S2 with no gallops. No murmurs ABDOMEN: Soft. Bowel sounds normal. No organomegaly. No abdominal bruits. Extremities: 3+ pitting edema. No clubbing or cyanosis Neurologically awake, alert, oriented x3 with well-coordinated movements. No focal deficits noted Skin: No rash or skin lesions. Psychiatric: Coperative. Nonsuicidal Musculoskeletal: No joint swelling or deformity. Normal range of motion. - Labs CBC & Chem 7: 08/20/18 05:45 08/20/18 05:45 Labs: Abnormal Lab Results - Last 24 Hours (Table) 08/20/18 08/20/18 08/20/18 Range/Units 05:45 05:45 06:19 WBC 24.4 H (3.8-10.6) k/uL RBC 3.22 L (3.80-5.40) m/uL Hgb 9.5 L (11.4-16.0) gm/dL Hct 30.4 L (34.0-46.0) % RDW 15.8 H (11.5-15.5) % Plt Count 147 L (150-450) k/uL Neutrophils # (Manual) 9.70 H (1.3-7.7) k/uL Lymphocytes # (Manual) 14.64 H (1.0-4.8) k/uL BUN 75 H (7-17) mg/dL Creatinine 2.41 H (0.52-1.04) mg/dL Glucose 126 H (74-99) mg/dL POC Glucose (mg/dL) 142 H (75-99) mg/dL Calcium 7.5 L (8.4-10.2) mg/dL 08/20/18 08/20/18 08/20/18 Range/Units 12:05 17:11 20:18 WBC (3.8-10.6) k/uL RBC (3.80-5.40) m/uL Hgb (11.4-16.0) gm/dL Hct (34.0-46.0) % RDW (11.5-15.5) % Plt Count (150-450) k/uL Neutrophils # (Manual) (1.3-7.7) k/uL Lymphocytes # (Manual) (1.0-4.8) k/uL BUN (7-17) mg/dL Creatinine (0.52-1.04) mg/dL Glucose (74-99) mg/dL POC Glucose (mg/dL) 106 H 198 H 246 H (75-99) mg/dL Calcium (8.4-10.2) mg/dL Microbiology - Last 24 Hours (Table) 08/16/18 21:15 Blood Culture - Preliminary Blood No Growth after 72 hours Assessment and Plan Assessment: Shortness of breath is multifactorial mainly due to CHF and also COPD Acute on chronic CHF with diastolic dysfunction with left pleural effusion Acute COPD exacerbation Morbid obesity with a BMI 41.2 Possible bibasilar pneumonia Nonoliguric acute on chronic kidney disease. possibly ATN and cardiorenal History of asthma Diabetes type 2 Hypertension Hyperlipidemia History of non-Hodgkin's lymphoma Anxiety and depression Ongoing nicotine dependence History of C. diff colitis DVT prophylaxis with heparin subcu. Plan: Patient will be continued on IV Lasix 60 mg every 12 hourly along with metolazone. Monitor renal function. Oxygen therapy as needed and BiPAP as needed. Pulmonary cardiology and nephrology is following. Continue the steroids and breathing treatments and empiric antibiotics. Prognosis is extremely guarded and further recommendations based on the clinical course. Time with Patient: Greater than 30
[2018-08-21 05:53] LABS: Glucose,Whole Blood 200 mg/dL (75-99)
[2018-08-21 06:24] LABS: HGB 9.8 gm/dL (11.4-16.0); MCH 30.5 pg (25.0-35.0); MCHC 32.7 g/dL (31.0-37.0); MCV 93.5 fL (80.0-100.0); Mean Platelet Volume 6.9; Platelet Count 137 k/uL (150-450); RBC 3.21 m/uL (3.80-5.40); RDW 15.6 % (11.5-15.5); WBC 28.3 k/uL (3.8-10.6)
[2018-08-21] MEDS: INSULIN ASPART 100 UNIT/ML 1 ML 10 ML VIAL SQ SCH ×8 (06:41→23:56)
[2018-08-21] MEDS: PANTOPRAZOLE 40 MG TABLET PO SCH (06:43)
[2018-08-21 06:57] LABS: Calcium 7.4 mg/dL (8.4-10.2); Magnesium 1.8 mg/dL (1.6-2.3); Potassium 4.2 mmol/L (3.5-5.1)
[2018-08-21] MEDS: ASPIRIN 81 MG PO SCH (07:50)
[2018-08-21] MEDS: amLODIPine 10 MG TAB PO SCH (07:50)
[2018-08-21] MEDS: hydrALAZINE HCL 50 MG TAB PO SCH ×3 (07:51→23:57)
[2018-08-21] MEDS: METOLAZONE 2.5 MG TAB PO SCH ×2 (07:51→20:09)
[2018-08-21] MEDS: ALPRAZolam 0.25 MG TAB PO PRN (07:52)
[2018-08-21] MEDS: METOPROLOL SUCCINATE (ER) 100 MG TAB.ER.24H PO SCH (07:52)
[2018-08-21] MEDS: HEPARIN SODIUM,PORCINE 5,000 UNIT/ML 1 ML VIAL SQ SCH ×2 (08:01→20:08)
[2018-08-21] MEDS: methylPREDNISolone SOD SUCCI 125 MG/2 ML VIAL IV SCH ×3 (08:01→23:59)
[2018-08-21] MEDS: PIPERACILLIN-TAZOBACTAM 3.375 GM in DEXTROSE/WATER 1 50ML.BAG IVPB SCH (08:02)
[2018-08-21] MEDS: FUROSEMIDE 10 MG/ML 10 ML VIAL IV SCH ×2 (08:44→20:07)
[2018-08-21] MEDS: NICOTINE 14MG/24HR PATCH TRANSDERM SCH (08:46)
[2018-08-21] MEDS: NYSTATIN 100,000 UNIT/GM POWD 15 GM TOPICAL SCH ×3 (08:46→23:57)
[2018-08-21] MEDS: BUDESONIDE 1 MG/2 ML NEBU INHALATION SCH ×2 (08:49→20:43)
[2018-08-21] MEDS: IPRATROPIUM-ALBUTEROL 3 ML NEB INHALATION SCH ×4 (08:49→20:46)
[2018-08-21] MEDS: FORMOTEROL FUMARATE 20 MCG/2 ML NEBU INHALATION SCH ×2 (08:49→20:46)
[2018-08-21 10:20] LABS: Monocytes # (M) 0.28 k/uL (0-1.0); Neutrophils # (M) 6.51 k/uL (1.3-7.7); Neutrophils % (M) 23 %; Nucleated Red Blood Cells 0 /100 WBC (0-0); Total Cells Counted 200
[2018-08-21 10:21] LABS: Anisocytosis (M) Present; Poikilocytosis (M) Present
[2018-08-21 10:23] LABS: Lymphocytes # (M) 21.79 k/uL (1.0-4.8)
--- NOTE | 2018-08-21 10:56 | XR ---
EXAMINATION TYPE: XR chest 1V DATE OF EXAM: 08/21/2018 HISTORY: Shortness of breath. COMPARISON: 08/18/2018 TECHNIQUE: Single view of the chest is submitted. FINDINGS: Demonstrated are scattered senescent parenchymal change. Patchy basilar infiltrates and pleural effusions persist with mild interval progression. Central veno us line is in place. The heart is stable. Hilar and mediastinal structures are within normal limits. Degenerative changes are seen of the dorsal spine. IMPRESSION: 1. Patchy basilar infiltrates and pleural effusions persist with mild interval progression.
[2018-08-21 12:11] LABS: Glucose,Whole Blood 213 mg/dL (75-99)
--- NOTE | 2018-08-21 12:20 | P.PN ---
Subjective Progress Note Date: 08/21/18 Principal diagnosis: Acute diastolic congestive heart failure. Bilateral pleural effusions. This is a 53-year-old female with history of hypertension, diastolic congestive heart failure, chronic kidney disease, remote history of lymphoma, treated with chemotherapy, patient presented initially to [facility] with complaints of shortness of breath for the last few days. Chest x-ray in [place] showed pulmonary edema. Patient was given diuretics, placed on BiPAP, transferred to [facility], admitted to monitor bed on [facility], seen already by many consultants including cardiology and nephrology , and I was asked to see her on consultation. Since admission the patient has been feeling a bit better, breathing easier, and apparently has been responding to diuretics. Had a BNP level on admission was 22,400. Patient had recent echocardiogram in March showing good LV function with moderate tricuspid regurgitation and moderate to severe pulmonary hypertension. Patient remains on Lasix, and overall she has made a significant improvement since admission. Presently no cough, no wheezing, no fever, no chills, no hemoptysis, no chest pain. The patient is seen again today 08/18/2018 in follow-up on the selective care unit. She is currently awake and alert in no acute distress. He is still requiring 5 L high flow nasal cannula to maintain O2 saturations in the 90s. This could be titrated down. She did utilize the BiPAP throughout the evening. She is currently afebrile. White count 10.8. Hemoglobin 9.2. Creatinine 2.32. She is currently in a negative balance. She remains on IV Lasix 60 mg every 8 hours. The patient is seen again today 08/19/2018 in follow-up on the selective care unit. She is currently sitting up in a chair at the bedside. She is awake and alert in no acute distress. She is breathing easier today as compared to yesterday. She did utilize the BiPAP throughout the evening. She is currently maintaining O2 saturations in the 90s on 5 L/m per nasal cannula. She's afebrile. Blood and urine cultures reveal no growth. White count 19.7. Hemoglobin 9.8. Creatinine 2.37. He is continued on Lasix 60 mg IV every 8 hours. Remains on Zosyn, bronchodilators and IV Solu-Medrol. Patient is seen again today 08/20/2018 in follow-up on the selective care unit. She is awake and alert in no acute distress. She is currently sitting up in a chair at the bedside. She denies any worsening shortness of breath, cough or congestion. Chest x-ray showing improvement in the congestive heart failure. She's continuing to utilize 5 L/m per nasal cannula to maintain O2 saturations in the 90s. She's been afebrile. Hemodynamically stable. Blood and urine cultures reveal no growth. He remains on Lasix 60 mg IV push every 8 hours. Currently in a negative balance. White count 24.4. Hemoglobin 9.5. Creatinine 2.41. The patient is seen again today 08/21/2018 in follow-up on the selective care unit. She is currently sitting up in a chair at the bedside. She denies any worsening shortness of breath, cough or congestion. O2 has been weaned down to 2 L/m per nasal cannula is maintaining good O2 saturations in the upper 90s. She's been afebrile. White count 28. Possible steroid effect. Hemoglobin 9.8. Creatinine 2.45. No real improvement on chest x-ray findings. She remains on Zosyn. She is continued on diuretics. Tang catheter remains in place. She is 2900 mls negative balance following her dose of Lasix this morning. Clinically she is improved. Objective - Vital Signs Vital signs: Vital Signs Temp 97.9 F 08/21/18 11:16 Pulse 84 08/21/18 12:00 Resp 16 08/21/18 11:16 BP 176/77 08/21/18 11:16 Pulse Ox 98 08/21/18 11:16 Intake & Output 08/20/18 08/21/18 08/21/18 18:59 06:59 18:59 Intake Total 596 100 10 Output Total 7114 070 8830 Balance -406 -600 -2890 Weight 102.1 kg 102.1 kg Intake: IV 10 Invasive Line 2 10 Intake, IV Titration 100 Amount Piperacillin-Tazobactam 3 100 .375 gm In Dextrose/Water 1 50ml.bag @ 12.5 mls/hr IVPB Q8HR [facility] Rx#: [id number] Oral 596 Output: Urine 8966 258 8345 Stool 2 Other: Voiding Method Indwelling Catheter Indwelling Catheter # Bowel Movements 1 1 - Exam GENERAL EXAM: Alert, active, comfortable in no apparent distress. HEAD: Normocephalic. EYES: Normal reaction of pupils, equal size. NOSE: Clear with pink turbinates. THROAT: No erythema or exudates. NECK: No masses, no JVD. CHEST: No chest wall deformity. Right Port-A-Cath in place. LUNGS: Equal air entry with rales in the posterior bases. CVS: S1 and S2 normal with no audible murmur, regular rhythm. ABDOMEN: No hepatosplenomegaly, normal bowel sounds, no guarding or rigidity. SPINE: No scoliosis or deformity SKIN: No rashes CENTRAL NERVOUS SYSTEM: No focal deficits, tone is normal in all 4 extremities. EXTREMITIES: There is no peripheral edema. No clubbing, no cyanosis. Peripheral pulses are intact. - Labs CBC & Chem 7: 08/21/18 05:50 08/21/18 05:50 Labs: Abnormal Lab Results - Last 24 Hours (Table) 08/20/18 08/20/18 08/21/18 Range/Units 17:11 20:18 05:50 WBC 28.3 H (3.8-10.6) k/uL RBC 3.21 L (3.80-5.40) m/uL Hgb 9.8 L (11.4-16.0) gm/dL Hct 30.0 L (34.0-46.0) % RDW 15.6 H (11.5-15.5) % Plt Count 137 L (150-450) k/uL Lymphocytes # (Manual) 21.79 H (1.0-4.8) k/uL BUN (7-17) mg/dL Creatinine (0.52-1.04) mg/dL Glucose (74-99) mg/dL POC Glucose (mg/dL) 198 H 246 H (75-99) mg/dL Calcium (8.4-10.2) mg/dL 08/21/18 08/21/18 Range/Units 05:50 05:52 WBC (3.8-10.6) k/uL RBC (3.80-5.40) m/uL Hgb (11.4-16.0) gm/dL Hct (34.0-46.0) % RDW (11.5-15.5) % Plt Count (150-450) k/uL Lymphocytes # (Manual) (1.0-4.8) k/uL BUN 82 H (7-17) mg/dL Creatinine 2.45 H (0.52-1.04) mg/dL Glucose 171 H (74-99) mg/dL POC Glucose (mg/dL) 200 H (75-99) mg/dL Calcium 7.4 L (8.4-10.2) mg/dL Microbiology - Last 24 Hours (Table) 08/16/18 21:15 Blood Culture - Preliminary Blood No Growth after 96 hours Assessment and Plan Assessment: Impression: 1 Acute hypoxic respiratory failure secondary to an acute exacerbation of chronic diastolic congestive heart failure. With pulmonary edema and bilateral pleural effusions. 2 history of COPD presently inactive, may or may not be contributing to some of her symptoms of shortness of breath. Very unlikely to be active at this point based on her history and based on her physical exam and chest x-ray findings. However would continue/bronchodilators. 3 chronic renal failure 4 history of lymphoma treated and presently in remission. 5 chronic tobacco dependence. 6 hypertension. 7 diabetes mellitus, type II. 8 hyperlipidemia 9 history of non-Hodgkin's lymphoma 10 obesity 11 history of C. difficile colitis 12 leukocytosis suspect steroid effect. Cultures are negative. Plan: The patient was seen and evaluated by Dr. Lucero. She is improving from her oxygenation standpoint. Currently down to 2 L/m per nasal cannula. We'll continue with her current medications including Zosyn, decreased IV Solu-Medrol , continue bronchodilators. Remains on diuretics. Cardiology and nephrology on the case as well. We'll continue to follow. I, the cosigning physician, performed a history & physical examination of the patient. Lungs sounds with crackles in the bilateral posterior bases. Maintaining good O2 saturations in the 90s on 2 L/m per nasal cannula. I discussed the assessment and plan of care with my nurse practitioner, Elsie Johns. I attest to the above note as dictated by her.
--- NOTE | 2018-08-21 12:46 | P.PN ---
Subjective Patient is seen in follow-up for acute kidney injury on chronic kidney disease. Patient has chronic kidney disease stage III with baseline creatinine in the range of 1.6-2 secondary to diabetic kidney disease and cardiorenal syndrome. Patient was hyperkalemic on admission which is now normalized. She was noted to have urinary retention and has a Tang catheter in place. Dyspnea has improved. She is currently maintained on Lasix 60 mg IV 2 times daily. She is noted to have diastolic CHF with moderate mitral regurgitation. Oral intake is fair. She is nonoliguric. Vital signs are stable. General: The patient appeared well nourished and normally developed. HEENT: Head exam is unremarkable. Neck is without jugular venous distension. LUNGS: Lungs are clear to auscultation and percussion. Breath sounds decreased. HEART: Rate and Rhythm are regular. First and second heart sounds normal. No murmurs, rubs or gallops. ABDOMEN: Abdominal exam reveals normal bowel sounds. Non-tender and non- distended. No evidence of peritonitis. EXTREMITITES: 1+ edema. Objective - Vital Signs Vital signs: Vital Signs Temp 97.9 F 08/21/18 11:16 Pulse 84 08/21/18 12:00 Resp 16 08/21/18 11:16 BP 176/77 08/21/18 11:16 Pulse Ox 98 08/21/18 11:16 Intake & Output 08/20/18 08/21/18 08/21/18 18:59 06:59 18:59 Intake Total 596 100 10 Output Total 1240 841 4673 Balance -406 -600 -2890 Weight 102.1 kg 102.1 kg Intake: IV 10 Invasive Line 2 10 Intake, IV Titration 100 Amount Piperacillin-Tazobactam 3 100 .375 gm In Dextrose/Water 1 50ml.bag @ 12.5 mls/hr IVPB Q8HR [facility] Rx#: [id number] Oral 596 Output: Urine 1235 631 2744 Stool 2 Other: Voiding Method Indwelling Catheter Indwelling Catheter # Bowel Movements 1 1 - Labs CBC & Chem 7: 08/21/18 05:50 08/21/18 05:50 Labs: Abnormal Lab Results - Last 24 Hours (Table) 08/20/18 08/20/18 08/21/18 Range/Units 17:11 20:18 05:50 WBC 28.3 H (3.8-10.6) k/uL RBC 3.21 L (3.80-5.40) m/uL Hgb 9.8 L (11.4-16.0) gm/dL Hct 30.0 L (34.0-46.0) % RDW 15.6 H (11.5-15.5) % Plt Count 137 L (150-450) k/uL Lymphocytes # (Manual) 21.79 H (1.0-4.8) k/uL BUN (7-17) mg/dL Creatinine (0.52-1.04) mg/dL Glucose (74-99) mg/dL POC Glucose (mg/dL) 198 H 246 H (75-99) mg/dL Calcium (8.4-10.2) mg/dL 08/21/18 08/21/18 08/21/18 Range/Units 05:50 05:52 11:54 WBC (3.8-10.6) k/uL RBC (3.80-5.40) m/uL Hgb (11.4-16.0) gm/dL Hct (34.0-46.0) % RDW (11.5-15.5) % Plt Count (150-450) k/uL Lymphocytes # (Manual) (1.0-4.8) k/uL BUN 82 H (7-17) mg/dL Creatinine 2.45 H (0.52-1.04) mg/dL Glucose 171 H (74-99) mg/dL POC Glucose (mg/dL) 200 H 213 H (75-99) mg/dL Calcium 7.4 L (8.4-10.2) mg/dL Microbiology - Last 24 Hours (Table) 08/16/18 21:15 Blood Culture - Preliminary Blood No Growth after 96 hours Assessment and Plan Plan: Assessment: 1. Nonoliguric acute kidney injury secondary to ATN secondary to cardiorenal syndrome/diuresis. Creatinine 2.45 today. 2. Chronic kidney disease stage III with baseline creatinine in the range of 1.6-2 secondary to nephrosclerosis and cardiorenal syndrome. 3. Hyperkalemia secondary to acute kidney injury, metabolic acidosis. Improved. 4. Metabolic acidosis secondary to chronic kidney disease. Improved. 5. Diastolic CHF with moderate mitral regurgitation. 6. Volume overload. Improving. 7. Anemia of chronic kidney disease. Iron replete. 8. Diabetes mellitus. 9. Urinary retention status post Tang catheter placement. 10. Hypertension with chronic kidney disease. Blood pressures on the higher side. Plan: Maintain Lasix 60 mg IV twice daily. Increase metolazone to 2.5 mg twice daily. Maintain Aranesp. Phosphorus level at goal. Tight blood sugar control. Repeat electrolytes in the morning. Maintain current antihypertensives. Dose of amlodipine increased today.
--- NOTE | 2018-08-21 14:59 | P.PN ---
Subjective Progress Note Date: 08/21/18 This is a 53-year-old female with known history of hypertension, hyperlipidemia, diabetes, congestive heart failure with diastolic dysfunction, chronic kidney disease, history of lymphoma, nicotine dependence, COPD, who was transferred here from [facility] where she presented with shortness of breath. According to the documentation at [facility], x-ray was performed there which revealed pulmonary edema. Patient was laced on BiPAP on arrival there, she was given IV Lasix and started on Levaquin for possible pneumonia. Transferred to [facility] for further evaluation and treatment. White blood cell count 10.5, hemoglobin 9.7, platelet count 127. Her pH on arrival here 7.32, pCO2 41, pO2 93, HCO3 21, O2 saturation 97%. Sodium 140, potassium 6.8 on admission, 6.1 this morning. BUN 49, creatinine 2.1, blood glucose 233, troponin negative. BNP level 22,400. Calcium 8.1. Alk phos 141, AST and ALT are normal. I pressure on arrival here 160/80 with a heart rate in the 80s, temperature 98.7, she is 96% on 40% BiPAP. Chest x-ray performed on arrival here showed congestive heart failure with pleural effusions worsened prior exam. Most recent echocardiogram with Doppler study was performed in March of this year which revealed an ejection fraction of 55-60 % with mild to moderate tricuspid regurg, moderate to severe pulmonary hypertension. Patient was initiated on IV Lasix here, she has been diuresing on IV Lasix. Upon examination this morning, patient is sitting up in bed. She continues to have lower extremity edema and some shortness of breath which has improved according to the patient. She continues to be on Lasix IV push 60 mg every 12 hours per nephrology. Objective - Vital Signs Vital signs: Vital Signs Temp 97.9 F 08/21/18 11:16 Pulse 84 08/21/18 12:00 Resp 16 08/21/18 11:16 BP 176/77 08/21/18 11:16 Pulse Ox 98 08/21/18 11:16 Intake & Output 08/20/18 08/21/18 08/21/18 18:59 06:59 18:59 Intake Total 596 100 10 Output Total 3797 695 3210 Balance -406 600 -3990 Weight 102.1 kg 102.1 kg Intake: IV 10 Invasive Line 2 10 Intake, IV Titration 100 Amount Piperacillin-Tazobactam 3 100 .375 gm In Dextrose/Water 1 50ml.bag @ 12.5 mls/hr IVPB Q8HR [facility] Rx#: [id number] Oral 596 Output: Urine 3311 634 8596 Stool 2 Other: Voiding Method Indwelling Catheter Indwelling Catheter # Bowel Movements 1 1 - Exam Physical exam revealed a 53-year-old female in no distress. On oxygen via nasal cannula at 5 L. Head: Atraumatic, normocephalic. HEENT:[Neck is supple.] [No neck masses.] [No thyromegaly.] [No JVD.] PERRLA, EOMI. No icterus. Elevated jugular venous pressure noted. No carotid bruits. Chest: [Minimal fine crackles at the bases, no rhonchi, no wheezes. No chest wall tenderness. Port-A-Cath is palpable in the right upper chest wall area Cardiac Exam: [Normal S1 and S2, no S3 gallop, 2/6 systolic murmur heard throughout the precordium..] Abdomen: [Obese, Soft, nontender, no megaly, no rebound, no guarding, normal bowel sounds.] Extremities: [No clubbing 1+ bipedal edema, no cyanosis.] Neurological Exam: [No focal neurologic deficit.] Psychiatric: Normal mood, affect and mental status examination. - Labs CBC & Chem 7: 08/21/18 05:50 08/21/18 05:50 Labs: Abnormal Lab Results - Last 24 Hours (Table) 08/20/18 08/20/18 08/21/18 Range/Units 17:11 20:18 05:50 WBC 28.3 H (3.8-10.6) k/uL RBC 3.21 L (3.80-5.40) m/uL Hgb 9.8 L (11.4-16.0) gm/dL Hct 30.0 L (34.0-46.0) % RDW 15.6 H (11.5-15.5) % Plt Count 137 L (150-450) k/uL Lymphocytes # (Manual) 21.79 H (1.0-4.8) k/uL BUN (7-17) mg/dL Creatinine (0.52-1.04) mg/dL Glucose (74-99) mg/dL POC Glucose (mg/dL) 198 H 246 H (75-99) mg/dL Calcium (8.4-10.2) mg/dL 08/21/18 08/21/18 08/21/18 Range/Units 05:50 05:52 11:54 WBC (3.8-10.6) k/uL RBC (3.80-5.40) m/uL Hgb (11.4-16.0) gm/dL Hct (34.0-46.0) % RDW (11.5-15.5) % Plt Count (150-450) k/uL Lymphocytes # (Manual) (1.0-4.8) k/uL BUN 82 H (7-17) mg/dL Creatinine 2.45 H (0.52-1.04) mg/dL Glucose 171 H (74-99) mg/dL POC Glucose (mg/dL) 200 H 213 H (75-99) mg/dL Calcium 7.4 L (8.4-10.2) mg/dL Microbiology - Last 24 Hours (Table) 08/16/18 21:15 Blood Culture - Preliminary Blood No Growth after 96 hours Assessment and Plan Assessment: #1 congestive heart failure, acute on chronic, diastolic #2 chronic renal failure #3 hyperkalemia #4 nicotine dependence #5 acute exacerbation COPD, currently on Solu-Medrol #6 hypertension #7 diabetes #8 hyperlipidemia Plan: From cardiology's perspective, blood pressure remains poorly controlled with a systolic of around 180. She is currently on metoprolol succinate 100 mg by mouth daily, amlodipine 10 mg by mouth daily and hydralazine 100 mg by mouth 3 times a day. We'll initiate the patient on a Catapres patch. We'll continue monitor the patient provide further recommendations accordingly. W[employer]INE[employer] note has been reviewed, I agree with a documented findings and plan of care. Patient was seen and examined.
[2018-08-21 16:57] LABS: Glucose,Whole Blood 207 mg/dL (75-99)
[2018-08-21] MEDS: AMOXIC-POT CLAV 875-125MG 1 EACH TAB PO SCH (20:07)
[2018-08-21] MEDS: INSULIN DETEMIR 100 UNIT/ML 10 ML VIAL SQ SCH (20:18)
[2018-08-21 20:47] LABS: Glucose,Whole Blood 213 mg/dL (75-99)
[2018-08-22 06:13] LABS: Glucose,Whole Blood 190 mg/dL (75-99)
[2018-08-22] MEDS: PANTOPRAZOLE 40 MG TABLET PO SCH (06:19)
[2018-08-22] MEDS: INSULIN ASPART 100 UNIT/ML 1 ML 10 ML VIAL SQ SCH ×8 (06:20→21:02)
[2018-08-22 06:31] LABS: HCT 31.1 % (34.0-46.0); MCH 30.3 pg (25.0-35.0); MCHC 32.2 g/dL (31.0-37.0); MCV 94.1 fL (80.0-100.0); Platelet Count 141 k/uL (150-450); RBC 3.31 m/uL (3.80-5.40); RDW 15.3 % (11.5-15.5); WBC 46.4 k/uL (3.8-10.6)
[2018-08-22 06:45] LABS: Calcium 7.5 mg/dL (8.4-10.2); Potassium 4.3 mmol/L (3.5-5.1)
--- NOTE | 2018-08-22 07:59 | P.PN ---
Subjective Patient is seen in follow-up for acute kidney injury on chronic kidney disease. Patient has chronic kidney disease stage III with baseline creatinine in the range of 1.6-2 secondary to diabetic kidney disease and cardiorenal syndrome. Patient was hyperkalemic on admission which is now normalized. She was noted to have urinary retention and has a Tang catheter in place. Dyspnea has improved. She is currently maintained on Lasix 60 mg IV 2 times daily and metolazone 2.5 mg twice daily. She is noted to have diastolic CHF with moderate mitral regurgitation. Oral intake is fair. She is nonoliguric. Urine output over 6 L in the last 24 hours. Vital signs are stable. General: The patient appeared well nourished and normally developed. HEENT: Head exam is unremarkable. Neck is without jugular venous distension. LUNGS: Lungs are clear to auscultation and percussion. Breath sounds decreased. HEART: Rate and Rhythm are regular. First and second heart sounds normal. No murmurs, rubs or gallops. ABDOMEN: Abdominal exam reveals normal bowel sounds. Non-tender and non- distended. No evidence of peritonitis. EXTREMITITES: 1+ edema. Objective - Vital Signs Vital signs: Vital Signs Temp 97.5 F L 08/22/18 03:33 Pulse 82 08/22/18 04:00 Resp 18 08/22/18 04:00 BP 160/78 08/22/18 03:33 Pulse Ox 94 L 08/22/18 03:33 Intake & Output 08/21/18 08/22/18 08/22/18 18:59 06:59 18:59 Intake Total 240 920 Output Total 5000 1225 Balance -4760 -305 Weight 102.2 kg Intake: IV 10 Invasive Line 2 10 Oral 230 920 Output: Urine 5000 1225 Other: Voiding Method Indwelling Catheter - Labs CBC & Chem 7: 08/22/18 05:28 08/22/18 05:28 Labs: Abnormal Lab Results - Last 24 Hours (Table) 08/21/18 08/21/18 08/21/18 Range/Units 05:50 11:54 16:49 WBC (3.8-10.6) k/uL RBC (3.80-5.40) m/uL Hgb (11.4-16.0) gm/dL Hct (34.0-46.0) % Plt Count (150-450) k/uL Lymphocytes # (Manual) 21.79 H (1.0-4.8) k/uL BUN (7-17) mg/dL Creatinine (0.52-1.04) mg/dL Glucose (74-99) mg/dL POC Glucose (mg/dL) 213 H 207 H (75-99) mg/dL Calcium (8.4-10.2) mg/dL 08/21/18 08/22/18 08/22/18 Range/Units 20:46 05:28 05:28 WBC 46.4 H (3.8-10.6) k/uL RBC 3.31 L (3.80-5.40) m/uL Hgb 10.0 L (11.4-16.0) gm/dL Hct 31.1 L (34.0-46.0) % Plt Count 141 L (150-450) k/uL Lymphocytes # (Manual) (1.0-4.8) k/uL BUN 91 H (7-17) mg/dL Creatinine 2.33 H (0.52-1.04) mg/dL Glucose 149 H (74-99) mg/dL POC Glucose (mg/dL) 213 H (75-99) mg/dL Calcium 7.5 L (8.4-10.2) mg/dL 08/22/18 Range/Units 06:12 WBC (3.8-10.6) k/uL RBC (3.80-5.40) m/uL Hgb (11.4-16.0) gm/dL Hct (34.0-46.0) % Plt Count (150-450) k/uL Lymphocytes # (Manual) (1.0-4.8) k/uL BUN (7-17) mg/dL Creatinine (0.52-1.04) mg/dL Glucose (74-99) mg/dL POC Glucose (mg/dL) 190 H (75-99) mg/dL Calcium (8.4-10.2) mg/dL Microbiology - Last 24 Hours (Table) 08/16/18 21:15 Blood Culture - Preliminary Blood No Growth after 120 hours Assessment and Plan Plan: Assessment: 1. Nonoliguric acute kidney injury secondary to ATN secondary to cardiorenal syndrome/diuresis. Creatinine a little improved to 2.33 today. 2. Chronic kidney disease stage III with baseline creatinine in the range of 1.6-2 secondary to nephrosclerosis and cardiorenal syndrome. 3. Hyperkalemia secondary to acute kidney injury, metabolic acidosis. Improved. 4. Metabolic acidosis secondary to chronic kidney disease. Improved. 5. Diastolic CHF with moderate mitral regurgitation. 6. Volume overload. Improving. 7. Anemia of chronic kidney disease. Iron replete. 8. Diabetes mellitus. 9. Urinary retention status post Tang catheter placement. 10. Hypertension with chronic kidney disease. Partially volume sensitive. Better. Plan: Maintain Lasix 60 mg IV twice daily. Maintain metolazone to 2.5 mg twice daily. Maintain Aranesp. Phosphorus level at goal. Tight blood sugar control. Repeat electrolytes in the morning. Maintain current antihypertensives. Dose of amlodipine increased August 21.
[2018-08-22] MEDS: BUDESONIDE 1 MG/2 ML NEBU INHALATION SCH ×2 (08:35→20:04)
[2018-08-22] MEDS: IPRATROPIUM-ALBUTEROL 3 ML NEB INHALATION SCH ×4 (08:35→20:04)
[2018-08-22] MEDS: FORMOTEROL FUMARATE 20 MCG/2 ML NEBU INHALATION SCH ×2 (08:35→20:04)
[2018-08-22] MEDS: HEPARIN SODIUM,PORCINE 5,000 UNIT/ML 1 ML VIAL SQ SCH ×2 (09:05→21:04)
[2018-08-22] MEDS: methylPREDNISolone SOD SUCCI 125 MG/2 ML VIAL IV SCH (09:05)
[2018-08-22] MEDS: NYSTATIN 100,000 UNIT/GM POWD 15 GM TOPICAL SCH ×3 (09:05→21:04)
[2018-08-22] MEDS: FUROSEMIDE 10 MG/ML 10 ML VIAL IV SCH ×2 (09:05→21:03)
[2018-08-22] MEDS: amLODIPine 10 MG TAB PO SCH (09:06)
[2018-08-22] MEDS: AMOXIC-POT CLAV 875-125MG 1 EACH TAB PO SCH ×2 (09:06→21:04)
[2018-08-22] MEDS: METOLAZONE 2.5 MG TAB PO SCH ×2 (09:06→21:04)
[2018-08-22] MEDS: NICOTINE 14MG/24HR PATCH TRANSDERM SCH (09:06)
[2018-08-22] MEDS: METOPROLOL SUCCINATE (ER) 100 MG TAB.ER.24H PO SCH (09:06)
[2018-08-22] MEDS: ASPIRIN 81 MG PO SCH (09:07)
[2018-08-22] MEDS: hydrALAZINE HCL 50 MG TAB PO SCH ×3 (09:07→21:03)
[2018-08-22 10:05] LABS: Band Neutrophils % 1 %; Lymphocytes # (M) 35.26 k/uL (1.0-4.8); Monocytes # (M) 0.46 k/uL (0-1.0); Neutrophils % (M) 22 %; Nucleated Red Blood Cells 0 /100 WBC (0-0); Total Cells Counted 100
[2018-08-22 10:06] LABS: Poikilocytosis (M) Present
--- NOTE | 2018-08-22 12:20 | P.PN ---
Subjective Progress Note Date: 08/22/18 This is a 59-year-old female who was admitted to the hospital with exacerbation of diastolic CHF and also acute renal failure. Patient is feeling much better. She is on IV Lasix along with metolazone. Catapres was added yesterday for blood pressure control. Overall patient blood pressure is better today. She' ll continue current medical therapy. Patient is also being followed by nephrology Objective - Vital Signs Vital signs: Vital Signs Temp 96.8 F L 08/22/18 08:00 Pulse 86 08/22/18 12:00 Resp 16 08/22/18 12:00 BP 172/83 08/22/18 12:00 Pulse Ox 97 08/22/18 12:00 Intake & Output 08/21/18 08/22/18 08/22/18 18:59 06:59 18:59 Intake Total 240 920 222 Output Total 5000 1225 2 Balance -4760 -305 220 Weight 102.2 kg Intake: IV 10 Invasive Line 2 10 Oral 230 920 222 Output: Urine 5000 1225 Stool 2 Other: Voiding Method Indwelling Catheter Indwelling Catheter - Exam GENERAL EXAM: Patient is alert and oriented HEENT: Normocephalic. Normal reaction of pupils, equal size, normal range of extraocular motion. No erythema or exudates in the throat. NECK: No masses, no nuchal rigidity. CHEST: No chest wall deformity. LUNGS: Equal air entry with no crackles or wheeze. HEART: S1 and S2 normal with no audible mumurs or gallops. Regular rhythm,.. ABDOMEN: No hepatosplenomegaly, normal bowel sounds, no guarding or rigidity. SKIN: No rashes CENTRAL NERVOUS SYSTEM: No focal deficits. EXTREMITIES: No cyanosis, clubbing or edema. - Labs CBC & Chem 7: 08/22/18 05:28 08/22/18 05:28 Labs: Abnormal Lab Results - Last 24 Hours (Table) 08/21/18 08/21/18 08/22/18 Range/Units 16:49 20:46 05:28 WBC 46.4 H (3.8-10.6) k/uL RBC 3.31 L (3.80-5.40) m/uL Hgb 10.0 L (11.4-16.0) gm/dL Hct 31.1 L (34.0-46.0) % Plt Count 141 L (150-450) k/uL Neutrophils # (Manual) 10.60 H (1.3-7.7) k/uL Lymphocytes # (Manual) 35.26 H (1.0-4.8) k/uL BUN (7-17) mg/dL Creatinine (0.52-1.04) mg/dL Glucose (74-99) mg/dL POC Glucose (mg/dL) 207 H 213 H (75-99) mg/dL Calcium (8.4-10.2) mg/dL 08/22/18 08/22/18 Range/Units 05:28 06:12 WBC (3.8-10.6) k/uL RBC (3.80-5.40) m/uL Hgb (11.4-16.0) gm/dL Hct (34.0-46.0) % Plt Count (150-450) k/uL Neutrophils # (Manual) (1.3-7.7) k/uL Lymphocytes # (Manual) (1.0-4.8) k/uL BUN 91 H (7-17) mg/dL Creatinine 2.33 H (0.52-1.04) mg/dL Glucose 149 H (74-99) mg/dL POC Glucose (mg/dL) 190 H (75-99) mg/dL Calcium 7.5 L (8.4-10.2) mg/dL Microbiology - Last 24 Hours (Table) 08/16/18 21:15 Blood Culture - Preliminary Blood No Growth after 120 hours Assessment and Plan (1) Diastolic CHF Current Visit: Yes Status: Acute Code(s): I50.30 - UNSPECIFIED DIASTOLIC ( CONGESTIVE) HEART FAILURE SNOMED Code(s): 890586437 (2) CHF (congestive heart failure) Current Visit: No Status: Acute Code(s): I50.9 - HEART FAILURE, UNSPECIFIED SNOMED Code(s): 83718234 (3) COPD (chronic obstructive pulmonary disease) Current Visit: No Status: Acute Code(s): J44.9 - CHRONIC OBSTRUCTIVE PULMONARY DISEASE, UNSPECIFIED SNOMED Code(s): 05452779 (4) Diabetes mellitus type 2 with complications, uncontrolled Current Visit: No Status: Acute Code(s): E11.8 - TYPE 2 DIABETES MELLITUS WITH UNSPECIFIED COMPLICATIONS; E11.65 - TYPE 2 DIABETES MELLITUS WITH HYPERGLYCEMIA SNOMED Code(s): 953366286 (5) Pneumonia Current Visit: No Status: Acute Code(s): J18.9 - PNEUMONIA, UNSPECIFIED ORGANISM SNOMED Code(s): 146800062 Plan: Continue current medical therapy. Follow lytes closely. Follow the nephrology recommendations.
[2018-08-22 12:34] LABS: Glucose,Whole Blood 240 mg/dL (75-99)
--- NOTE | 2018-08-22 13:22 | P.PN ---
Subjective Progress Note Date: 08/22/18 Principal diagnosis: Acute diastolic congestive heart failure. Bilateral pleural effusions. This is a 53-year-old female with history of hypertension, diastolic congestive heart failure, chronic kidney disease, remote history of lymphoma, treated with chemotherapy, patient presented initially to [facility] with complaints of shortness of breath for the last few days. Chest x-ray in [place] showed pulmonary edema. Patient was given diuretics, placed on BiPAP, transferred to [facility], [facility], seen already by many consultants including cardiology and nephrology , and I was asked to see her on consultation. Since admission the patient has been feeling a bit better, breathing easier, and apparently has been responding to diuretics. Had a BNP level on admission was 22,400. Patient had recent echocardiogram in March showing good LV function with moderate tricuspid regurgitation and moderate to severe pulmonary hypertension. Patient remains on Lasix, and overall she has made a significant improvement since admission. Presently no cough, no wheezing, no fever, no chills, no hemoptysis, no chest pain. The patient is seen again today 08/18/2018 in follow-up on the selective care unit. She is currently awake and alert in no acute distress. He is still requiring 5 L high flow nasal cannula to maintain O2 saturations in the 90s. This could be titrated down. She did utilize the BiPAP throughout the evening. She is currently afebrile. White count 10.8. Hemoglobin 9.2. Creatinine 2.32. She is currently in a negative balance. She remains on IV Lasix 60 mg every 8 hours. The patient is seen again today 08/19/2018 in follow-up on the selective care unit. She is currently sitting up in a chair at the bedside. She is awake and alert in no acute distress. She is breathing easier today as compared to yesterday. She did utilize the BiPAP throughout the evening. She is currently maintaining O2 saturations in the 90s on 5 L/m per nasal cannula. She's afebrile. Blood and urine cultures reveal no growth. White count 19.7. Hemoglobin 9.8. Creatinine 2.37. He is continued on Lasix 60 mg IV every 8 hours. Remains on Zosyn, bronchodilators and IV Solu-Medrol. Patient is seen again today 08/20/2018 in follow-up on the selective care unit. She is awake and alert in no acute distress. She is currently sitting up in a chair at the bedside. She denies any worsening shortness of breath, cough or congestion. Chest x-ray showing improvement in the congestive heart failure. She's continuing to utilize 5 L/m per nasal cannula to maintain O2 saturations in the 90s. She's been afebrile. Hemodynamically stable. Blood and urine cultures reveal no growth. He remains on Lasix 60 mg IV push every 8 hours. Currently in a negative balance. White count 24.4. Hemoglobin 9.5. Creatinine 2.41. The patient is seen again today 08/21/2018 in follow-up on the selective care unit. She is currently sitting up in a chair at the bedside. She denies any worsening shortness of breath, cough or congestion. O2 has been weaned down to 2 L/m per nasal cannula is maintaining good O2 saturations in the upper 90s. She's been afebrile. White count 28. Possible steroid effect. Hemoglobin 9.8. Creatinine 2.45. No real improvement on chest x-ray findings. She remains on Zosyn. She is continued on diuretics. Tang catheter remains in place. She is 2900 mls negative balance following her dose of Lasix this morning. Clinically she is improved. The patient is seen again today 08/22/2018 in follow-up on the selective care unit. She is awake and alert in no acute distress. She is maintaining good O2 saturations in the 90s on room air. Remains afebrile. Chest x-ray shows continued effusion and some progressive infiltrate. White count up to 46.4. Lymphocytes up to 35.26. She is currently on Augmentin. Initial blood and urine cultures were negative. No diarrhea. Steroids were decreased. Objective - Vital Signs Vital signs: Vital Signs Temp 96.8 F L 08/22/18 08:00 Pulse 86 08/22/18 12:00 Resp 16 08/22/18 12:00 BP 172/83 08/22/18 12:00 Pulse Ox 97 08/22/18 12:00 Intake & Output 08/21/18 08/22/18 08/22/18 18:59 06:59 18:59 Intake Total 240 920 222 Output Total 5000 1225 2 Balance -4760 -305 220 Weight 102.2 kg Intake: IV 10 Invasive Line 2 10 Oral 230 920 222 Output: Urine 5000 1225 Stool 2 Other: Voiding Method Indwelling Catheter Indwelling Catheter - Exam GENERAL EXAM: Alert, active, comfortable in no apparent distress. HEAD: Normocephalic. EYES: Normal reaction of pupils, equal size. NOSE: Clear with pink turbinates. THROAT: No erythema or exudates. NECK: No masses, no JVD. CHEST: No chest wall deformity. Right Port-A-Cath in place. LUNGS: Equal air entry with rales in the posterior bases. CVS: S1 and S2 normal with no audible murmur, regular rhythm. ABDOMEN: No hepatosplenomegaly, normal bowel sounds, no guarding or rigidity. SPINE: No scoliosis or deformity SKIN: No rashes CENTRAL NERVOUS SYSTEM: No focal deficits, tone is normal in all 4 extremities. EXTREMITIES: There is no peripheral edema. No clubbing, no cyanosis. Peripheral pulses are intact. - Labs CBC & Chem 7: 08/22/18 05:28 08/22/18 05:28 Labs: Abnormal Lab Results - Last 24 Hours (Table) 08/21/18 08/21/18 08/22/18 Range/Units 16:49 20:46 05:28 WBC 46.4 H (3.8-10.6) k/uL RBC 3.31 L (3.80-5.40) m/uL Hgb 10.0 L (11.4-16.0) gm/dL Hct 31.1 L (34.0-46.0) % Plt Count 141 L (150-450) k/uL Neutrophils # (Manual) 10.60 H (1.3-7.7) k/uL Lymphocytes # (Manual) 35.26 H (1.0-4.8) k/uL BUN (7-17) mg/dL Creatinine (0.52-1.04) mg/dL Glucose (74-99) mg/dL POC Glucose (mg/dL) 207 H 213 H (75-99) mg/dL Calcium (8.4-10.2) mg/dL 08/22/18 08/22/18 08/22/18 Range/Units 05:28 06:12 12:12 WBC (3.8-10.6) k/uL RBC (3.80-5.40) m/uL Hgb (11.4-16.0) gm/dL Hct (34.0-46.0) % Plt Count (150-450) k/uL Neutrophils # (Manual) (1.3-7.7) k/uL Lymphocytes # (Manual) (1.0-4.8) k/uL BUN 91 H (7-17) mg/dL Creatinine 2.33 H (0.52-1.04) mg/dL Glucose 149 H (74-99) mg/dL POC Glucose (mg/dL) 190 H 240 H (75-99) mg/dL Calcium 7.5 L (8.4-10.2) mg/dL Microbiology - Last 24 Hours (Table) 08/16/18 21:15 Blood Culture - Preliminary Blood No Growth after 120 hours Assessment and Plan Assessment: Impression: 1 Acute hypoxic respiratory failure secondary to an acute exacerbation of chronic diastolic congestive heart failure. With pulmonary edema and bilateral pleural effusions. 2 history of COPD presently inactive, may or may not be contributing to some of her symptoms of shortness of breath. Very unlikely to be active at this point based on her history and based on her physical exam and chest x-ray findings. However would continue/bronchodilators. 3 Leukocytosis, leukemoid reaction with current leukocytes 46 and lymphocytes 35. No obvious signs of infection. history of lymphoma treated and presently in remission. Consider chronic lymphocytic leukemia. 4 chronic renal failure 5 chronic tobacco dependence. 6 hypertension. 7 diabetes mellitus, type II. 8 hyperlipidemia 9 history of non-Hodgkin's lymphoma 10 obesity 11 history of C. difficile colitis Plan: The patient was seen and evaluated by Dr. Lucero. Labs are reviewed. The patient has had progressive increasing white count up to 46 with leukocytes up to 35 now. No diarrhea but does have a history of C. difficile colitis. She does have a history of non-Hodgkin's lymphoma treated in the past. Possible chronic lymphocytic leukemia. We'll consult hematology/oncology. We'll discontinue the IV Solu-Medrol. Continue bronchodilators. Continue Augmentin. We'll continue to follow. I, the cosigning physician, performed a history & physical examination of the patient. Lungs sounds with crackles in the bilateral posterior bases. Maintaining good O2 saturations in the 90s on room air. I discussed the assessment and plan of care with my nurse practitioner, Elsie Johns. I attest to the above note as dictated by her.
[2018-08-22] MEDS ORDERED: IOPAMIDOL-300 CONTRAST 30 ML VIAL (ORAL USE) PO PRN (15:02)
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
[2018-08-22 16:40] LABS: Glucose,Whole Blood 289 mg/dL (75-99)
[2018-08-22 20:30] LABS: Glucose,Whole Blood 276 mg/dL (75-99)
[2018-08-22] MEDS: INSULIN DETEMIR 100 UNIT/ML 10 ML VIAL SQ SCH (21:03)
[2018-08-23 05:59] LABS: Glucose,Whole Blood 101 mg/dL (75-99)
[2018-08-23] MEDS: INSULIN ASPART 100 UNIT/ML 1 ML 10 ML VIAL SQ SCH ×7 (06:15→21:51)
[2018-08-23] MEDS: PANTOPRAZOLE 40 MG TABLET PO SCH (06:22)
[2018-08-23 07:07] LABS: Calcium 7.3 mg/dL (8.4-10.2); Magnesium 1.8 mg/dL (1.6-2.3)
[2018-08-23] MEDS: BUDESONIDE 1 MG/2 ML NEBU INHALATION SCH ×3 (07:43→19:19)
[2018-08-23] MEDS: FORMOTEROL FUMARATE 20 MCG/2 ML NEBU INHALATION SCH ×3 (07:43→19:19)
[2018-08-23] MEDS: IPRATROPIUM-ALBUTEROL 3 ML NEB INHALATION SCH ×5 (07:43→19:19)
[2018-08-23] MEDS: ASPIRIN 81 MG PO SCH (09:00)
[2018-08-23] MEDS: AMOXIC-POT CLAV 875-125MG 1 EACH TAB PO SCH ×2 (09:00→21:44)
[2018-08-23] MEDS: NYSTATIN 100,000 UNIT/GM POWD 15 GM TOPICAL SCH ×3 (09:00→21:46)
--- NOTE | 2018-08-23 09:57 | P.PN ---
Subjective Patient is seen in follow-up for acute kidney injury on chronic kidney disease. Patient has chronic kidney disease stage III with baseline creatinine in the range of 1.6-2 secondary to diabetic kidney disease and cardiorenal syndrome. Patient was hyperkalemic on admission which is now normalized. She was noted to have urinary retention and has a Tang catheter in place. Dyspnea has improved. She is currently maintained on Lasix 60 mg IV 2 times daily and metolazone 2.5 mg twice daily. She is noted to have diastolic CHF with moderate mitral regurgitation. Oral intake is fair. She is nonoliguric. Vital signs are stable. General: The patient appeared well nourished and normally developed. HEENT: Head exam is unremarkable. Neck is without jugular venous distension. LUNGS: Lungs are clear to auscultation and percussion. Breath sounds decreased. HEART: Rate and Rhythm are regular. First and second heart sounds normal. No murmurs, rubs or gallops. ABDOMEN: Abdominal exam reveals normal bowel sounds. Non-tender and non- distended. No evidence of peritonitis. EXTREMITITES: 1+ edema. Objective - Vital Signs Vital signs: Vital Signs Temp 97.2 F L 08/23/18 04:00 Pulse 69 08/23/18 04:00 Resp 18 08/23/18 04:00 BP 95/51 08/23/18 04:00 Pulse Ox 94 L 08/23/18 04:00 Intake & Output 08/22/18 08/23/18 08/23/18 18:59 06:59 18:59 Intake Total 942 1200 Output Total 1102 850 Balance -160 350 Weight 101.4 kg Intake: Oral 942 1200 Output: Urine 1100 850 Stool 2 Other: Voiding Method Indwelling Catheter Indwelling Catheter - Labs CBC & Chem 7: 08/22/18 05:28 08/23/18 06:07 Labs: Abnormal Lab Results - Last 24 Hours (Table) 08/22/18 08/22/18 08/22/18 Range/Units 05:28 12:12 16:33 Neutrophils # (Manual) 10.60 H (1.3-7.7) k/uL Lymphocytes # (Manual) 35.26 H (1.0-4.8) k/uL BUN (7-17) mg/dL Creatinine (0.52-1.04) mg/dL Glucose (74-99) mg/dL POC Glucose (mg/dL) 240 H 289 H (75-99) mg/dL Calcium (8.4-10.2) mg/dL 08/22/18 08/23/18 08/23/18 Range/Units 20:29 05:57 06:07 Neutrophils # (Manual) (1.3-7.7) k/uL Lymphocytes # (Manual) (1.0-4.8) k/uL BUN 103 H* (7-17) mg/dL Creatinine 2.24 H (0.52-1.04) mg/dL Glucose 73 L (74-99) mg/dL POC Glucose (mg/dL) 276 H 101 H (75-99) mg/dL Calcium 7.3 L (8.4-10.2) mg/dL Microbiology - Last 24 Hours (Table) 08/16/18 21:15 Blood Culture - Final Blood No Growth after 144 hours Assessment and Plan Plan: Assessment: 1. Nonoliguric acute kidney injury secondary to ATN secondary to cardiorenal syndrome/diuresis. Creatinine down to 2.24 today. BUN elevated which is partially related to IV steroids. 2. Chronic kidney disease stage III with baseline creatinine in the range of 1.6-2 secondary to nephrosclerosis and cardiorenal syndrome. 3. Hyperkalemia secondary to acute kidney injury, metabolic acidosis. Improved. 4. Metabolic acidosis secondary to chronic kidney disease. Improved. 5. Diastolic CHF with moderate mitral regurgitation. 6. Volume overload. Improving. 7. Anemia of chronic kidney disease. Iron replete. 8. Diabetes mellitus. 9. Urinary retention status post Tang catheter placement. 10. Hypertension with chronic kidney disease. Partially volume sensitive. Better. 11. Leukocytosis. No evidence of infection. She does have history of lymphoma. Oncology has been consulted. Plan: Maintain Lasix 60 mg IV twice daily. Maintain metolazone to 2.5 mg twice daily. 1.5 L fluid restriction. Maintain Aranesp. Phosphorus level at goal. Tight blood sugar control. Repeat electrolytes in the morning. Maintain current antihypertensives. Dose of amlodipine increased August 21. Hold if systolic blood pressure less than 120.
[2018-08-23 11:32] LABS: HCT 29.4 % (34.0-46.0); HGB 9.2 gm/dL (11.4-16.0); MCH 30.3 pg (25.0-35.0); MCHC 31.4 g/dL (31.0-37.0); MCV 96.4 fL (80.0-100.0); Mean Platelet Volume 7.7; Platelet Count 112 k/uL (150-450); RBC 3.05 m/uL (3.80-5.40); WBC 28.9 k/uL (3.8-10.6)
[2018-08-23 11:36] LABS: Glucose,Whole Blood 102 mg/dL (75-99)
--- NOTE | 2018-08-23 11:52 | P.PN ---
Subjective Progress Note Date: 08/23/18 Principal diagnosis: Acute congestive heart failure, diastolic in nature, with bilateral pleural effusions. This is a 53-year-old female with hypertension diastolic congestive heart failure, chronic kidney disease, history of lymphoma, treated with chemotherapy , patient was seen by us on consultation on 08/17/2018, and we have been recommending diuresis for her presentation of pulmonary edema. Patient had an echocardiogram. In March showing good LV function. Remains on Lasix, significantly improved since admission. However in the last few days we have been noticing leukocytosis with mostly lymphocytosis. And we have recommended hematology/oncology consultation. Patient was seen by oncology, and she is now being considered for PET scan, bone marrow biopsy, there is a concern about relapse of her lymphoma. In the meantime the patient continues to improve from the pulmonary perspective, less shortness of breath, less cough, less wheezing, she is on Augmentin for possible underlying pneumonitis, although the presentation was mostly a presentation of diastolic congestive heart failure with bilateral pleural effusions. WBC count today is 28.9 hemoglobin is 9.2, differential is pending. We took her off steroids yesterday, thinking that the steroids may be contributing to her leukocytosis. Her BUN is 103 creatinine 2.24, and that is being addressed by nephrology on the case. Objective - Vital Signs Vital signs: Vital Signs Temp 97.2 F L 08/23/18 04:00 Pulse 72 08/23/18 08:00 Resp 16 08/23/18 11:10 BP 122/57 08/23/18 08:00 Pulse Ox 96 08/23/18 08:00 Intake & Output 08/22/18 08/23/18 08/23/18 18:59 06:59 18:59 Intake Total 942 1200 Output Total 1102 850 Balance -160 350 Weight 101.4 kg Intake: Oral 942 1200 Output: Urine 1100 850 Stool 2 Other: Voiding Method Indwelling Catheter Indwelling Catheter Indwelling Catheter - Exam Physical Exam: Revealed a 53-year-old female in no distress. Head: Atraumatic, normocephalic. HEENT:[Neck is supple.] [No neck masses.] [No thyromegaly.] [No JVD.] PERRLA, EOMI, no icterus. Chest: [Diminished breath sounds at the bases, no crackles or rhonchi or wheezes..] Cardiac Exam: [Normal S1 and S2, no S3 gallop, no murmur.] Abdomen: [Soft, nontender, obese, no megaly, no rebound, no guarding, normal bowel sounds.] Extremities: [No clubbing, no edema, no cyanosis.] Neurological Exam: [No focal neurologic deficit.] Lymphatics: No lymphadenopathy was appreciated. - Labs CBC & Chem 7: 08/23/18 06:07 08/23/18 06:07 Labs: Abnormal Lab Results - Last 24 Hours (Table) 08/22/18 08/22/18 08/22/18 Range/Units 12:12 16:33 20:29 WBC (3.8-10.6) k/uL RBC (3.80-5.40) m/uL Hgb (11.4-16.0) gm/dL Hct (34.0-46.0) % RDW (11.5-15.5) % Plt Count (150-450) k/uL BUN (7-17) mg/dL Creatinine (0.52-1.04) mg/dL Glucose (74-99) mg/dL POC Glucose (mg/dL) 240 H 289 H 276 H (75-99) mg/dL Calcium (8.4-10.2) mg/dL 08/23/18 08/23/18 08/23/18 Range/Units 05:57 06:07 06:07 WBC 28.9 H (3.8-10.6) k/uL RBC 3.05 L (3.80-5.40) m/uL Hgb 9.2 L (11.4-16.0) gm/dL Hct 29.4 L (34.0-46.0) % RDW 16.0 H (11.5-15.5) % Plt Count 112 L (150-450) k/uL BUN 103 H* (7-17) mg/dL Creatinine 2.24 H (0.52-1.04) mg/dL Glucose 73 L (74-99) mg/dL POC Glucose (mg/dL) 101 H (75-99) mg/dL Calcium 7.3 L (8.4-10.2) mg/dL 08/23/18 Range/Units 11:34 WBC (3.8-10.6) k/uL RBC (3.80-5.40) m/uL Hgb (11.4-16.0) gm/dL Hct (34.0-46.0) % RDW (11.5-15.5) % Plt Count (150-450) k/uL BUN (7-17) mg/dL Creatinine (0.52-1.04) mg/dL Glucose (74-99) mg/dL POC Glucose (mg/dL) 102 H (75-99) mg/dL Calcium (8.4-10.2) mg/dL Microbiology - Last 24 Hours (Table) 08/16/18 21:15 Blood Culture - Final Blood No Growth after 144 hours Assessment and Plan Assessment: Impression: 1 acute hypoxic respiratory failure secondary to diastolic congestive heart failure and bilateral pleural effusions. 2 history of COPD, improving with bronchodilators. 3 multiple comorbidities including history of lymphoma, and now she has leukocytosis/lymphocytosis. Being addressed by oncology, chronic renal failure , tobacco dependence, hypertension, diabetes, and history of C. difficile colitis. Recommendation: Continue wasn't meds including diuretics, bronchodilators, antibiotics empirically, patient is being followed now by oncology, may have to consider bone marrow evaluation, PET scan, considering her renal failure, the patient could not have a CT of the chest abdomen and pelvis and neck with contrast. We'll continue to follow. Time with Patient: Less than 30
[2018-08-23] MEDS: NICOTINE 14MG/24HR PATCH TRANSDERM SCH (12:00)
[2018-08-23] MEDS: hydrALAZINE HCL 50 MG TAB PO SCH ×3 (12:00→21:50)
[2018-08-23] MEDS: METOLAZONE 2.5 MG TAB PO SCH ×2 (12:01→23:30)
[2018-08-23] MEDS: HEPARIN SODIUM,PORCINE 5,000 UNIT/ML 1 ML VIAL SQ SCH ×2 (12:01→21:44)
[2018-08-23] MEDS: METOPROLOL SUCCINATE (ER) 100 MG TAB.ER.24H PO SCH (12:01)
[2018-08-23] MEDS: amLODIPine 10 MG TAB PO SCH (12:03)
[2018-08-23] MEDS: FUROSEMIDE 10 MG/ML 10 ML VIAL IV SCH ×2 (12:03→21:51)
[2018-08-23 12:06] LABS: Eosinophils # (M) 0.29 k/uL (0-0.7); Lymphocytes # (M) 19.65 k/uL (1.0-4.8); Monocytes # (M) 0.58 k/uL (0-1.0); Neutrophils # (M) 8.38 k/uL (1.3-7.7); Neutrophils % (M) 29 %; Nucleated Red Blood Cells 0 /100 WBC (0-0); Total Cells Counted 100
[2018-08-23 12:14] LABS: Toxic Vacuolation Present
[2018-08-23 12:15] LABS: Poikilocytosis (M) Present; Polychromasia Present
--- NOTE | 2018-08-23 12:37 | P.PN ---
Subjective Progress Note Date: 08/23/18 This is a 59-year-old female who was admitted to the hospital with exacerbation of diastolic CHF and also acute renal failure. Patient is feeling much better. She is on IV Lasix along with metolazone. Catapres was added yesterday for blood pressure control. Overall patient blood pressure is better today. She' ll continue current medical therapy. Patient is also being followed by nephrology. 08/23/2018. The patient continues to respond to current therapy. She is feeling well this morning. Patient's blood pressure is well controlled. Catapres was discontinued. She denies any chest discomfort, shortness breath or palpitations. Remains in a sinus mechanism on the monitor. Objective - Vital Signs Vital signs: Vital Signs Temp 97.2 F L 08/23/18 04:00 Pulse 71 08/23/18 12:00 Resp 16 08/23/18 12:00 BP 134/59 08/23/18 12:00 Pulse Ox 99 08/23/18 12:00 Intake & Output 08/22/18 08/23/18 08/23/18 18:59 06:59 18:59 Intake Total 942 1200 Output Total 1102 850 Balance -160 350 Weight 101.4 kg Intake: Oral 942 1200 Output: Urine 1100 850 Stool 2 Other: Voiding Method Indwelling Catheter Indwelling Catheter Indwelling Catheter - Exam GENERAL EXAM: Patient is alert and oriented HEENT: Normocephalic. Normal reaction of pupils, equal size, normal range of extraocular motion. No erythema or exudates in the throat. NECK: No masses, no nuchal rigidity. CHEST: No chest wall deformity. LUNGS: Equal air entry with no crackles or wheeze. Dementia posteriorly basis HEART: S1 and S2 normal with no audible mumurs or gallops. Regular rhythm,.. ABDOMEN: No hepatosplenomegaly, normal bowel sounds, no guarding or rigidity. SKIN: No rashes CENTRAL NERVOUS SYSTEM: No focal deficits. EXTREMITIES: No cyanosis, 2+ lower extremity edema noted - Labs CBC & Chem 7: 08/23/18 06:07 08/23/18 06:07 Labs: Abnormal Lab Results - Last 24 Hours (Table) 08/22/18 08/22/18 08/22/18 Range/Units 12:12 16:33 20:29 WBC (3.8-10.6) k/uL RBC (3.80-5.40) m/uL Hgb (11.4-16.0) gm/dL Hct (34.0-46.0) % RDW (11.5-15.5) % Plt Count (150-450) k/uL Neutrophils # (Manual) (1.3-7.7) k/uL Lymphocytes # (Manual) (1.0-4.8) k/uL BUN (7-17) mg/dL Creatinine (0.52-1.04) mg/dL Glucose (74-99) mg/dL POC Glucose (mg/dL) 240 H 289 H 276 H (75-99) mg/dL Calcium (8.4-10.2) mg/dL 08/23/18 08/23/18 08/23/18 Range/Units 05:57 06:07 06:07 WBC 28.9 H (3.8-10.6) k/uL RBC 3.05 L (3.80-5.40) m/uL Hgb 9.2 L (11.4-16.0) gm/dL Hct 29.4 L (34.0-46.0) % RDW 16.0 H (11.5-15.5) % Plt Count 112 L (150-450) k/uL Neutrophils # (Manual) 8.38 H (1.3-7.7) k/uL Lymphocytes # (Manual) 19.65 H (1.0-4.8) k/uL BUN 103 H* (7-17) mg/dL Creatinine 2.24 H (0.52-1.04) mg/dL Glucose 73 L (74-99) mg/dL POC Glucose (mg/dL) 101 H (75-99) mg/dL Calcium 7.3 L (8.4-10.2) mg/dL 08/23/18 Range/Units 11:34 WBC (3.8-10.6) k/uL RBC (3.80-5.40) m/uL Hgb (11.4-16.0) gm/dL Hct (34.0-46.0) % RDW (11.5-15.5) % Plt Count (150-450) k/uL Neutrophils # (Manual) (1.3-7.7) k/uL Lymphocytes # (Manual) (1.0-4.8) k/uL BUN (7-17) mg/dL Creatinine (0.52-1.04) mg/dL Glucose (74-99) mg/dL POC Glucose (mg/dL) 102 H (75-99) mg/dL Calcium (8.4-10.2) mg/dL Microbiology - Last 24 Hours (Table) 08/16/18 21:15 Blood Culture - Final Blood No Growth after 144 hours Assessment and Plan Assessment: #1 congestive heart failure, acute on chronic, diastolic #2 chronic renal failure #3 hyperkalemia #4 nicotine dependence #5 acute exacerbation COPD, currently on Solu-Medrol #6 hypertension #7 diabetes #8 hyperlipidemia Plan: Continue with current medication regimen. No changes have been made today. Follow nephrology recommendations regarding diuretics and antihypertensives. We 'll continue to follow her closely.
--- NOTE | 2018-08-23 15:05 | P.PN ---
Subjective Progress Note Date: 08/21/18 Principal diagnosis: Acute COPD exacerbation Acute on chronic CHF with diastolic dysfunction Patient is a 53-year-old female with known history of COPD and nicotine addiction was admitted to the hospital for acute COPD exacerbation and CHF exacerbation. Patient is with acute hypoxic respiratory failure. 2-D echocardiogram showed ejection fraction 40-60%. Currently patient is on 5 L nasal cannula. Patient was on BiPAP previously. Pulmonary and cardiology as well as nephrology is following. Chest x-ray showed congestive heart failure with pleural effusions. 08/18/2018 Patient is still complaining of shortness of breath but slightly improved compared to yesterday. Off BiPAP machine currently and is on high flow nasal cannula. Patient is being continued on breathing treatments and steroids and antibiotics. Patient was given an extra dose of IV Lasix 80 mg today. Renal function slightly worsened with creatinine level 2.32. Nephrology is on board. No fever no chills. No other acute overnight issues. 08/19/2018 Patient says that her breathing is better. She did use BiPAP last night. Still requiring nasal cannula oxygen at 5 L. Continue to be on Lasix. Renal function is fairly stable at 37 creatinine level Patient has been afebrile. She'll have leukocytosis at 19.7. Blood cultures showed no growth so far. No fever no chills. No nausea vomiting or abdominal pain. 08/20/2018 Patient denied any complaints of chest pain. Patient stated is improving. Chest x-ray on 919 showed improvement in CHF. Otherwise patient is still requiring oxygen at 4 L/minute. Lasix dose has been decreased to 60 mg every 12. Creatinine slightly increased to 2.41 today. Cultures showed no growth. Conjunctivae on breathing treatments and IV steroids with Solu-Medrol 40 mg every 8 hourly. No fever no chills. No nausea vomiting or abdominal pain. Tolerating oral diet. 08/21/2018 Patient denied any complaints of chest pain or worsening shortness of breath. Currently saturating well on 2 L nausea cannula oxygen. Patient has been afebrile. Otherwise white count is trending up to 28 today. Possibly due to steroids. Creatinine is 2.45. Patient is being continued on IV Lasix. Chest x-ray showed no significant improvement. Continued on antibiotics in the form of Zosyn. Patient otherwise denied any new complaints. Overall clinically improving. All other review of systems negative except the above. Current medications reviewed Active Medications Generic Name Dose Route Start Last Admin Trade Name Freq PRN Reason Stop Dose Admin Acetaminophen 500 mg 08/16/18 19:31 Tylenol Tab PO Q6HR PRN Fever and/ or Mild Pain Hydrocodone Bitart/Acetaminophen 1 each 08/16/18 19:28 08/19/18 06:40 Hubbard 5-325 PO 1 each Q4HR PRN Administration Moderate Pain Albuterol/Ipratropium 3 ml 08/17/18 08:00 08/20/18 20:03 Duoneb 0.5 Mg-3 Mg/3 Ml Soln INHALATION 3 ml RT-QID ELVIRA Administration Albuterol/Ipratropium 3 ml 08/16/18 20:49 Duoneb 0.5 Mg-3 Mg/3 Ml Soln INHALATION RT-QID PRN Shortness Of Breath Or Wheezing Alprazolam 0.25 mg 08/16/18 19:28 08/20/18 20:36 Xanax PO 0.25 mg Q6HR PRN Administration Anxiety Amlodipine Besylate 10 mg 08/21/18 09:00 Norvasc PO DAILY ELVIRA Aspirin 81 mg 08/17/18 09:00 08/20/18 08:30 Aspirin PO 81 mg DAILY ELVIRA Administration Budesonide 1 mg 08/16/18 20:00 08/20/18 20:03 Pulmicort INHALATION 1 mg RT-BID ELVIRA Administration Darbepoetin Tom 40 mcg 08/17/18 09:15 08/17/18 15:10 Aranesp SQ 40 mcg Q7D ELVIRA Administration Formoterol Fumarate 20 mcg 08/16/18 20:00 08/20/18 20:03 Perforomist INHALATION 20 mcg RT-BID ELVIRA Administration Furosemide 60 mg 08/20/18 21:00 08/20/18 20:37 Lasix IV 60 mg Q12HR ELVIRA Administration Heparin Sodium (Porcine) 5,000 unit 08/16/18 21:00 08/20/18 20:37 Heparin SQ 5,000 unit Q12HR ELVIRA Administration Hydralazine HCl 100 mg 08/16/18 22:00 08/20/18 20:37 Apresoline PO 100 mg TID ELVIRA Administration Piperacillin/Tazobactam/ 50 mls @ 12.5 mls/hr 08/17/18 00:00 08/20/18 16:38 Dextrose 3.375 gm/ IV Solution IVPB 12.5 mls/hr Q8HR ELVIRA Administration Insulin Aspart 0 unit 08/16/18 21:00 08/20/18 20:45 Novolog SQ 4 unit ACHS ELVIRA Administration Protocol Insulin Aspart 7 unit 08/16/18 21:00 08/20/18 20:45 Novolog SQ 7 unit ACHS ELVIRA Administration Insulin Detemir 35 unit 08/16/18 21:00 08/20/18 21:48 Levemir SQ 35 unit HS ELVIRA Administration Melatonin 3 mg 08/16/18 19:28 Melatonin PO HS PRN Insomnia Methylprednisolone Sodium Succinate 40 mg 08/18/18 00:00 08/20/18 15:52 Solu-Medrol IV 40 mg Q8HR ELVIRA Administration Metolazone 2.5 mg 08/17/18 09:00 08/20/18 08:30 Zaroxolyn PO 2.5 mg DAILY ELVIRA Administration Metoprolol Succinate 100 mg 08/17/18 09:00 08/20/18 08:30 Toprol Xl PO 100 mg DAILY ELVIRA Administration Naloxone HCl 0.2 mg 08/16/18 19:28 Narcan IV Q2M PRN Opioid Reversal Nicotine 1 patch 08/17/18 09:00 08/20/18 08:29 Habitrol 14mg/24hr Patch TRANSDERM 1 patch DAILY ELVIRA Administration Nystatin 1 applic 08/16/18 22:00 08/20/18 21:59 Mycostatin Powder TOPICAL Not Given TID ELVIRA Ondansetron HCl 4 mg 08/16/18 20:53 Zofran PO Q6H PRN Nausea Pantoprazole Sodium 40 mg 08/19/18 07:30 08/20/18 07:10 Protonix PO 40 mg [id number] ELVIRA Administration Objective - Vital Signs Vital signs: Vital Signs Temp 97.9 F 08/21/18 11:16 Pulse 84 08/21/18 11:46 Resp 16 08/21/18 11:16 BP 176/77 08/21/18 11:16 Pulse Ox 98 08/21/18 11:16 Intake & Output 08/20/18 08/21/18 08/21/18 18:59 06:59 18:59 Intake Total 596 100 10 Output Total 7423 019 2320 Balance -406 -234 -2890 Weight 102.1 kg 102.1 kg Intake: IV 10 Invasive Line 2 10 Intake, IV Titration 100 Amount Piperacillin-Tazobactam 3 100 .375 gm In Dextrose/Water 1 50ml.bag @ 12.5 mls/hr IVPB Q8HR [facility] Rx#: [id number] Oral 596 Output: Urine 3650 621 4379 Stool 2 Other: Voiding Method Indwelling Catheter Indwelling Catheter # Bowel Movements 1 1 - Exam PHYSICAL EXAMINATION: Patient is lying in the bed comfortably, no acute distress, awake alert and oriented. Morbid obesity. HEENT: Normocephalic. Neck is supple. Pupils reactive. Nostrils clear. Oral cavity is moist. Ears reveal no drainage. Neck reveals no JVD, carotid bruits, or thyromegaly. CHEST EXAMINATION: Trachea is central. Symmetrical expansion. Bilateral rhonchi and improved wheezing and diminished basilar breath sounds and crackles. CARDIAC: Normal S1, S2 with no gallops. No murmurs ABDOMEN: Soft. Bowel sounds normal. No organomegaly. No abdominal bruits. Extremities: 3+ pitting edema. No clubbing or cyanosis Neurologically awake, alert, oriented x3 with well-coordinated movements. No focal deficits noted Skin: No rash or skin lesions. Psychiatric: Coperative. Nonsuicidal Musculoskeletal: No joint swelling or deformity. Normal range of motion. - Labs CBC & Chem 7: 08/23/18 06:07 08/23/18 06:07 Labs: Abnormal Lab Results - Last 24 Hours (Table) 08/20/18 08/20/18 08/20/18 Range/Units 12:05 17:11 20:18 WBC (3.8-10.6) k/uL RBC (3.80-5.40) m/uL Hgb (11.4-16.0) gm/dL Hct (34.0-46.0) % RDW (11.5-15.5) % Plt Count (150-450) k/uL Lymphocytes # (Manual) (1.0-4.8) k/uL BUN (7-17) mg/dL Creatinine (0.52-1.04) mg/dL Glucose (74-99) mg/dL POC Glucose (mg/dL) 106 H 198 H 246 H (75-99) mg/dL Calcium (8.4-10.2) mg/dL 08/21/18 08/21/18 08/21/18 Range/Units 05:50 05:50 05:52 WBC 28.3 H (3.8-10.6) k/uL RBC 3.21 L (3.80-5.40) m/uL Hgb 9.8 L (11.4-16.0) gm/dL Hct 30.0 L (34.0-46.0) % RDW 15.6 H (11.5-15.5) % Plt Count 137 L (150-450) k/uL Lymphocytes # (Manual) 21.79 H (1.0-4.8) k/uL BUN 82 H (7-17) mg/dL Creatinine 2.45 H (0.52-1.04) mg/dL Glucose 171 H (74-99) mg/dL POC Glucose (mg/dL) 200 H (75-99) mg/dL Calcium 7.4 L (8.4-10.2) mg/dL Microbiology - Last 24 Hours (Table) 08/16/18 21:15 Blood Culture - Preliminary Blood No Growth after 96 hours Assessment and Plan Assessment: Shortness of breath is multifactorial mainly due to CHF and also COPD Acute on chronic CHF with diastolic dysfunction with left pleural effusion Acute COPD exacerbation Significant leukocytosis likely due to steroids. Morbid obesity with a BMI 41.2 Possible bibasilar pneumonia Nonoliguric acute on chronic kidney disease. possibly ATN and cardiorenal History of asthma Diabetes type 2 Hypertension Hyperlipidemia History of non-Hodgkin's lymphoma Anxiety and depression Ongoing nicotine dependence History of C. diff colitis DVT prophylaxis with heparin subcu. Plan: Patient will be continued on IV Lasix 60 mg every 12 hourly along with metolazone. Monitor renal function. Oxygen therapy as needed and BiPAP as needed. Pulmonary cardiology and nephrology is following. Continue the steroids and breathing treatments and empiric antibiotics. Prognosis is extremely guarded and further recommendations based on the clinical course. Time with Patient: Greater than 30
--- NOTE | 2018-08-23 15:10 | P.PN ---
Subjective Progress Note Date: 08/22/18 Principal diagnosis: Acute COPD exacerbation Acute on chronic CHF with diastolic dysfunction Patient is a 53-year-old female with known history of COPD and nicotine addiction was admitted to the hospital for acute COPD exacerbation and CHF exacerbation. Patient is with acute hypoxic respiratory failure. 2-D echocardiogram showed ejection fraction 40-60%. Currently patient is on 5 L nasal cannula. Patient was on BiPAP previously. Pulmonary and cardiology as well as nephrology is following. Chest x-ray showed congestive heart failure with pleural effusions. 08/18/2018 Patient is still complaining of shortness of breath but slightly improved compared to yesterday. Off BiPAP machine currently and is on high flow nasal cannula. Patient is being continued on breathing treatments and steroids and antibiotics. Patient was given an extra dose of IV Lasix 80 mg today. Renal function slightly worsened with creatinine level 2.32. Nephrology is on board. No fever no chills. No other acute overnight issues. 08/19/2018 Patient says that her breathing is better. She did use BiPAP last night. Still requiring nasal cannula oxygen at 5 L. Continue to be on Lasix. Renal function is fairly stable at 37 creatinine level Patient has been afebrile. She'll have leukocytosis at 19.7. Blood cultures showed no growth so far. No fever no chills. No nausea vomiting or abdominal pain. 08/20/2018 Patient denied any complaints of chest pain. Patient stated is improving. Chest x-ray on 919 showed improvement in CHF. Otherwise patient is still requiring oxygen at 4 L/minute. Lasix dose has been decreased to 60 mg every 12. Creatinine slightly increased to 2.41 today. Cultures showed no growth. Conjunctivae on breathing treatments and IV steroids with Solu-Medrol 40 mg every 8 hourly. No fever no chills. No nausea vomiting or abdominal pain. Tolerating oral diet. 08/21/2018 Patient denied any complaints of chest pain or worsening shortness of breath. Currently saturating well on 2 L nausea cannula oxygen. Patient has been afebrile. Otherwise white count is trending up to 28 today. Possibly due to steroids. Creatinine is 2.45. Patient is being continued on IV Lasix. Chest x-ray showed no significant improvement. Continued on antibiotics in the form of Zosyn. Patient otherwise denied any new complaints. Overall clinically improving. 08/22/2018 Patient is clinically improving. Saturating well on 2 L nausea cannula. No fever no chills. No chest pain or shortness of breath. Swelling is improving. He is being continued on IV Lasix and metolazone. Nephrology and cardiology and pulmonary is following. Otherwise leukocytosis is trending up to 46.4. Likely due to steroids. Steroid dose has been decreased. Antibiotics were changed to Augmentin now. Patient was seen by oncology and recommended biopsy of the lymph nodes. CT chest and abdomen and pelvis could not be done due to renal function. No fever no chills. Cultures have been negative. No nausea vomiting or diarrhea. Tolerating oral diet. All other review of systems negative except the above. Current medications reviewed Active Medications Generic Name Dose Route Start Last Admin Trade Name Freq PRN Reason Stop Dose Admin Acetaminophen 500 mg 08/16/18 19:31 Tylenol Tab PO Q6HR PRN Fever and/ or Mild Pain Hydrocodone Bitart/Acetaminophen 1 each 08/16/18 19:28 08/19/18 06:40 [place] 5-325 PO 1 each Q4HR PRN Administration Moderate Pain Albuterol/Ipratropium 3 ml 08/17/18 08:00 08/20/18 20:03 Duoneb 0.5 Mg-3 Mg/3 Ml Soln INHALATION 3 ml RT-QID [facility] Administration Albuterol/Ipratropium 3 ml 08/16/18 20:49 Duoneb 0.5 Mg-3 Mg/3 Ml Soln INHALATION RT-QID PRN Shortness Of Breath Or Wheezing Alprazolam 0.25 mg 08/16/18 19:28 08/20/18 20:36 Xanax PO 0.25 mg Q6HR PRN Administration Anxiety Amlodipine Besylate 10 mg 08/21/18 09:00 Norvasc PO DAILY [facility] Aspirin 81 mg 08/17/18 09:00 08/20/18 08:30 Aspirin PO 81 mg DAILY [facility] Administration Budesonide 1 mg 08/16/18 20:00 08/20/18 20:03 Pulmicort INHALATION 1 mg RT-BID [facility] Administration Darbepoetin Tom 40 mcg 08/17/18 09:15 08/17/18 15:10 Aranesp SQ 40 mcg Q7D [facility] Administration Formoterol Fumarate 20 mcg 08/16/18 20:00 08/20/18 20:03 Perforomist INHALATION 20 mcg RT-BID [facility] Administration Furosemide 60 mg 08/20/18 21:00 08/20/18 20:37 Lasix IV 60 mg Q12HR [facility] Administration Heparin Sodium (Porcine) 5,000 unit 08/16/18 21:00 08/20/18 20:37 Heparin SQ 5,000 unit Q12HR [facility] Administration Hydralazine HCl 100 mg 08/16/18 22:00 08/20/18 20:37 Apresoline PO 100 mg TID [facility] Administration Piperacillin/Tazobactam/ 50 mls @ 12.5 mls/hr 08/17/18 00:00 08/20/18 16:38 Dextrose 3.375 gm/ IV Solution IVPB 12.5 mls/hr Q8HR [facility] Administration Insulin Aspart 0 unit 08/16/18 21:00 08/20/18 20:45 Novolog SQ 4 unit ACHS [facility] Administration Protocol Insulin Aspart 7 unit 08/16/18 21:00 08/20/18 20:45 Novolog SQ 7 unit ACHS [facility] Administration Insulin Detemir 35 unit 08/16/18 21:00 08/20/18 21:48 Levemir SQ 35 unit HS [facility] Administration Melatonin 3 mg 08/16/18 19:28 Melatonin PO HS PRN Insomnia Methylprednisolone Sodium Succinate 40 mg 08/18/18 00:00 08/20/18 15:52 Solu-Medrol IV 40 mg Q8HR [facility] Administration Metolazone 2.5 mg 08/17/18 09:00 08/20/18 08:30 Zaroxolyn PO 2.5 mg DAILY [facility] Administration Metoprolol Succinate 100 mg 08/17/18 09:00 08/20/18 08:30 Toprol Xl PO 100 mg DAILY [facility] Administration Naloxone HCl 0.2 mg 08/16/18 19:28 Narcan IV Q2M PRN Opioid Reversal Nicotine 1 patch 08/17/18 09:00 08/20/18 08:29 Habitrol 14mg/24hr Patch TRANSDERM 1 patch DAILY [facility] Administration Nystatin 1 applic 08/16/18 22:00 08/20/18 21:59 Mycostatin Powder TOPICAL Not Given TID [facility] Ondansetron HCl 4 mg 08/16/18 20:53 Zofran PO Q6H PRN Nausea Pantoprazole Sodium 40 mg 08/19/18 07:30 08/20/18 07:10 Protonix PO 40 mg AC-BRKFST [facility] Administration Objective - Vital Signs Vital signs: Vital Signs Temp 96.8 F L 08/22/18 08:00 Pulse 76 08/22/18 13:16 Resp 16 08/22/18 12:00 BP 172/83 08/22/18 12:00 Pulse Ox 97 08/22/18 12:00 Intake & Output 08/21/18 08/22/18 08/22/18 18:59 06:59 18:59 Intake Total 240 920 582 Output Total 5000 1225 1102 Balance -4760 -305 -520 Weight 102.2 kg Intake: IV 10 Invasive Line 2 10 Oral 230 920 582 Output: Urine 5000 1225 1100 Stool 2 Other: Voiding Method Indwelling Catheter Indwelling Catheter - Exam PHYSICAL EXAMINATION: Patient is lying in the bed comfortably, no acute distress, awake alert and oriented. Morbid obesity. HEENT: Normocephalic. Neck is supple. Pupils reactive. Nostrils clear. Oral cavity is moist. Ears reveal no drainage. Neck reveals no JVD, carotid bruits, or thyromegaly. CHEST EXAMINATION: Trachea is central. Symmetrical expansion. Bilateral air entry improved. Diminished bibasilar sounds. No wheezing. CARDIAC: Normal S1, S2 with no gallops. No murmurs ABDOMEN: Soft. Bowel sounds normal. No organomegaly. No abdominal bruits. Extremities: 3+ pitting edema. No clubbing or cyanosis Neurologically awake, alert, oriented x3 with well-coordinated movements. No focal deficits noted Skin: No rash or skin lesions. Psychiatric: Coperative. Nonsuicidal Musculoskeletal: No joint swelling or deformity. Normal range of motion. - Labs CBC & Chem 7: 08/23/18 06:07 08/23/18 06:07 Labs: Abnormal Lab Results - Last 24 Hours (Table) 08/21/18 08/21/18 08/22/18 Range/Units 16:49 20:46 05:28 WBC 46.4 H (3.8-10.6) k/uL RBC 3.31 L (3.80-5.40) m/uL Hgb 10.0 L (11.4-16.0) gm/dL Hct 31.1 L (34.0-46.0) % Plt Count 141 L (150-450) k/uL Neutrophils # (Manual) 10.60 H (1.3-7.7) k/uL Lymphocytes # (Manual) 35.26 H (1.0-4.8) k/uL BUN (7-17) mg/dL Creatinine (0.52-1.04) mg/dL Glucose (74-99) mg/dL POC Glucose (mg/dL) 207 H 213 H (75-99) mg/dL Calcium (8.4-10.2) mg/dL 08/22/18 08/22/18 08/22/18 Range/Units 05:28 06:12 12:12 WBC (3.8-10.6) k/uL RBC (3.80-5.40) m/uL Hgb (11.4-16.0) gm/dL Hct (34.0-46.0) % Plt Count (150-450) k/uL Neutrophils # (Manual) (1.3-7.7) k/uL Lymphocytes # (Manual) (1.0-4.8) k/uL BUN 91 H (7-17) mg/dL Creatinine 2.33 H (0.52-1.04) mg/dL Glucose 149 H (74-99) mg/dL POC Glucose (mg/dL) 190 H 240 H (75-99) mg/dL Calcium 7.5 L (8.4-10.2) mg/dL Microbiology - Last 24 Hours (Table) 08/16/18 21:15 Blood Culture - Preliminary Blood No Growth after 120 hours Assessment and Plan Assessment: Shortness of breath is multifactorial mainly due to CHF and also COPD Acute on chronic CHF with diastolic dysfunction with left pleural effusion Acute COPD exacerbation Significant leukocytosis likely due to steroids. Elevated BUN. Prerenal azotemia from steroids. Morbid obesity with a BMI 41.2 Possible bibasilar pneumonia Nonoliguric acute on chronic kidney disease. possibly ATN and cardiorenal History of asthma Diabetes type 2 Hypertension Hyperlipidemia History of non-Hodgkin's lymphoma Anxiety and depression Ongoing nicotine dependence History of C. diff colitis DVT prophylaxis with heparin subcu. Plan: Patient will be continued on IV Lasix 60 mg every 12 hourly along with metolazone. Monitor renal function. Oxygen therapy as needed and BiPAP as needed. Pulmonary cardiology and nephrology is following. Continue the steroids and breathing treatments and empiric antibiotics, changed to by mouth.. Prognosis is extremely guarded and further recommendations based on the clinical course. Time with Patient: Greater than 30
--- NOTE | 2018-08-23 15:17 | P.PN ---
Subjective Progress Note Date: 08/23/18 Principal diagnosis: Acute COPD exacerbation Acute on chronic CHF with diastolic dysfunction Patient is a 53-year-old female with known history of COPD and nicotine addiction was admitted to the hospital for acute COPD exacerbation and CHF exacerbation. Patient is with acute hypoxic respiratory failure. 2-D echocardiogram showed ejection fraction 40-60%. Currently patient is on 5 L nasal cannula. Patient was on BiPAP previously. Pulmonary and cardiology as well as nephrology is following. Chest x-ray showed congestive heart failure with pleural effusions. 08/18/2018 Patient is still complaining of shortness of breath but slightly improved compared to yesterday. Off BiPAP machine currently and is on high flow nasal cannula. Patient is being continued on breathing treatments and steroids and antibiotics. Patient was given an extra dose of IV Lasix 80 mg today. Renal function slightly worsened with creatinine level 2.32. Nephrology is on board. No fever no chills. No other acute overnight issues. 08/19/2018 Patient says that her breathing is better. She did use BiPAP last night. Still requiring nasal cannula oxygen at 5 L. Continue to be on Lasix. Renal function is fairly stable at 37 creatinine level Patient has been afebrile. She'll have leukocytosis at 19.7. Blood cultures showed no growth so far. No fever no chills. No nausea vomiting or abdominal pain. 08/20/2018 Patient denied any complaints of chest pain. Patient stated is improving. Chest x-ray on 919 showed improvement in CHF. Otherwise patient is still requiring oxygen at 4 L/minute. Lasix dose has been decreased to 60 mg every 12. Creatinine slightly increased to 2.41 today. Cultures showed no growth. Conjunctivae on breathing treatments and IV steroids with Solu-Medrol 40 mg every 8 hourly. No fever no chills. No nausea vomiting or abdominal pain. Tolerating oral diet. 08/21/2018 Patient denied any complaints of chest pain or worsening shortness of breath. Currently saturating well on 2 L nausea cannula oxygen. Patient has been afebrile. Otherwise white count is trending up to 28 today. Possibly due to steroids. Creatinine is 2.45. Patient is being continued on IV Lasix. Chest x-ray showed no significant improvement. Continued on antibiotics in the form of Zosyn. Patient otherwise denied any new complaints. Overall clinically improving. 08/22/2018 Patient is clinically improving. Saturating well on 2 L nausea cannula. No fever no chills. No chest pain or shortness of breath. Swelling is improving. He is being continued on IV Lasix and metolazone. Nephrology and cardiology and pulmonary is following. Otherwise leukocytosis is trending up to 46.4. Likely due to steroids. Steroid dose has been decreased. Antibiotics were changed to Augmentin now. Patient was seen by oncology and recommended biopsy of the lymph nodes. CT chest and abdomen and pelvis could not be done due to renal function. No fever no chills. Cultures have been negative. No nausea vomiting or diarrhea. Tolerating oral diet. 08/23/2018 Patient is currently saturating well on 2 L nausea cannula. Complains of itching bilateral hands. No fever no chills. Shortness of breath is much improved. Renal function improved with creatinine level II.2 today. Leukocytosis improved as well. WBC count 28. patient is being continued on IV Lasix and antibiotics in the form of Augmentin. Pulmonary and nephrology and cardiology is following. No nausea vomiting or abdominal pain or diarrhea. All other review of systems negative except the above. Current medications reviewed Active Medications Active Medications Acetaminophen (Tylenol Tab) 500 mg PO Q6HR PRN PRN Reason: Fever and/ or Mild Pain Hydrocodone Bitart/Acetaminophen ([place] 5-325) 1 each PO Q4HR PRN PRN Reason: Moderate Pain Last Admin: 08/19/18 06:40 Dose: 1 each Albuterol/Ipratropium (Duoneb 0.5 Mg-3 Mg/3 Ml Soln) 3 ml INHALATION RT-QID [facility] Last Admin: 08/23/18 11:23 Dose: Not Given Albuterol/Ipratropium (Duoneb 0.5 Mg-3 Mg/3 Ml Soln) 3 ml INHALATION RT-QID PRN PRN Reason: Shortness Of Breath Or Wheezing Alprazolam (Xanax) 0.25 mg PO Q6HR PRN PRN Reason: Anxiety Last Admin: 08/21/18 07:52 Dose: 0.25 mg Amlodipine Besylate (Norvasc) 10 mg PO DAILY [facility] Last Admin: 08/23/18 12:03 Dose: 10 mg Amoxicillin/Clavulanate Potassium (Augmentin 875-125) 1 each PO Q12HR [facility] Last Admin: 08/23/18 09:00 Dose: 1 each Aspirin (Aspirin) 81 mg PO DAILY [facility] Last Admin: 08/23/18 09:00 Dose: 81 mg Budesonide (Pulmicort) 1 mg INHALATION RT-BID [facility] Last Admin: 08/23/18 08:32 Dose: Not Given Darbepoetin Tom (Aranesp) 40 mcg SQ Q7D [facility] Last Admin: 08/17/18 15:10 Dose: 40 mcg Formoterol Fumarate (Perforomist) 20 mcg INHALATION RT-BID [facility] Last Admin: 08/23/18 08:33 Dose: Not Given Furosemide (Lasix) 60 mg IV Q12HR [facility] Last Admin: 08/23/18 12:03 Dose: 60 mg Heparin Sodium (Porcine) (Heparin) 5,000 unit SQ Q12HR [facility] Last Admin: 08/23/18 12:01 Dose: 5,000 unit Hydralazine HCl (Apresoline) 100 mg PO TID [facility] Last Admin: 08/23/18 12:00 Dose: 100 mg Insulin Aspart (Novolog) 0 unit SQ ACHS [facility]; Protocol Last Admin: 08/23/18 12:02 Dose: Not Given Insulin Aspart (Novolog) 7 unit SQ ACHS [facility] Last Admin: 08/23/18 12:01 Dose: 7 unit Insulin Detemir (Levemir) 35 unit SQ HS [facility] Last Admin: 08/22/18 21:03 Dose: 35 unit Melatonin (Melatonin) 3 mg PO HS PRN PRN Reason: Insomnia Metolazone (Zaroxolyn) 2.5 mg PO BID [facility] Last Admin: 08/23/18 12:01 Dose: 2.5 mg Metoprolol Succinate (Toprol Xl) 100 mg PO DAILY [facility] Last Admin: 08/23/18 12:01 Dose: 100 mg Naloxone HCl (Narcan) 0.2 mg IV Q2M PRN PRN Reason: Opioid Reversal Nicotine (Habitrol 14mg/24hr Patch) 1 patch TRANSDERM DAILY [facility] Last Admin: 08/23/18 12:00 Dose: 1 patch Nystatin (Mycostatin Powder) 1 applic TOPICAL TID [facility] Last Admin: 08/23/18 09:00 Dose: 1 applic Ondansetron HCl (Zofran) 4 mg PO Q6H PRN PRN Reason: Nausea Pantoprazole Sodium (Protonix) 40 mg PO AC-BRKFST [facility] Last Admin: 08/23/18 06:22 Dose: 40 mg Objective - Vital Signs Vital signs: Vital Signs Temp 97.2 F L 08/23/18 04:00 Pulse 71 08/23/18 12:00 Resp 16 08/23/18 12:00 BP 134/59 08/23/18 12:00 Pulse Ox 99 08/23/18 12:00 Intake & Output 08/22/18 08/23/18 08/23/18 18:59 06:59 18:59 Intake Total 942 1200 444 Output Total 1102 850 700 Balance -160 350 -256 Weight 101.4 kg 101.9 kg Intake: Oral 942 1200 444 Output: Urine 1100 850 700 Stool 2 Other: Voiding Method Indwelling Catheter Indwelling Catheter Indwelling Catheter # Bowel Movements 1 - Exam PHYSICAL EXAMINATION: Patient is lying in the bed comfortably, no acute distress, awake alert and oriented. Morbid obesity. HEENT: Normocephalic. Neck is supple. Pupils reactive. Nostrils clear. Oral cavity is moist. Ears reveal no drainage. Neck reveals no JVD, carotid bruits, or thyromegaly. CHEST EXAMINATION: Trachea is central. Symmetrical expansion. Bilateral air entry improved. Diminished bibasilar sounds. No wheezing. CARDIAC: Normal S1, S2 with no gallops. No murmurs ABDOMEN: Soft. Bowel sounds normal. No organomegaly. No abdominal bruits. Extremities: 3+ pitting edema. No clubbing or cyanosis Neurologically awake, alert, oriented x3 with well-coordinated movements. No focal deficits noted Skin: No rash or skin lesions. Psychiatric: Coperative. Nonsuicidal Musculoskeletal: No joint swelling or deformity. Normal range of motion. - Labs CBC & Chem 7: 08/23/18 06:07 08/23/18 06:07 Labs: Abnormal Lab Results - Last 24 Hours (Table) 08/22/18 08/22/18 08/23/18 Range/Units 16:33 20:29 05:57 WBC (3.8-10.6) k/uL RBC (3.80-5.40) m/uL Hgb (11.4-16.0) gm/dL Hct (34.0-46.0) % RDW (11.5-15.5) % Plt Count (150-450) k/uL Neutrophils # (Manual) (1.3-7.7) k/uL Lymphocytes # (Manual) (1.0-4.8) k/uL BUN (7-17) mg/dL Creatinine (0.52-1.04) mg/dL Glucose (74-99) mg/dL POC Glucose (mg/dL) 289 H 276 H 101 H (75-99) mg/dL Calcium (8.4-10.2) mg/dL 08/23/18 08/23/18 08/23/18 Range/Units 06:07 06:07 11:34 WBC 28.9 H (3.8-10.6) k/uL RBC 3.05 L (3.80-5.40) m/uL Hgb 9.2 L (11.4-16.0) gm/dL Hct 29.4 L (34.0-46.0) % RDW 16.0 H (11.5-15.5) % Plt Count 112 L (150-450) k/uL Neutrophils # (Manual) 8.38 H (1.3-7.7) k/uL Lymphocytes # (Manual) 19.65 H (1.0-4.8) k/uL BUN 103 H* (7-17) mg/dL Creatinine 2.24 H (0.52-1.04) mg/dL Glucose 73 L (74-99) mg/dL POC Glucose (mg/dL) 102 H (75-99) mg/dL Calcium 7.3 L (8.4-10.2) mg/dL Microbiology - Last 24 Hours (Table) 08/16/18 21:15 Blood Culture - Final Blood No Growth after 144 hours Assessment and Plan Assessment: Shortness of breath is multifactorial mainly due to CHF and also COPD Acute on chronic CHF with diastolic dysfunction with left pleural effusion Acute COPD exacerbation Significant leukocytosis likely due to steroids. Elevated BUN. Prerenal azotemia from steroids. History of mantle cell lymphoma. Morbid obesity with a BMI 41.2 Possible bibasilar pneumonia Nonoliguric acute on chronic kidney disease. possibly ATN and cardiorenal History of asthma Diabetes type 2 Hypertension Hyperlipidemia History of non-Hodgkin's lymphoma Anxiety and depression Ongoing nicotine dependence History of C. diff colitis DVT prophylaxis with heparin subcu. Plan: Patient will be continued on IV Lasix 60 mg every 12 hourly along with metolazone. Monitor renal function. Oxygen therapy as needed and BiPAP as needed. Pulmonary cardiology and nephrology is following. Continue the steroids and breathing treatments and empiric antibiotics, changed to by mouth.. Prognosis is extremely guarded and further recommendations based on the clinical course. Time with Patient: Greater than 30
[2018-08-23 16:35] LABS: Glucose,Whole Blood 118 mg/dL (75-99)
[2018-08-23 20:40] LABS: Glucose,Whole Blood 120 mg/dL (75-99)
[2018-08-23] MEDS: INSULIN DETEMIR 100 UNIT/ML 10 ML VIAL SQ SCH (21:51)
[2018-08-24 06:17] LABS: Glucose,Whole Blood 44 mg/dL (75-99)
[2018-08-24 06:32] LABS: Glucose,Whole Blood 69 mg/dL (75-99)
[2018-08-24 06:46] LABS: Calcium 7.3 mg/dL (8.4-10.2); Magnesium 1.8 mg/dL (1.6-2.3); Potassium 3.8 mmol/L (3.5-5.1)
[2018-08-24 06:57] LABS: Glucose,Whole Blood 60 mg/dL (75-99)
[2018-08-24] MEDS: INSULIN ASPART 100 UNIT/ML 1 ML 10 ML VIAL SQ SCH ×9 (07:04→20:48)
[2018-08-24] MEDS: PANTOPRAZOLE 40 MG TABLET PO SCH (07:04)
[2018-08-24 08:03] LABS: Glucose,Whole Blood 99 mg/dL (75-99)
--- NOTE | 2018-08-24 08:26 | P.PN ---
Subjective Patient is seen in follow-up for acute kidney injury on chronic kidney disease. Patient has chronic kidney disease stage III with baseline creatinine in the range of 1.6-2 secondary to diabetic kidney disease and cardiorenal syndrome. Patient was hyperkalemic on admission which is now normalized. She was noted to have urinary retention and has a Tang catheter in place. Dyspnea has improved. She is currently maintained on Lasix 60 mg IV 2 times daily. She is noted to have diastolic CHF with moderate mitral regurgitation. Oral intake is fair. She is nonoliguric. States she had diarrhea last night. Vital signs are stable. General: The patient appeared well nourished and normally developed. HEENT: Head exam is unremarkable. Neck is without jugular venous distension. LUNGS: Lungs are clear to auscultation and percussion. Breath sounds decreased. HEART: Rate and Rhythm are regular. First and second heart sounds normal. No murmurs, rubs or gallops. ABDOMEN: Abdominal exam reveals normal bowel sounds. Non-tender and non- distended. No evidence of peritonitis. EXTREMITITES: Trace edema. Objective - Vital Signs Vital signs: Vital Signs Temp 97.0 F L 08/24/18 04:00 Pulse 78 08/24/18 04:00 Resp 18 08/24/18 04:00 BP 137/61 08/24/18 04:00 Pulse Ox 93 L 08/24/18 04:00 Intake & Output 08/23/18 08/24/18 08/24/18 18:59 06:59 18:59 Intake Total 666 240 Output Total 701 1404 900 Balance -35 -1404 -660 Weight 101.9 kg 100.2 kg Intake: Oral 666 240 Output: Urine 700 1400 900 Stool 1 4 Other: Voiding Method Indwelling Catheter Indwelling Catheter # Voids 250 # Bowel Movements 1 1 - Labs CBC & Chem 7: 08/23/18 06:07 08/24/18 06:05 Labs: Abnormal Lab Results - Last 24 Hours (Table) 08/23/18 08/23/18 08/23/18 Range/Units 06:07 11:34 16:29 WBC 28.9 H (3.8-10.6) k/uL RBC 3.05 L (3.80-5.40) m/uL Hgb 9.2 L (11.4-16.0) gm/dL Hct 29.4 L (34.0-46.0) % RDW 16.0 H (11.5-15.5) % Plt Count 112 L (150-450) k/uL Neutrophils # (Manual) 8.38 H (1.3-7.7) k/uL Lymphocytes # (Manual) 19.65 H (1.0-4.8) k/uL Sodium (137-145) mmol/L BUN (7-17) mg/dL Creatinine (0.52-1.04) mg/dL Glucose (74-99) mg/dL POC Glucose (mg/dL) 102 H 118 H (75-99) mg/dL Calcium (8.4-10.2) mg/dL 08/23/18 08/24/18 08/24/18 Range/Units 20:38 06:05 06:11 WBC (3.8-10.6) k/uL RBC (3.80-5.40) m/uL Hgb (11.4-16.0) gm/dL Hct (34.0-46.0) % RDW (11.5-15.5) % Plt Count (150-450) k/uL Neutrophils # (Manual) (1.3-7.7) k/uL Lymphocytes # (Manual) (1.0-4.8) k/uL Sodium 134 L (137-145) mmol/L BUN 105 H* (7-17) mg/dL Creatinine 2.04 H (0.52-1.04) mg/dL Glucose 38 L* (74-99) mg/dL POC Glucose (mg/dL) 120 H 44 L (75-99) mg/dL Calcium 7.3 L (8.4-10.2) mg/dL 18 08/24/18 Range/Units 06:31 06:55 WBC (3.8-10.6) k/uL RBC (3.80-5.40) m/uL Hgb (11.4-16.0) gm/dL Hct (34.0-46.0) % RDW (11.5-15.5) % Plt Count (150-450) k/uL Neutrophils # (Manual) (1.3-7.7) k/uL Lymphocytes # (Manual) (1.0-4.8) k/uL Sodium (137-145) mmol/L BUN (7-17) mg/dL Creatinine (0.52-1.04) mg/dL Glucose (74-99) mg/dL POC Glucose (mg/dL) 69 L 60 L (75-99) mg/dL Calcium (8.4-10.2) mg/dL Assessment and Plan Plan: Assessment: 1. Nonoliguric acute kidney injury secondary to ATN secondary to cardiorenal syndrome/diuresis. Creatinine down to 2.04 today. BUN elevated which is partially related to IV steroids, which are now discontinued. 2. Chronic kidney disease stage III with baseline creatinine in the range of 1.6-2 secondary to nephrosclerosis and cardiorenal syndrome. 3. Hyperkalemia secondary to acute kidney injury, metabolic acidosis. Improved. 4. Metabolic acidosis secondary to chronic kidney disease. Improved. 5. Diastolic CHF with moderate mitral regurgitation. 6. Volume overload. Improving. 7. Anemia of chronic kidney disease. Iron replete. 8. Diabetes mellitus. 9. Urinary retention status post Tang catheter placement. 10. Hypertension with chronic kidney disease. Partially volume sensitive. Better. 11. Leukocytosis. No evidence of infection. She does have history of lymphoma. Oncology has been consulted. 12. Diarrhea. C. diff pending. Plan: I will decrease Lasix to 40 mg IV twice daily. Discontinue metolazone. 1.5 L fluid restriction. Maintain Aranesp. Phosphorus level at goal. Tight blood sugar control. Repeat electrolytes in the morning. Maintain current antihypertensives. Dose of amlodipine increased August 21. Hold if systolic blood pressure less than 120.
[2018-08-24] MEDS: FORMOTEROL FUMARATE 20 MCG/2 ML NEBU INHALATION SCH ×2 (08:40→19:24)
[2018-08-24] MEDS: BUDESONIDE 1 MG/2 ML NEBU INHALATION SCH ×2 (08:40→19:24)
[2018-08-24] MEDS: IPRATROPIUM-ALBUTEROL 3 ML NEB INHALATION SCH ×4 (08:40→19:24)
[2018-08-24] MEDS: HYDROcodone/APAP 5-325MG 1 EACH TAB PO PRN (10:08)
[2018-08-24] MEDS: ALPRAZolam 0.25 MG TAB PO PRN (10:09)
[2018-08-24] MEDS: ASPIRIN 81 MG PO SCH (10:10)
[2018-08-24] MEDS: amLODIPine 10 MG TAB PO SCH (10:10)
[2018-08-24] MEDS: AMOXIC-POT CLAV 875-125MG 1 EACH TAB PO SCH ×2 (10:10→20:42)
[2018-08-24] MEDS: NYSTATIN 100,000 UNIT/GM POWD 15 GM TOPICAL SCH ×3 (10:10→20:43)
[2018-08-24] MEDS: HEPARIN SODIUM,PORCINE 5,000 UNIT/ML 1 ML VIAL SQ SCH ×2 (10:11→20:42)
[2018-08-24] MEDS: NICOTINE 14MG/24HR PATCH TRANSDERM SCH (10:11)
[2018-08-24] MEDS: hydrALAZINE HCL 50 MG TAB PO SCH ×3 (10:11→20:43)
[2018-08-24] MEDS: METOPROLOL SUCCINATE (ER) 100 MG TAB.ER.24H PO SCH (10:11)
[2018-08-24 11:12] LABS: HCT 28.3 % (34.0-46.0); HGB 9.3 gm/dL (11.4-16.0); MCH 30.4 pg (25.0-35.0); MCHC 32.9 g/dL (31.0-37.0); MCV 92.4 fL (80.0-100.0); Mean Platelet Volume 7.3; Platelet Count 112 k/uL (150-450); RBC 3.06 m/uL (3.80-5.40); RDW 15.5 % (11.5-15.5); WBC 32.4 k/uL (3.8-10.6)
--- NOTE | 2018-08-24 11:13 | P.PN ---
Subjective Progress Note Date: 08/24/18 Principal diagnosis: mantle Cell Lymphoma Seen and evaluated today, appears in pain. She has not established care with another oncologist which has been told to her last hospital visit as well as 2 years ago. Objective - Vital Signs Vital signs: Vital Signs Temp 97.3 F L 08/24/18 08:00 Pulse 86 08/24/18 08:00 Resp 16 08/24/18 08:00 BP 156/68 08/24/18 08:00 Pulse Ox 94 L 08/24/18 08:00 Intake & Output 08/23/18 08/24/18 08/24/18 18:59 06:59 18:59 Intake Total 666 240 Output Total 701 1404 900 Balance -35 -1404 -660 Weight 101.9 kg 100.2 kg Intake: Oral 666 240 Output: Urine 700 1400 900 Stool 1 4 Other: Voiding Method Indwelling Catheter Indwelling Catheter Indwelling Catheter # Voids 250 # Bowel Movements 1 1 - Exam Gen.: No acute distress HEENT: Mucosa moist Lymph nodes: She does have bilateral small cervical LAD and left axillary mobile LAD, about 2-3 cm in size (at least 2 LN's palpable). No obvious inguinal lymphadenopathy although exam was difficult as she was not able to lay down and body habitus limited exam. Lungs: CTAB. Heart: RRR. No edema. Abdomen: Soft, nontender, nondistended, with positive bowel sounds. No hepatosplenomegaly however very limited exam due to body habitus. MSK: 4/4 strength in all 4 extremities. Neuro: Alert and oriented 3. No obvious neurologic deficits. Skin: No jaundice or rash. Psych: Appropriate affect. - Labs CBC & Chem 7: 08/23/18 06:07 08/24/18 06:05 Labs: Abnormal Lab Results - Last 24 Hours (Table) 08/23/18 08/23/18 08/23/18 Range/Units 06:07 11:34 16:29 WBC 28.9 H (3.8-10.6) k/uL RBC 3.05 L (3.80-5.40) m/uL Hgb 9.2 L (11.4-16.0) gm/dL Hct 29.4 L (34.0-46.0) % RDW 16.0 H (11.5-15.5) % Plt Count 112 L (150-450) k/uL Neutrophils # (Manual) 8.38 H (1.3-7.7) k/uL Lymphocytes # (Manual) 19.65 H (1.0-4.8) k/uL Sodium (137-145) mmol/L BUN (7-17) mg/dL Creatinine (0.52-1.04) mg/dL Glucose (74-99) mg/dL POC Glucose (mg/dL) 102 H 118 H (75-99) mg/dL Calcium (8.4-10.2) mg/dL 08/23/18 08/24/18 08/24/18 Range/Units 20:38 06:05 06:11 WBC (3.8-10.6) k/uL RBC (3.80-5.40) m/uL Hgb (11.4-16.0) gm/dL Hct (34.0-46.0) % RDW (11.5-15.5) % Plt Count (150-450) k/uL Neutrophils # (Manual) (1.3-7.7) k/uL Lymphocytes # (Manual) (1.0-4.8) k/uL Sodium 134 L (137-145) mmol/L BUN 105 H* (7-17) mg/dL Creatinine 2.04 H (0.52-1.04) mg/dL Glucose 38 L* (74-99) mg/dL POC Glucose (mg/dL) 120 H 44 L (75-99) mg/dL Calcium 7.3 L (8.4-10.2) mg/dL 18 08/24/18 Range/Units 06:31 06:55 WBC (3.8-10.6) k/uL RBC (3.80-5.40) m/uL Hgb (11.4-16.0) gm/dL Hct (34.0-46.0) % RDW (11.5-15.5) % Plt Count (150-450) k/uL Neutrophils # (Manual) (1.3-7.7) k/uL Lymphocytes # (Manual) (1.0-4.8) k/uL Sodium (137-145) mmol/L BUN (7-17) mg/dL Creatinine (0.52-1.04) mg/dL Glucose (74-99) mg/dL POC Glucose (mg/dL) 69 L 60 L (75-99) mg/dL Calcium (8.4-10.2) mg/dL Assessment and Plan Plan: Assessment and Plan Assessment: 1. Leukocytosis, lymphocytosis 2. COPD exacerbation 3. Pneumonia 4. Diastolic heart failure 5. Chronic anemia and thrombocytopenia 6. History of mantle cell lymphoma 7. Acute Renal Insufficiency Plan: Ms. Melendez is a 53-year-old female with a history of mantle cell lymphoma status post chemotherapy, no evidence of disease since completion of her therapy in 2016, who is here for shortness of breath due to pneumonia and COPD exacerbation.In 2016, she was discharged from the practice due to non-adherence and no-shows for follow-ups. She was advised at that time the need to follow-up with outside oncology practice. This information was verbalized and written. Since this time she has failed to follow-up in regards to her oncology care. - WBC increase since hospitalization predominantly neutrophil and lymophocytes. - Will send peripheral blood for flow cytometry and await these results. Determination of need for excisional biopsy can be placed after this results. - Will need to await improvement in her Renal function prior to moving forward with contrast diagnostic CT scan, she can have PET outpatient with new oncology practice after discharge. - Hold off on Bone Marrow Biopsy at this time.
[2018-08-24 11:46] LABS: Glucose,Whole Blood 81 mg/dL (75-99)
[2018-08-24] MEDS: FUROSEMIDE 10 MG/ML 4 ML VIAL IV SCH ×2 (12:38→20:42)
[2018-08-24] MEDS: DARBEPOETIN ALFA 40 MCG/0.4 ML SYRINGE SQ SCH (12:39)
--- NOTE | 2018-08-24 13:42 | P.PN ---
Subjective Progress Note Date: 08/24/18 Principal diagnosis: Acute congestive heart failure, diastolic in nature, with bilateral pleural effusions This is a 53-year-old female with history of hypertension, diastolic congestive heart failure, chronic kidney disease, remote history of lymphoma, treated with chemotherapy, patient presented initially to [facility] with complaints of shortness of breath for the last few days. Chest x-ray in [place] showed pulmonary edema. Patient was given diuretics, placed on BiPAP, transferred to [facility], admitted to monitor bed on [facility], seen already by many consultants including cardiology and nephrology , and I was asked to see her on consultation. Since admission the patient has been feeling a bit better, breathing easier, and apparently has been responding to diuretics. Had a BNP level on admission was 22,400. Patient had recent echocardiogram in March showing good LV function with moderate tricuspid regurgitation and moderate to severe pulmonary hypertension. Patient remains on Lasix, and overall she has made a significant improvement since admission. Presently no cough, no wheezing, no fever, no chills, no hemoptysis, no chest pain. The patient is seen again today 08/18/2018 in follow-up on the selective care unit. She is currently awake and alert in no acute distress. He is still requiring 5 L high flow nasal cannula to maintain O2 saturations in the 90s. This could be titrated down. She did utilize the BiPAP throughout the evening. She is currently afebrile. White count 10.8. Hemoglobin 9.2. Creatinine 2.32. She is currently in a negative balance. She remains on IV Lasix 60 mg every 8 hours. The patient is seen again today 08/19/2018 in follow-up on the selective care unit. She is currently sitting up in a chair at the bedside. She is awake and alert in no acute distress. She is breathing easier today as compared to yesterday. She did utilize the BiPAP throughout the evening. She is currently maintaining O2 saturations in the 90s on 5 L/m per nasal cannula. She's afebrile. Blood and urine cultures reveal no growth. White count 19.7. Hemoglobin 9.8. Creatinine 2.37. He is continued on Lasix 60 mg IV every 8 hours. Remains on Zosyn, bronchodilators and IV Solu-Medrol. Patient is seen again today 08/20/2018 in follow-up on the selective care unit. She is awake and alert in no acute distress. She is currently sitting up in a chair at the bedside. She denies any worsening shortness of breath, cough or congestion. Chest x-ray showing improvement in the congestive heart failure. She's continuing to utilize 5 L/m per nasal cannula to maintain O2 saturations in the 90s. She's been afebrile. Hemodynamically stable. Blood and urine cultures reveal no growth. He remains on Lasix 60 mg IV push every 8 hours. Currently in a negative balance. White count 24.4. Hemoglobin 9.5. Creatinine 2.41. The patient is seen again today 08/21/2018 in follow-up on the selective care unit. She is currently sitting up in a chair at the bedside. She denies any worsening shortness of breath, cough or congestion. O2 has been weaned down to 2 L/m per nasal cannula is maintaining good O2 saturations in the upper 90s. She's been afebrile. White count 28. Possible steroid effect. Hemoglobin 9.8. Creatinine 2.45. No real improvement on chest x-ray findings. She remains on Zosyn. She is continued on diuretics. Tang catheter remains in place. She is 2900 mls negative balance following her dose of Lasix this morning. Clinically she is improved. The patient is seen again today 08/22/2018 in follow-up on the selective care unit. She is awake and alert in no acute distress. She is maintaining good O2 saturations in the 90s on room air. Remains afebrile. Chest x-ray shows continued effusion and some progressive infiltrate. White count up to 46.4. Lymphocytes up to 35.26. She is currently on Augmentin. Initial blood and urine cultures were negative. No diarrhea. Steroids were decreased. On 08/24/2018 patient seen again in follow-up on [facility] care unit. In bed, in no acute distress, seems fatigued, she is having frequent diarrhea. She has lactose intolerance and may have had something in her food that may have triggered the diarrhea. Denies any pulmonary complaints, no shortness of breath , denies any chest pain. Currently on room air, pulse ox is 92%, afebrile, lung sounds are positive for some scattered crackles. Patient does get dyspneic with exertion. No new chest x-rays today, today's labs were reviewed, WBC is 32.4, hemoglobin is 9.3, sodium is 134, BUN is 105, creatinine is 2.04. She remains on IV Lasix at 40 mg every 12 hours, which is being managed by nephrology. On oral Augmentin, blood culture showed no growth, urine culture was negative. Off, no chest congestion. No ongoing fevers. Patient is just generally weak, and fatigued. Objective - Vital Signs Vital signs: Vital Signs Temp 97.3 F L 08/24/18 08:00 Pulse 73 08/24/18 12:00 Resp 18 08/24/18 12:00 BP 109/51 08/24/18 12:00 Pulse Ox 92 L 08/24/18 12:00 Intake & Output 08/23/18 08/24/18 08/24/18 18:59 06:59 18:59 Intake Total 666 240 Output Total 701 1404 900 Balance -35 -1404 -660 Weight 101.9 kg 100.2 kg Intake: Oral 666 240 Output: Urine 700 1400 900 Stool 1 4 Other: Voiding Method Indwelling Catheter Indwelling Catheter Indwelling Catheter # Voids 250 # Bowel Movements 1 1 - Exam GENERAL EXAM: Alert, active, comfortable in no apparent distress. HEAD: Normocephalic. EYES: Normal reaction of pupils, equal size. NOSE: Clear with pink turbinates. THROAT: No erythema or exudates. NECK: No masses, no JVD. CHEST: No chest wall deformity. Right Port-A-Cath in place. LUNGS: Equal air entry with rales in the posterior bases. CVS: S1 and S2 normal with no audible murmur, regular rhythm. ABDOMEN: No hepatosplenomegaly, normal bowel sounds, no guarding or rigidity. SPINE: No scoliosis or deformity SKIN: No rashes CENTRAL NERVOUS SYSTEM: No focal deficits, tone is normal in all 4 extremities. EXTREMITIES: There is no peripheral edema. No clubbing, no cyanosis. Peripheral pulses are intact. - Labs CBC & Chem 7: 08/24/18 10:32 08/24/18 06:05 Labs: Abnormal Lab Results - Last 24 Hours (Table) 08/23/18 08/23/18 08/24/18 Range/Units 16:29 20:38 06:05 WBC (3.8-10.6) k/uL RBC (3.80-5.40) m/uL Hgb (11.4-16.0) gm/dL Hct (34.0-46.0) % Plt Count (150-450) k/uL Sodium 134 L (137-145) mmol/L BUN 105 H* (7-17) mg/dL Creatinine 2.04 H (0.52-1.04) mg/dL Glucose 38 L* (74-99) mg/dL POC Glucose (mg/dL) 118 H 120 H (75-99) mg/dL Calcium 7.3 L (8.4-10.2) mg/dL 08/24/18 08/24/18 08/24/18 Range/Units 06:11 06:31 06:55 WBC (3.8-10.6) k/uL RBC (3.80-5.40) m/uL Hgb (11.4-16.0) gm/dL Hct (34.0-46.0) % Plt Count (150-450) k/uL Sodium (137-145) mmol/L BUN (7-17) mg/dL Creatinine (0.52-1.04) mg/dL Glucose (74-99) mg/dL POC Glucose (mg/dL) 44 L 69 L 60 L (75-99) mg/dL Calcium (8.4-10.2) mg/dL 08/24/18 Range/Units 10:32 WBC 32.4 H (3.8-10.6) k/uL RBC 3.06 L (3.80-5.40) m/uL Hgb 9.3 L (11.4-16.0) gm/dL Hct 28.3 L (34.0-46.0) % Plt Count 112 L (150-450) k/uL Sodium (137-145) mmol/L BUN (7-17) mg/dL Creatinine (0.52-1.04) mg/dL Glucose (74-99) mg/dL POC Glucose (mg/dL) (75-99) mg/dL Calcium (8.4-10.2) mg/dL Assessment and Plan Plan: 1 Acute hypoxic respiratory failure secondary to an acute exacerbation of chronic diastolic congestive heart failure. With pulmonary edema and bilateral pleural effusions. 2 history of COPD presently inactive, may or may not be contributing to some of her symptoms of shortness of breath. Very unlikely to be active at this point based on her history and based on her physical exam and chest x-ray findings. However would continue/bronchodilators. 3 Leukocytosis, leukemoid reaction with current leukocytes 46 and lymphocytes 35. No obvious signs of infection. history of lymphoma treated and presently in remission. Consider chronic lymphocytic leukemia. 4 chronic renal failure 5 chronic tobacco dependence. 6 hypertension. 7 diabetes mellitus, type II. 8 hyperlipidemia 9 history of non-Hodgkin's lymphoma 10 obesity 11 history of C. difficile colitis Plan: Continue current medical treatment, patient is diuresing, and nephrology is managing the diuretics. Patient has developed ,diarrhea and it is being attributed to her lactose intolerance, however we have to check her for C. diff. Cultures remain negative, no ongoing fevers. We'll obtain a repeat chest x-ray in the morning. I performed a history & physical examination of the patient and discussed their management with my nurse practitioner, Ekaterina Thornton. I reviewed the nurse practitioner's note and agree with the documented findings and plan of care. Lung sounds are finished, with some rales at the bases. The findings and the impression was discussed with the patient. I attest to the documentation by the nurse practitioner. Time with Patient: Less than 30
--- NOTE | 2018-08-24 14:15 | P.PN ---
Subjective Progress Note Date: 08/24/18 Progress Note Being Dicatated for Dr. Willoughby. Acute COPD exacerbation Acute on chronic CHF with diastolic dysfunction Patient is a 53-year-old female with known history of COPD and nicotine addiction was admitted to the hospital for acute COPD exacerbation and CHF exacerbation. Patient is with acute hypoxic respiratory failure. 2-D echocardiogram showed ejection fraction 40-60%. Currently patient is on 5 L nasal cannula. Patient was on BiPAP previously. Pulmonary and cardiology as well as nephrology is following. Chest x-ray showed congestive heart failure with pleural effusions. 08/18/2018 Patient is still complaining of shortness of breath but slightly improved compared to yesterday. Off BiPAP machine currently and is on high flow nasal cannula. Patient is being continued on breathing treatments and steroids and antibiotics. Patient was given an extra dose of IV Lasix 80 mg today. Renal function slightly worsened with creatinine level 2.32. Nephrology is on board. No fever no chills. No other acute overnight issues. 08/19/2018 Patient says that her breathing is better. She did use BiPAP last night. Still requiring nasal cannula oxygen at 5 L. Continue to be on Lasix. Renal function is fairly stable at 37 creatinine level Patient has been afebrile. She'll have leukocytosis at 19.7. Blood cultures showed no growth so far. No fever no chills. No nausea vomiting or abdominal pain. 08/20/2018 Patient denied any complaints of chest pain. Patient stated is improving. Chest x-ray on 919 showed improvement in CHF. Otherwise patient is still requiring oxygen at 4 L/minute. Lasix dose has been decreased to 60 mg every 12. Creatinine slightly increased to 2.41 today. Cultures showed no growth. Conjunctivae on breathing treatments and IV steroids with Solu-Medrol 40 mg every 8 hourly. No fever no chills. No nausea vomiting or abdominal pain. Tolerating oral diet. 08/21/2018 Patient denied any complaints of chest pain or worsening shortness of breath. Currently saturating well on 2 L nausea cannula oxygen. Patient has been afebrile. Otherwise white count is trending up to 28 today. Possibly due to steroids. Creatinine is 2.45. Patient is being continued on IV Lasix. Chest x-ray showed no significant improvement. Continued on antibiotics in the form of Zosyn. Patient otherwise denied any new complaints. Overall clinically improving. 08/22/2018 Patient is clinically improving. Saturating well on 2 L nausea cannula. No fever no chills. No chest pain or shortness of breath. Swelling is improving. He is being continued on IV Lasix and metolazone. Nephrology and cardiology and pulmonary is following. Otherwise leukocytosis is trending up to 46.4. Likely due to steroids. Steroid dose has been decreased. Antibiotics were changed to Augmentin now. Patient was seen by oncology and recommended biopsy of the lymph nodes. CT chest and abdomen and pelvis could not be done due to renal function. No fever no chills. Cultures have been negative. No nausea vomiting or diarrhea. Tolerating oral diet. 08/23/2018 Patient is currently saturating well on 2 L nausea cannula. Complains of itching bilateral hands. No fever no chills. Shortness of breath is much improved. Renal function improved with creatinine level II.2 today. Leukocytosis improved as well. WBC count 28. patient is being continued on IV Lasix and antibiotics in the form of Augmentin. Pulmonary and nephrology and cardiology is following. No nausea vomiting or abdominal pain or diarrhea. All other review of systems negative except the above. Current medications reviewed 08/24/18 multiple loose bowel movements, consuming better,etc. in a patient who has lactose intolerance. Dietary adjustments made. Patient is on antibiotics, unable to test for C. difficile colitis as bowel movements are semi-formed. Laying flat in bed, denying chest pain, shortness of breath. Denies chest pain , palpitations. Diuresing well on Lasix IV push with 24-hour I&O reflecting a negative fluid balance. Afebrile, urine and blood cultures negative. Objective - Vital Signs Vital signs: Vital Signs Temp 97.3 F L 08/24/18 08:00 Pulse 73 08/24/18 12:00 Resp 18 08/24/18 12:00 BP 109/51 08/24/18 12:00 Pulse Ox 92 L 08/24/18 12:00 Intake & Output 08/23/18 08/24/18 08/24/18 18:59 06:59 18:59 Intake Total 666 360 Output Total 701 1404 900 Balance -35 -1404 -540 Weight 101.9 kg 100.2 kg Intake: Oral 666 360 Output: Urine 700 1400 900 Stool 1 4 Other: Voiding Method Indwelling Catheter Indwelling Catheter Indwelling Catheter # Voids 250 # Bowel Movements 1 1 1 - Exam - Exam PHYSICAL EXAMINATION: Patient is lying in the bed comfortably, no acute distress, awake alert and oriented 3. Tired appearing HEENT: Normocephalic. Neck is supple. Pupils reactive. Nostrils clear. Oral cavity is moist. Neck reveals no JVD, carotid bruits, or thyromegaly. CHEST EXAMINATION: Trachea is central. Symmetrical expansion. Bilateral air entry improved. Diminished bibasilar sounds. No wheezing. CARDIAC: Normal S1, S2 with no gallops. No murmurs ABDOMEN: Soft. Bowel sounds normal. No organomegaly. No abdominal bruits. Extremities: mild edema. No clubbing or cyanosis. Neurologically awake, alert, oriented x3 with well-coordinated movements. No focal deficits noted Skin: No rash or skin lesions. Musculoskeletal: No joint swelling or deformity. Normal range of motion. - Labs CBC & Chem 7: 08/24/18 10:32 08/24/18 06:05 Labs: Abnormal Lab Results - Last 24 Hours (Table) 08/23/18 08/23/18 08/24/18 Range/Units 16:29 20:38 06:05 WBC (3.8-10.6) k/uL RBC (3.80-5.40) m/uL Hgb (11.4-16.0) gm/dL Hct (34.0-46.0) % Plt Count (150-450) k/uL Sodium 134 L (137-145) mmol/L BUN 105 H* (7-17) mg/dL Creatinine 2.04 H (0.52-1.04) mg/dL Glucose 38 L* (74-99) mg/dL POC Glucose (mg/dL) 118 H 120 H (75-99) mg/dL Calcium 7.3 L (8.4-10.2) mg/dL 08/24/18 08/24/18 08/24/18 Range/Units 06:11 06:31 06:55 WBC (3.8-10.6) k/uL RBC (3.80-5.40) m/uL Hgb (11.4-16.0) gm/dL Hct (34.0-46.0) % Plt Count (150-450) k/uL Sodium (137-145) mmol/L BUN (7-17) mg/dL Creatinine (0.52-1.04) mg/dL Glucose (74-99) mg/dL POC Glucose (mg/dL) 44 L 69 L 60 L (75-99) mg/dL Calcium (8.4-10.2) mg/dL 08/24/18 Range/Units 10:32 WBC 32.4 H (3.8-10.6) k/uL RBC 3.06 L (3.80-5.40) m/uL Hgb 9.3 L (11.4-16.0) gm/dL Hct 28.3 L (34.0-46.0) % Plt Count 112 L (150-450) k/uL Sodium (137-145) mmol/L BUN (7-17) mg/dL Creatinine (0.52-1.04) mg/dL Glucose (74-99) mg/dL POC Glucose (mg/dL) (75-99) mg/dL Calcium (8.4-10.2) mg/dL Assessment and Plan Assessment: Shortness of breath is multifactorial mainly due to CHF and also COPD Acute on chronic CHF with diastolic dysfunction with left pleural effusion Acute COPD exacerbation Significant leukocytosis likely due to steroids. Elevated BUN. Prerenal azotemia from steroids. History of mantle cell lymphoma. Morbid obesity with a BMI 41.2 Possible bibasilar pneumonia Nonoliguric acute on chronic kidney disease. possibly ATN and cardiorenal History of asthma Diabetes type 2 Hypertension Hyperlipidemia History of non-Hodgkin's lymphoma Anxiety and depression Ongoing nicotine dependence History of C. diff colitis Plan: Continue on current medication regime ,monitoring and symptomatic treatment. Fluid restrictions/ Diuretics as per nephrology. Close monitoring of renal function, electrolytes with repeat labs ordered for a.m. Maintained on oral empiric antibiotics. If loose bowel movements permit, send stool for C. diff colitis. Prognosis is extremely guarded and further recommendations based on the clinical course. Discharge planning in progress for [facility] rehab. The impression and plan of care has been dictated as directed. : I performed a history and examination of this patient, discussed the same with the dictator. I agree with the dictator's note ,documented as a scribe. Any additional findings or plans will be noted.
--- NOTE | 2018-08-24 14:31 | P.PN ---
Subjective Progress Note Date: 08/24/18 This is a 53-year-old female with known history of hypertension, hyperlipidemia, diabetes, congestive heart failure with diastolic dysfunction, chronic kidney disease, history of lymphoma, nicotine dependence, COPD, who was transferred here from [facility] where she presented with shortness of breath. According to the documentation at [facility], x-ray was performed there which revealed pulmonary edema. Patient was laced on BiPAP on arrival there, she was given IV Lasix and started on Levaquin for possible pneumonia. Transferred to [facility] for further evaluation and treatment. White blood cell count 10.5, hemoglobin 9.7, platelet count 127. Her pH on arrival here 7.32, pCO2 41, pO2 93, HCO3 21, O2 saturation 97%. Sodium 140, potassium 6.8 on admission, 6.1 this morning. BUN 49, creatinine 2.1, blood glucose 233, troponin negative. BNP level 22,400. Calcium 8.1. Alk phos 141, AST and ALT are normal. I pressure on arrival here 160/80 with a heart rate in the 80s, temperature 98.7, she is 96% on 40% BiPAP. Chest x-ray performed on arrival here showed congestive heart failure with pleural effusions worsened prior exam. Most recent echocardiogram with Doppler study was performed in March of this year which revealed an ejection fraction of 55-60 % with mild to moderate tricuspid regurg, moderate to severe pulmonary hypertension. Patient was initiated on IV Lasix here, she has been diuresing on IV Lasix. 08/18/2018 Patient seen and examined this afternoon, still requiring 5 L high flow nasal cannula, O2 saturations in the 90s. Afebrile, white blood cell count 10.8, hemoglobin 9.2, creatinine 2.3, currently in a negative balance and continues to be on IV Lasix. 08/19/2018 Patient seen and examined this morning, overall doing better. Continues diuresing on IV Lasix. BUN 67, creatinine 2.3 today but pressure continues to run in the 180 systolic range. We will add Norvasc to her medication regime for more optimal blood pressure control. 08/20/2018 Patient seen and examined this morning, continues to be on IV Lasix. Her pressure remains elevated at 182/80, we will increase the Norvasc to 10 mg daily today. 08/24/2018 Patient seen and examined this morning, doing much better overall. Complaining of significant nausea and some abdominal discomfort. Breathing is overall stable. Blood pressure 110/60 with a heart rate in the 70s, 92% on room air. White blood cell count 32.4, hemoglobin 9.3, platelet count 112. Diuretics continue to twice a day, as ordered by nephrology. Objective - Vital Signs Vital signs: Vital Signs Temp 97.3 F L 08/24/18 08:00 Pulse 73 08/24/18 12:00 Resp 18 08/24/18 12:00 BP 109/51 08/24/18 12:00 Pulse Ox 92 L 08/24/18 12:00 Intake & Output 08/23/18 08/24/18 08/24/18 18:59 06:59 18:59 Intake Total 666 360 Output Total 701 1404 900 Balance -35 -1404 -540 Weight 101.9 kg 100.2 kg Intake: Oral 666 360 Output: Urine 700 1400 900 Stool 1 4 Other: Voiding Method Indwelling Catheter Indwelling Catheter Indwelling Catheter # Voids 250 # Bowel Movements 1 1 1 - Exam Physical exam revealed a 53-year-old female in no distress. On oxygen via nasal cannula at 5 L. Head: Atraumatic, normocephalic. HEENT:[Neck is supple.] [No neck masses.] [No thyromegaly.] [No JVD.] PERRLA, EOMI. No icterus. Elevated jugular venous pressure noted. No carotid bruits. Chest: [Minimal fine crackles at the bases, no rhonchi, no wheezes. No chest wall tenderness. Cardiac Exam: [Normal S1 and S2, no S3 gallop, 2/6 systolic murmur heard throughout the precordium..] Abdomen: [Obese, Soft, nontender, no megaly, no rebound, no guarding, normal bowel sounds.] Extremities: [No clubbing 1+ bipedal edema, no cyanosis.] Neurological Exam: [No focal neurologic deficit.] Psychiatric: Normal mood, affect and mental status examination. Lymphatics: No lymphadenopathy, Port-A-Cath is palpable in the right upper chest wall area. - Labs CBC & Chem 7: 08/24/18 10:32 08/24/18 06:05 Labs: Abnormal Lab Results - Last 24 Hours (Table) 08/23/18 08/23/18 08/24/18 Range/Units 16:29 20:38 06:05 WBC (3.8-10.6) k/uL RBC (3.80-5.40) m/uL Hgb (11.4-16.0) gm/dL Hct (34.0-46.0) % Plt Count (150-450) k/uL Sodium 134 L (137-145) mmol/L BUN 105 H* (7-17) mg/dL Creatinine 2.04 H (0.52-1.04) mg/dL Glucose 38 L* (74-99) mg/dL POC Glucose (mg/dL) 118 H 120 H (75-99) mg/dL Calcium 7.3 L (8.4-10.2) mg/dL 08/24/18 08/24/18 08/24/18 Range/Units 06:11 06:31 06:55 WBC (3.8-10.6) k/uL RBC (3.80-5.40) m/uL Hgb (11.4-16.0) gm/dL Hct (34.0-46.0) % Plt Count (150-450) k/uL Sodium (137-145) mmol/L BUN (7-17) mg/dL Creatinine (0.52-1.04) mg/dL Glucose (74-99) mg/dL POC Glucose (mg/dL) 44 L 69 L 60 L (75-99) mg/dL Calcium (8.4-10.2) mg/dL 08/24/18 Range/Units 10:32 WBC 32.4 H (3.8-10.6) k/uL RBC 3.06 L (3.80-5.40) m/uL Hgb 9.3 L (11.4-16.0) gm/dL Hct 28.3 L (34.0-46.0) % Plt Count 112 L (150-450) k/uL Sodium (137-145) mmol/L BUN (7-17) mg/dL Creatinine (0.52-1.04) mg/dL Glucose (74-99) mg/dL POC Glucose (mg/dL) (75-99) mg/dL Calcium (8.4-10.2) mg/dL Assessment and Plan Plan: Assessment and plan #1 congestive heart failure, acute on chronic, diastolic in nature #2 chronic renal failure #3 hyperkalemia #4 nicotine dependence #5 COPD #6 hypertension #7 diabetes #8 hyperlipidemia Plan Cardiology's perspective, we will recommend to continue current medications. Diuretics as per nephrology. We will follow her now on an as-needed basis only , please don't hesitate to call with any questions. DNP note has been reviewed, I agree with a documented findings and plan of care. Patient was seen and examined.
[2018-08-24 14:36] LABS: Band Neutrophils % 1 %; Eosinophils # (M) 0.32 k/uL (0-0.7); Lymphocytes # (M) 26.57 k/uL (1.0-4.8); Neutrophils % (M) 16 %; Nucleated Red Blood Cells 0 /100 WBC (0-0); Total Cells Counted 100
[2018-08-24 16:32] LABS: Glucose,Whole Blood 164 mg/dL (75-99)
[2018-08-24] MEDS: DIPHENOX-ATROP 2.5-0.025 MG 1 EACH TAB PO PRN (20:43)
[2018-08-24 20:45] LABS: Glucose,Whole Blood 161 mg/dL (75-99)
[2018-08-24] MEDS: INSULIN DETEMIR 100 UNIT/ML 10 ML VIAL SQ SCH (20:48)
[2018-08-25 06:22] LABS: Glucose,Whole Blood 178 mg/dL (75-99)
[2018-08-25] MEDS: INSULIN ASPART 100 UNIT/ML 1 ML 10 ML VIAL SQ SCH ×8 (06:25→20:58)
[2018-08-25] MEDS: PANTOPRAZOLE 40 MG TABLET PO SCH (06:25)
[2018-08-25 07:19] LABS: HCT 28.4 % (34.0-46.0); HGB 9.4 gm/dL (11.4-16.0); MCH 31.1 pg (25.0-35.0); MCHC 33.2 g/dL (31.0-37.0); MCV 93.6 fL (80.0-100.0); Mean Platelet Volume 7.4; Platelet Count 106 k/uL (150-450); RBC 3.03 m/uL (3.80-5.40); RDW 15.6 % (11.5-15.5); WBC 21.1 k/uL (3.8-10.6)
[2018-08-25 07:21] LABS: Calcium 7.1 mg/dL (8.4-10.2); Magnesium 1.8 mg/dL (1.6-2.3); Potassium 4.4 mmol/L (3.5-5.1)
[2018-08-25 08:27] LABS: Eosinophils # (M) 0.21 k/uL (0-0.7); Lymphocytes # (M) 13.29 k/uL (1.0-4.8); Monocytes # (M) 1.06 k/uL (0-1.0); Neutrophils # (M) 6.54 k/uL (1.3-7.7); Neutrophils % (M) 31 %; Nucleated Red Blood Cells 0 /100 WBC (0-0); Total Cells Counted 300
[2018-08-25] MEDS: IPRATROPIUM-ALBUTEROL 3 ML NEB INHALATION SCH ×4 (09:06→19:39)
[2018-08-25] MEDS: BUDESONIDE 1 MG/2 ML NEBU INHALATION SCH ×2 (09:06→19:39)
[2018-08-25] MEDS: FORMOTEROL FUMARATE 20 MCG/2 ML NEBU INHALATION SCH ×2 (09:06→19:39)
--- NOTE | 2018-08-25 09:07 | XR ---
EXAMINATION TYPE: XR chest 1V DATE OF EXAM: 08/25/2018 COMPARISON: Prior chest 08/21/2018 HISTORY: Shortness of breath TECHNIQUE: Single frontal view of the chest is obtained. FINDINGS: Blunting of the costophrenic angles persists. Heart size is stable and appears borderline enlarged, patient is rotated however. Port-A-Cath present in the right pectoral region again noted, d istal tip overlying superior vena cava. No evident pneumothorax. There are overlying cardiac leads. IMPRESSION: Findings are similar to prior exam. Bibasilar effusions and associated atelectasis, didier elate to exclude pneumonia. Follow-up recommended.
--- NOTE | 2018-08-25 10:35 | P.PN ---
Subjective Patient is seen in follow-up for acute kidney injury on chronic kidney disease. Patient has chronic kidney disease stage III with baseline creatinine in the range of 1.6-2 secondary to diabetic kidney disease and cardiorenal syndrome. Patient was hyperkalemic on admission which is now normalized. She was noted to have urinary retention and has a Tang catheter in place. Dyspnea has improved. She is currently maintained on Lasix 40 mg IV 2 times daily. She is noted to have diastolic CHF with moderate mitral regurgitation. Oral intake is fair. She is nonoliguric. Diarrhea improved. C. diff negative. Vital signs are stable. General: The patient appeared well nourished and normally developed. HEENT: Head exam is unremarkable. Neck is without jugular venous distension. LUNGS: Lungs are clear to auscultation and percussion. Breath sounds decreased. HEART: Rate and Rhythm are regular. First and second heart sounds normal. No murmurs, rubs or gallops. ABDOMEN: Abdominal exam reveals normal bowel sounds. Non-tender and non- distended. No evidence of peritonitis. EXTREMITITES: Trace edema. Objective - Vital Signs Vital signs: Vital Signs Temp 97.6 F 08/25/18 03:51 Pulse 76 08/25/18 09:30 Resp 18 08/25/18 03:53 BP 122/58 08/25/18 03:51 Pulse Ox 93 L 08/25/18 03:51 Intake & Output 08/24/18 08/25/18 08/25/18 18:59 06:59 18:59 Intake Total 480 240 Output Total 900 675 1 Balance -420 -675 239 Weight 100.4 kg Intake: Oral 480 240 Output: Urine 900 675 0 Stool 1 Other: Voiding Method Indwelling Catheter Indwelling Catheter Indwelling Catheter # Voids 1 # Bowel Movements 1 - Labs CBC & Chem 7: 08/25/18 05:56 08/25/18 05:56 Labs: Abnormal Lab Results - Last 24 Hours (Table) 08/24/18 08/24/18 08/24/18 Range/Units 10:32 16:29 20:41 WBC 32.4 H (3.8-10.6) k/uL RBC 3.06 L (3.80-5.40) m/uL Hgb 9.3 L (11.4-16.0) gm/dL Hct 28.3 L (34.0-46.0) % RDW (11.5-15.5) % Plt Count 112 L (150-450) k/uL Lymphocytes # (Manual) 26.57 H (1.0-4.8) k/uL Monocytes # (Manual) (0-1.0) k/uL BUN (7-17) mg/dL Creatinine (0.52-1.04) mg/dL Glucose (74-99) mg/dL POC Glucose (mg/dL) 164 H 161 H (75-99) mg/dL Calcium (8.4-10.2) mg/dL 08/25/18 08/25/18 08/25/18 Range/Units 05:56 05:56 06:18 WBC 21.1 H (3.8-10.6) k/uL RBC 3.03 L (3.80-5.40) m/uL Hgb 9.4 L (11.4-16.0) gm/dL Hct 28.4 L (34.0-46.0) % RDW 15.6 H (11.5-15.5) % Plt Count 106 L (150-450) k/uL Lymphocytes # (Manual) 13.29 H (1.0-4.8) k/uL Monocytes # (Manual) 1.06 H (0-1.0) k/uL BUN 102 H* (7-17) mg/dL Creatinine 2.14 H (0.52-1.04) mg/dL Glucose 136 H (74-99) mg/dL POC Glucose (mg/dL) 178 H (75-99) mg/dL Calcium 7.1 L (8.4-10.2) mg/dL Assessment and Plan Plan: Assessment: 1. Nonoliguric acute kidney injury secondary to ATN secondary to cardiorenal syndrome/diuresis. Creatinine slightly worse at 2.14 today. BUN elevated which is partially related to IV steroids, which are now discontinued. 2. Chronic kidney disease stage III with baseline creatinine in the range of 1.6-2 secondary to nephrosclerosis and cardiorenal syndrome. 3. Hyperkalemia secondary to acute kidney injury, metabolic acidosis. Improved. 4. Metabolic acidosis secondary to chronic kidney disease. Improved. 5. Diastolic CHF with moderate mitral regurgitation. 6. Volume overload. Improving. 7. Anemia of chronic kidney disease. Iron replete. 8. Diabetes mellitus. 9. Urinary retention status post Tang catheter placement. 10. Hypertension with chronic kidney disease. Partially volume sensitive. Better. 11. Leukocytosis. No evidence of infection. She does have history of lymphoma. Oncology has been consulted. 12. Diarrhea. Improved. C. diff negative. Plan: Maintain Lasix 40 mg IV twice daily. 1.5 L fluid restriction. Maintain Aranesp. Phosphorus level at goal. Tight blood sugar control. Repeat electrolytes in the morning. Maintain current antihypertensives. Dose of amlodipine increased August 21. Hold if systolic blood pressure less than 120.
--- NOTE | 2018-08-25 11:13 | P.PN ---
Subjective Progress Note Date: 08/25/18 Principal diagnosis: Acute diastolic congestive heart failure. Bilateral pleural effusions. This is a 53-year-old female with history of hypertension, diastolic congestive heart failure, chronic kidney disease, remote history of lymphoma, treated with chemotherapy, patient presented initially to [facility] with complaints of shortness of breath for the last few days. Chest x-ray in [place] showed pulmonary edema. Patient was given diuretics, placed on BiPAP, transferred to [facility], admitted to monitor bed on selective, seen already by many consultants including cardiology and nephrology , and I was asked to see her on consultation. Since admission the patient has been feeling a bit better, breathing easier, and apparently has been responding to diuretics. Had a BNP level on admission was 22,400. Patient had recent echocardiogram in March showing good LV function with moderate tricuspid regurgitation and moderate to severe pulmonary hypertension. Patient remains on Lasix, and overall she has made a significant improvement since admission. Presently no cough, no wheezing, no fever, no chills, no hemoptysis, no chest pain. She is seen again today August 25 2018 in follow-up on the selective care unit. She is currently sitting up in a chair at the bedside. She is awake and alert in no acute distress. She is maintaining good O2 saturations in the 90s on room air. She's been afebrile. Hemodynamically stable. Blood and urine cultures reveal no growth. White count 21.1. Hemoglobin 9.4. BUN 102. Creatinine 2.14. He remains on IV diuretics. DuoNeb inhalations, Pulmicort and Perforomist inhalations, Augmentin. Objective - Vital Signs Vital signs: Vital Signs Temp 97.6 F 08/25/18 03:51 Pulse 76 08/25/18 09:30 Resp 18 08/25/18 03:53 BP 122/58 08/25/18 03:51 Pulse Ox 93 L 08/25/18 03:51 Intake & Output 08/24/18 08/25/18 08/25/18 18:59 06:59 18:59 Intake Total 480 240 Output Total 900 675 1 Balance -420 -675 239 Weight 100.4 kg Intake: Oral 480 240 Output: Urine 900 675 0 Stool 1 Other: Voiding Method Indwelling Catheter Indwelling Catheter Indwelling Catheter # Voids 1 # Bowel Movements 1 - Exam GENERAL EXAM: Alert, active, comfortable in no apparent distress. HEAD: Normocephalic. EYES: Normal reaction of pupils, equal size. NOSE: Clear with pink turbinates. THROAT: No erythema or exudates. NECK: No masses, no JVD. CHEST: No chest wall deformity. Right Port-A-Cath in place. LUNGS: Equal air entry with rales in the posterior bases. CVS: S1 and S2 normal with no audible murmur, regular rhythm. ABDOMEN: No hepatosplenomegaly, normal bowel sounds, no guarding or rigidity. SPINE: No scoliosis or deformity SKIN: No rashes CENTRAL NERVOUS SYSTEM: No focal deficits, tone is normal in all 4 extremities. EXTREMITIES: There is no peripheral edema. No clubbing, no cyanosis. Peripheral pulses are intact. - Labs CBC & Chem 7: 08/25/18 05:56 08/25/18 05:56 Labs: Abnormal Lab Results - Last 24 Hours (Table) 08/24/18 08/24/18 08/24/18 Range/Units 10:32 16:29 20:41 WBC 32.4 H (3.8-10.6) k/uL RBC 3.06 L (3.80-5.40) m/uL Hgb 9.3 L (11.4-16.0) gm/dL Hct 28.3 L (34.0-46.0) % RDW (11.5-15.5) % Plt Count 112 L (150-450) k/uL Lymphocytes # (Manual) 26.57 H (1.0-4.8) k/uL Monocytes # (Manual) (0-1.0) k/uL BUN (7-17) mg/dL Creatinine (0.52-1.04) mg/dL Glucose (74-99) mg/dL POC Glucose (mg/dL) 164 H 161 H (75-99) mg/dL Calcium (8.4-10.2) mg/dL 08/25/18 08/25/18 08/25/18 Range/Units 05:56 05:56 06:18 WBC 21.1 H (3.8-10.6) k/uL RBC 3.03 L (3.80-5.40) m/uL Hgb 9.4 L (11.4-16.0) gm/dL Hct 28.4 L (34.0-46.0) % RDW 15.6 H (11.5-15.5) % Plt Count 106 L (150-450) k/uL Lymphocytes # (Manual) 13.29 H (1.0-4.8) k/uL Monocytes # (Manual) 1.06 H (0-1.0) k/uL BUN 102 H* (7-17) mg/dL Creatinine 2.14 H (0.52-1.04) mg/dL Glucose 136 H (74-99) mg/dL POC Glucose (mg/dL) 178 H (75-99) mg/dL Calcium 7.1 L (8.4-10.2) mg/dL Assessment and Plan Assessment: Impression: 1 Acute hypoxic respiratory failure secondary to an acute exacerbation of chronic diastolic congestive heart failure. With pulmonary edema and bilateral pleural effusions. Improved. 2 history of COPD presently inactive, may or may not be contributing to some of her symptoms of shortness of breath. Very unlikely to be active at this point based on her history and based on her physical exam and chest x-ray findings. However would continue/bronchodilators. 3 Leukocytosis, leukemoid reaction with current leukocytes 46 and lymphocytes 35. No obvious signs of infection. history of lymphoma treated and presently in remission. Consider chronic lymphocytic leukemia. 4 chronic renal failure 5 chronic tobacco dependence. 6 hypertension. 7 diabetes mellitus, type II. 8 hyperlipidemia 9 history of non-Hodgkin's lymphoma 10 obesity 11 history of C. difficile colitis Plan: The patient was seen and evaluated by Dr. Husain. Stable from the pulmonary standpoint. She'll complete a course of antibiotics. Continue bronchodilators. She is again educated regarding the importance of complete smoking cessation. NicoDerm patch is in place. The plan is for transfer to [facility]. I, the cosigning physician, performed a history & physical examination of the patient. Lungs sounds with crackles in the bilateral posterior bases. Maintaining good O2 saturations in the 90s on room air. I discussed the assessment and plan of care with my nurse practitioner, Elsie Johns. I attest to the above note as dictated by her.
[2018-08-25 11:42] LABS: Glucose,Whole Blood 255 mg/dL (75-99)
[2018-08-25] MEDS: NICOTINE 14MG/24HR PATCH TRANSDERM SCH (11:45)
[2018-08-25] MEDS: FUROSEMIDE 10 MG/ML 4 ML VIAL IV SCH ×2 (11:45→20:50)
[2018-08-25] MEDS: HEPARIN SODIUM,PORCINE 5,000 UNIT/ML 1 ML VIAL SQ SCH ×2 (11:45→20:51)
[2018-08-25] MEDS: hydrALAZINE HCL 50 MG TAB PO SCH ×3 (11:46→20:51)
[2018-08-25] MEDS: METOPROLOL SUCCINATE (ER) 100 MG TAB.ER.24H PO SCH (11:46)
[2018-08-25] MEDS: AMOXIC-POT CLAV 875-125MG 1 EACH TAB PO SCH ×2 (11:46→20:50)
[2018-08-25] MEDS: amLODIPine 10 MG TAB PO SCH (11:47)
[2018-08-25] MEDS: ASPIRIN 81 MG PO SCH (11:47)
--- NOTE | 2018-08-25 11:52 | P.DS ---
Providers Date of admission: 08/16/18 18:47 Expected date of discharge: 08/25/18 Attending physician: MD Dr. Nelson Colvin Consults: 08/16/18 19:29 Consult Physician Routine Consulting Provider: Javier Gordon Consult Reason/Comments: sob Do you want consulting provider notified?: Yes Consult Physician Routine Consulting Provider: Nicci Bull Consult Reason/Comments: chf Do you want consulting provider notified?: Yes 08/16/18 20:46 Consult Physician Routine Consulting Provider: Dinorah Walker Consult Reason/Comments: arf Do you want consulting provider notified?: Yes 08/17/18 07:00 Consult Physician Routine Consulting Provider: Marlee Todd Consult Reason/Comments: hyperkalemia Do you want consulting provider notified?: Yes, Notify in am 08/22/18 13:22 Consult Physician Routine Consulting Provider: Linden Read Consult Reason/Comments: Leukocytosis, h/o non-hodgkins Do you want consulting provider notified?: Yes Primary care physician: Stated None Hospital Course: Final Diagnoses: Shortness of breath is multifactorial mainly due to CHF and COPD Acute on chronic CHF with diastolic dysfunction with left pleural effusion Acute COPD exacerbation Significant leukocytosis likely due to steroids. No evidence of infection, history of lymphoma, follows with oncology. No UTI, contaminated UA, urine culture negative, asymptomatic, no further antibiotic therapy recommended, already completed 3 days of antibiotic. Acute renal failure secondary to ATN related to cardiorenal syndrome, diuresis. Chronic kidney disease stage III secondary to nephrosclerosis and cardiorenal syndrome Morbid obesity with a BMI 41.2 Possible bibasilar pneumonia, will hold out as per pulmonary Diabetes type 2 Hypertension Hyperlipidemia History of non-Hodgkin's lymphoma Anxiety and depression Ongoing nicotine dependence History of C. diff colitis, diarrhea improved, C. diff negative Hospital course:Acute on chronic CHF with diastolic dysfunction Patient is a 53-year-old female with known history of COPD ,nicotine addiction was admitted to the hospital for acute COPD exacerbation, CHF exacerbation, renal failure. Patient is with acute hypoxic respiratory failure. 2-D echocardiogram showed ejection fraction 40-60%. Currently patient is on 5 L nasal cannula. Patient was on BiPAP previously. Chest x-ray showed congestive heart failure with pleural effusions.Evaluated by Pulmonary , cardiology , nephrology, oncology. Maintained on IV diuretics, fluid restrictions, nebulized bronchodilators, empiric antibiotics. Significant clinical improvement. Patient has been cleared for discharge by all consults. Patient is being discharged to [facility] in a stable condition with guarded prognosis. EXAMINATION: GENERAL:no acute distress, awake alert and oriented 3. CHEST EXAMINATION: Trachea is central. Symmetrical expansion. Bilateral air entry improved. Diminished bibasilar sounds. No wheezing. CARDIAC: Normal S1, S2 with no gallops. No murmurs ABDOMEN: Soft. Bowel sounds normal. No organomegaly. No abdominal bruits. Neurologically No focal deficits noted The impression and plan of care has been dictated as directed. : I performed a history and examination of this patient, discussed the same with the dictator. I agree with the dictator's note ,documented as a scribe. Any additional findings or plans will be noted. Time taken: 35 min. Patient Condition at Discharge: Stable Plan - Discharge Summary Discharge Rx Participant: Yes New Discharge Prescriptions: New amLODIPine [Norvasc] 10 mg PO DAILY tab Diphenox-Atrop 2.5-0.025 mg [Lomotil] 1 each PO Q6HR PRN #12 tab PRN Reason: Diarrhea Melatonin 3 mg PO HS PRN tablet PRN Reason: Insomnia Nicotine 14Mg/24Hr Patch [Habitrol] 1 patch TRANSDERM DAILY patch Pantoprazole [Protonix] 40 mg PO AC-BRKFST tablet. Insulin Aspart [NovoLOG] 7 units SQ ACHS #1 ml Insulin Detemir [Levemir] 30 unit SQ HS syr INSULIN LISPRO (HumaLOG) [humaLOG] 0 unit SQ ACHS #1 vial Furosemide [Lasix] 40 mg PO BID #1 tablet Continue Acetaminophen Tab [Tylenol] 650 mg PO Q6HR PRN tab PRN Reason: Fever and/ or Mild Pain Famotidine [Pepcid] 20 mg PO DAILY tab hydrALAZINE HCL [Apresoline] 100 mg PO TID tab Metoprolol Succinate (ER) [Toprol XL] 100 mg PO DAILY tab.er.24h Lactobacillus Acidophilus [Acidophilus] 1 tab PO BID Budesonide-Formot 160-4.5 Mcg [Symbicort 160-4.5 Mcg Inhaler] 2 puff INHALATION RT-BID puff Aspirin 81 mg PO DAILY chew Atorvastatin Calcium [Lipitor] 20 mg PO HS Nystatin 100,000 Unit/gm Powd [Mycostatin Powder] 1 applic TOPICAL BID Fenofibrate Nanocrystallized [Tricor] 48 mg PO DAILY Ipratropium-Albuterol Nebulize [Duoneb 0.5 mg-3 mg/3 ml Soln] 3 ml INHALATION RT-QID #0 ampul.neb Discontinued Metolazone [Zaroxolyn] 2.5 mg PO DAILY #1 tablet Allopurinol [Zyloprim] 100 mg PO DAILY Insulin Detemir [Levemir] 40 unit SQ DAILY Sodium Bicarbonate Tab 650 mg PO BID Albuterol Sulfate [Proair Hfa] 2 puff INHALATION RT-Q6H PRN PRN Reason: Shortness Of Breath Discharge Medication List Acetaminophen Tab [Tylenol] 650 mg PO Q6HR PRN tab 03/16/18 [Rx] Famotidine [Pepcid] 20 mg PO DAILY tab 03/16/18 [Rx] Metoprolol Succinate (ER) [Toprol XL] 100 mg PO DAILY tab.er.24h 03/16/18 [Rx] hydrALAZINE HCL [Apresoline] 100 mg PO TID tab 03/16/18 [Rx] Lactobacillus Acidophilus [Acidophilus] 1 tab PO BID 03/20/18 [History] Budesonide-Formot 160-4.5 Mcg [Symbicort 160-4.5 Mcg Inhaler] 2 puff INHALATION RT-BID puff 03/24/18 [Rx] Aspirin 81 mg PO DAILY chew 03/26/18 [Rx] Atorvastatin Calcium [Lipitor] 20 mg PO HS 08/17/18 [History] Fenofibrate Nanocrystallized [Tricor] 48 mg PO DAILY 08/17/18 [History] Nystatin 100,000 Unit/gm Powd [Mycostatin Powder] 1 applic TOPICAL BID 08/17/18 [History] Diphenox-Atrop 2.5-0.025 mg [Lomotil] 1 each PO Q6HR PRN #12 tab 08/25/18 [Rx] Furosemide [Lasix] 40 mg PO BID #1 tablet 08/25/18 [Rx] INSULIN LISPRO (HumaLOG) [humaLOG] 0 unit SQ ACHS #1 vial 08/25/18 [Rx] Insulin Aspart [NovoLOG] 7 units SQ ACHS #1 ml 08/25/18 [Rx] Insulin Detemir [Levemir] 30 unit SQ HS syr 08/25/18 [Rx] Ipratropium-Albuterol Nebulize [Duoneb 0.5 mg-3 mg/3 ml Soln] 3 ml INHALATION RT -QID #0 ampul.neb 08/25/18 [Rx] Melatonin 3 mg PO HS PRN tablet 08/25/18 [Rx] Nicotine 14Mg/24Hr Patch [Habitrol] 1 patch TRANSDERM DAILY patch 08/25/18 [Rx] Pantoprazole [Protonix] 40 mg PO AC-BRKFST tablet. 08/25/18 [Rx] amLODIPine [Norvasc] 10 mg PO DAILY tab 08/25/18 [Rx] Follow up Appointment(s)/Referral(s): Josephine Lucero MD [STAFF PHYSICIAN] - 09/01/18 2:30 pm (Friday) Linden Read MD [STAFF PHYSICIAN] - 2 Weeks Stuart Templeton DO [STAFF PHYSICIAN] - 09/10/18 2:00 pm () Patient Instructions/Handouts: Heart Failure (ER), COPD (Chronic Obstructive Pulmonary Disease) (DC) Activity/Diet/Wound Care/Special Instructions: Diet: Consistent carb, cardiac,1.5l fluid restriction Activity: as tolerated cbc,bmp, magnesium in 3 days with results to PCP and to Dr. Templeton Hold antihypertensives if systolic blood pressure less than 120 Discharge Disposition: TRANSFER TO SNF/ECF
[2018-08-25 11:53] VITALS: BMI 41.8
[2018-08-25] MEDS: NYSTATIN 100,000 UNIT/GM POWD 15 GM TOPICAL SCH ×3 (11:57→20:51)
[2018-08-25 16:13] VITALS: RESP 18
[2018-08-25 16:42] LABS: Glucose,Whole Blood 232 mg/dL (75-99)
[2018-08-25] MEDS: DIPHENOX-ATROP 2.5-0.025 MG 1 EACH TAB PO PRN (20:51)
[2018-08-25 20:55] LABS: Glucose,Whole Blood 162 mg/dL (75-99)
[2018-08-25] MEDS: INSULIN DETEMIR 100 UNIT/ML 10 ML VIAL SQ SCH (20:58)
[2018-08-26 05:59] LABS: Glucose,Whole Blood 31 mg/dL (75-99)
[2018-08-26] MEDS ORDERED: DEXTROSE 50%-WATER 50 ML SYRINGE IVP ONE (06:01)
[2018-08-26 06:17] LABS: Glucose,Whole Blood 157 mg/dL (75-99)
[2018-08-26] MEDS: INSULIN ASPART 100 UNIT/ML 1 ML 10 ML VIAL SQ SCH ×4 (06:17→11:50)
[2018-08-26] MEDS: PANTOPRAZOLE 40 MG TABLET PO SCH (06:20)
[2018-08-26 06:30] LABS: HCT 27.4 % (34.0-46.0); HGB 9.1 gm/dL (11.4-16.0); MCH 31.5 pg (25.0-35.0); MCHC 33.2 g/dL (31.0-37.0); MCV 95.1 fL (80.0-100.0); Mean Platelet Volume 8.1; RBC 2.88 m/uL (3.80-5.40); RDW 15.7 % (11.5-15.5); WBC 18.1 k/uL (3.8-10.6)
[2018-08-26 06:37] LABS: Calcium 7.4 mg/dL (8.4-10.2); Magnesium 1.8 mg/dL (1.6-2.3); Potassium 3.9 mmol/L (3.5-5.1)
[2018-08-26 07:10] LABS: Platelet Count 84 k/uL (150-450)
[2018-08-26 07:13] LABS: Eosinophils # (M) 0.54 k/uL (0-0.7); Lymphocytes # (M) 10.68 k/uL (1.0-4.8); Monocytes # (M) 0.18 k/uL (0-1.0); Neutrophils % (M) 37 %; Nucleated Red Blood Cells 0 /100 WBC (0-0); Total Cells Counted 100
[2018-08-26] MEDS: NICOTINE 14MG/24HR PATCH TRANSDERM SCH (08:57)
[2018-08-26] MEDS: amLODIPine 10 MG TAB PO SCH (08:57)
[2018-08-26] MEDS: hydrALAZINE HCL 50 MG TAB PO SCH (08:57)
[2018-08-26] MEDS: AMOXIC-POT CLAV 875-125MG 1 EACH TAB PO SCH (08:57)
[2018-08-26] MEDS: ASPIRIN 81 MG PO SCH (08:57)
[2018-08-26] MEDS: HEPARIN SODIUM,PORCINE 5,000 UNIT/ML 1 ML VIAL SQ SCH (08:57)
[2018-08-26] MEDS: METOPROLOL SUCCINATE (ER) 100 MG TAB.ER.24H PO SCH (08:57)
[2018-08-26] MEDS: FUROSEMIDE 10 MG/ML 4 ML VIAL IV SCH (08:58)
[2018-08-26] MEDS: BUDESONIDE 1 MG/2 ML NEBU INHALATION SCH (09:10)
[2018-08-26] MEDS: IPRATROPIUM-ALBUTEROL 3 ML NEB INHALATION SCH ×2 (09:10→12:38)
[2018-08-26] MEDS: FORMOTEROL FUMARATE 20 MCG/2 ML NEBU INHALATION SCH (09:10)
[2018-08-26 09:12] VITALS: TEMP 97.6
--- NOTE | 2018-08-26 09:59 | P.PN ---
Subjective Patient is seen in follow-up for acute kidney injury on chronic kidney disease. Patient has chronic kidney disease stage III with baseline creatinine in the range of 1.6-2 secondary to diabetic kidney disease and cardiorenal syndrome. Patient was hyperkalemic on admission which is now normalized. She was noted to have urinary retention and has a Tang catheter in place. Dyspnea has improved. She is currently maintained on Lasix 40 mg IV 2 times daily. She is noted to have diastolic CHF with moderate mitral regurgitation. Oral intake is fair. She is nonoliguric. Diarrhea improved. C. diff negative. No active complaints at this time. Vital signs are stable. General: The patient appeared well nourished and normally developed. HEENT: Head exam is unremarkable. Neck is without jugular venous distension. LUNGS: Lungs are clear to auscultation and percussion. Breath sounds decreased. HEART: Rate and Rhythm are regular. First and second heart sounds normal. No murmurs, rubs or gallops. ABDOMEN: Abdominal exam reveals normal bowel sounds. Non-tender and non- distended. No evidence of peritonitis. EXTREMITITES: Trace edema. Objective - Vital Signs Vital signs: Vital Signs Temp 97.6 F 08/26/18 09:02 Pulse 78 08/26/18 09:02 Resp 18 08/26/18 09:02 BP 136/67 08/26/18 09:02 Pulse Ox 99 08/26/18 09:02 Intake & Output 08/25/18 08/26/18 08/26/18 18:59 06:59 18:59 Intake Total 720 10 120 Output Total 1901 875 1 Balance -1181 -865 119 Weight 100.4 kg 100.2 kg Intake: IV 10 normal saline 10 Oral 720 120 Output: Urine 1900 875 Stool 1 1 Other: Voiding Method Indwelling Catheter Indwelling Catheter Indwelling Catheter # Voids 1 1 - Labs CBC & Chem 7: 08/26/18 06:13 08/26/18 06:13 Labs: Abnormal Lab Results - Last 24 Hours (Table) 08/25/18 08/25/18 08/25/18 Range/Units 11:33 16:21 20:53 WBC (3.8-10.6) k/uL RBC (3.80-5.40) m/uL Hgb (11.4-16.0) gm/dL Hct (34.0-46.0) % RDW (11.5-15.5) % Plt Count (150-450) k/uL Lymphocytes # (Manual) (1.0-4.8) k/uL BUN (7-17) mg/dL Creatinine (0.52-1.04) mg/dL POC Glucose (mg/dL) 255 H 232 H 162 H (75-99) mg/dL Calcium (8.4-10.2) mg/dL 08/26/18 08/26/18 08/26/18 Range/Units 05:57 06:08 06:13 WBC 18.1 H (3.8-10.6) k/uL RBC 2.88 L (3.80-5.40) m/uL Hgb 9.1 L (11.4-16.0) gm/dL Hct 27.4 L (34.0-46.0) % RDW 15.7 H (11.5-15.5) % Plt Count 84 L (150-450) k/uL Lymphocytes # (Manual) 10.68 H (1.0-4.8) k/uL BUN (7-17) mg/dL Creatinine (0.52-1.04) mg/dL POC Glucose (mg/dL) 31 L 157 H (75-99) mg/dL Calcium (8.4-10.2) mg/dL 08/26/18 Range/Units 06:13 WBC (3.8-10.6) k/uL RBC (3.80-5.40) m/uL Hgb (11.4-16.0) gm/dL Hct (34.0-46.0) % RDW (11.5-15.5) % Plt Count (150-450) k/uL Lymphocytes # (Manual) (1.0-4.8) k/uL BUN 100 H (7-17) mg/dL Creatinine 1.72 H (0.52-1.04) mg/dL POC Glucose (mg/dL) (75-99) mg/dL Calcium 7.4 L (8.4-10.2) mg/dL Assessment and Plan Plan: Assessment: 1. Nonoliguric acute kidney injury secondary to ATN secondary to cardiorenal syndrome/diuresis. Creatinine down to 1.72 today. BUN elevated which is partially related to IV steroids, which are now discontinued. 2. Chronic kidney disease stage III with baseline creatinine in the range of 1.6-2 secondary to nephrosclerosis and cardiorenal syndrome. 3. Hyperkalemia secondary to acute kidney injury, metabolic acidosis. Improved. 4. Metabolic acidosis secondary to chronic kidney disease. Improved. 5. Diastolic CHF with moderate mitral regurgitation. 6. Volume overload. Improving. 7. Anemia of chronic kidney disease. Iron replete. 8. Diabetes mellitus. 9. Urinary retention status post Tang catheter placement. 10. Hypertension with chronic kidney disease. Partially volume sensitive. Better. 11. Leukocytosis. No evidence of infection. She does have history of lymphoma. Improved. 12. Diarrhea. Improved. C. diff negative. Plan: Change lasix to 40 mg PO bid. 1.5 L fluid restriction. Maintain Aranesp. Phosphorus level at goal. Tight blood sugar control. Repeat electrolytes in the morning. Maintain current antihypertensives. Dose of amlodipine increased August 21. Hold if systolic blood pressure less than 120. Anticipate discharge soon. Repeat basic metabolic panel 2-3 days postdischarge. Follow up outpatient in 1-2 weeks.
[2018-08-26] MEDS: NYSTATIN 100,000 UNIT/GM POWD 15 GM TOPICAL SCH (11:26)
[2018-08-26 11:51] LABS: Glucose,Whole Blood 152 mg/dL (75-99)
--- NOTE | 2018-08-26 11:51 | P.PN ---
Subjective Progress Note Date: 08/26/18 Principal diagnosis: Acute diastolic congestive heart failure. Bilateral pleural effusions. This is a 53-year-old female with history of hypertension, diastolic congestive heart failure, chronic kidney disease, remote history of lymphoma, treated with chemotherapy, patient presented initially to [facility] with complaints of shortness of breath for the last few days. Chest x-ray in [place] showed pulmonary edema. Patient was given diuretics, placed on BiPAP, transferred to [facility], admitted to monitor bed on [facility], seen already by many consultants including cardiology and nephrology , and I was asked to see her on consultation. Since admission the patient has been feeling a bit better, breathing easier, and apparently has been responding to diuretics. Had a BNP level on admission was 22,400. Patient had recent echocardiogram in March showing good LV function with moderate tricuspid regurgitation and moderate to severe pulmonary hypertension. Patient remains on Lasix, and overall she has made a significant improvement since admission. Presently no cough, no wheezing, no fever, no chills, no hemoptysis, no chest pain. She is seen again today August 25 2018 in follow-up on the selective care unit. She is currently sitting up in a chair at the bedside. She is awake and alert in no acute distress. She is maintaining good O2 saturations in the 90s on room air. She's been afebrile. Hemodynamically stable. Blood and urine cultures reveal no growth. White count 21.1. Hemoglobin 9.4. BUN 102. Creatinine 2.14. He remains on IV diuretics. DuoNeb inhalations, Pulmicort and Perforomist inhalations, Augmentin. She was seen again today 08/26/2018 in follow-up on the selective care unit. She is currently resting quite comfortably in bed. She is maintaining good O2 saturations in the 90s on room air. Chest x-ray stable. She's been afebrile. Hemodynamically stable. White count 18.1. Hemoglobin 9.1. Creatinine 1.72. She remains on bronchodilators and Augmentin. Objective - Vital Signs Vital signs: Vital Signs Temp 97.6 F 08/26/18 09:02 Pulse 78 08/26/18 09:02 Resp 18 08/26/18 09:02 BP 136/67 08/26/18 09:02 Pulse Ox 99 08/26/18 09:02 Intake & Output 08/25/18 08/26/18 08/26/18 18:59 06:59 18:59 Intake Total 720 10 120 Output Total 8629 040 3423 Balance -1181 -865 -881 Weight 100.4 kg 100.2 kg Intake: IV 10 normal saline 10 Oral 720 120 Output: Urine 1747 410 7979 Stool 1 1 Other: Voiding Method Indwelling Catheter Indwelling Catheter Indwelling Catheter # Voids 1 1 - Exam GENERAL EXAM: Alert, active, comfortable in no apparent distress. HEAD: Normocephalic. EYES: Normal reaction of pupils, equal size. NOSE: Clear with pink turbinates. THROAT: No erythema or exudates. NECK: No masses, no JVD. CHEST: No chest wall deformity. Right Port-A-Cath in place. LUNGS: Equal air entry with rales in the posterior bases. CVS: S1 and S2 normal with no audible murmur, regular rhythm. ABDOMEN: No hepatosplenomegaly, normal bowel sounds, no guarding or rigidity. SPINE: No scoliosis or deformity SKIN: No rashes CENTRAL NERVOUS SYSTEM: No focal deficits, tone is normal in all 4 extremities. EXTREMITIES: There is no peripheral edema. No clubbing, no cyanosis. Peripheral pulses are intact. - Labs CBC & Chem 7: 08/26/18 06:13 08/26/18 06:13 Labs: Abnormal Lab Results - Last 24 Hours (Table) 08/25/18 08/25/18 08/26/18 Range/Units 16:21 20:53 05:57 WBC (3.8-10.6) k/uL RBC (3.80-5.40) m/uL Hgb (11.4-16.0) gm/dL Hct (34.0-46.0) % RDW (11.5-15.5) % Plt Count (150-450) k/uL Lymphocytes # (Manual) (1.0-4.8) k/uL BUN (7-17) mg/dL Creatinine (0.52-1.04) mg/dL POC Glucose (mg/dL) 232 H 162 H 31 L (75-99) mg/dL Calcium (8.4-10.2) mg/dL 08/26/18 08/26/18 08/26/18 Range/Units 06:08 06:13 06:13 WBC 18.1 H (3.8-10.6) k/uL RBC 2.88 L (3.80-5.40) m/uL Hgb 9.1 L (11.4-16.0) gm/dL Hct 27.4 L (34.0-46.0) % RDW 15.7 H (11.5-15.5) % Plt Count 84 L (150-450) k/uL Lymphocytes # (Manual) 10.68 H (1.0-4.8) k/uL BUN 100 H (7-17) mg/dL Creatinine 1.72 H (0.52-1.04) mg/dL POC Glucose (mg/dL) 157 H (75-99) mg/dL Calcium 7.4 L (8.4-10.2) mg/dL Assessment and Plan Assessment: Impression: 1 Acute hypoxic respiratory failure secondary to an acute exacerbation of chronic diastolic congestive heart failure. With pulmonary edema and bilateral pleural effusions. Improved. 2 history of COPD presently inactive, may or may not be contributing to some of her symptoms of shortness of breath. Very unlikely to be active at this point based on her history and based on her physical exam and chest x-ray findings. However would continue/bronchodilators. 3 Leukocytosis, leukemoid reaction with current leukocytes 46 and lymphocytes 35. No obvious signs of infection. history of lymphoma treated and presently in remission. Consider chronic lymphocytic leukemia. Current white count 18.1. Lymphocytes 10.6. 4 chronic renal failure and a creatinine 1.72. 5 chronic tobacco dependence. 6 hypertension. 7 diabetes mellitus, type II. 8 hyperlipidemia 9 history of non-Hodgkin's lymphoma 10 obesity 11 history of C. difficile colitis Plan: The patient was seen and evaluated by Dr. Husain. Stable from the pulmonary standpoint. She'll complete a course of antibiotics. Continue bronchodilators. She is again educated regarding the importance of complete smoking cessation. NicoDerm patch is in place. The plan is for discharge back home with her sister. I, the cosigning physician, performed a history & physical examination of the patient. Lungs sounds with crackles in the bilateral posterior bases. Maintaining good O2 saturations in the 90s on room air. I discussed the assessment and plan of care with my nurse practitioner, Elsie Johns. I attest to the above note as dictated by her.
[2018-08-26 12:22] VITALS: BP 124/68
--- NOTE | 2018-08-26 12:36 | P.DS ---
Providers Date of admission: 08/16/18 18:47 Attending physician: Bhupendra Morrison MD Consults: 08/16/18 19:29 Consult Physician Routine Consulting Provider: Javier Gordon Consult Reason/Comments: sob Do you want consulting provider notified?: Yes Consult Physician Routine Consulting Provider: Nicci Bull Consult Reason/Comments: chf Do you want consulting provider notified?: Yes 08/16/18 20:46 Consult Physician Routine Consulting Provider: Dinorah Walker Consult Reason/Comments: arf Do you want consulting provider notified?: Yes 08/17/18 07:00 Consult Physician Routine Consulting Provider: Marlee Todd Consult Reason/Comments: hyperkalemia Do you want consulting provider notified?: Yes, Notify in am 08/22/18 13:22 Consult Physician Routine Consulting Provider: Linden Read Consult Reason/Comments: Leukocytosis, h/o non-hodgkins Do you want consulting provider notified?: Yes Primary care physician: Stated None Hospital Course: Please refer to the discharge summary from yesterday. Patient is declining to go to use here will be discharged to home with home care. Patient will need higher level of care because of which I believe patient will be high risk for readmission EXAMINATION: GENERAL:no acute distress, awake alert and oriented 3. CHEST EXAMINATION: Trachea is central. Symmetrical expansion. Bilateral air entry improved. Diminished bibasilar sounds. No wheezing. CARDIAC: Normal S1, S2 with no gallops. No murmurs ABDOMEN: Soft. Bowel sounds normal. No organomegaly. No abdominal bruits. Neurologically No focal deficits noted Patient Condition at Discharge: Stable Plan - Discharge Summary Discharge Rx Participant: Yes New Discharge Prescriptions: New amLODIPine [Norvasc] 10 mg PO DAILY tab Diphenox-Atrop 2.5-0.025 mg [Lomotil] 1 each PO Q6HR PRN #12 tab PRN Reason: Diarrhea Melatonin 3 mg PO HS PRN tablet PRN Reason: Insomnia Nicotine 14Mg/24Hr Patch [Habitrol] 1 patch TRANSDERM DAILY patch Pantoprazole [Protonix] 40 mg PO AC-BRKFST tablet. Insulin Aspart [NovoLOG] 7 units SQ ACHS #1 ml INSULIN LISPRO (HumaLOG) [humaLOG] 0 unit SQ ACHS #1 vial Furosemide [Lasix] 40 mg PO BID #1 tablet Insulin Detemir [Levemir] 15 unit SQ HS syr Continue Acetaminophen Tab [Tylenol] 650 mg PO Q6HR PRN tab PRN Reason: Fever and/ or Mild Pain Famotidine [Pepcid] 20 mg PO DAILY tab hydrALAZINE HCL [Apresoline] 100 mg PO TID tab Metoprolol Succinate (ER) [Toprol XL] 100 mg PO DAILY tab.er.24h Lactobacillus Acidophilus [Acidophilus] 1 tab PO BID Budesonide-Formot 160-4.5 Mcg [Symbicort 160-4.5 Mcg Inhaler] 2 puff INHALATION RT-BID puff Aspirin 81 mg PO DAILY chew Atorvastatin Calcium [Lipitor] 20 mg PO HS Nystatin 100,000 Unit/gm Powd [Mycostatin Powder] 1 applic TOPICAL BID Fenofibrate Nanocrystallized [Tricor] 48 mg PO DAILY Ipratropium-Albuterol Nebulize [Duoneb 0.5 mg-3 mg/3 ml Soln] 3 ml INHALATION RT-QID #0 ampul.neb Discontinued Metolazone [Zaroxolyn] 2.5 mg PO DAILY #1 tablet Allopurinol [Zyloprim] 100 mg PO DAILY Insulin Detemir [Levemir] 40 unit SQ DAILY Sodium Bicarbonate Tab 650 mg PO BID Albuterol Sulfate [Proair Hfa] 2 puff INHALATION RT-Q6H PRN PRN Reason: Shortness Of Breath Discharge Medication List Acetaminophen Tab [Tylenol] 650 mg PO Q6HR PRN tab 03/16/18 [Rx] Famotidine [Pepcid] 20 mg PO DAILY tab 03/16/18 [Rx] Metoprolol Succinate (ER) [Toprol XL] 100 mg PO DAILY tab.er.24h 03/16/18 [Rx] hydrALAZINE HCL [Apresoline] 100 mg PO TID tab 03/16/18 [Rx] Lactobacillus Acidophilus [Acidophilus] 1 tab PO BID 03/20/18 [History] Budesonide-Formot 160-4.5 Mcg [Symbicort 160-4.5 Mcg Inhaler] 2 puff INHALATION RT-BID puff 03/24/18 [Rx] Aspirin 81 mg PO DAILY chew 03/26/18 [Rx] Atorvastatin Calcium [Lipitor] 20 mg PO HS 08/17/18 [History] Fenofibrate Nanocrystallized [Tricor] 48 mg PO DAILY 08/17/18 [History] Nystatin 100,000 Unit/gm Powd [Mycostatin Powder] 1 applic TOPICAL BID 08/17/18 [History] Diphenox-Atrop 2.5-0.025 mg [Lomotil] 1 each PO Q6HR PRN #12 tab 08/25/18 [Rx] Furosemide [Lasix] 40 mg PO BID #1 tablet 08/25/18 [Rx] INSULIN LISPRO (HumaLOG) [humaLOG] 0 unit SQ ACHS #1 vial 08/25/18 [Rx] Insulin Aspart [NovoLOG] 7 units SQ ACHS #1 ml 08/25/18 [Rx] Ipratropium-Albuterol Nebulize [Duoneb 0.5 mg-3 mg/3 ml Soln] 3 ml INHALATION RT -QID #0 ampul.neb 08/25/18 [Rx] Melatonin 3 mg PO HS PRN tablet 08/25/18 [Rx] Nicotine 14Mg/24Hr Patch [Habitrol] 1 patch TRANSDERM DAILY patch 08/25/18 [Rx] Pantoprazole [Protonix] 40 mg PO AC-BRKFST tablet. 08/25/18 [Rx] amLODIPine [Norvasc] 10 mg PO DAILY tab 08/25/18 [Rx] Insulin Detemir [Levemir] 15 unit SQ HS syr 08/26/18 [Rx] Follow up Appointment(s)/Referral(s): Josephine Lucero MD [STAFF PHYSICIAN] - 09/01/18 2:30 pm (Friday) Elmo Archer NPC [REFERRING] - 1 Week Stuart Templeton DO [STAFF PHYSICIAN] - 09/10/18 2:00 pm () Patient Instructions/Handouts: Heart Failure (ER), Heart Healthy Diet (ED), COPD (Chronic Obstructive Pulmonary Disease) (DC) Activity/Diet/Wound Care/Special Instructions: Pt to follow up with Dr. Larry, not Dr. Read, per family member. They will make appointment on discharge Diet: Consistent carb, cardiac,1.5l fluid restriction Activity: as tolerated cbc,bmp, magnesium in 3 days with results to PCP and to Dr. Templeton Hold antihypertensives if systolic blood pressure less than 120 [phone] Discharge Disposition: TRANSFER TO SNF/ECF
[2018-08-26 12:54] VITALS: PULSE 80
[2018-08-26] MEDS ORDERED: INSULIN DETEMIR 100 UNIT/ML 10 ML VIAL SQ SCH (21:00)
[2018-08-26] MEDS ORDERED: AMOXIC-POT CLAV 500-125 MG 1 EACH TAB PO SCH (21:00)
--- NOTE | 2018-08-27 13:47 | CDI ---
Documentation Clarification Form Date: 08/27/2018 1:37:08 PM From: ZENA Lynch; Yesy Rivera Poultice Machine Operator Phone: If you have a question about this query, please contact Yesy Rivera Poultice Machine Operator at [phone] between 8am and 5pm. Admit Date: 08/16/2018 6:47:00 PM Patient Name: Emilie Melendez Visit Number: [id number] Discharge Date: 05/26/2018 ATTENTION: The Clinical Documentation Specialists (CDI) and [facility] Coding Staff appreciate your assistance in clarifying documentation. Please respond to the clarification below the line at the bottom and electronically sign. The CDI & [facility] Coding staff will review the response and follow-up if needed. Please note: Queries are made part of the Legal Health Record. If you have any questions, please contact the author of this message via ITS. Erich Velez MD The patient has uncontrolled diabetes type II, as indicated on progress note dated 08/22/18. Clinical Indicators: Blood glucose 226, 233, 195, 172, 126, 171, 149 73, 38, 136, 85; from 08-16 through 08-26. In order to capture the severity of Illness and necessary documentation specificity, please clarify: DM Type II uncontrolled with hyperglycemia DM Type II uncontrolled with hypoglycemia Other, please specify Unable to Determine ___ DM Type II uncontrolled with hyperglycemia MTDD
== END 2018-08-26 14:28 | disposition home health service (06) | DRG 291 ==
LOC: 6SEL 18:47
PROVIDERS: ADMIT Internal Medicine; ATTEND Internal Medicine
DX: I13.0 Hypertensive heart and chronic kidney disease with heart failure and stage 1 through stage 4 chronic kidney disease, or unspecified chronic kidney disease (principal); I50.33 Acute on chronic diastolic (congestive) heart failure; J18.9 Pneumonia, unspecified organism; J96.01 Acute respiratory failure with hypoxia; N17.0 Acute kidney failure with tubular necrosis; C83.10 Mantle cell lymphoma, unspecified site; E87.2 Acidosis; J44.0 Chronic obstructive pulmonary disease with (acute) lower respiratory infection; J44.1 Chronic obstructive pulmonary disease with (acute) exacerbation; Z68.41 Body mass index [BMI] 40.0-44.9, adult; D63.1 Anemia in chronic kidney disease; D69.6 Thrombocytopenia, unspecified; D72.820 Lymphocytosis (symptomatic); D72.823 Leukemoid reaction; E11.22 Type 2 diabetes mellitus with diabetic chronic kidney disease; E66.01 Morbid (severe) obesity due to excess calories; E73.9 Lactose intolerance, unspecified; E78.5 Hyperlipidemia, unspecified; E87.5 Hyperkalemia; F17.200 Nicotine dependence, unspecified, uncomplicated; F32.9 Major depressive disorder, single episode, unspecified; F41.1 Generalized anxiety disorder; F42.9 Obsessive-compulsive disorder, unspecified; G47.00 Insomnia, unspecified; I08.1 Rheumatic disorders of both mitral and tricuspid valves; I25.2 Old myocardial infarction; I27.20 Pulmonary hypertension, unspecified; N18.3 Chronic kidney disease, stage 3 (moderate); T38.0X5A Adverse effect of glucocorticoids and synthetic analogues, initial encounter; Z79.4 Long term (current) use of insulin; Z79.51 Long term (current) use of inhaled steroids; Z79.82 Long term (current) use of aspirin; Z79.899 Other long term (current) drug therapy; Z82.49 Family history of ischemic heart disease and other diseases of the circulatory system; Z83.3 Family history of diabetes mellitus; Z86.19 Personal history of other infectious and parasitic diseases; Z92.21 Personal history of antineoplastic chemotherapy; Z98.891 History of uterine scar from previous surgery; R33.9 Retention of urine, unspecified; E11.65 Type 2 diabetes mellitus with hyperglycemia
CPT/HCPCS: 36600; 71045; 71046; 80048; 80053; 82728; 82805; 83036; 83540; 83550; 83735; 83880; 84100; 84132; 84484; 85025; 87040; 87086; 87324; 93306; 94640; 94660; 94760